=== PATIENT | female | born 1935 | race Caucasian/White ===

== ENCOUNTER → 2016-11-12 | Outpatient (REF) | payer MEDICARE, OTHER ==
[~2016-11-12] MED LIST: AMBI5TAB PO; AMO500 PO; AMP500 PO; ASP325 PO; ASPI81TA83; BACTRIMDS PO; CALC600T21 PO; CALCITROL PO; CANE; CIPR500T4; CIPR500T89 PO; CIPRO250 PO; CIPRO500 PO; COLA100C PO; COUMADIN PO; COUMADIN5 PO; DARVOCET-N PO; DILA100C; DILA100C PO; DILAN100 PO; DILANTIN PO; FERR140T PO; FOLITAB11 OR; KLORCON20 PO; LACT10SO29 PO; LASI20TA PO; LASI40TA; LASIX40 PO; LEVOTH PO; LEVOXYL PO; LISINOPR20 PO; LOVENOX SQ; LUTE20TA PO; MICRO K EXTENCAPS; NORV5TAB PO; PANT40TA2 PO; PERCOCET PO; SUCR1TA PO; SYNT100T PO; SYNT88TA; TUSSIONEX PO; TYLE325T5 PO; TYLE650T25 PO; VALTREX100 PO; VASOTEC10 PO; VASOTEC5 PO; VITA100072 PO; VITA1CAP4 PO; VITA50TA12; VITAMIN D2 OR; VITAMIN D2 PO; WARF-21 PO; WARF-22 PO; WOMAN VITAMIN OR; ZOCO20TA PO; [UNRECOGNIZED DRUG - CODE] PO
[2016-11-12 11:34] LABS: BASO % 0.5 % (0.0-1.0); EOS # 0.1 K/mm3 (0.0-0.50); EOS % 2.2 % (0.0-3.0); LARGE UNSTAINED CELL # 0.2 K/mm3 (0.0-0.4); LARGE UNSTAINED CELL % 2.8 % (0.0-4.0); LYMPH # 1.4 K/mm3 (1.5-4.5); LYMPH % 22.2 % (24.0-44.0); MEAN CORPUSCULAR HEMOGLOBIN 30.7 pg (27.0-33.0); MEAN CORPUSCULAR HGB CONC 32.7 g/dl (32.0-36.5); MEAN CORPUSCULAR VOLUME 93.9 fl (80.0-96.0); MONO # 0.5 K/mm3 (0.0-0.8); MONO % 7.1 % (0.0-5.0); NEUTROPHILS # 4.1 K/mm3 (1.8-7.7); NEUTROPHILS % 65.2 % (36.0-66.0); PLATELET COUNT, AUTOMATED 189 k/mm3 (150-450); RED CELL DISTRIBUTION WIDTH 12.8 % (11.5-14.5); WHITE BLOOD COUNT 6.3 K/mm3 (4.0-10.0)
[2016-11-12 11:35] LABS: INR 1.89
[2016-11-12 12:09] LABS: ALBUMIN/GLOBULIN RATIO 1.67 (1.00-1.93); BILIRUBIN,TOTAL 0.2 MG/DL (0.2-1.0); CALCIUM LEVEL 9.4 MG/DL (8.8-10.2); CREATININE FOR GFR 1.57 MG/DL (0.55-1.02); FREE T4 0.9 NG/DL (0.76-1.46); GLOMERULAR FILTRATION RATE 33.7 (>32); PERCENT SATURATION 45.9 % (13.2-37.4); POTASSIUM SERUM 5.1 MEQ/L (3.5-5.1); TOTAL PROTEIN 6.4 GM/DL (6.4-8.2)
== END ==
LOC: M SFHCPLAZ 08:45
PROVIDERS: ATTEND Family Medicine
DX: D50.9 Iron deficiency anemia, unspecified (principal); N18.3 Chronic kidney disease, stage 3 (moderate); E03.9 Hypothyroidism, unspecified; Z79.01 Long term (current) use of anticoagulants

== ENCOUNTER → 2017-01-08 | Outpatient (REF) | payer MEDICARE, OTHER ==
[2017-01-08 10:58] LABS: BASO % 0.6 % (0.0-1.0); EOS # 0.2 K/mm3 (0.0-0.50); EOS % 3.8 % (0.0-3.0); LARGE UNSTAINED CELL # 0.1 K/mm3 (0.0-0.4); LARGE UNSTAINED CELL % 2.1 % (0.0-4.0); LYMPH # 1.1 K/mm3 (1.5-4.5); LYMPH % 17.3 % (24.0-44.0); MEAN CORPUSCULAR HEMOGLOBIN 30.1 pg (27.0-33.0); MEAN CORPUSCULAR HGB CONC 32.9 g/dl (32.0-36.5); MEAN CORPUSCULAR VOLUME 91.4 fl (80.0-96.0); MONO # 0.5 K/mm3 (0.0-0.8); MONO % 8.6 % (0.0-5.0); NEUTROPHILS # 3.9 K/mm3 (1.8-7.7); NEUTROPHILS % 67.6 % (36.0-66.0); PLATELET COUNT, AUTOMATED 188 k/mm3 (150-450); RED CELL DISTRIBUTION WIDTH 12.9 % (11.5-14.5); WHITE BLOOD COUNT 5.8 K/mm3 (4.0-10.0)
[2017-01-08 11:20] LABS: FERRITIN 13 NG/ML (8-252)
== END ==
LOC: M SFHCPLAZ 09:05
PROVIDERS: ATTEND Family Medicine
DX: R07.9 Chest pain, unspecified (principal); I82.4Y9 Acute embolism and thrombosis of unspecified deep veins of unspecified proximal lower extremity; Z51.81 Encounter for therapeutic drug level monitoring; Z79.01 Long term (current) use of anticoagulants; Z79.899 Other long term (current) drug therapy
CPT/HCPCS: 36415; 82550; 82553; 82728; 84484; 85025; 85379; 85610; 93005; G0463

== ENCOUNTER → 2017-03-17 | Outpatient (REF) | payer MEDICARE, OTHER ==
[~2017-03-17] MED LIST changes: -COLA100C PO; +COLA100C3 PO
[2017-03-17 11:58] LABS: BASO % 0.6 % (0.0-1.0); EOS # 0.2 K/mm3 (0.0-0.50); LARGE UNSTAINED CELL # 0.1 K/mm3 (0.0-0.4); LARGE UNSTAINED CELL % 2.7 % (0.0-4.0); LYMPH # 1.2 K/mm3 (1.5-4.5); LYMPH % 23.6 % (24.0-44.0); MEAN CORPUSCULAR HEMOGLOBIN 29.5 pg (27.0-33.0); MEAN CORPUSCULAR HGB CONC 32.1 g/dl (32.0-36.5); MEAN CORPUSCULAR VOLUME 91.8 fl (80.0-96.0); MONO # 0.5 K/mm3 (0.0-0.8); MONO % 9.8 % (0.0-5.0); NEUTROPHILS % 60.2 % (36.0-66.0); PLATELET COUNT, AUTOMATED 217 k/mm3 (150-450); RED CELL DISTRIBUTION WIDTH 13.3 % (11.5-14.5); WHITE BLOOD COUNT 4.9 K/mm3 (4.0-10.0)
[2017-03-17 12:00] LABS: INR 2.12
[2017-03-17 12:15] LABS: ALBUMIN 3.7 GM/DL (3.2-5.2); ALBUMIN/GLOBULIN RATIO 1.32 (1.00-1.93); BILIRUBIN,TOTAL 0.2 MG/DL (0.2-1.0); CALCIUM LEVEL 8.6 MG/DL (8.8-10.2); CREATININE FOR GFR 1.4 MG/DL (0.55-1.02); FREE T4 0.9 NG/DL (0.76-1.46); GLOMERULAR FILTRATION RATE 38.3 (>32); POTASSIUM SERUM 4.2 MEQ/L (3.5-5.1); TOTAL PROTEIN 6.5 GM/DL (6.4-8.2)
== END ==
LOC: M SFHCPLAZ 08:09
PROVIDERS: ATTEND Family Medicine
DX: D50.9 Iron deficiency anemia, unspecified (principal); N18.3 Chronic kidney disease, stage 3 (moderate); E03.9 Hypothyroidism, unspecified; E78.5 Hyperlipidemia, unspecified; I82.4Y9 Acute embolism and thrombosis of unspecified deep veins of unspecified proximal lower extremity

== ENCOUNTER → 2017-03-20 | Outpatient (REF) | payer MEDICARE, OTHER ==
[~2017-03-20] MED LIST changes: +CALC600T27 PO
[2017-03-20 13:12] LABS: BASO % 0.7 % (0.0-1.0); EOS # 0.1 K/mm3 (0.0-0.50); EOS % 1.1 % (0.0-3.0); LARGE UNSTAINED CELL # 0.2 K/mm3 (0.0-0.4); LARGE UNSTAINED CELL % 2.4 % (0.0-4.0); LYMPH # 1.5 K/mm3 (1.5-4.5); LYMPH % 21.8 % (24.0-44.0); MEAN CORPUSCULAR HEMOGLOBIN 28.9 pg (27.0-33.0); MEAN CORPUSCULAR HGB CONC 32.5 g/dl (32.0-36.5); MEAN CORPUSCULAR VOLUME 88.8 fl (80.0-96.0); MONO # 0.5 K/mm3 (0.0-0.8); NEUTROPHILS % 65.9 % (36.0-66.0); PLATELET COUNT, AUTOMATED 208 k/mm3 (150-450); RED CELL DISTRIBUTION WIDTH 13.5 % (11.5-14.5); WHITE BLOOD COUNT 6.1 K/mm3 (4.0-10.0)
[2017-03-20 13:20] LABS: INR 2.26
[2017-03-20 13:28] LABS: ALBUMIN 3.9 GM/DL (3.2-5.2); ALBUMIN/GLOBULIN RATIO 1.34 (1.00-1.93); BILIRUBIN,TOTAL 0.2 MG/DL (0.2-1.0); CALCIUM LEVEL 8.7 MG/DL (8.8-10.2); CREATININE FOR GFR 1.42 MG/DL (0.55-1.02); GLOMERULAR FILTRATION RATE 37.7 (>32); POTASSIUM SERUM 4.2 MEQ/L (3.5-5.1); TOTAL PROTEIN 6.8 GM/DL (6.4-8.2)
== END ==
LOC: M SFHCPLAZ 13:04
PROVIDERS: ATTEND Family Medicine
DX: K27.9 Peptic ulcer, site unspecified, unspecified as acute or chronic, without hemorrhage or perforation (principal)
CPT/HCPCS: 80053; 85025; 85610; 85730; G0463

== ENCOUNTER → 2017-03-23 | Outpatient (REF) | payer MEDICARE, OTHER ==
[2017-03-23 09:59] LABS: BASO % 0.6 % (0.0-1.0); EOS # 0.1 K/mm3 (0.0-0.50); LARGE UNSTAINED CELL # 0.1 K/mm3 (0.0-0.4); LARGE UNSTAINED CELL % 2.2 % (0.0-4.0); LYMPH # 0.8 K/mm3 (1.5-4.5); LYMPH % 15.2 % (24.0-44.0); MEAN CORPUSCULAR HEMOGLOBIN 29.3 pg (27.0-33.0); MEAN CORPUSCULAR HGB CONC 32.4 g/dl (32.0-36.5); MEAN CORPUSCULAR VOLUME 90.4 fl (80.0-96.0); MONO # 0.5 K/mm3 (0.0-0.8); MONO % 9.4 % (0.0-5.0); NEUTROPHILS # 3.6 K/mm3 (1.8-7.7); NEUTROPHILS % 70.6 % (36.0-66.0); PLATELET COUNT, AUTOMATED 198 k/mm3 (150-450); RED CELL DISTRIBUTION WIDTH 13.3 % (11.5-14.5)
[2017-03-23 10:17] LABS: INR 1.24
== END ==
LOC: M SFHCPLAZ 09:17
PROVIDERS: ATTEND Physician Assistant Medical
DX: D50.9 Iron deficiency anemia, unspecified (principal); I82.4Y9 Acute embolism and thrombosis of unspecified deep veins of unspecified proximal lower extremity
CPT/HCPCS: 36415; 85025; 85610; 85730; G0463

== ENCOUNTER → 2017-04-06 | Outpatient (CLI) | payer MEDICARE, OTHER | LOC: M LAB 17:10 | PROVIDERS: ATTEND Family Medicine | DX: D50.9 Iron deficiency anemia, unspecified (principal); E03.9 Hypothyroidism, unspecified; K27.9 Peptic ulcer, site unspecified, unspecified as acute or chronic, without hemorrhage or perforation; G40.909 Epilepsy, unspecified, not intractable, without status epilepticus; I82.4Y9 Acute embolism and thrombosis of unspecified deep veins of unspecified proximal lower extremity; C18.9 Malignant neoplasm of colon, unspecified | CPT/HCPCS: 36415; 80185; 82378; 82728; 83550; 84439; 84443; 85025; 85610; 85730; 86677; 86850; 86900; 86901; 86920; G0463 ==

== ENCOUNTER → 2017-04-06 | Outpatient (REF) | payer MEDICARE, OTHER ==
[2017-04-06 14:14] LABS: INR 1.01
[2017-04-06 14:27] LABS: FREE T4 1.18 NG/DL (0.76-1.46); PERCENT SATURATION 6.9 % (13.2-37.4)
[2017-04-06 14:28] LABS: BASO % 0.6 % (0.0-1.0); EOS # 0.1 K/mm3 (0.0-0.50); EOS % 1.6 % (0.0-3.0); LARGE UNSTAINED CELL # 0.1 K/mm3 (0.0-0.4); LARGE UNSTAINED CELL % 1.8 % (0.0-4.0); LYMPH # 1.1 K/mm3 (1.5-4.5); LYMPH % 18.8 % (24.0-44.0); MEAN CORPUSCULAR HEMOGLOBIN 28.7 pg (27.0-33.0); MEAN CORPUSCULAR HGB CONC 32.5 g/dl (32.0-36.5); MEAN CORPUSCULAR VOLUME 88.4 fl (80.0-96.0); MONO # 0.5 K/mm3 (0.0-0.8); MONO % 9.6 % (0.0-5.0); NEUTROPHILS # 3.8 K/mm3 (1.8-7.7); NEUTROPHILS % 67.6 % (36.0-66.0); PLATELET COUNT, AUTOMATED 221 k/mm3 (150-450); RED CELL DISTRIBUTION WIDTH 13.7 % (11.5-14.5); WHITE BLOOD COUNT 5.6 K/mm3 (4.0-10.0)
[2017-04-07 08:30] LABS: CARCINOEMBRYONIC ANTIGEN 3.2 NG/ML (<2.5)
== END ==
LOC: M SFHCPLAZ 10:12
PROVIDERS: ATTEND Family Medicine
DX: D50.9 Iron deficiency anemia, unspecified (principal); E03.9 Hypothyroidism, unspecified; K27.9 Peptic ulcer, site unspecified, unspecified as acute or chronic, without hemorrhage or perforation; G40.909 Epilepsy, unspecified, not intractable, without status epilepticus; I82.4Y9 Acute embolism and thrombosis of unspecified deep veins of unspecified proximal lower extremity; C18.9 Malignant neoplasm of colon, unspecified

== ENCOUNTER 2017-04-07 10:24 | Outpatient (CLI) | payer MEDICARE, OTHER ==
[~2017-04-07 10:24] MED LIST changes: -CALC600T27 PO
[2017-04-07] MEDS ORDERED: FUROSEMIDE 40 MG/4 ML VIAL (J1940) IV ONE (10:45)
[2017-04-07] MEDS ORDERED: CALC600T27 PO (15:36)
== END 2017-04-07 15:10 | disposition home or self-care (01) ==
LOC: M INFU 10:24
PROVIDERS: ATTEND Family Medicine
DX: D50.9 Iron deficiency anemia, unspecified (principal); Z88.1 Allergy status to other antibiotic agents; Z88.2 Allergy status to sulfonamides
CPT/HCPCS: 36430; J1940; P9016

== ENCOUNTER → 2017-04-13 | Outpatient (REF) | payer MEDICARE, OTHER ==
[~2017-04-13] MED LIST changes: +ALPR0.25 PO; +CALC1CAP31 PO; -CALC600T21 PO; +CALC600T27 PO; +CALC600T60 PO; +CIPR-249 PO; -CIPR500T89 PO; -COLA100C3 PO; +COLA100C5 PO; +FOLI800C PO; +MULT1TAB10 PO; +SIMV40TA2 PO; +VITA-137 PO; -VITA1CAP4 PO
== END ==
LOC: M SFHCPLAZ 16:55
PROVIDERS: ATTEND Physician Assistant Medical
DX: R07.89 Other chest pain (principal)
CPT/HCPCS: 36415; 82550; 82553; 84484; G0463

== ENCOUNTER → 2017-05-07 | Outpatient (REF) | payer MEDICARE, OTHER ==
[2017-05-07 11:36] LABS: BASO % 0.7 % (0.0-1.0); EOS # 0.1 K/mm3 (0.0-0.50); EOS % 1.4 % (0.0-3.0); LARGE UNSTAINED CELL # 0.2 K/mm3 (0.0-0.4); LARGE UNSTAINED CELL % 2.5 % (0.0-4.0); LYMPH % 17.2 % (24.0-44.0); MEAN CORPUSCULAR HEMOGLOBIN 29.7 pg (27.0-33.0); MEAN CORPUSCULAR HGB CONC 33.2 g/dl (32.0-36.5); MEAN CORPUSCULAR VOLUME 89.3 fl (80.0-96.0); MONO # 0.5 K/mm3 (0.0-0.8); MONO % 8.5 % (0.0-5.0); NEUTROPHILS # 4.1 K/mm3 (1.8-7.7); NEUTROPHILS % 69.7 % (36.0-66.0); PLATELET COUNT, AUTOMATED 172 k/mm3 (150-450); RED CELL DISTRIBUTION WIDTH 14.6 % (11.5-14.5); WHITE BLOOD COUNT 5.9 K/mm3 (4.0-10.0)
[2017-05-07 11:58] LABS: ALBUMIN 3.9 GM/DL (3.2-5.2); ALBUMIN/GLOBULIN RATIO 1.44 (1.00-1.93); BILIRUBIN,TOTAL 0.4 MG/DL (0.2-1.0); CREATININE FOR GFR 1.27 MG/DL (0.55-1.02); GLOMERULAR FILTRATION RATE 42.9 (>32); PERCENT SATURATION 36.5 % (13.2-37.4); POTASSIUM SERUM 4.2 MEQ/L (3.5-5.1); TOTAL PROTEIN 6.6 GM/DL (6.4-8.2)
== END ==
LOC: M SFHCPLAZ 09:55
PROVIDERS: ATTEND Family Medicine
DX: D50.9 Iron deficiency anemia, unspecified (principal)
CPT/HCPCS: 80053; 82728; 83550; 85025; G0463

== ENCOUNTER 2017-05-09 17:17 | Emergency (ER) | payer MEDICARE, OTHER ==
[~2017-05-09] VITALS: Ht 157.5 cm; Wt 79.1 kg
--- NOTE | 2017-05-09 21:01 | REP ---
Clinical: Bilateral lower extremity pain and swelling . Technique: Mason scale and color Doppler evaluation using linear high frequency transducer. Findings: Ultrasound examination of the right and left lower extremity deep venous structures from the common femoral vein to the popliteal vein demonstrates normal compressibility flow and wave patterns in response to respiration and augmentation. There is no evidence for deep venous thrombosis. Impression: No evidence for deep venous thrombosis bilateral lower extremities. Signed by Nilo Whitten MD 05/09/2017 08:51 P
--- NOTE | 2017-05-09 21:13 | REP ---
Clinical: Shortness of breath. Technique: PA and lateral. Comparison: 03/27/2016. Findings: A subtle lobulated right infrahilar opacity cannot be excluded. Mediastinum and cardiac silhouette are stable. The remainder of lung brandon demonstrate diffuse chronic changes. No effusion. No pneumothorax. Skeletal structures demonstrate osteopenia and degenerative change. Impression: Cannot exclude subtle lobulated right infrahilar opacity. Signed by Nilo Whitten MD 05/09/2017 09:05 P
[2017-05-09 21:21] LABS: BASO # 0.1 K/mm3 (0.0-0.2); BASO % 1.2 % (0.0-1.0); EOS # 0.1 K/mm3 (0.0-0.50); LARGE UNSTAINED CELL # 0.1 K/mm3 (0.0-0.4); LARGE UNSTAINED CELL % 2.1 % (0.0-4.0); LYMPH # 1.7 K/mm3 (1.5-4.5); LYMPH % 25.2 % (24.0-44.0); MEAN CORPUSCULAR HEMOGLOBIN 29.8 pg (27.0-33.0); MEAN CORPUSCULAR HGB CONC 33.9 g/dl (32.0-36.5); MEAN CORPUSCULAR VOLUME 87.8 fl (80.0-96.0); MONO # 0.5 K/mm3 (0.0-0.8); MONO % 8.4 % (0.0-5.0); NEUTROPHILS # 3.8 K/mm3 (1.8-7.7); NEUTROPHILS % 61.1 % (36.0-66.0); PLATELET COUNT, AUTOMATED 162 k/mm3 (150-450); RED CELL DISTRIBUTION WIDTH 14.8 % (11.5-14.5); WHITE BLOOD COUNT 6.2 K/mm3 (4.0-10.0)
--- NOTE | 2017-05-09 21:30 | ECGEPIP ---
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
[2017-05-09 21:32] LABS: INR 1.04
[2017-05-09 21:50] LABS: ANION GAP 6 MEQ/L (8-16); BLOOD UREA NITROGEN 17 MG/DL (7-18); CARBON DIOXIDE LEVEL 29 MEQ/L (21-32); CHLORIDE LEVEL 102 MEQ/L (98-107); CREATININE FOR GFR 1.22 MG/DL (0.55-1.02); FREE T4 1.11 NG/DL (0.76-1.46); GLOMERULAR FILTRATION RATE 44.9 (>32); GLUCOSE, FASTING 97 MG/DL (83-110); POTASSIUM SERUM 3.8 MEQ/L (3.5-5.1); SODIUM LEVEL 137 MEQ/L (136-145)
--- NOTE | 2017-05-09 23:20 | REPUSA ---
CT of the chest without contrast Clinical statement: right ingrahilar opacity. Technique: Multiple axial CT images were obtained with 5 mm cuts through the chest without administra tion of contrast. Comparison: 07/24/2008. Findings: There is no thoracic lymphadenopathy. The visualized portions of the thyroid gland is unrem arkable. There are no pericardial or pleural effusions. The lungs are clear, other than linear scarri ng in the lingula of the lung. Limited imaging of the upper abdomen does not demonstrate any acute ab normalities. Multiple simple cysts are seen in the kidneys bilaterally. There are no suspicious osseo us lesions. Impression: No acute intrapulmonary disease.
[2017-05-09 23:35] VITALS: BP 151/70
--- NOTE | 2017-05-11 11:56 | ED PDOC ---
Post-Departure Follow-Up dr ferraro faxed formal report of cxr for fu redg Jermaine Harris MD May 11, 2017 11:56
== END 2017-05-09 23:42 | disposition home or self-care (01) ==
LOC: M ED 17:17
DX: R60.0 Localized edema (principal); R06.02 Shortness of breath; I12.9 Hypertensive chronic kidney disease with stage 1 through stage 4 chronic kidney disease, or unspecified chronic kidney disease; N18.9 Chronic kidney disease, unspecified; Z86.718 Personal history of other venous thrombosis and embolism

== ENCOUNTER → 2017-05-15 | Outpatient (CLI) | payer MEDICARE, OTHER ==
[~2017-05-15] VITALS: Ht 160 cm; Wt 78.9 kg
[~2017-05-15] MED LIST changes: +LIDOCAINE 2% INJ 100 MG/5 ML SDV (FOR ANES.) As Ordered ONE; +NS 500 ML IV SCH; +PROPOFOL 200 MG/20 ML VIAL As Ordered ONE; +SIMETHICONE 40MG/0.6ML DROPS 30ML As Ordered ONE
--- NOTE | 2017-05-15 08:09 | ROOR ---
Patient Name: Akanksha Dupont Procedure Date: 05/15/2017 7:33 AM Date of : 1935 Age: 81 Room: [facility] Gender: Female Note Status: Finalized Procedure: Upper GI endoscopy Indications: Iron deficiency anemia Providers: Miguel Angel WILDE MD Referring MD: Jaime Sifuentes MD Requesting Provider: Medicines: Monitored Anesthesia Care Complications: No immediate complications. Procedure: Pre-Anesthesia Assessment: - The heart rate, respiratory rate, oxygen saturations, blood pressure, adequacy of pulmonary ventilation, and response to care were monitored throughout the procedure. The Endoscope was introduced through the mouth, and advanced to the second part of duodenum. The upper GI endoscopy was accomplished without difficulty. The patient tolerated the procedure well. Findings: The examined esophagus was normal. Multiple small no bleeding angioectasias were found in the gastric antrum. Focal radiofrequency ablation of gastric antral vascular ectasia in the gastric antrum was performed. With the endoscope in place, the position and extent of the abnormal mucosa and appropriate anatomic landmarks were noted. The radiofrequency channel ablation catheter was introduced through the endoscope working channel. The endoscope with the ablation catheter was advanced to the areas of abnormal mucosa. The endoscope with the channel ablation catheter was positioned under direct visualization so that the catheter was placed in contact with the surface of the abnormal mucosa. Energy was applied twice at 12 J/cm2. The ablation catheter was removed through the endoscope working channel. The areas where abnormal mucosa had been ablated were examined. Areas of abnormal mucosa appeared completely ablated. The exam of the stomach was otherwise normal. The examined duodenum was normal. Impression: - Normal esophagus. - Multiple small non-bleeding angioectasias in the antrum of stomach (mild GAVE). Treated with radiofrequency ablation. - Normal examined duodenum. - No specimens collected. Recommendation: - Observe patient's clinical course. Repeat treatment if iron deficit persists. - Use Protonix (pantoprazole) 40 mg PO daily. - Return to my office in 2 months. Miguel Angel Wilde MD Miguel Angel WILDE MD 05/15/2017 8:08:41 AM This report has been signed electronically. Number of Addenda: 0 Note Initiated On: 05/15/2017 7:33 AM Estimated Blood Loss: Estimated blood loss: none.
--- NOTE | 2017-05-15 08:23 | ROOR ---
Patient Name: Akanksha Dupont Procedure Date: 05/15/2017 7:34 AM Date of : 1935 Age: 81 Room: [facility] Gender: Female Note Status: Finalized Procedure: Colonoscopy Indications: Heme positive stool, Iron deficiency anemia Providers: Miguel Angel WILDE MD Referring MD: Jaime Sifuentes MD Requesting Provider: Medicines: Monitored Anesthesia Care Complications: No immediate complications. Procedure: Pre-Anesthesia Assessment: - The heart rate, respiratory rate, oxygen saturations, blood pressure, adequacy of pulmonary ventilation, and response to care were monitored throughout the procedure. The Colonoscope was introduced through the anus and advanced to the ileocolonic anastomosis. The colonoscopy was performed without difficulty. The patient tolerated the procedure well. The quality of the bowel preparation was good. Findings: The perianal and digital rectal examinations were normal. Multiple medium-mouthed diverticula were found in the sigmoid colon. A 5 mm polyp was found in the transverse colon. The polyp was sessile. The polyp was removed with a cold snare. Resection and retrieval were complete. There was evidence of a prior functional end-to-end ileo-colonic anastomosis in the transverse colon. This was patent and was characterized by healthy appearing mucosa. Internal hemorrhoids were found during retroflexion. The hemorrhoids were medium-sized. The exam was otherwise without abnormality on direct and retroflexion views. Impression: - Moderate diverticulosis in the sigmoid colon. - One 5 mm polyp in the transverse colon, removed with a cold snare. Resected and retrieved. - Patent functional end-to-end ileo-colonic anastomosis, characterized by healthy appearing mucosa. - Internal hemorrhoids. - The examination was otherwise normal on direct and retroflexion views. Recommendation: - Return to my office in 2 months. - Depending on repeat H&H will consider repeat EGD for repeat ablation of GAVE and/or Small bowel Capsule/Pillcam Miguel Angel Wilde MD Miguel Angel WILDE MD 05/15/2017 8:23:06 AM This report has been signed electronically. Number of Addenda: 0 Note Initiated On: 05/15/2017 7:34 AM Estimated Blood Loss: Estimated blood loss: none.
[2017-05-15 08:46] VITALS: BP 127/76
== END | disposition home or self-care (01) ==
LOC: M OPP 06:46
PROVIDERS: ATTEND Internal Medicine Gastroenterology
DX: R19.5 Other fecal abnormalities (principal); D50.9 Iron deficiency anemia, unspecified; D12.3 Benign neoplasm of transverse colon; K57.30 Diverticulosis of large intestine without perforation or abscess without bleeding; Z98.0 Intestinal bypass and anastomosis status; K64.8 Other hemorrhoids; K31.819 Angiodysplasia of stomach and duodenum without bleeding; I48.91 Unspecified atrial fibrillation; I12.9 Hypertensive chronic kidney disease with stage 1 through stage 4 chronic kidney disease, or unspecified chronic kidney disease; E78.5 Hyperlipidemia, unspecified; I99.9 Unspecified disorder of circulatory system; Z86.718 Personal history of other venous thrombosis and embolism; E03.9 Hypothyroidism, unspecified; Z87.19 Personal history of other diseases of the digestive system; Z85.038 Personal history of other malignant neoplasm of large intestine; R12 Heartburn; R06.02 Shortness of breath; M19.90 Unspecified osteoarthritis, unspecified site; N18.9 Chronic kidney disease, unspecified; H35.30 Unspecified macular degeneration; F41.9 Anxiety disorder, unspecified; Z87.891 Personal history of nicotine dependence; Z88.2 Allergy status to sulfonamides; Z88.8 Allergy status to other drugs, medicaments and biological substances; Z79.899 Other long term (current) drug therapy; Z80.9 Family history of malignant neoplasm, unspecified

== ENCOUNTER → 2017-05-26 | Outpatient (CLI) | payer MEDICARE, OTHER ==
[~2017-05-26] MED LIST changes: +E-Z-PAQUE 96% w/w SUSP 176GM BTL As Ordered ONE; -LIDOCAINE 2% INJ 100 MG/5 ML SDV (FOR ANES.) As Ordered ONE; -NS 500 ML IV SCH; -PROPOFOL 200 MG/20 ML VIAL As Ordered ONE; -SIMETHICONE 40MG/0.6ML DROPS 30ML As Ordered ONE
--- NOTE | 2017-05-26 17:47 | REP ---
SMALL BOWEL FOLLOW-THROUGH: The procedure was performed under the direct supervision of Dr. Mason. The images were reviewed with Dr. Mason. The agricultural engineering technician film shows no organomegaly or pathological masses. The intestinal gas pattern is nonspecific. There is an IVC filter in place. There are bowel sutures noted over the right abdomen consistent with the patients history of prior bowel resection. There are degenerative changes of the spine. Liquid barium was administered and the barium column was followed through the small bowel to the level of the terminal ileum. Small bowel transit time was approximately 1 hour. During fluoroscopy gentle palpation shows all loops are freely movable and pliable. There are no fixed or angulated loops. The small bowel mucosal pattern is normal in course and caliber. There is no transition to suspect a partial small bowel obstruction. Spot filming of the distal small bowel to the anastomosis is unremarkable. IMPRESSION: Postsurgical changes consistent with the patients history of bowel resection, otherwise unremarkable small bowel follow-through examination. 1 minutes and 9 seconds of fluoroscopy time was utilized for this procedure. Reviewed by ANN Aguiar 05/27/2017 01:44 PEdited and Signed by Luis Mason MD 05/28/2017 05:39 P
== END ==
LOC: M RAD 08:08
PROVIDERS: ATTEND Physician Assistant Medical
DX: D50.9 Iron deficiency anemia, unspecified (principal); Z85.038 Personal history of other malignant neoplasm of large intestine; Z08 Encounter for follow-up examination after completed treatment for malignant neoplasm

== ENCOUNTER → 2017-05-28 | Outpatient (REF) | payer MEDICARE, OTHER ==
[~2017-05-28] MED LIST changes: -E-Z-PAQUE 96% w/w SUSP 176GM BTL As Ordered ONE
[2017-05-28 11:55] LABS: BASO % 0.7 % (0.0-1.0); EOS # 0.1 K/mm3 (0.0-0.50); EOS % 2.8 % (0.0-3.0); LARGE UNSTAINED CELL # 0.1 K/mm3 (0.0-0.4); LARGE UNSTAINED CELL % 2.4 % (0.0-4.0); LYMPH # 0.9 K/mm3 (1.5-4.5); LYMPH % 16.4 % (24.0-44.0); MEAN CORPUSCULAR HEMOGLOBIN 29.7 pg (27.0-33.0); MEAN CORPUSCULAR HGB CONC 33.5 g/dl (32.0-36.5); MEAN CORPUSCULAR VOLUME 88.6 fl (80.0-96.0); MONO # 0.5 K/mm3 (0.0-0.8); MONO % 9.5 % (0.0-5.0); NEUTROPHILS # 3.5 K/mm3 (1.8-7.7); NEUTROPHILS % 68.2 % (36.0-66.0); PLATELET COUNT, AUTOMATED 187 k/mm3 (150-450); RED CELL DISTRIBUTION WIDTH 15.5 % (11.5-14.5); WHITE BLOOD COUNT 5.2 K/mm3 (4.0-10.0)
[2017-05-28 12:03] LABS: PERCENT SATURATION 19.4 % (13.2-37.4)
== END ==
LOC: M LABDRAWP 11:26
PROVIDERS: ATTEND Internal Medicine Gastroenterology
DX: D50.9 Iron deficiency anemia, unspecified (principal); I82.4Y9 Acute embolism and thrombosis of unspecified deep veins of unspecified proximal lower extremity

== ENCOUNTER → 2017-05-28 | Outpatient (REF) | payer MEDICARE, OTHER ==
[2017-05-28 11:52] LABS: BASO % 0.7 % (0.0-1.0); EOS # 0.2 K/mm3 (0.0-0.50); EOS % 2.8 % (0.0-3.0); LARGE UNSTAINED CELL # 0.1 K/mm3 (0.0-0.4); LARGE UNSTAINED CELL % 2.2 % (0.0-4.0); LYMPH # 0.9 K/mm3 (1.5-4.5); LYMPH % 16.9 % (24.0-44.0); MEAN CORPUSCULAR HEMOGLOBIN 30.1 pg (27.0-33.0); MEAN CORPUSCULAR VOLUME 88.6 fl (80.0-96.0); MONO # 0.5 K/mm3 (0.0-0.8); MONO % 8.2 % (0.0-5.0); NEUTROPHILS # 3.8 K/mm3 (1.8-7.7); NEUTROPHILS % 69.2 % (36.0-66.0); PLATELET COUNT, AUTOMATED 199 k/mm3 (150-450); RED CELL DISTRIBUTION WIDTH 15.3 % (11.5-14.5); WHITE BLOOD COUNT 5.6 K/mm3 (4.0-10.0)
[2017-05-28 12:07] LABS: ALBUMIN 3.8 GM/DL (3.2-5.2); ALBUMIN/GLOBULIN RATIO 1.58 (1.00-1.93); BILIRUBIN,TOTAL 0.2 MG/DL (0.2-1.0); CALCIUM LEVEL 8.9 MG/DL (8.8-10.2); CREATININE FOR GFR 1.06 MG/DL (0.55-1.02); GLOMERULAR FILTRATION RATE 52.8 (>32); PERCENT SATURATION 19.2 % (13.2-37.4); POTASSIUM SERUM 3.3 MEQ/L (3.5-5.1); TOTAL PROTEIN 6.2 GM/DL (6.4-8.2)
[2017-05-28 12:56] LABS: INR 1.76
== END ==
LOC: M SFHCPLAZ 08:40
PROVIDERS: ATTEND Family Medicine
DX: I82.4Y9 Acute embolism and thrombosis of unspecified deep veins of unspecified proximal lower extremity (principal); D50.9 Iron deficiency anemia, unspecified

== ENCOUNTER → 2017-07-09 | Outpatient (REF) | payer MEDICARE, OTHER ==
[2017-07-09 12:31] LABS: INR 1.48
[2017-07-09 12:48] LABS: BASO % 0.6 % (0.0-1.0); EOS # 0.1 K/mm3 (0.0-0.50); EOS % 1.8 % (0.0-3.0); LARGE UNSTAINED CELL # 0.1 K/mm3 (0.0-0.4); LARGE UNSTAINED CELL % 1.8 % (0.0-4.0); LYMPH # 1.1 K/mm3 (1.5-4.5); LYMPH % 19.3 % (24.0-44.0); MEAN CORPUSCULAR HEMOGLOBIN 30.4 pg (27.0-33.0); MEAN CORPUSCULAR HGB CONC 32.8 g/dl (32.0-36.5); MEAN CORPUSCULAR VOLUME 92.6 fl (80.0-96.0); MONO # 0.5 K/mm3 (0.0-0.8); MONO % 9.1 % (0.0-5.0); NEUTROPHILS # 3.6 K/mm3 (1.8-7.7); NEUTROPHILS % 67.5 % (36.0-66.0); PLATELET COUNT, AUTOMATED 199 k/mm3 (150-450); RED CELL DISTRIBUTION WIDTH 14.8 % (11.5-14.5); WHITE BLOOD COUNT 5.3 K/mm3 (4.0-10.0)
[2017-07-09 14:31] LABS: ALBUMIN 3.8 GM/DL (3.2-5.2); ALBUMIN/GLOBULIN RATIO 1.46 (1.00-1.93); BILIRUBIN,TOTAL 0.3 MG/DL (0.2-1.0); CALCIUM LEVEL 8.5 MG/DL (8.8-10.2); CREATININE FOR GFR 1.26 MG/DL (0.55-1.02); GLOMERULAR FILTRATION RATE 43.3 (>32); MAGNESIUM LEVEL 2.2 MG/DL (1.8-2.4); PERCENT SATURATION 17.9 % (13.2-45.0); POTASSIUM SERUM 3.9 MEQ/L (3.5-5.1); TOTAL PROTEIN 6.4 GM/DL (6.4-8.2)
== END ==
LOC: M SFHCPLAZ 09:43
PROVIDERS: ATTEND Family Medicine
DX: E53.8 Deficiency of other specified B group vitamins (principal); D50.9 Iron deficiency anemia, unspecified; I12.9 Hypertensive chronic kidney disease with stage 1 through stage 4 chronic kidney disease, or unspecified chronic kidney disease; N18.3 Chronic kidney disease, stage 3 (moderate)

== ENCOUNTER → 2017-10-30 | Outpatient (REF) | payer MEDICARE, OTHER ==
[2017-10-30 12:45] LABS: BASO # 0.1 10^3/uL (0.0-0.2); BASO % 0.8 % (0.0-1.0); EOS # 0.1 10^3/uL (0.0-0.50); EOS % 1.5 % (0.0-3.0); IMMATURE GRANULOCYTE % 0.3 % (0-0); LYMPH % 16.2 % (24.0-44.0); MEAN CORPUSCULAR HEMOGLOBIN 28.9 pg (27.0-33.0); MEAN CORPUSCULAR HGB CONC 32.7 g/dl (32.0-36.5); MEAN CORPUSCULAR VOLUME 88.4 fl (80.0-96.0); MONO # 0.6 10^3/uL (0.0-0.8); MONO % 10.3 % (0.0-5.0); NEUTROPHILS # 4.4 10^3/uL (1.8-7.7); NEUTROPHILS % 70.9 % (36.0-66.0); PLATELET COUNT, AUTOMATED 198 10^3/uL (150-450); RED CELL DISTRIBUTION WIDTH 14.1 % (11.5-14.5); RETIC HEMOGLOBIN EQUIVALENT 31.5 pg (24-36); RETICULOCYTE # 35.6 10^9/L (17-77); RETICULOCYTE % 1.1 % (0.5-1.5); WHITE BLOOD COUNT 6.2 10^3/uL (4.0-10.0)
[2017-10-30 13:36] LABS: ALBUMIN 4.1 GM/DL (3.2-5.2); ALBUMIN/GLOBULIN RATIO 1.58 (1.00-1.93); ALKALINE PHOSPHATASE 130 U/L (45-117); ALT/SGPT 31 U/L (12-78); ANION GAP 8 MEQ/L (8-16); AST/SGOT 37 U/L (7-37); BILIRUBIN,TOTAL 0.3 MG/DL (0.2-1.0); BLOOD UREA NITROGEN 32 MG/DL (7-18); CALCIUM LEVEL 8.7 MG/DL (8.8-10.2); CARBON DIOXIDE LEVEL 29 MEQ/L (21-32); CHLORIDE LEVEL 105 MEQ/L (98-107); CREATININE FOR GFR 1.38 MG/DL (0.55-1.02); FERRITIN 7 NG/ML (8-252); FREE T4 1.01 NG/DL (0.76-1.46); GLUCOSE, FASTING 95 MG/DL (83-110); POTASSIUM SERUM 4.4 MEQ/L (3.5-5.1); SODIUM LEVEL 142 MEQ/L (136-145); TOTAL PROTEIN 6.7 GM/DL (6.4-8.2)
== END ==
LOC: M SFHCPLAZ 10:13
DX: N18.3 Chronic kidney disease, stage 3 (moderate) (principal); D50.9 Iron deficiency anemia, unspecified; E03.9 Hypothyroidism, unspecified
CPT/HCPCS: 84443

== ENCOUNTER → 2017-12-15 | Outpatient (REF) | payer MEDICARE, OTHER ==
[2017-12-15 11:36] LABS: BASO % 0.6 % (0.0-1.0); EOS # 0.2 10^3/uL (0.0-0.50); EOS % 2.7 % (0.0-3.0); HEMATOCRIT 29.7 % (36.0-47.0); HEMOGLOBIN 9.7 g/dl (12.0-16.0); IMMATURE GRANULOCYTE % 0.3 % (0-3.0); LYMPH # 1.4 10^3/uL (1.5-4.5); LYMPH % 20.8 % (24.0-44.0); MEAN CORPUSCULAR HEMOGLOBIN 28.3 pg (27.0-33.0); MEAN CORPUSCULAR HGB CONC 32.7 g/dl (32.0-36.5); MEAN CORPUSCULAR VOLUME 86.6 fl (80.0-96.0); MONO # 0.7 10^3/uL (0.0-0.8); NEUTROPHILS # 4.4 10^3/uL (1.8-7.7); NEUTROPHILS % 64.6 % (36.0-66.0); PLATELET COUNT, AUTOMATED 212 10^3/uL (150-450); RED BLOOD COUNT 3.43 10^6/uL (4.00-5.40); RED CELL DISTRIBUTION WIDTH 14.7 % (11.5-14.5); RETIC HEMOGLOBIN EQUIVALENT 33.3 pg (24-36); RETICULOCYTE # 43.6 10^9/L (17-77); RETICULOCYTE % 1.3 % (0.5-1.5); WHITE BLOOD COUNT 6.7 10^3/uL (4.0-10.0)
[2017-12-15 11:48] LABS: INR 2.47; PROTHROMBIN TIME 27.7 SECONDS (12.4-14.5)
[2017-12-15 11:49] LABS: PARTIAL THROMBOPLASTIN TIME 31.7 SECONDS (26.8-37.9)
[2017-12-15 12:06] LABS: ALBUMIN 3.8 GM/DL (3.2-5.2); ANION GAP 6 MEQ/L (8-16); BLOOD UREA NITROGEN 26 MG/DL (7-18); CARBON DIOXIDE LEVEL 31 MEQ/L (21-32); CHLORIDE LEVEL 103 MEQ/L (98-107); CREATININE FOR GFR 1.46 MG/DL (0.55-1.30); GLOMERULAR FILTRATION RATE 36.5 (>32); GLUCOSE, FASTING 98 MG/DL (70-100); NT-PRO BNP 347 PG/ML (<450); PHOSPHORUS LEVEL 3.7 MG/DL (2.5-4.9); POTASSIUM SERUM 4.7 MEQ/L (3.5-5.1); SODIUM LEVEL 140 MEQ/L (136-145)
== END ==
LOC: M SFHCPLAZ 09:26
DX: I35.0 Nonrheumatic aortic (valve) stenosis (principal); D50.9 Iron deficiency anemia, unspecified
CPT/HCPCS: 80069

== ENCOUNTER → 2018-03-02 | Outpatient (REF) | payer MEDICARE, OTHER ==
[2018-03-02 12:21] LABS: BASO % 0.8 % (0.0-1.0); EOS # 0.2 10^3/uL (0.0-0.50); EOS % 3.4 % (0.0-3.0); HEMATOCRIT 27.2 % (36.0-47.0); HEMOGLOBIN 8.7 g/dl (12.0-15.5); IMMATURE GRANULOCYTE % 0.2 % (0-3.0); LYMPH # 1.1 10^3/uL (1.5-4.5); LYMPH % 22.7 % (24.0-44.0); MEAN CORPUSCULAR HEMOGLOBIN 28.2 pg (27.0-33.0); MEAN CORPUSCULAR VOLUME 88.3 fl (80.0-96.0); MONO # 0.6 10^3/uL (0.0-0.8); MONO % 11.7 % (0.0-5.0); NEUTROPHILS # 3.1 10^3/uL (1.8-7.7); NEUTROPHILS % 61.2 % (36.0-66.0); PLATELET COUNT, AUTOMATED 191 10^3/uL (150-450); RED BLOOD COUNT 3.08 10^6/uL (4.00-5.40); RETIC HEMOGLOBIN EQUIVALENT 29.4 pg (24-36); RETICULOCYTE # 38.5 10^9/L (17-77); RETICULOCYTE % 1.3 % (0.5-1.5)
[2018-03-02 12:38] LABS: INR 2.59; PARTIAL THROMBOPLASTIN TIME 34.8 SECONDS (26.8-37.9); PROTHROMBIN TIME 28.9 SECONDS (12.4-14.5); TOTAL 25(OH) VITAMIN D 30.5 NG/ML (30.0-100.0)
[2018-03-02 12:39] LABS: PTH INTACT 51.9 PG/ML (18.5-88.0); VITAMIN B12 LEVEL 1325 PG/ML (247-911)
[2018-03-02 12:45] LABS: ALBUMIN 3.7 GM/DL (3.2-5.2); ALBUMIN/GLOBULIN RATIO 1.28 (1.00-1.93); ALKALINE PHOSPHATASE 115 U/L (45-117); ALT/SGPT 35 U/L (12-78); ANION GAP 7 MEQ/L (8-16); AST/SGOT 41 U/L (7-37); BILIRUBIN,TOTAL 0.2 MG/DL (0.2-1.0); BLOOD UREA NITROGEN 32 MG/DL (7-18); CALCIUM LEVEL 8.7 MG/DL (8.8-10.2); CARBON DIOXIDE LEVEL 29 MEQ/L (21-32); CHLORIDE LEVEL 108 MEQ/L (98-107); CREATININE FOR GFR 1.44 MG/DL (0.55-1.30); FREE T4 0.98 NG/DL (0.76-1.46); GLUCOSE, FASTING 91 MG/DL (70-100); PHENYTOIN (DILANTIN) 12.3 UG/ML (10.0-20.0); POTASSIUM SERUM 4.3 MEQ/L (3.5-5.1); SODIUM LEVEL 144 MEQ/L (136-145); TOTAL PROTEIN 6.6 GM/DL (6.4-8.2)
== END ==
LOC: M SFHCPLAZ 09:40
DX: D50.9 Iron deficiency anemia, unspecified (principal); E55.9 Vitamin D deficiency, unspecified; I10 Essential (primary) hypertension; E03.9 Hypothyroidism, unspecified; G40.909 Epilepsy, unspecified, not intractable, without status epilepticus; I82.4Y9 Acute embolism and thrombosis of unspecified deep veins of unspecified proximal lower extremity
CPT/HCPCS: 80185

== ENCOUNTER 2018-03-03 12:47 | Outpatient (CLI) | payer MEDICARE, OTHER ==
[2018-03-03] MEDS: FUROSEMIDE 40 MG/4 ML VIAL (J1940) IV (17:56)
[2018-03-03 18:40] LABS: IMMEDIATE SPIN CROSSMATCH 1 2
== END 2018-03-03 21:20 | disposition home or self-care (01) ==
LOC: M OPCLI4PR 12:47 → M MS5PR 13:30 → M OPCLI4PR 21:20
DX: D64.9 Anemia, unspecified (principal)
CPT/HCPCS: 36430

== ENCOUNTER → 2018-03-08 | Outpatient (REF) | payer MEDICARE, OTHER ==
[2018-03-08 12:47] LABS: VITAMIN B12 LEVEL 1538 PG/ML (247-911)
[2018-03-08 12:48] LABS: BASO % 0.6 % (0.0-1.0); EOS # 0.1 10^3/uL (0.0-0.50); EOS % 1.8 % (0.0-3.0); HEMATOCRIT 35.6 % (36.0-47.0); HEMOGLOBIN 11.5 g/dl (12.0-15.5); IMMATURE GRANULOCYTE % 0.3 % (0-3.0); LYMPH # 1.1 10^3/uL (1.5-4.5); LYMPH % 17.4 % (24.0-44.0); MEAN CORPUSCULAR HEMOGLOBIN 27.6 pg (27.0-33.0); MEAN CORPUSCULAR HGB CONC 32.3 g/dl (32.0-36.5); MEAN CORPUSCULAR VOLUME 85.6 fl (80.0-96.0); MONO # 0.8 10^3/uL (0.0-0.8); MONO % 12.1 % (0.0-5.0); NEUTROPHILS # 4.2 10^3/uL (1.8-7.7); NEUTROPHILS % 67.8 % (36.0-66.0); PLATELET COUNT, AUTOMATED 185 10^3/uL (150-450); RED BLOOD COUNT 4.16 10^6/uL (4.00-5.40); RED CELL DISTRIBUTION WIDTH 15.2 % (11.5-14.5); RETIC HEMOGLOBIN EQUIVALENT 33.8 pg (24-36); RETICULOCYTE # 37.4 10^9/L (17-77); RETICULOCYTE % 0.9 % (0.5-1.5); WHITE BLOOD COUNT 6.2 10^3/uL (4.0-10.0)
[2018-03-08 12:59] LABS: INR 1.82; PROTHROMBIN TIME 21.6 SECONDS (12.4-14.5)
[2018-03-08 13:00] LABS: PARTIAL THROMBOPLASTIN TIME 46.6 SECONDS (26.8-37.9)
== END ==
LOC: M SFHCPLAZ 09:46
DX: D50.9 Iron deficiency anemia, unspecified (principal); Z79.01 Long term (current) use of anticoagulants
CPT/HCPCS: 82607

== ENCOUNTER 2018-03-16 06:47 | Day surgery (SDC) | payer MEDICARE, OTHER ==
[2018-03-16] MEDS: NS 1,000 ML IV (07:00)
[2018-03-16] MEDS ORDERED: LIDOCAINE 2% INJ 100 MG/5 ML SDV (FOR ANES.) As Ordered (07:07)
[2018-03-16] MEDS ORDERED: PROPOFOL 200 MG/20 ML VIAL As Ordered ×2 (07:07→07:08)
== END 2018-03-16 08:38 | disposition home or self-care (01) ==
LOC: M OPP 06:47
DX: D50.0 Iron deficiency anemia secondary to blood loss (chronic) (principal); K31.819 Angiodysplasia of stomach and duodenum without bleeding; E03.9 Hypothyroidism, unspecified; E78.00 Pure hypercholesterolemia, unspecified; M12.9 Arthropathy, unspecified; M81.0 Age-related osteoporosis without current pathological fracture; F41.9 Anxiety disorder, unspecified; N18.9 Chronic kidney disease, unspecified; I48.91 Unspecified atrial fibrillation; Z79.01 Long term (current) use of anticoagulants; Z79.899 Other long term (current) drug therapy; Z88.8 Allergy status to other drugs, medicaments and biological substances; Z86.69 Personal history of other diseases of the nervous system and sense organs; Z86.718 Personal history of other venous thrombosis and embolism; Z90.79 Acquired absence of other genital organ(s); Z95.828 Presence of other vascular implants and grafts; Z90.49 Acquired absence of other specified parts of digestive tract; Z82.49 Family history of ischemic heart disease and other diseases of the circulatory system; Z80.9 Family history of malignant neoplasm, unspecified
CPT/HCPCS: 43255

== ENCOUNTER → 2018-04-12 | Outpatient (REF) | payer MEDICARE, OTHER ==
[2018-04-12 12:38] LABS: BASO % 0.3 % (0.0-1.0); EOS # 0.2 10^3/uL (0.0-0.50); EOS % 2.8 % (0.0-3.0); HEMATOCRIT 32.1 % (36.0-47.0); HEMOGLOBIN 10.5 g/dl (12.0-15.5); IMMATURE GRANULOCYTE % 0.3 % (0-3.0); LYMPH # 1.2 10^3/uL (1.5-4.5); LYMPH % 20.5 % (24.0-44.0); MEAN CORPUSCULAR HEMOGLOBIN 28.3 pg (27.0-33.0); MEAN CORPUSCULAR HGB CONC 32.7 g/dl (32.0-36.5); MEAN CORPUSCULAR VOLUME 86.5 fl (80.0-96.0); MONO # 0.7 10^3/uL (0.0-0.8); NEUTROPHILS # 3.9 10^3/uL (1.8-7.7); NEUTROPHILS % 64.1 % (36.0-66.0); PLATELET COUNT, AUTOMATED 173 10^3/uL (150-450); RED BLOOD COUNT 3.71 10^6/uL (4.00-5.40); RETICULOCYTE % 1.1 % (0.5-1.5)
[2018-04-12 12:51] LABS: INR 2.31; PARTIAL THROMBOPLASTIN TIME 33.8 SECONDS (26.8-37.9); PROTHROMBIN TIME 26.3 SECONDS (12.4-14.5)
[2018-04-12 12:57] LABS: ALBUMIN 3.7 GM/DL (3.2-5.2); ANION GAP 9 MEQ/L (8-16); BLOOD UREA NITROGEN 32 MG/DL (7-18); CALCIUM LEVEL 8.8 MG/DL (8.8-10.2); CARBON DIOXIDE LEVEL 28 MEQ/L (21-32); CHLORIDE LEVEL 103 MEQ/L (98-107); CREATININE FOR GFR 1.38 MG/DL (0.55-1.30); GLOMERULAR FILTRATION RATE 38.9 (>32); GLUCOSE, FASTING 88 MG/DL (70-100); MAGNESIUM LEVEL 1.9 MG/DL (1.8-2.4); PHOSPHORUS LEVEL 3.2 MG/DL (2.5-4.9); POTASSIUM SERUM 4.3 MEQ/L (3.5-5.1); SODIUM LEVEL 140 MEQ/L (136-145)
== END ==
LOC: M SFHCPLAZ 09:57
DX: D50.9 Iron deficiency anemia, unspecified (principal); I35.0 Nonrheumatic aortic (valve) stenosis
CPT/HCPCS: 83735

== ENCOUNTER → 2018-05-11 | Outpatient (REF) | payer MEDICARE, OTHER ==
[2018-05-11 10:45] LABS: BASO % 0.7 % (0.0-1.0); EOS # 0.1 10^3/uL (0.0-0.50); EOS % 1.6 % (0.0-3.0); HEMATOCRIT 30.2 % (36.0-47.0); HEMOGLOBIN 10.2 g/dl (12.0-15.5); IMMATURE GRANULOCYTE % 0.3 % (0-3.0); LYMPH # 1.2 10^3/uL (1.5-4.5); LYMPH % 20.9 % (24.0-44.0); MEAN CORPUSCULAR HEMOGLOBIN 29.1 pg (27.0-33.0); MEAN CORPUSCULAR HGB CONC 33.8 g/dl (32.0-36.5); MEAN CORPUSCULAR VOLUME 86.3 fl (80.0-96.0); MONO # 0.7 10^3/uL (0.0-0.8); MONO % 11.9 % (0.0-5.0); NEUTROPHILS # 3.7 10^3/uL (1.8-7.7); NEUTROPHILS % 64.6 % (36.0-66.0); PLATELET COUNT, AUTOMATED 166 10^3/uL (150-450); RED CELL DISTRIBUTION WIDTH 17.1 % (11.5-14.5); RETIC HEMOGLOBIN EQUIVALENT 33.4 pg (24-36); RETICULOCYTE # 52.2 10^9/L (17-77); RETICULOCYTE % 1.5 % (0.5-1.5); WHITE BLOOD COUNT 5.7 10^3/uL (4.0-10.0)
[2018-05-11 10:56] LABS: INR 2.25; PROTHROMBIN TIME 25.3 SECONDS (12.1-14.4)
[2018-05-11 10:57] LABS: PARTIAL THROMBOPLASTIN TIME 33.8 SECONDS (25.4-37.6)
[2018-05-11 11:19] LABS: ALBUMIN 3.9 GM/DL (3.2-5.2); ANION GAP 9 MEQ/L (8-16); BLOOD UREA NITROGEN 36 MG/DL (7-18); CARBON DIOXIDE LEVEL 29 MEQ/L (21-32); CHLORIDE LEVEL 103 MEQ/L (98-107); CREATININE FOR GFR 1.55 MG/DL (0.55-1.30); GLUCOSE, FASTING 83 MG/DL (70-100); POTASSIUM SERUM 4.5 MEQ/L (3.5-5.1); SODIUM LEVEL 141 MEQ/L (136-145)
== END ==
LOC: M SFHCPLAZ 08:53
DX: D50.9 Iron deficiency anemia, unspecified (principal)
CPT/HCPCS: 80069

== ENCOUNTER → 2018-06-30 | Outpatient (REF) | payer MEDICARE, OTHER ==
[2018-06-30 12:15] LABS: BASO % 0.8 % (0.0-1.0); EOS # 0.1 10^3/uL (0.0-0.50); EOS % 2.3 % (0.0-3.0); HEMATOCRIT 29.7 % (36.0-47.0); HEMOGLOBIN 9.6 g/dl (12.0-15.5); IMMATURE GRANULOCYTE % 0.4 % (0-3.0); LYMPH # 1.2 10^3/uL (1.5-4.5); LYMPH % 22.3 % (24.0-44.0); MEAN CORPUSCULAR HEMOGLOBIN 29.8 pg (27.0-33.0); MEAN CORPUSCULAR HGB CONC 32.3 g/dl (32.0-36.5); MEAN CORPUSCULAR VOLUME 92.2 fl (80.0-96.0); MONO # 0.6 10^3/uL (0.0-0.8); MONO % 11.8 % (0.0-5.0); NEUTROPHILS # 3.2 10^3/uL (1.8-7.7); NEUTROPHILS % 62.4 % (36.0-66.0); PLATELET COUNT, AUTOMATED 186 10^3/uL (150-450); RED BLOOD COUNT 3.22 10^6/uL (4.00-5.40); RED CELL DISTRIBUTION WIDTH 13.9 % (11.5-14.5); WHITE BLOOD COUNT 5.2 10^3/uL (4.0-10.0)
[2018-06-30 12:40] LABS: INR 2.38; PARTIAL THROMBOPLASTIN TIME 33.3 SECONDS (25.4-37.6); PROTHROMBIN TIME 26.4 SECONDS (12.1-14.4)
[2018-06-30 14:18] LABS: PTH INTACT 37.4 PG/ML (18.5-88.0); TOTAL 25(OH) VITAMIN D 33.1 NG/ML (30.0-100.0); VITAMIN B12 LEVEL 870 PG/ML (247-911)
[2018-06-30 14:41] LABS: C REACTIVE PROTEIN QUANTITATIV < 0.30 MG/DL (0.00-0.30); CHOLESTEROL LEVEL 171 MG/DL (<200); CPK CREATINE PHOSPHOKINASE 72 U/L (26-192); HDL CHOLESTEROL 77 MG/DL (>40); LDL CHOLESTEROL 78.2 MG/DL (<100); NON-HDL-C 94 MG/DL; TRIGLYCERIDES LEVEL 79 MG/DL (<150)
== END ==
LOC: M SFHCPLAZ 09:25
DX: Z51.81 Encounter for therapeutic drug level monitoring (principal); D50.9 Iron deficiency anemia, unspecified; E78.5 Hyperlipidemia, unspecified; E55.9 Vitamin D deficiency, unspecified; Z79.899 Other long term (current) drug therapy
CPT/HCPCS: 82550

== ENCOUNTER → 2018-08-04 | Outpatient (REF) | payer MEDICARE, OTHER ==
[2018-08-04 12:15] LABS: BASO % 0.4 % (0.0-1.0); EOS # 0.1 10^3/uL (0.0-0.50); HEMATOCRIT 26.2 % (36.0-47.0); HEMOGLOBIN 8.4 g/dl (12.0-15.5); IMMATURE GRANULOCYTE % 0.3 % (0-3.0); LYMPH # 1.1 10^3/uL (1.5-4.5); LYMPH % 16.1 % (24.0-44.0); MEAN CORPUSCULAR HEMOGLOBIN 28.4 pg (27.0-33.0); MEAN CORPUSCULAR HGB CONC 32.1 g/dl (32.0-36.5); MEAN CORPUSCULAR VOLUME 88.5 fl (80.0-96.0); MONO # 0.9 10^3/uL (0.0-0.8); MONO % 12.4 % (0.0-5.0); NEUTROPHILS # 4.7 10^3/uL (1.8-7.7); NEUTROPHILS % 68.8 % (36.0-66.0); PLATELET COUNT, AUTOMATED 199 10^3/uL (150-450); RED BLOOD COUNT 2.96 10^6/uL (4.00-5.40); RED CELL DISTRIBUTION WIDTH 13.5 % (11.5-14.5); RETIC HEMOGLOBIN EQUIVALENT 28.5 pg (24-36); RETICULOCYTE # 35.8 10^9/L (17-77); RETICULOCYTE % 1.2 % (0.5-1.5); WHITE BLOOD COUNT 6.9 10^3/uL (4.0-10.0)
[2018-08-04 12:32] LABS: INR 3.38; PARTIAL THROMBOPLASTIN TIME 39.4 SECONDS (25.4-37.6)
[2018-08-04 13:18] LABS: ALBUMIN 3.4 GM/DL (3.2-5.2); ALBUMIN/GLOBULIN RATIO 1.13 (1.00-1.93); ALKALINE PHOSPHATASE 142 U/L (45-117); ALT/SGPT 31 U/L (12-78); ANION GAP 10 MEQ/L (8-16); AST/SGOT 37 U/L (7-37); BILIRUBIN,TOTAL 0.4 MG/DL (0.2-1.0); BLOOD UREA NITROGEN 31 MG/DL (7-18); CALCIUM LEVEL 8.3 MG/DL (8.8-10.2); CARBON DIOXIDE LEVEL 25 MEQ/L (21-32); CHLORIDE LEVEL 106 MEQ/L (98-107); CREATININE FOR GFR 1.36 MG/DL (0.55-1.30); GLOMERULAR FILTRATION RATE 39.5 (>32); GLUCOSE, FASTING 89 MG/DL (70-100); POTASSIUM SERUM 4.2 MEQ/L (3.5-5.1); SODIUM LEVEL 141 MEQ/L (136-145); TOTAL PROTEIN 6.4 GM/DL (6.4-8.2)
== END ==
LOC: M SFHCPLAZ 09:43
DX: N18.3 Chronic kidney disease, stage 3 (moderate) (principal); Z79.01 Long term (current) use of anticoagulants
CPT/HCPCS: 80053

== ENCOUNTER → 2018-08-09 | Outpatient (REF) | payer MEDICARE, OTHER ==
[2018-08-09 11:18] LABS: BASO % 0.4 % (0.0-1.0); EOS # 0.1 10^3/uL (0.0-0.50); EOS % 1.7 % (0.0-3.0); HEMATOCRIT 25.4 % (36.0-47.0); HEMOGLOBIN 8.1 g/dl (12.0-15.5); IMMATURE GRANULOCYTE % 0.4 % (0-3.0); LYMPH # 1.2 10^3/uL (1.5-4.5); LYMPH % 16.6 % (24.0-44.0); MEAN CORPUSCULAR HGB CONC 31.9 g/dl (32.0-36.5); MEAN CORPUSCULAR VOLUME 87.9 fl (80.0-96.0); MONO % 14.3 % (0.0-5.0); NEUTROPHILS # 4.7 10^3/uL (1.8-7.7); NEUTROPHILS % 66.6 % (36.0-66.0); PLATELET COUNT, AUTOMATED 218 10^3/uL (150-450); RED BLOOD COUNT 2.89 10^6/uL (4.00-5.40); RED CELL DISTRIBUTION WIDTH 13.3 % (11.5-14.5); RETICULOCYTE # 54.6 10^9/L (17-77); RETICULOCYTE % 1.9 % (0.5-1.5); WHITE BLOOD COUNT 7.1 10^3/uL (4.0-10.0)
[2018-08-09 11:28] LABS: INR 1.35; PROTHROMBIN TIME 16.9 SECONDS (12.1-14.4)
[2018-08-09 11:29] LABS: PARTIAL THROMBOPLASTIN TIME 29.2 SECONDS (25.4-37.6)
== END ==
LOC: M SFHCPLAZ 09:47
DX: I82.4Y9 Acute embolism and thrombosis of unspecified deep veins of unspecified proximal lower extremity (principal)
CPT/HCPCS: 85610

== ENCOUNTER 2018-08-10 11:55 | Outpatient (CLI) | payer MEDICARE, OTHER ==
[2018-08-10] MEDS: FUROSEMIDE 40 MG/4 ML VIAL (J1940) IV ×2 (17:10)
== END 2018-08-10 19:15 | disposition home or self-care (01) ==
LOC: M INFU 11:55
DX: D50.9 Iron deficiency anemia, unspecified (principal); Z88.1 Allergy status to other antibiotic agents
CPT/HCPCS: J1940

== ENCOUNTER → 2018-08-10 | Outpatient (CLI) | payer MEDICARE, OTHER ==
[2018-08-10 17:00] LABS: IMMEDIATE SPIN CROSSMATCH 1 2
== END ==
LOC: M LAB 11:53
DX: D50.9 Iron deficiency anemia, unspecified (principal); Z88.1 Allergy status to other antibiotic agents
CPT/HCPCS: 36430; J1940

== ENCOUNTER → 2018-08-17 | Outpatient (REF) | payer MEDICARE, OTHER ==
[2018-08-17 11:59] LABS: BASO # 0.1 10^3/uL (0.0-0.2); BASO % 0.7 % (0.0-1.0); EOS # 0.2 10^3/uL (0.0-0.50); EOS % 2.2 % (0.0-3.0); HEMATOCRIT 32.3 % (36.0-47.0); HEMOGLOBIN 10.4 g/dl (12.0-15.5); IMMATURE GRANULOCYTE % 0.3 % (0-3.0); LYMPH # 1.1 10^3/uL (1.5-4.5); LYMPH % 14.9 % (24.0-44.0); MEAN CORPUSCULAR HEMOGLOBIN 28.6 pg (27.0-33.0); MEAN CORPUSCULAR HGB CONC 32.2 g/dl (32.0-36.5); MEAN CORPUSCULAR VOLUME 88.7 fl (80.0-96.0); MONO # 0.9 10^3/uL (0.0-0.8); MONO % 12.7 % (0.0-5.0); NEUTROPHILS % 69.2 % (36.0-66.0); PLATELET COUNT, AUTOMATED 217 10^3/uL (150-450); RED BLOOD COUNT 3.64 10^6/uL (4.00-5.40); RED CELL DISTRIBUTION WIDTH 14.5 % (11.5-14.5); WHITE BLOOD COUNT 7.2 10^3/uL (4.0-10.0)
[2018-08-17 12:12] LABS: INR 2.25; PROTHROMBIN TIME 25.3 SECONDS (12.1-14.4)
[2018-08-17 12:50] LABS: ALBUMIN 3.4 GM/DL (3.2-5.2); ANION GAP 10 MEQ/L (8-16); BLOOD UREA NITROGEN 33 MG/DL (7-18); CALCIUM LEVEL 8.6 MG/DL (8.8-10.2); CARBON DIOXIDE LEVEL 26 MEQ/L (21-32); CHLORIDE LEVEL 105 MEQ/L (98-107); CREATININE FOR GFR 1.57 MG/DL (0.55-1.30); GLOMERULAR FILTRATION RATE 33.5 (>32); GLUCOSE, FASTING 87 MG/DL (70-100); PHOSPHORUS LEVEL 2.9 MG/DL (2.5-4.9); POTASSIUM SERUM 4.5 MEQ/L (3.5-5.1); SODIUM LEVEL 141 MEQ/L (136-145)
== END ==
LOC: M SFHCPLAZ 10:12
DX: D50.0 Iron deficiency anemia secondary to blood loss (chronic) (principal)
CPT/HCPCS: 80069

== ENCOUNTER 2018-08-18 11:23 | Outpatient (CLI) | payer MEDICARE, OTHER ==
[2018-08-18] MEDS: IRON SUCROSE 25 MG in NS 50 ML IV (12:11)
[2018-08-18] MEDS: IRON SUCROSE 475 MG in NS 250 ML IV (13:47)
== END 2018-08-18 17:15 | disposition home or self-care (01) ==
LOC: M INFU 11:23
DX: D50.9 Iron deficiency anemia, unspecified (principal); Z88.1 Allergy status to other antibiotic agents; Z88.2 Allergy status to sulfonamides; Z79.899 Other long term (current) drug therapy
CPT/HCPCS: J1756

== ENCOUNTER → 2018-09-06 | Outpatient (REF) | payer MEDICARE, OTHER ==
[2018-09-06 13:42] LABS: BASO % 0.3 % (0.0-1.0); EOS # 0.1 10^3/uL (0.0-0.50); EOS % 1.7 % (0.0-3.0); HEMATOCRIT 32.7 % (36.0-47.0); HEMOGLOBIN 10.4 g/dl (12.0-15.5); IMMATURE GRANULOCYTE % 0.3 % (0-3.0); LYMPH # 0.9 10^3/uL (1.5-4.5); LYMPH % 12.1 % (24.0-44.0); MEAN CORPUSCULAR HEMOGLOBIN 28.3 pg (27.0-33.0); MEAN CORPUSCULAR HGB CONC 31.8 g/dl (32.0-36.5); MEAN CORPUSCULAR VOLUME 89.1 fl (80.0-96.0); MONO # 0.9 10^3/uL (0.0-0.8); MONO % 12.6 % (0.0-5.0); NEUTROPHILS # 5.2 10^3/uL (1.8-7.7); PLATELET COUNT, AUTOMATED 202 10^3/uL (150-450); RED BLOOD COUNT 3.67 10^6/uL (4.00-5.40); RED CELL DISTRIBUTION WIDTH 15.5 % (11.5-14.5); WHITE BLOOD COUNT 7.1 10^3/uL (4.0-10.0)
[2018-09-06 13:53] LABS: INR 3.81; PROTHROMBIN TIME 38.5 SECONDS (12.1-14.4)
[2018-09-06 13:54] LABS: PARTIAL THROMBOPLASTIN TIME 41.4 SECONDS (25.4-37.6)
== END ==
LOC: M SFHCPLAZ 11:12
DX: D50.0 Iron deficiency anemia secondary to blood loss (chronic) (principal); Z51.81 Encounter for therapeutic drug level monitoring; Z79.01 Long term (current) use of anticoagulants; Z23 Encounter for immunization
CPT/HCPCS: 85610

== ENCOUNTER → 2018-10-12 | Outpatient (REF) | payer MEDICARE, OTHER ==
[~2018-10-12] MED LIST changes: -FERR140T PO; +FERR140T2 PO; -PANT40TA2 PO; +PANT40TA3 PO; +WARF4TAB52 PO; +XANA0.25 PO
[2018-10-12 13:46] LABS: INR 3.48; PROTHROMBIN TIME 35.8 SECONDS (12.1-14.4)
== END ==
LOC: M SFHCPLAZ 10:42
PROVIDERS: ATTEND Nurse Practitioner Family
DX: Z51.81 Encounter for therapeutic drug level monitoring (principal); Z79.01 Long term (current) use of anticoagulants

== ENCOUNTER → 2018-12-06 | Outpatient (REF) | payer MEDICARE, OTHER ==
[~2018-12-06] MED LIST changes: -LASI20TA PO; +LASI20TA3 PO
[2018-12-06 11:21] LABS: BASO % 0.7 % (0.0-1.0); EOS # 0.1 10^3/uL (0.0-0.50); EOS % 2.4 % (0.0-3.0); HEMOGLOBIN 9.8 g/dl (12.0-15.5); LYMPH # 1.2 10^3/uL (1.5-4.5); LYMPH % 22.2 % (24.0-44.0); MEAN CORPUSCULAR HEMOGLOBIN 28.8 pg (27.0-33.0); MEAN CORPUSCULAR HGB CONC 32.7 g/dl (32.0-36.5); MEAN CORPUSCULAR VOLUME 88.2 fl (80.0-96.0); MONO # 0.7 10^3/uL (0.0-0.8); MONO % 12.9 % (0.0-5.0); NEUTROPHILS # 3.4 10^3/uL (1.8-7.7); NEUTROPHILS % 61.4 % (36.0-66.0); PLATELET COUNT, AUTOMATED 192 10^3/uL (150-450); WHITE BLOOD COUNT 5.5 10^3/uL (4.0-10.0)
[2018-12-06 11:31] LABS: INR 2.74; PARTIAL THROMBOPLASTIN TIME 33.6 SECONDS (25.4-37.6); PROTHROMBIN TIME 29.6 SECONDS (12.1-14.4)
[2018-12-06 12:28] LABS: ALBUMIN 3.6 GM/DL (3.2-5.2); BILIRUBIN,TOTAL 0.2 MG/DL (0.2-1.0); CALCIUM LEVEL 9.1 MG/DL (8.8-10.2); CREATININE FOR GFR 1.58 MG/DL (0.55-1.30); FREE T4 1.58 NG/DL (0.76-1.46); GLOMERULAR FILTRATION RATE 33.2 (>32); PHENYTOIN (DILANTIN) 10.6 UG/ML (10.0-20.0); POTASSIUM SERUM 4.4 MEQ/L (3.5-5.1); THYROID STIMULATING HORMONE 0.022 uIU/ML (0.358-3.740); TOTAL PROTEIN 6.2 GM/DL (6.4-8.2)
[2018-12-06 12:41] LABS: PTH INTACT 28.4 PG/ML (18.5-88.0)
[2018-12-06 13:47] LABS: TOTAL 25(OH) VITAMIN D 35.3 NG/ML (30.0-100.0)
== END ==
LOC: M SFHCPLAZ 09:25
PROVIDERS: ATTEND Family Medicine
DX: D50.9 Iron deficiency anemia, unspecified (principal); N18.3 Chronic kidney disease, stage 3 (moderate); E03.9 Hypothyroidism, unspecified; G40.909 Epilepsy, unspecified, not intractable, without status epilepticus; E53.8 Deficiency of other specified B group vitamins; Z79.899 Other long term (current) drug therapy

== ENCOUNTER → 2019-02-22 | Outpatient (REF) | payer MEDICARE, OTHER ==
[~2019-02-22] MED LIST changes: +VITA100018 PO; -VITA100072 PO
[2019-02-22 12:21] LABS: BASO # 0.1 10^3/uL (0.0-0.2); BASO % 0.9 % (0.0-1.0); EOS # 0.1 10^3/uL (0.0-0.50); HEMATOCRIT 25.2 % (36.0-47.0); HEMOGLOBIN 7.9 g/dl (12.0-15.5); LYMPH # 0.9 10^3/uL (1.5-4.5); LYMPH % 17.2 % (24.0-44.0); MEAN CORPUSCULAR HEMOGLOBIN 26.9 pg (27.0-33.0); MEAN CORPUSCULAR HGB CONC 31.3 g/dl (32.0-36.5); MEAN CORPUSCULAR VOLUME 85.7 fl (80.0-96.0); MONO # 0.6 10^3/uL (0.0-0.8); MONO % 11.4 % (0.0-5.0); NEUTROPHILS # 3.7 10^3/uL (1.8-7.7); NEUTROPHILS % 68.3 % (36.0-66.0); PLATELET COUNT, AUTOMATED 205 10^3/uL (150-450); RED BLOOD COUNT 2.94 10^6/uL (4.00-5.40); WHITE BLOOD COUNT 5.5 10^3/uL (4.0-10.0)
[2019-02-22 12:35] LABS: ALBUMIN 3.8 GM/DL (3.2-5.2); BILIRUBIN,TOTAL 0.2 MG/DL (0.2-1.0); CALCIUM LEVEL 9.5 MG/DL (8.8-10.2); CREATININE FOR GFR 1.79 MG/DL (0.55-1.30); GLOMERULAR FILTRATION RATE 28.7 (>32); PERCENT SATURATION 5.3 % (13.2-45.0); POTASSIUM SERUM 4.3 MEQ/L (3.5-5.1); TOTAL PROTEIN 6.2 GM/DL (6.4-8.2)
== END ==
LOC: M SFHCPLAZ 09:05
PROVIDERS: ATTEND Physician Assistant Medical
DX: D50.9 Iron deficiency anemia, unspecified (principal); R06.02 Shortness of breath; I06.0 Rheumatic aortic stenosis; Z86.718 Personal history of other venous thrombosis and embolism
CPT/HCPCS: 36415; 80053; 82728; 83550; 83735; 83880; 85025; 85379; 85610; G0463

== ENCOUNTER → 2019-02-23 | Outpatient (REF) | payer MEDICARE, OTHER | LOC: M LABDRAWP 11:59 | PROVIDERS: ATTEND Physician Assistant Medical | DX: D50.9 Iron deficiency anemia, unspecified (principal) ==

== ENCOUNTER → 2019-02-23 | Outpatient (REF) | payer MEDICARE, OTHER | LOC: M SFHCPLAZ 11:46 | PROVIDERS: ATTEND Family Medicine | DX: N18.3 Chronic kidney disease, stage 3 (moderate) (principal) ==

== ENCOUNTER 2019-02-24 07:53 | Outpatient (CLI) | payer MEDICARE, OTHER ==
[2019-02-24] VITALS (8 sets, daily range): BP systolic 128–171; BP diastolic 64–84
[~2019-02-24] VITALS: Ht 162.6 cm; Wt 68.2 kg
[~2019-02-24 07:53] MED LIST changes: +ACETAMINOPHEN TAB 650MG DOSE (2X325MG) PO ONE; +FUROSEMIDE 100 MG/10 ML VIAL (J1940) IV SCH; +FUROSEMIDE 40 MG/4 ML VIAL (J1940) IV SCH; +diphenhydrAMINE 25 MG CAP PO ONE
== END 2019-02-24 14:15 | disposition home or self-care (01) ==
LOC: M INFU 07:53
PROVIDERS: ATTEND Family Medicine
DX: D50.9 Iron deficiency anemia, unspecified (principal); Z88.1 Allergy status to other antibiotic agents
CPT/HCPCS: 36430; 96374; J1940; P9016

== ENCOUNTER → 2019-03-07 | Outpatient (REF) | payer MEDICARE, OTHER ==
[~2019-03-07] MED LIST changes: -ACETAMINOPHEN TAB 650MG DOSE (2X325MG) PO ONE; -FUROSEMIDE 100 MG/10 ML VIAL (J1940) IV SCH; -FUROSEMIDE 40 MG/4 ML VIAL (J1940) IV SCH; -diphenhydrAMINE 25 MG CAP PO ONE
[2019-03-07 12:23] LABS: BASO % 0.7 % (0.0-1.0); EOS # 0.1 10^3/uL (0.0-0.50); EOS % 1.2 % (0.0-3.0); HEMATOCRIT 33.2 % (36.0-47.0); HEMOGLOBIN 10.6 g/dl (12.0-15.5); LYMPH % 16.7 % (24.0-44.0); MEAN CORPUSCULAR HEMOGLOBIN 28.4 pg (27.0-33.0); MEAN CORPUSCULAR HGB CONC 31.9 g/dl (32.0-36.5); MONO # 0.6 10^3/uL (0.0-0.8); MONO % 10.9 % (0.0-5.0); NEUTROPHILS # 4.1 10^3/uL (1.8-7.7); NEUTROPHILS % 70.3 % (36.0-66.0); PLATELET COUNT, AUTOMATED 168 10^3/uL (150-450); RED BLOOD COUNT 3.73 10^6/uL (4.00-5.40); WHITE BLOOD COUNT 5.9 10^3/uL (4.0-10.0)
[2019-03-07 13:01] LABS: ALBUMIN 3.6 GM/DL (3.2-5.2); BILIRUBIN,TOTAL 0.3 MG/DL (0.2-1.0); CALCIUM LEVEL 9.3 MG/DL (8.8-10.2); CREATININE FOR GFR 1.76 MG/DL (0.55-1.30); GLOMERULAR FILTRATION RATE 29.3 (>32); POTASSIUM SERUM 4.4 MEQ/L (3.5-5.1); TOTAL PROTEIN 6.7 GM/DL (6.4-8.2)
== END ==
LOC: M SFHCPLAZ 09:35
PROVIDERS: ATTEND Family Medicine
DX: N18.3 Chronic kidney disease, stage 3 (moderate) (principal)

== ENCOUNTER → 2019-04-06 | Outpatient (REF) | payer MEDICARE, OTHER ==
[2019-04-06 11:27] LABS: BASO % 0.7 % (0.0-1.0); EOS # 0.2 10^3/uL (0.0-0.50); EOS % 2.5 % (0.0-3.0); HEMATOCRIT 28.3 % (36.0-47.0); LYMPH % 16.7 % (24.0-44.0); MEAN CORPUSCULAR HEMOGLOBIN 27.4 pg (27.0-33.0); MEAN CORPUSCULAR HGB CONC 31.8 g/dl (32.0-36.5); MEAN CORPUSCULAR VOLUME 86.3 fl (80.0-96.0); MONO # 0.7 10^3/uL (0.0-0.8); MONO % 11.6 % (0.0-5.0); NEUTROPHILS # 4.1 10^3/uL (1.8-7.7); NEUTROPHILS % 68.2 % (36.0-66.0); PLATELET COUNT, AUTOMATED 213 10^3/uL (150-450); RED BLOOD COUNT 3.28 10^6/uL (4.00-5.40); WHITE BLOOD COUNT 6.1 10^3/uL (4.0-10.0)
[2019-04-06 11:58] LABS: ALBUMIN 3.3 GM/DL (3.2-5.2); BILIRUBIN,TOTAL 0.2 MG/DL (0.2-1.0); CALCIUM LEVEL 8.8 MG/DL (8.8-10.2); CREATININE FOR GFR 1.5 MG/DL (0.55-1.30); GLOMERULAR FILTRATION RATE 35.2 (>32); POTASSIUM SERUM 4.5 MEQ/L (3.5-5.1); TOTAL PROTEIN 6.1 GM/DL (6.4-8.2)
== END ==
LOC: M SFHCPLAZ 10:06
PROVIDERS: ATTEND Physician Assistant Medical
DX: N18.3 Chronic kidney disease, stage 3 (moderate) (principal); K27.9 Peptic ulcer, site unspecified, unspecified as acute or chronic, without hemorrhage or perforation
CPT/HCPCS: 36415; 80053; 83540; 85025; 85610; G0463

== ENCOUNTER → 2019-05-10 | Outpatient (REF) | payer MEDICARE, OTHER ==
[~2019-05-10] MED LIST changes: +AMLO2.5T3 PO; +ATOR40TA75 PO; +CALCTAB89 PO; +CLOT1CRE TOP; +FOLI1TAB11 PO; +LEVO150T7 PO; +LUTE15CA PO; +MULT-40 PO; +POLY150C5 PO; +ROCA0.5C PO; +WARF-60 PO
[2019-05-10 12:38] LABS: BASO % 0.6 % (0.0-1.0); EOS # 0.1 10^3/uL (0.0-0.50); EOS % 2.2 % (0.0-3.0); HEMATOCRIT 26.8 % (36.0-47.0); HEMOGLOBIN 8.3 g/dl (12.0-15.5); LYMPH % 20.6 % (24.0-44.0); MEAN CORPUSCULAR HEMOGLOBIN 27.2 pg (27.0-33.0); MEAN CORPUSCULAR VOLUME 87.9 fl (80.0-96.0); MONO # 0.6 10^3/uL (0.0-0.8); MONO % 12.1 % (0.0-5.0); NEUTROPHILS # 3.2 10^3/uL (1.8-7.7); NEUTROPHILS % 64.3 % (36.0-66.0); PLATELET COUNT, AUTOMATED 222 10^3/uL (150-450); RED BLOOD COUNT 3.05 10^6/uL (4.00-5.40)
[2019-05-10 12:51] LABS: INR 2.33; PROTHROMBIN TIME 25.4 SECONDS (11.8-14.0)
[2019-05-10 13:14] LABS: ALBUMIN 3.5 GM/DL (3.2-5.2); BILIRUBIN,TOTAL 0.1 MG/DL (0.2-1.0); CALCIUM LEVEL 8.7 MG/DL (8.8-10.2); CHOLESTEROL RISK RATIO 2.305 (<5); CREATININE FOR GFR 1.62 MG/DL (0.55-1.30); FREE T4 1.15 NG/DL (0.76-1.46); GLOMERULAR FILTRATION RATE 32.2 (>32); POTASSIUM SERUM 4.4 MEQ/L (3.5-5.1); PTH INTACT 35.5 PG/ML (18.5-88.0); THYROID STIMULATING HORMONE 0.773 uIU/ML (0.358-3.740); TOTAL PROTEIN 6.2 GM/DL (6.4-8.2)
== END ==
LOC: M SFHCPLAZ 09:00
PROVIDERS: ATTEND Family Medicine
DX: D50.9 Iron deficiency anemia, unspecified (principal); E55.9 Vitamin D deficiency, unspecified; E03.9 Hypothyroidism, unspecified

== ENCOUNTER 2019-05-13 10:02 | Inpatient (IN) | payer MEDICARE, OTHER ==
[~2019-05-13] VITALS: Ht 165.1 cm; Wt 66.5 kg
[~2019-05-13 10:02] MED LIST changes: -AMLO2.5T3 PO; -ATOR40TA75 PO; -CALCTAB89 PO; -CLOT1CRE TOP; -FOLI1TAB11 PO; -LEVO150T7 PO; -LUTE15CA PO; -MULT-40 PO; -POLY150C5 PO; -ROCA0.5C PO; -WARF-60 PO
[2019-05-13] MEDS ORDERED: CALCTAB89 PO (10:12)
[2019-05-13 11:01] LABS: BASO % 0.8 % (0.0-1.0); EOS # 0.1 10^3/uL (0.0-0.50); EOS % 2.1 % (0.0-3.0); HEMATOCRIT 25.9 % (36.0-47.0); HEMOGLOBIN 8.4 g/dl (12.0-15.5); LYMPH # 0.9 10^3/uL (1.5-4.5); LYMPH % 19.7 % (24.0-44.0); MEAN CORPUSCULAR HEMOGLOBIN 28.6 pg (27.0-33.0); MEAN CORPUSCULAR HGB CONC 32.4 g/dl (32.0-36.5); MEAN CORPUSCULAR VOLUME 88.1 fl (80.0-96.0); MONO # 0.6 10^3/uL (0.0-0.8); MONO % 12.1 % (0.0-5.0); NEUTROPHILS # 3.1 10^3/uL (1.8-7.7); NEUTROPHILS % 65.1 % (36.0-66.0); PLATELET COUNT, AUTOMATED 189 10^3/uL (150-450); RED BLOOD COUNT 2.94 10^6/uL (4.00-5.40); WHITE BLOOD COUNT 4.7 10^3/uL (4.0-10.0)
[2019-05-13 11:13] LABS: INR 2.68; PROTHROMBIN TIME 28.4 SECONDS (11.8-14.0)
[2019-05-13 11:14] LABS: PARTIAL THROMBOPLASTIN TIME 29.8 SECONDS (25.0-38.4)
[2019-05-13 11:40] LABS: ALBUMIN 3.5 GM/DL (3.2-5.2); ALT/SGPT 35 U/L (12-78); BILIRUBIN,DIRECT < 0.1 MG/DL (0.0-0.2); BILIRUBIN,TOTAL 0.1 MG/DL (0.2-1.0); CK-MB VALUE MASS < 1.0 NG/ML (<3.6); CPK CREATINE PHOSPHOKINASE 70 U/L (26-192); LIPASE 294 U/L (73-393); MB/CK RELATIVE INDEX 1.43 (< OR =4); TOTAL PROTEIN 6.2 GM/DL (6.4-8.2); TROPONIN I < 0.02 NG/ML (< 0.10)
--- NOTE | 2019-05-13 12:06 | REP ---
CHEST TWO VIEWS: Two views of the chest are performed and compared to a prior study of 05/09/2017. There is no acute infiltrate. The heart does not appear to be significantly enlarged. There is calcification of the thoracic aorta. The mediastinal silhouette is unchanged. There is osteopenia. There are degenerative changes of the spine. A few compression deformities of thoracic vertebral bodies are stable. IMPRESSION: No acute pulmonary disease. Electronically Signed by Luis Mason MD 05/16/2019 12:58 P
[2019-05-13] MEDS ORDERED: D5W 1,000 ML IV SCH (12:23)
[2019-05-13] MEDS ORDERED: GLUCOSE 4 GM CHEW TABLET PO PRN (12:30)
[2019-05-13] MEDS ORDERED: GLUCAGON FOR INJ 1 MG VIAL (J1610) SC PRN (12:30)
[2019-05-13] MEDS ORDERED: PHYTONADIONE 5 MG TAB PO ONE (12:30)
[2019-05-13] MEDS ORDERED: DEXTROSE 50% 50 ML SYRINGE IV PRN (12:30)
[2019-05-13] MEDS ORDERED: ROCA0.5C PO (12:40)
[2019-05-13] MEDS ORDERED: LEVO150T7 PO (12:40)
[2019-05-13] MEDS ORDERED: WARF-60 PO (12:40)
[2019-05-13] MEDS ORDERED: ATOR40TA75 PO (12:40)
[2019-05-13] MEDS ORDERED: AMLO2.5T3 PO (12:40)
[2019-05-13] MEDS ORDERED: LUTE15CA PO (12:40)
[2019-05-13] MEDS ORDERED: CLOT1CRE TOP (12:40)
[2019-05-13] MEDS ORDERED: MULT-40 PO (12:40)
[2019-05-13] MEDS ORDERED: POLY150C5 PO (12:40)
[2019-05-13] MEDS ORDERED: FOLI1TAB11 PO (12:40)
[2019-05-13 12:47] LABS: HEMATOCRIT 25.9 % (36.0-47.0)
[2019-05-13 12:57] LABS: FERRITIN 7 NG/ML (8-252); IRON (FE) 32 UG/DL (50-170); PERCENT SATURATION 8.5 % (13.2-45.0); TOTAL IRON BINDING CAPACITY 375 UG/DL (250-450)
[2019-05-13 13:04] LABS: VITAMIN B12 LEVEL 1097 PG/ML (247-911)
[2019-05-13] MEDS ORDERED: DOCUSATE SODIUM 100 MG CAP PO PRN (13:15)
[2019-05-13] MEDS ORDERED: LACTULOSE 20 GM/30 ML SYRUP UD PO PRN (13:15)
[2019-05-13] MEDS ORDERED: ALPRAZolam 0.25 MG TAB PO PRN (13:15)
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
[2019-05-13 14:34] LABS: CALCIUM LEVEL 8.7 MG/DL (8.8-10.2); CREATININE FOR GFR 1.63 MG/DL (0.55-1.30); POTASSIUM SERUM 4.1 MEQ/L (3.5-5.1)
[2019-05-13 14:46] LABS: RBC FOLATE 1945 NG/ML (280-791)
[2019-05-13] MEDS: PANTOPRAZOLE SODIUM 40 MG in D5W 50 ML IV SCH ×2 (16:18→19:25)
[2019-05-13] MEDS: FOLIC ACID 1 MG TAB PO SCH (16:22)
[2019-05-13] MEDS: SUCRALFATE 1 GM TAB PO SCH ×2 (16:22→20:59)
[2019-05-13] MEDS: FUROSEMIDE 20 MG TAB PO SCH (16:22)
[2019-05-13] MEDS: CALCITRIOL 0.25 MCG CAP (S0169) PO SCH (16:24)
[2019-05-13] MEDS ORDERED: WARFARIN SOD 3 MG TAB PO SCH (17:00)
--- NOTE | 2019-05-13 17:15 | REPVR ---
EXAM: US Duplex Bilateral Lower Extremity Veins EXAM DATE/TIME: 05/13/2019 5:00 PM CLINICAL HISTORY: 83 years old, female; Swelling (edema) of limb; Lower extremity, bilateral; Additional info: Le edema gi bleed on warfarin for h/o le dvt TECHNIQUE: Imaging protocol: Real-time duplex ultrasound of the Bilateral Lower Extremities with 2-D palma scale, color Doppler flow and spectral waveform analysis. Complete exam focused on the bilateral lower extremity veins. COMPARISON: US Duplex, Ext,LOWER veins,unilat 05/09/2017 8:35 PM FINDINGS: Right deep veins: Unremarkable. The common femoral, femoral, proximal profunda femoral and popliteal veins are patent without thrombus. Normal Doppler waveforms. Normal compressibility and/or augmentation response. Right superficial veins: Saphenofemoral junction is patent without thrombus. Left deep veins: Unremarkable. The common femoral, femoral, proximal profunda femoral and popliteal veins are patent without thrombus. Normal Doppler waveforms. Normal compressibility and/or augmentation response. Left superficial veins: Saphenofemoral junction is patent without thrombus. Soft tissues: Unremarkable. IMPRESSION: No sonographic evidence of deep vein thrombosis. Electronically signed by: Wiley Vivar On 05/13/2019 17:14:54 PM
[2019-05-13 19:50] VITALS: BP 155/80
--- NOTE | 2019-05-13 20:32 | ECGEPIP ---
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
[2019-05-13] MEDS: PHENYTOIN ER 100 MG CAP PO SCH (20:59)
[2019-05-13] MEDS: ATORVASTATIN 20 MG TAB PO SCH (20:59)
[2019-05-13] MEDS ORDERED: PANTOPRAZOLE 40MG TAB (PROTONIX) PO SCH (21:00)
[2019-05-14] VITALS (7 sets, daily range): BP systolic 120–154; BP diastolic 60–80
[2019-05-14] MEDS: PANTOPRAZOLE SODIUM 40 MG in D5W 50 ML IV SCH ×5 (00:30→19:42)
[2019-05-14 02:21] LABS: HEMATOCRIT 31.6 % (36.0-47.0); HEMOGLOBIN 10.5 g/dl (12.0-15.5)
[2019-05-14 02:39] LABS: INR 2.24; PROTHROMBIN TIME 24.6 SECONDS (11.8-14.0)
[2019-05-14] MEDS: LEVOTHYROXINE 150MCG TABLET (0.15MG) PO SCH (06:00)
[2019-05-14] MEDS: FOLIC ACID 1 MG TAB PO SCH (07:44)
[2019-05-14] MEDS: SUCRALFATE 1 GM TAB PO SCH ×4 (07:45→20:33)
[2019-05-14] MEDS: FUROSEMIDE 20 MG TAB PO SCH (07:45)
[2019-05-14] MEDS: CYANOCOBALAMIN 500 MCG TAB PO SCH (07:45)
[2019-05-14] MEDS: CIPROFLOXACIN 500 MG TAB PO SCH (07:45)
[2019-05-14] MEDS: CALCITRIOL 0.25 MCG CAP (S0169) PO SCH (07:45)
[2019-05-14] MEDS: PHENYTOIN ER 100 MG CAP PO SCH ×2 (08:37→20:33)
[2019-05-14 11:12] LABS: HEMATOCRIT 30.7 % (36.0-47.0); HEMOGLOBIN 10.4 g/dl (12.0-15.5)
[2019-05-14 11:22] LABS: INR 1.49; PROTHROMBIN TIME 17.7 SECONDS (11.8-14.0)
--- NOTE | 2019-05-14 11:30 | IPNPDOC ---
Subjective Date Seen The patient was seen on 05/14/19. Subjective Chief Complaint/HPI MORALES Constitutional: Denies: Chills ENT: Denies: Head Aches Pulmonary: Denies: Cough, Pleuritic Chest Pain Cardiovascular: Denies: Chest Pain, Palpitations, Orthopnea Gastrointestinal: Reports: Constipation (chronic, tobi with home meds usuallyi.), Other Symptoms (had observed some BRBPR before admission attributed to hemorrhoid); Denies: Nausea, Vomiting, Abdominal Pain Hematologic: Denies: Bruising Endocrine: Denies: Polydipsia, Polyphagia Neurological: Denies: Weakness Psych: Reports: Mood Normal Objective Physical Examination General Exam: Positive: Alert, Cooperative Eye Exam: Positive: PERRLA ENT Exam: Positive: Atraumatic, Tongue Midline Neck Exam: Positive: Supple, +2 carotid pulse wo bruit; Negative: JVD, thyromegaly, Lymphadenopathy Chest Exam: Positive: Clear to auscultation, Normal air movement; Negative: Rales Heart Exam: Positive: Rate Normal, Murmurs (3/6 murmur heard over entire precordium.) Abdomen Exam: Positive: Normal bowel sounds, Soft; Negative: Tenderness Extremity Exam: Negative: Clubbing, Edema Skin Exam: Positive: Nl turgor and temperature; Negative: Rash Psych Exam: Positive: Mental status NL Assessment /Plan Problems (1) GI bleed Status: Acute Response to Treatment: Stable Problem Specific Plan: Consult Specialist Problem Text: anticoagulation reversal has been completed but waiting for repeat PT from lat morning. Hgb stable. plan for endoscopy tomorrow or thursday, per Dr. Pacheco according to patient (2) History of DVT of lower extremity Status: Chronic Response to Treatment: Stable Problem Text: chronic warfarin user. ultrasounds of lower extremities were negative for clots yesterday. (3) S/P IVC filter Status: Acute Response to Treatment: Stable (4) Aortic valve stenosis, moderate Status: Chronic Response to Treatment: Stable (5) NAFLD (nonalcoholic fatty liver disease) Status: Chronic Response to Treatment: Stable (6) Hypothyroid Status: Chronic Response to Treatment: Stable (7) History of colon cancer Status: Chronic Response to Treatment: Stable Problem Text: followed by Dr. Pacheco Plan/VTE VTE Prophylaxis Ordered?: Yes VTE Exclusion Pharmacological: Active Bleeding VS, I&O, 24H, Fishbone Vital Signs/I&O Vital Signs Date Time Temp Pulse Resp B/P (MAP) Pulse Ox O2 Delivery O2 Flow Rate FiO2 05/14/19 10:00 98.7 76 18 120/76 (91) 94 05/13/19 19:45 Room Air I&O- Last 24 Hours up to 6 AM 05/14/19 06:00 Intake Total 1069 ml Output Total 800 ml Balance 269 ml Laboratory Data 24H LABS Laboratory Tests 2 05/13/19 13:49: Anion Gap 7L, Glomerular Filtration Rate 32.0, Blood Urea Nitrogen 35H, Creatinine 1.63H, Sodium Level 142, Potassium Level 4.1, Chloride Level 107, Carbon Dioxide Level 28, Calcium Level 8.7L 05/14/19 01:59: Prothrombin Time 24.6H, Prothromb Time International Ratio 2.24 05/14/19 11:06: CBC/BMP Laboratory Tests 05/13/19 13:49 Calcium Level 8.7 L 05/14/19 01:59 05/14/19 11:06 Jae Tinoco MD May 14, 2019 11:30
[2019-05-14 12:12] LABS: ALBUMIN 3.6 GM/DL (3.2-5.2); BILIRUBIN,TOTAL 0.4 MG/DL (0.2-1.0); CALCIUM LEVEL 8.6 MG/DL (8.8-10.2); CREATININE FOR GFR 1.46 MG/DL (0.55-1.30); GLOMERULAR FILTRATION RATE 36.3 (>32); POTASSIUM SERUM 4.2 MEQ/L (3.5-5.1); TOTAL PROTEIN 6.6 GM/DL (6.4-8.2)
[2019-05-14] MEDS ORDERED: MOM 30ML SUSPENSION UDC PO ONE (14:15)
[2019-05-14 18:16] LABS: HEMATOCRIT 32.8 % (36.0-47.0); HEMOGLOBIN 10.8 g/dl (12.0-15.5)
[2019-05-14] MEDS: ATORVASTATIN 20 MG TAB PO SCH (20:33)
--- NOTE | 2019-05-14 21:05 | CR ---
DATE OF CONSULTATION: 05/14/2019 STATUS PATIENT: Inpatient. REQUESTING PHYSICIAN: Hospitalist service. REASON FOR CONSULTATION: Progressive anemia. HISTORY OF PRESENT ILLNESS: Akanksha Dupont is a patient well known to me with a history of chronic gastrointestinal (GI) blood loss and anemia of multifactorial causes. 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 She has been treated several times for this condition with ablation therapy with some marginal to moderate success in maintaining her hemoglobin at an appropriate level. It is of note that the patient had a history of DVT/PE despite Daniella filter in place. Therefore, it was elected that she needs to be on some type of anticoagulation jail. Her INR is kept at the lower end of therapeutic; however, despite this, her hemoglobin is drifting to unacceptable levels. She was admitted for further evaluation and retesting. The patient herself has noted some worsening of her shortness of breath, some weakness and fatigue. She denies any abdominal pain, nausea, vomiting. She denies any adán melena or hematochezia. MEDICATIONS: At home include: - Coumadin - Norvasc - Colace - Synthroid - pantoprazole - Dilantin - iron sulfate - folic acid - atorvastatin ALLERGIES: SULFA and to BACTRIM. PAST MEDICAL HISTORY: 1. 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 2. Anemia of chronic disease. 3. Iron deficiency anemia. 4. Gastric antral vascular ectasia (GAVE). 5. Seizures order 6. Chronic constipation. 7. Renal disease. 8. Nonrheumatic aortic stenosis, mild 9. History of adenocarcinoma colon, diagnosed in 2013; most recent colonoscopy 05/03/2017. PHYSICAL EXAMINATION: Temperature 98.1, pulse is 67, respiratory rate is 16, blood pressure 135/80, pulse oximetry 95%. HEAD, EYES, EARS, NOSE and THROAT: Are grossly without abnormality. There is no oral thrush. Negative for scleral icterus. NECK: Is supple. No lymphadenopathy, thyromegaly. CHEST: Is clear bilaterally. HEART: Is regular rate and rhythm. S1, S2. Grade 1 to 2 systolic ejection murmur, the aortic area. ABDOMEN: Is soft, nontender. Good bowel sounds. No masses. EXTREMITIES: Negative for edema. Pulses are palpable. LABORATORY FINDINGS: BUN 35, creatinine 1.63. Total iron binding capacity (TIBC) 375, iron 32, iron saturation 8.5%, ferritin 7. Hemoglobin 8.4/10.5/10.4 post transfusion. PT/INR 2.68/2.24/1.49 IMPRESSION: 1. Progressive anemia due to chronic GI bleeding. 2. Anticoagulation therapy. 3. Anemia of chronic disease. 4. History of colon cancer. RECOMMENDATIONS: 1. Upper endoscopy for retreatment of her gastric antral vascular ectasia, if present. 2. I would also recommend that she proceed with a colonoscopy at this time, as her last one was in 2017 - I do note that she has a history of colon cancer which was resected in 2013. 3. Coumadin is being held. She received vitamin K to reverse her INR. At this point, I anticipate giving her a colon preparation on Thursday with anticipated procedures of upper and lower endoscopies on Thursday afternoon.
[2019-05-15] MEDS: PANTOPRAZOLE SODIUM 40 MG in D5W 50 ML IV SCH ×3 (01:14→09:30)
[2019-05-15 04:00] VITALS: BP 143/62
[2019-05-15 05:56] LABS: HEMATOCRIT 32.6 % (36.0-47.0); HEMOGLOBIN 10.7 g/dl (12.0-15.5); MEAN CORPUSCULAR HEMOGLOBIN 28.9 pg (27.0-33.0); MEAN CORPUSCULAR HGB CONC 32.8 g/dl (32.0-36.5); MEAN CORPUSCULAR VOLUME 88.1 fl (80.0-96.0); PLATELET COUNT, AUTOMATED 148 10^3/uL (150-450); WHITE BLOOD COUNT 4.5 10^3/uL (4.0-10.0)
[2019-05-15] MEDS ORDERED: MOM 30ML SUSPENSION UDC PO ONE (06:00)
[2019-05-15] MEDS: LEVOTHYROXINE 150MCG TABLET (0.15MG) PO SCH (06:01)
[2019-05-15 06:29] LABS: CALCIUM LEVEL 9.3 MG/DL (8.8-10.2); CREATININE FOR GFR 1.39 MG/DL (0.55-1.30); GLOMERULAR FILTRATION RATE 38.5 (>32); POTASSIUM SERUM 4.6 MEQ/L (3.5-5.1)
[2019-05-15] MEDS: CYANOCOBALAMIN 500 MCG TAB PO SCH (07:45)
[2019-05-15] MEDS: SUCRALFATE 1 GM TAB PO SCH ×4 (07:45→20:58)
[2019-05-15] MEDS: CALCITRIOL 0.25 MCG CAP (S0169) PO SCH (07:45)
[2019-05-15] MEDS: PHENYTOIN ER 100 MG CAP PO SCH ×2 (07:45→20:57)
[2019-05-15] MEDS: FUROSEMIDE 20 MG TAB PO SCH (07:45)
[2019-05-15] MEDS: FOLIC ACID 1 MG TAB PO SCH (07:45)
[2019-05-15] MEDS: CIPROFLOXACIN 500 MG TAB PO SCH (07:45)
[2019-05-15 08:00] VITALS: BP 144/76
[2019-05-15] MEDS: PANTOPRAZOLE 40MG INJ (PROTONIX) (C9113) IV SCH ×2 (09:00→20:58)
--- NOTE | 2019-05-15 09:57 | IPNPDOC ---
Subjective Date Seen The patient was seen on 05/15/19. Subjective Chief Complaint/HPI no pain, no bleeding, no nausea ENT: Denies: Head Aches Pulmonary: Denies: Dyspnea, Cough Cardiovascular: Denies: Chest Pain, Palpitations Gastrointestinal: Denies: Nausea, Abdominal Pain Neurological: Denies: Weakness, Numbness Psych: Reports: Mood Normal Objective Physical Examination General Exam: Positive: Alert, Cooperative Eye Exam: Positive: PERRLA ENT Exam: Positive: Atraumatic, Tongue Midline Neck Exam: Positive: Supple, +2 carotid pulse wo bruit; Negative: JVD, thyromegaly, Lymphadenopathy Chest Exam: Positive: Clear to auscultation, Normal air movement; Negative: Rales Heart Exam: Positive: Rate Normal, Murmurs (3/6 murmur heard over entire precordium.) Abdomen Exam: Positive: Normal bowel sounds, Soft; Negative: Tenderness Extremity Exam: Negative: Clubbing, Edema Skin Exam: Positive: Nl turgor and temperature; Negative: Rash Psych Exam: Positive: Mental status NL Assessment /Plan Problems (1) GI bleed Status: Acute Response to Treatment: Stable Problem Specific Plan: Consult Specialist Problem Text: Hgb no change. Anticipate being able to resume anticoagulation regimen following scope tomorrow and possible discharge after procedure. anticoagulation reversal has been completed but waiting for repeat PT from lat morning. Hgb stable. plan for endoscopy tomorrow or thursday, per Dr. Pacheco according to patient (2) History of DVT of lower extremity Status: Chronic Response to Treatment: Stable Problem Text: chronic warfarin user. ultrasounds of lower extremities were negative for clots yesterday. (3) S/P IVC filter Status: Acute Response to Treatment: Stable (4) Aortic valve stenosis, moderate Status: Chronic Response to Treatment: Stable (5) NAFLD (nonalcoholic fatty liver disease) Status: Chronic Response to Treatment: Stable (6) Hypothyroid Status: Chronic Response to Treatment: Stable (7) History of colon cancer Status: Chronic Response to Treatment: Stable Problem Text: followed by Dr. Pacheco Plan/VTE VTE Prophylaxis Ordered?: Yes VTE Exclusion Pharmacological: Active Bleeding Plan Anticipated Discharge: Home (possible discharge 05/16 pending endoscopy results) VS, I&O, 24H, Fishbone Vital Signs/I&O Vital Signs Date Time Temp Pulse Resp B/P (MAP) Pulse Ox O2 Delivery O2 Flow Rate FiO2 7/14/19 08:00 98.3 70 18 144/76 (98) 91 05/13/19 19:45 Room Air I&O- Last 24 Hours up to 6 AM 05/15/19 06:00 Intake Total 1100 ml Output Total 400 ml Balance 700 ml Laboratory Data 24H LABS Laboratory Tests 2 05/14/19 11:06: Prothrombin Time 17.7H, Prothromb Time International Ratio 1.49, Anion Gap 5L, Glomerular Filtration Rate 36.3, Blood Urea Nitrogen 26H, Creatinine 1.46H, Sodium Level 140, Potassium Level 4.2, Chloride Level 104, Carbon Dioxide Level 31, Calcium Level 8.6L, Aspartate Amino Transf (AST/SGOT) 42H, Alanine Aminotransferase (ALT/SGPT) 33, Alkaline Phosphatase 132H, Total Bilirubin 0.4#, Total Protein 6.6, Albumin 3.6, Albumin/Globulin Ratio 1.20 05/15/19 05:41: Nucleated Red Blood Cells % (auto) 0.0 05/15/19 05:50: Anion Gap 6L, Glomerular Filtration Rate 38.5, Blood Urea Nitrogen 22H, Creatinine 1.39H, Sodium Level 140, Potassium Level 4.6, Chloride Level 106, Carbon Dioxide Level 28, Calcium Level 9.3 CBC/BMP Laboratory Tests 05/14/19 11:06 Calcium Level 8.6 L, Aspartate Amino Transf (AST/SGOT) 42 H, Alanine Aminotransferase (ALT/SGPT) 33, Alkaline Phosphatase 132 H, Total Bilirubin 0.4 #, Total Protein 6.6, Albumin 3.6 05/14/19 18:06 05/15/19 05:41 Red Blood Count 3.70 L, Mean Corpuscular Volume 88.1, Mean Corpuscular Hemoglobin 28.9, Mean Corpuscular Hemoglobin Concent 32.8, Red Cell Distribution Width 15.1 H 05/15/19 05:50 Calcium Level 9.3 Microbiology Microbiology 05/14/19 Respiratory Virus Panel (PCR) ([facility]) - Final, Complete Jae Tinoco MD May 15, 2019 09:57
[2019-05-15 12:00] VITALS: BP 130/60
[2019-05-15 16:00] VITALS: BP 141/63
[2019-05-15] MEDS ORDERED: POLYETHYLENE GLYCOL (MIRALAX) 238GM BOTTLE PO ONE (17:00)
[2019-05-15] MEDS: ATORVASTATIN 20 MG TAB PO SCH (20:57)
[2019-05-15 23:59] VITALS: BP 138/61
[2019-05-16] MEDS: LEVOTHYROXINE 150MCG TABLET (0.15MG) PO SCH (05:42)
[2019-05-16] MEDS ORDERED: POLYETHYLENE GLYCOL (MIRALAX) 238GM BOTTLE PO ONE (06:00)
[2019-05-16 06:18] LABS: HEMATOCRIT 35.7 % (36.0-47.0); HEMOGLOBIN 11.6 g/dl (12.0-15.5); MEAN CORPUSCULAR HEMOGLOBIN 28.1 pg (27.0-33.0); MEAN CORPUSCULAR HGB CONC 32.5 g/dl (32.0-36.5); MEAN CORPUSCULAR VOLUME 86.4 fl (80.0-96.0); PLATELET COUNT, AUTOMATED 208 10^3/uL (150-450); RED BLOOD COUNT 4.13 10^6/uL (4.00-5.40); WHITE BLOOD COUNT 6.5 10^3/uL (4.0-10.0)
[2019-05-16 06:48] LABS: ALBUMIN 3.7 GM/DL (3.2-5.2); BILIRUBIN,TOTAL 0.3 MG/DL (0.2-1.0); CALCIUM LEVEL 9.1 MG/DL (8.8-10.2); CREATININE FOR GFR 1.34 MG/DL (0.55-1.30); GLOMERULAR FILTRATION RATE 40.1 (>32); PHENYTOIN (DILANTIN) 12.1 UG/ML (10.0-20.0); POTASSIUM SERUM 4.2 MEQ/L (3.5-5.1); TOTAL PROTEIN 6.7 GM/DL (6.4-8.2)
[2019-05-16] MEDS: SUCRALFATE 1 GM TAB PO SCH ×4 (06:54→21:20)
[2019-05-16 08:00] VITALS: BP 146/67
--- NOTE | 2019-05-16 08:07 | IPNPDOC ---
Subjective Date Seen The patient was seen on 05/16/19. Subjective Chief Complaint/HPI GI Bleed Events since last encounter Planned EGD and colonoscopy today. patient c/o nausea with bowel prep. Constitutional: Denies: Chills, Fever, Night Sweats Pulmonary: Denies: Dyspnea, Cough Cardiovascular: Denies: Chest Pain, Palpitations, Orthopnea, Paroxysmal Noc. Dyspnea, Lt Headedness Gastrointestinal: Reports: Nausea Objective Physical Examination General Exam: Positive: Alert, Cooperative Eye Exam: Positive: PERRLA ENT Exam: Positive: Atraumatic, Tongue Midline Neck Exam: Positive: Supple, +2 carotid pulse wo bruit; Negative: JVD, thyromegaly, Lymphadenopathy Chest Exam: Positive: Clear to auscultation, Normal air movement; Negative: Rales Heart Exam: Positive: Rate Normal, Murmurs (3/6 murmur heard over entire precordium.) Abdomen Exam: Positive: Normal bowel sounds, Soft; Negative: Tenderness Extremity Exam: Negative: Clubbing, Edema Skin Exam: Positive: Nl turgor and temperature; Negative: Rash Psych Exam: Positive: Mental status NL Assessment /Plan Assessment 05/16 -- seen after EGD/colonoscopy. She has abdominal discomfort, and hopes to tolerate diet. Bleeding appears to be only upper GI source. -- CDT Problems (1) GI bleed Status: Acute Response to Treatment: Stable Problem Specific Plan: Consult Specialist Problem Text: 05/16/19: planned EGD/colonoscopy today. Zofran prn nausea for bowel prep intolerance. Hgb no change. Anticipate being able to resume anticoagulation regimen following scope tomorrow and possible discharge after procedure. anticoagulation reversal has been completed but waiting for repeat PT from lat morning. Hgb stable. plan for endoscopy tomorrow or thursday, per Dr. Pacheco according to patient (2) History of DVT of lower extremity Status: Chronic Response to Treatment: Stable Problem Text: chronic warfarin user. ultrasounds of lower extremities were negative for clots yesterday. (3) S/P IVC filter Status: Acute Response to Treatment: Stable (4) Aortic valve stenosis, moderate Status: Chronic Response to Treatment: Stable (5) NAFLD (nonalcoholic fatty liver disease) Status: Chronic Response to Treatment: Stable (6) Hypothyroid Status: Chronic Response to Treatment: Stable (7) History of colon cancer Status: Chronic Response to Treatment: Stable Problem Text: followed by Dr. Pacheco (8) Diastolic CHF due to valvular disease Problem Text: appears well compensated Plan/VTE VTE Prophylaxis Ordered?: Yes VTE Exclusion Pharmacological: Active Bleeding Plan Anticipated Discharge: Home (possible discharge 05/16 pending endoscopy results) VS, I&O, 24H, Fishbone Vital Signs/I&O Vital Signs Date Time Temp Pulse Resp B/P (MAP) Pulse Ox O2 Delivery O2 Flow Rate FiO2 05/15/19 23:59 98.0 73 16 138/61 (86) 91 05/13/19 19:45 Room Air I&O- Last 24 Hours up to 6 AM 05/16/19 06:00 Intake Total 3310 ml Output Total 650 ml Balance 2660 ml Laboratory Data 24H LABS Laboratory Tests 2 05/16/19 05:44: Nucleated Red Blood Cells % (auto) 0.0, Anion Gap 9, Glomerular Filtration Rate 40.1, Blood Urea Nitrogen 17, Creatinine 1.34H, Sodium Level 139, Potassium Level 4.2, Chloride Level 103, Carbon Dioxide Level 27, Calcium Level 9.1, Aspartate Amino Transf (AST/SGOT) 40H, Alanine Aminotransferase (ALT/SGPT) 30, Alkaline Phosphatase 148H, Total Bilirubin 0.3, Total Protein 6.7, Albumin 3.7, Albumin/Globulin Ratio 1.23, Phenytoin (Dilantin) Level 12.1 CBC/BMP Laboratory Tests 05/16/19 05:44 Red Blood Count 4.13, Mean Corpuscular Volume 86.4, Mean Corpuscular Hemoglobin 28.1, Mean Corpuscular Hemoglobin Concent 32.5, Red Cell Distribution Width 14.9 H, Calcium Level 9.1, Aspartate Amino Transf (AST/SGOT) 40 H, Alanine Aminotransferase (ALT/SGPT) 30, Alkaline Phosphatase 148 H, Total Bilirubin 0.3, Total Protein 6.7, Albumin 3.7 Microbiology Microbiology 05/14/19 Respiratory Virus Panel (PCR) ([facility]) - Final, Complete Jacqueline Cochran [facility] May 16, 2019 08:07 PATRICIA MARTIN DO May 16, 2019 23:27
[2019-05-16] MEDS ORDERED: ONDANSETRON 4MG/2ML VIAL (J2405) IV PRN (08:15)
[2019-05-16] MEDS: PHENYTOIN ER 100 MG CAP PO SCH ×2 (08:31→21:20)
[2019-05-16] MEDS: CYANOCOBALAMIN 500 MCG TAB PO SCH (08:31)
[2019-05-16] MEDS: CALCITRIOL 0.25 MCG CAP (S0169) PO SCH (08:31)
[2019-05-16] MEDS: PANTOPRAZOLE 40MG INJ (PROTONIX) (C9113) IV SCH ×2 (08:31→21:20)
[2019-05-16] MEDS: FOLIC ACID 1 MG TAB PO SCH (08:31)
[2019-05-16] MEDS: FUROSEMIDE 20 MG TAB PO SCH (08:32)
[2019-05-16] MEDS: CIPROFLOXACIN 500 MG TAB PO SCH (08:32)
[2019-05-16] MEDS ORDERED: SLF 3 ML SYR IV PRN (13:45)
[2019-05-16] MEDS: SLF 3 ML SYR IV SCH ×2 (14:17→21:20)
[2019-05-16] MEDS ORDERED: fentaNYL 100 MCG/2 ML INJECTION (J3010) As Ordered ONE (14:30)
--- NOTE | 2019-05-16 15:07 | ROOR ---
Patient Name: Akanksha Dupont Procedure Date: 05/16/2019 2:48 PM Date of : 1935 Age: 83 Room: [facility] Gender: Female Note Status: Finalized Procedure: Upper GI endoscopy Indications: Acute post hemorrhagic anemia, Iron deficiency anemia secondary to chronic blood loss Providers: Miguel Angel WILDE MD Referring MD: 2. Inpatient 2. Inpatient, Jaime Sifuentes MD Requesting Provider: Medicines: Monitored Anesthesia Care Complications: No immediate complications. Procedure: Pre-Anesthesia Assessment: - The heart rate, respiratory rate, oxygen saturations, blood pressure, adequacy of pulmonary ventilation, and response to care were monitored throughout the procedure. The Endoscope was introduced through the mouth, and advanced to the second part of duodenum. The upper GI endoscopy was accomplished without difficulty. The patient tolerated the procedure well. Findings: The examined esophagus was normal. A few small angioectasias with stigmata of recent bleeding were found in the gastric body and in the gastric antrum. Focal radiofrequency ablation of gastric antral vascular ectasia was performed. With the endoscope in place, the position and extent of the abnormal mucosa and appropriate anatomic landmarks were noted. The radiofrequency channel ablation catheter was introduced through the endoscope working channel. The endoscope with the ablation catheter was advanced to the areas of abnormal mucosa. The endoscope with the channel ablation catheter was positioned under direct visualization so that the catheter was placed in contact with the surface of the abnormal mucosa. Energy was applied twice at 12 J/cm2. The ablation catheter was removed through the endoscope working channel. The areas where abnormal mucosa had been ablated were examined. The exam of the stomach was otherwise normal. The examined duodenum was normal. Impression: - Normal esophagus. - A few scattered recently bleeding angioectasias in the stomach. Treated with radiofrequency ablation. - Normal examined duodenum. - No specimens collected. Recommendation: - Observe patient's clinical course. - Avoid anticoagulation if possible. If medically absolutely necessary, then anticoagulation only at the smallest effective dose. Iron supplementation/infusion, Monitor H&H closely, transfuse PRBC PRN. Miguel Angel Wilde MD Miguel Angel WILDE MD 05/16/2019 3:06:30 PM Electronically signed by Miguel Angel WILDE MD Number of Addenda: 0 Note Initiated On: 05/16/2019 2:48 PM Estimated Blood Loss: Estimated blood loss: none.
--- NOTE | 2019-05-16 15:32 | ROOR ---
Patient Name: Akanksha Dupont Procedure Date: 05/16/2019 2:47 PM Date of : 1935 Age: 83 Room: [facility] Gender: Female Note Status: Finalized Procedure: Colonoscopy Indications: Acute post hemorrhagic anemia, Iron deficiency anemia secondary to chronic blood loss Providers: Miguel Angel WILDE MD Referring MD: 2. Inpatient 2. Inpatient, Jaime Sifuentes MD Requesting Provider: Medicines: Monitored Anesthesia Care Complications: No immediate complications. Procedure: Pre-Anesthesia Assessment: - The heart rate, respiratory rate, oxygen saturations, blood pressure, adequacy of pulmonary ventilation, and response to care were monitored throughout the procedure. The Colonoscope was introduced through the anus and advanced to the ileocolonic anastomosis. The colonoscopy was performed without difficulty. The patient tolerated the procedure well. The quality of the bowel preparation was adequate. Findings: The perianal and digital rectal examinations were normal. There was evidence of a prior functional end-to-end ileo-colonic anastomosis at the hepatic flexure. This was patent and was characterized by healthy appearing mucosa. The anastomosis was traversed. Three sessile polyps were found in the descending colon. The polyps were 4 to 6 mm in size. These polyps were removed with a cold snare. Resection and retrieval were complete. Multiple medium-mouthed diverticula were found in the sigmoid colon. There was evidence of diverticular spasm. Small Internal Hemorrhoids. The exam was otherwise without abnormality on direct and retroflexion views. Impression: - Patent functional end-to-end ileo-colonic anastomosis, characterized by healthy appearing mucosa. - Three 4 to 6 mm polyps in the descending colon, removed with a cold snare. Resected and retrieved. - Moderate diverticulosis in the sigmoid colon. There was evidence of diverticular spasm. - Small Internal Hemorrhoids. - The examination was otherwise normal on direct and retroflexion views. Recommendation: - Repeat colonoscopy in 3 years for surveillance. - Return to endoscopist PRN. Miguel Angel Wilde MD Miguel Angel WILDE MD 05/16/2019 3:32:10 PM Electronically signed by Miguel Angel WILDE MD Number of Addenda: 0 Note Initiated On: 05/16/2019 2:47 PM Estimated Blood Loss: Estimated blood loss: none.
[2019-05-16 16:30] VITALS: BP 141/64
[2019-05-16] MEDS: ATORVASTATIN 20 MG TAB PO SCH (21:20)
[2019-05-16 22:00] VITALS: BP 144/63
[2019-05-17] MEDS: LEVOTHYROXINE 150MCG TABLET (0.15MG) PO SCH (05:44)
[2019-05-17] MEDS: SLF 3 ML SYR IV SCH ×3 (05:45→21:09)
[2019-05-17 06:00] VITALS: BP 121/81
[2019-05-17 06:04] LABS: BASO % 0.1 % (0.0-1.0); EOS # 0.1 10^3/uL (0.0-0.50); EOS % 1.4 % (0.0-3.0); HEMATOCRIT 30.1 % (36.0-47.0); HEMOGLOBIN 10.1 g/dl (12.0-15.5); LYMPH # 0.9 10^3/uL (1.5-4.5); LYMPH % 11.1 % (24.0-44.0); MEAN CORPUSCULAR HGB CONC 33.6 g/dl (32.0-36.5); MEAN CORPUSCULAR VOLUME 86.5 fl (80.0-96.0); MONO # 0.8 10^3/uL (0.0-0.8); MONO % 9.8 % (0.0-5.0); NEUTROPHILS # 6.6 10^3/uL (1.8-7.7); NEUTROPHILS % 77.2 % (36.0-66.0); PLATELET COUNT, AUTOMATED 156 10^3/uL (150-450); RED BLOOD COUNT 3.48 10^6/uL (4.00-5.40); WHITE BLOOD COUNT 8.5 10^3/uL (4.0-10.0)
[2019-05-17 06:26] LABS: CALCIUM LEVEL 8.4 MG/DL (8.8-10.2); CREATININE FOR GFR 1.42 MG/DL (0.55-1.30); GLOMERULAR FILTRATION RATE 37.5 (>32); POTASSIUM SERUM 4.3 MEQ/L (3.5-5.1)
[2019-05-17] MEDS: FOLIC ACID 1 MG TAB PO SCH (07:52)
[2019-05-17] MEDS: PANTOPRAZOLE 40MG INJ (PROTONIX) (C9113) IV SCH ×2 (07:53→21:09)
[2019-05-17] MEDS: PHENYTOIN ER 100 MG CAP PO SCH ×2 (07:53→21:09)
[2019-05-17] MEDS: CIPROFLOXACIN 500 MG TAB PO SCH (07:53)
[2019-05-17] MEDS: FUROSEMIDE 20 MG TAB PO SCH (07:53)
[2019-05-17] MEDS: CALCITRIOL 0.25 MCG CAP (S0169) PO SCH (07:53)
[2019-05-17] MEDS: SUCRALFATE 1 GM TAB PO SCH ×4 (07:54→21:08)
[2019-05-17] MEDS: CYANOCOBALAMIN 500 MCG TAB PO SCH (07:54)
--- NOTE | 2019-05-17 10:30 | IPNPDOC ---
Subjective Date Seen The patient was seen on 05/17/19. Subjective Chief Complaint/HPI Loose BM today - no blood. No complaints Constitutional: Denies: Chills, Fever Pulmonary: Denies: Dyspnea, Cough Cardiovascular: Denies: Chest Pain, Palpitations Gastrointestinal: Reports: Diarrhea; Denies: Nausea, Vomiting, Abdominal Pain, Constipation, Melena, Hematochezia Objective Physical Examination General Exam: Positive: Alert, Cooperative, No Acute Distress Eye Exam: Positive: PERRLA ENT Exam: Positive: Atraumatic Neck Exam: Negative: JVD Chest Exam: Positive: Clear to auscultation, Normal air movement; Negative: Rales, Rhonchi, Wheezing Heart Exam: Positive: Rate Normal, Murmurs (3/6 murmur heard over entire precordium.) Abdomen Exam: Positive: Normal bowel sounds, Soft; Negative: Tenderness Extremity Exam: Negative: Clubbing, Edema Skin Exam: Positive: Nl turgor and temperature; Negative: Rash Psych Exam: Positive: Mental status NL Assessment /Plan Problems (1) GI bleed Status: Acute Response to Treatment: Stable Problem Specific Plan: Consult Specialist Problem Text: 05/17 - s/p EGD/Colonoscoppy 05/16 Colonoscopy - - Patent functional end-to-end ileo-colonic anastomosis, characterized by healthy appearing mucosa. - Three 4 to 6 mm polyps in the descending colon, removed with a cold snare. Resected and retrieved. - Moderate diverticulosis in the sigmoid colon. There was evidence of diverticular spasm. - Small Internal Hemorrhoids. - The examination was otherwise normal on direct and retroflexion views. EGD - -: - Normal esophagus. - A few scattered recently bleeding angioectasias in the stomach. Treated with radiofrequency ablation. - Normal examined duodenum. - No specimens collected. GI Recommendation: - Observe patient's clinical course. - Avoid anticoagulation if possible. If medically absolutely necessary, then anticoagulation only at the smallest effective dose. Iron supplementation/infusion, Monitor H&H closely, transfuse PRBC PRN. 05/16/19: planned EGD/colonoscopy today. Zofran prn nausea for bowel prep intolerance. Hgb no change. Anticipate being able to resume anticoagulation regimen following scope tomorrow and possible discharge after procedure. anticoagulation reversal has been completed but waiting for repeat PT from lat morning. Hgb stable. plan for endoscopy tomorrow or thursday, per Dr. Pacheco according to patient (2) History of DVT of lower extremity Status: Chronic Response to Treatment: Stable Problem Text: 05/16 - Not on anticoag currently chronic warfarin user. ultrasounds of lower extremities were negative for clots yesterday. (3) S/P IVC filter Status: Acute Response to Treatment: Stable (4) Aortic valve stenosis, moderate Status: Chronic Response to Treatment: Stable (5) NAFLD (nonalcoholic fatty liver disease) Status: Chronic Response to Treatment: Stable (6) Hypothyroid Status: Chronic Response to Treatment: Stable (7) History of colon cancer Status: Chronic Response to Treatment: Stable Problem Text: followed by Dr. Pacheco (8) Diastolic CHF due to valvular disease Problem Text: appears well compensated Plan/VTE VTE Prophylaxis Ordered?: Yes VTE Exclusion Pharmacological: Active Bleeding Plan Anticipated Discharge: Home (possible discharge 05/16 pending endoscopy results) Disposition Get PT/OT - Lives alone - may need some ST rehab prior to d/c - patient made aw are VS, I&O, 24H, Fishbone Vital Signs/I&O Vital Signs Date Time Temp Pulse Resp B/P (MAP) Pulse Ox O2 Delivery O2 Flow Rate FiO2 05/17/19 07:54 88 124/82 05/17/19 06:00 98.8 18 94 05/13/19 19:45 Room Air I&O- Last 24 Hours up to 6 AM 05/17/19 06:00 Intake Total 0 ml Output Total 350 ml Balance -350 ml Laboratory Data 24H LABS Laboratory Tests 2 05/17/19 05:46: Immature Granulocyte % (Auto) 0.4, White Blood Count 8.5, Red Blood Count 3.48L, Hemoglobin 10.1L, Hematocrit 30.1L, Mean Corpuscular Volume 86.5, Mean Corpus cular Hemoglobin 29.0, Mean Corpuscular Hemoglobin Concent 33.6, Red Cell Distribution Width 14.6H, Platelet Count 156, Neutrophils (%) (Auto) 77.2H, Lymphocytes (%) (Auto) 11.1L, Monocytes (%) (Auto) 9.8H, Eosinophils (%) (Auto) 1.4, Basophils (%) (Auto) 0.1, Neutrophils # (Auto) 6.6, Lymphocytes # (Auto) 0.9L, Monocytes # (Auto) 0.8, Eosinophils # (Auto) 0.1, Basophils # (Auto) 0.0, Nucleated Red Blood Cells % (auto) 0.0, Anion Gap 4L, Glomerular Filtration Rate 37.5, Blood Urea Nitrogen 17, Creatinine 1.42H, Sodium Level 138, Potassium Level 4.3, Chloride Level 106, Carbon Dioxide Level 28, Calcium Level 8.4L CBC/BMP Laboratory Tests 05/17/19 05:46 Red Blood Count 3.48 L, Mean Corpuscular Volume 86.5, Mean Corpuscular Hemoglobin 29.0, Mean Corpuscular Hemoglobin Concent 33.6, Red Cell Distribution Width 14.6 H, Neutrophils (%) (Auto) 77.2 H, Lymphocytes (%) (Auto) 11.1 L, Monocytes (%) (Auto) 9.8 H, Eosinophils (%) (Auto) 1.4, Basophils (%) (Auto) 0.1, Neutrophils # (Auto) 6.6, Lymphocytes # (Auto) 0.9 L, Monocytes # (Auto) 0.8, Eosinophils # (Auto) 0.1, Basophils # (Auto) 0.0, Calcium Level 8.4 L Microbiology Microbiology 05/14/19 Respiratory Virus Panel (PCR) ([facility]) - Final, Complete JAQUELINE CHOPRA PA-C May 17, 2019 10:30
[2019-05-17 14:00] VITALS: BP 116/46
[2019-05-17] MEDS: ATORVASTATIN 20 MG TAB PO SCH (21:09)
[2019-05-17 22:00] VITALS: BP 123/60
[2019-05-17] MEDS ORDERED: ACETAMINOPHEN 500 MG TAB PO PRN (22:00)
[2019-05-17] MEDS: LIDOCAINE 5% (LIDODERM) PATCH TD SCH (22:14)
[2019-05-18] MEDS: LEVOTHYROXINE 150MCG TABLET (0.15MG) PO SCH (05:57)
[2019-05-18] MEDS: SLF 3 ML SYR IV SCH ×4 (05:57→22:02)
[2019-05-18 06:00] VITALS: BP 142/67
[2019-05-18 06:37] LABS: BASO % 0.4 % (0.0-1.0); EOS # 0.1 10^3/uL (0.0-0.50); EOS % 2.2 % (0.0-3.0); HEMATOCRIT 31.3 % (36.0-47.0); HEMOGLOBIN 10.1 g/dl (12.0-15.5); LYMPH # 1.1 10^3/uL (1.5-4.5); LYMPH % 19.9 % (24.0-44.0); MEAN CORPUSCULAR HEMOGLOBIN 28.9 pg (27.0-33.0); MEAN CORPUSCULAR HGB CONC 32.3 g/dl (32.0-36.5); MEAN CORPUSCULAR VOLUME 89.7 fl (80.0-96.0); MONO # 0.7 10^3/uL (0.0-0.8); MONO % 12.7 % (0.0-5.0); NEUTROPHILS # 3.6 10^3/uL (1.8-7.7); NEUTROPHILS % 64.6 % (36.0-66.0); PLATELET COUNT, AUTOMATED 150 10^3/uL (150-450); RED BLOOD COUNT 3.49 10^6/uL (4.00-5.40); WHITE BLOOD COUNT 5.5 10^3/uL (4.0-10.0)
[2019-05-18 06:56] LABS: CALCIUM LEVEL 8.5 MG/DL (8.8-10.2); CREATININE FOR GFR 1.38 MG/DL (0.55-1.30); GLOMERULAR FILTRATION RATE 38.8 (>32); POTASSIUM SERUM 4.3 MEQ/L (3.5-5.1)
[2019-05-18] MEDS: SUCRALFATE 1 GM TAB PO SCH ×5 (07:37→20:11)
[2019-05-18] MEDS: CALCITRIOL 0.25 MCG CAP (S0169) PO SCH (08:46)
[2019-05-18] MEDS: PANTOPRAZOLE 40MG INJ (PROTONIX) (C9113) IV SCH (08:46)
[2019-05-18] MEDS: FOLIC ACID 1 MG TAB PO SCH (08:47)
[2019-05-18] MEDS: PHENYTOIN ER 100 MG CAP PO SCH ×2 (08:47→20:11)
[2019-05-18] MEDS: CIPROFLOXACIN 500 MG TAB PO SCH (08:47)
[2019-05-18] MEDS: CYANOCOBALAMIN 500 MCG TAB PO SCH (08:47)
[2019-05-18 08:48] VITALS: BP 131/51
[2019-05-18] MEDS: FUROSEMIDE 20 MG TAB PO SCH (09:01)
[2019-05-18] MEDS: **NOTE PATIENT COMMENT** MISC XX SCH (09:26)
[2019-05-18 14:00] VITALS: BP 133/52
[2019-05-18 14:33] VITALS: BP 133/52
[2019-05-18] MEDS: LIDOCAINE 5% (LIDODERM) PATCH TD SCH (20:11)
[2019-05-18] MEDS: PANTOPRAZOLE 40MG TAB (PROTONIX) PO SCH (20:11)
[2019-05-18] MEDS: ATORVASTATIN 20 MG TAB PO SCH (20:11)
[2019-05-18 22:00] VITALS: BP 130/66
[2019-05-19 06:00] VITALS: BP 148/65
[2019-05-19] MEDS: SLF 3 ML SYR IV SCH (06:00)
[2019-05-19] MEDS: LEVOTHYROXINE 150MCG TABLET (0.15MG) PO SCH (06:12)
[2019-05-19 06:15] LABS: BASO % 0.4 % (0.0-1.0); EOS # 0.1 10^3/uL (0.0-0.50); EOS % 2.8 % (0.0-3.0); HEMATOCRIT 30.3 % (36.0-47.0); HEMOGLOBIN 9.7 g/dl (12.0-15.5); LYMPH % 20.4 % (24.0-44.0); MEAN CORPUSCULAR HEMOGLOBIN 29.1 pg (27.0-33.0); MONO # 0.6 10^3/uL (0.0-0.8); MONO % 12.7 % (0.0-5.0); NEUTROPHILS # 3.2 10^3/uL (1.8-7.7); NEUTROPHILS % 63.3 % (36.0-66.0); PLATELET COUNT, AUTOMATED 153 10^3/uL (150-450); RED BLOOD COUNT 3.33 10^6/uL (4.00-5.40)
[2019-05-19 06:35] LABS: CALCIUM LEVEL 8.2 MG/DL (8.8-10.2); CREATININE FOR GFR 1.44 MG/DL (0.55-1.30); GLOMERULAR FILTRATION RATE 36.9 (>32); POTASSIUM SERUM 4.2 MEQ/L (3.5-5.1)
--- NOTE | 2019-05-19 07:50 | IPNPDOC ---
Subjective Date Seen The patient was seen on 05/18/19. Subjective Chief Complaint/HPI Patient was seen in am 05/18 - no complaints felt well. Was to undergo PT with possible d/c home if safe but did not pass PT in the afternoon Constitutional: Denies: Chills, Fever Pulmonary: Denies: Dyspnea, Cough Cardiovascular: Denies: Chest Pain, Palpitations Gastrointestinal: Denies: Nausea, Vomiting, Abdominal Pain, Diarrhea, Constipation, Melena, Hematochezia Objective Physical Examination General Exam: Positive: Alert, Cooperative, No Acute Distress Eye Exam: Positive: PERRLA ENT Exam: Positive: Atraumatic Neck Exam: Negative: JVD Chest Exam: Positive: Clear to auscultation, Normal air movement; Negative: Rales, Rhonchi, Wheezing Heart Exam: Positive: Rate Normal, Murmurs (3/6 murmur heard over entire precordium.) Abdomen Exam: Positive: Normal bowel sounds, Soft; Negative: Tenderness Extremity Exam: Negative: Clubbing, Edema Skin Exam: Positive: Nl turgor and temperature; Negative: Rash Psych Exam: Positive: Mental status NL Assessment /Plan Problems (1) GI bleed Status: Acute Response to Treatment: Stable Problem Specific Plan: Consult Specialist Problem Text: 05/18 - Hgb remains stable with no recurrent bleeding05/17 - s/p EGD/Colonoscoppy 05/16 Colonoscopy - - Patent functional end-to-end ileo-colonic anastomosis, characterized by healthy appearing mucosa. - Three 4 to 6 mm polyps in the descending colon, removed with a cold snare. Resected and retrieved. - Moderate diverticulosis in the sigmoid colon. There was evidence of diverticular spasm. - Small Internal Hemorrhoids. - The examination was otherwise normal on direct and retroflexion views. EGD - -: - Normal esophagus. - A few scattered recently bleeding angioectasias in the stomach. Treated with radiofrequency ablation. - Normal examined duodenum. - No specimens collected. GI Recommendation: - Observe patient's clinical course. - Avoid anticoagulation if possible. If medically absolutely necessary, then anticoagulation only at the smallest effective dose. Iron supplementation/infusion, Monitor H&H closely, transfuse PRBC PRN. 05/16/19: planned EGD/colonoscopy today. Zofran prn nausea for bowel prep intolerance. Hgb no change. Anticipate being able to resume anticoagulation regimen following scope tomorrow and possible discharge after procedure. anticoagulation reversal has been completed but waiting for repeat PT from lat morning. Hgb stable. plan for endoscopy tomorrow or thursday, per Dr. Pacheco according to patient (2) History of DVT of lower extremity Status: Chronic Response to Treatment: Stable Problem Text: 05/16 - Not on anticoag currently chronic warfarin user. ultrasounds of lower extremities were negative for clots yesterday. (3) S/P IVC filter Status: Acute Response to Treatment: Stable (4) Aortic valve stenosis, moderate Status: Chronic Response to Treatment: Stable (5) NAFLD (nonalcoholic fatty liver disease) Status: Chronic Response to Treatment: Stable (6) Hypothyroid Status: Chronic Response to Treatment: Stable (7) History of colon cancer Status: Chronic Response to Treatment: Stable Problem Text: followed by Dr. Pacheco (8) Diastolic CHF due to valvular disease Problem Text: appears well compensated Plan/VTE VTE Prophylaxis Ordered?: Yes VTE Exclusion Pharmacological: Active Bleeding Plan Anticipated Discharge: Home (possible discharge 05/16 pending endoscopy results) VS, I&O, 24H, [facility] Vital Signs/I&O Vital Signs Date Time Temp Pulse Resp B/P (MAP) Pulse Ox O2 Delivery O2 Flow Rate FiO2 05/19/19 06:00 98.1 71 16 148/65 (92) 95 05/13/19 19:45 Room Air I&O- Last 24 Hours up to 6 AM 05/19/19 05:59 Intake Total 1050 ml Balance 1050 ml Laboratory Data 24H LABS Laboratory Tests 2 05/19/19 05:17: Immature Granulocyte % (Auto) 0.4, White Blood Count 5.0, Red Blood Count 3.33L, Hemoglobin 9.7L, Hematocrit 30.3L, Mean Corpuscular Volume 91.0, Mean Corpuscular Hemoglobin 29.1, Mean Corpuscular Hemoglobin Concent 32.0, Red Cell Distribution Width 15.2H, Platelet Count 153, Neutrophils (%) (Auto) 63.3, Lymphocytes (%) (Auto) 20.4L, Monocytes (%) (Auto) 12.7H, Eosinophils (%) (Auto) 2.8, Basophils (%) (Auto) 0.4, Neutrophils # (Auto) 3.2, Lymphocytes # (Auto) 1.0L, Monocytes # (Auto) 0.6, Eosinophils # (Auto) 0.1, Basophils # (Auto) 0.0, Nucleated Red Blood Cells % (auto) 0.0, Anion Gap 2L, Glomerular Filtration Rate 36.9, Blood Urea Nitrogen 28H, Creatinine 1.44H, Sodium Level 142, Potassium Level 4.2, Chloride Level 111H, Carbon Dioxide Level 29, Calcium Level 8.2L CBC/BMP Laboratory Tests 05/19/19 05:17 Red Blood Count 3.33 L, Mean Corpuscular Volume 91.0, Mean Corpuscular Hemoglobin 29.1, Mean Corpuscular Hemoglobin Concent 32.0, Red Cell Distribution Width 15.2 H, Neutrophils (%) (Auto) 63.3, Lymphocytes (%) (Auto) 20.4 L, Monocytes (%) (Auto) 12.7 H, Eosinophils (%) (Auto) 2.8, Basophils (%) (Auto) 0.4, Neutrophils # (Auto) 3.2, Lymphocytes # (Auto) 1.0 L, Monocytes # (Auto) 0.6, Eosinophils # (Auto) 0.1, Basophils # (Auto) 0.0, Calcium Level 8.2 L Microbiology Microbiology 05/14/19 Respiratory Virus Panel (PCR) (ELISA) - Final, Complete JAQUELINE CHOPRA PA-C May 19, 2019 07:50
[2019-05-19] MEDS: CIPROFLOXACIN 500 MG TAB PO SCH (08:52)
[2019-05-19] MEDS: FOLIC ACID 1 MG TAB PO SCH (08:52)
[2019-05-19] MEDS: FUROSEMIDE 20 MG TAB PO SCH (08:52)
[2019-05-19] MEDS: PHENYTOIN ER 100 MG CAP PO SCH (08:52)
[2019-05-19] MEDS: PANTOPRAZOLE 40MG TAB (PROTONIX) PO SCH (08:52)
[2019-05-19] MEDS: SUCRALFATE 1 GM TAB PO SCH (08:52)
[2019-05-19] MEDS: **NOTE PATIENT COMMENT** MISC XX SCH (08:53)
[2019-05-19] MEDS: CALCITRIOL 0.25 MCG CAP (S0169) PO SCH (08:53)
[2019-05-19] MEDS: CYANOCOBALAMIN 500 MCG TAB PO SCH (08:53)
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
== END 2019-05-19 11:31 | disposition home health service (06) | DRG 378 ==
LOC: M ED 10:02 → M ED INP 12:17 → M PCU 05-14 15:02 → M MSPAV 05-16 17:20
PROVIDERS: ADMIT General Practice; ATTEND Family Medicine
PROC: 30233N1 Transfusion of Nonautologous Red Blood Cells into Peripheral Vein, Percutaneous Approach (ICD-10-PCS; 2019-05-13)
PROC: 30233K1 Transfusion of Nonautologous Frozen Plasma into Peripheral Vein, Percutaneous Approach (ICD-10-PCS; 2019-05-13)
PROC: 0DBM8ZX Excision of Descending Colon, Via Natural or Artificial Opening Endoscopic, Diagnostic (ICD-10-PCS; 2019-05-16)
PROC: 0W3P8ZZ Control Bleeding in Gastrointestinal Tract, Via Natural or Artificial Opening Endoscopic (ICD-10-PCS; principal; 2019-05-16 15:00)
DX: K31.811 Angiodysplasia of stomach and duodenum with bleeding (principal); D62 Acute posthemorrhagic anemia; I50.32 Chronic diastolic (congestive) heart failure; I13.0 Hypertensive heart and chronic kidney disease with heart failure and stage 1 through stage 4 chronic kidney disease, or unspecified chronic kidney disease; E55.9 Vitamin D deficiency, unspecified; E03.9 Hypothyroidism, unspecified; K29.70 Gastritis, unspecified, without bleeding; D63.8 Anemia in other chronic diseases classified elsewhere; I35.0 Nonrheumatic aortic (valve) stenosis; F41.1 Generalized anxiety disorder; M50.30 Other cervical disc degeneration, unspecified cervical region; E78.5 Hyperlipidemia, unspecified; E53.8 Deficiency of other specified B group vitamins; K76.0 Fatty (change of) liver, not elsewhere classified; G40.909 Epilepsy, unspecified, not intractable, without status epilepticus; K59.09 Other constipation; M17.0 Bilateral primary osteoarthritis of knee; K64.8 Other hemorrhoids; D12.4 Benign neoplasm of descending colon; N18.3 Chronic kidney disease, stage 3 (moderate); Z90.49 Acquired absence of other specified parts of digestive tract; Z87.81 Personal history of (healed) traumatic fracture; Z86.718 Personal history of other venous thrombosis and embolism; Z95.828 Presence of other vascular implants and grafts; Z86.010 Personal history of colon polyps; Z98.41 Cataract extraction status, right eye; Z98.42 Cataract extraction status, left eye; Z88.2 Allergy status to sulfonamides; Z87.891 Personal history of nicotine dependence; Z79.01 Long term (current) use of anticoagulants; Z79.899 Other long term (current) drug therapy; K57.30 Diverticulosis of large intestine without perforation or abscess without bleeding; Z98.0 Intestinal bypass and anastomosis status

== ENCOUNTER → 2019-05-27 | Outpatient (REF) | payer MEDICARE, OTHER ==
[~2019-05-27] MED LIST changes: +AMLO2.5T3 PO; +ATOR40TA75 PO; +CALCTAB89 PO; +CLOT1CRE TOP; +FOLI1TAB11 PO; +LEVO150T7 PO; +LUTE15CA PO; +MULT-40 PO; +POLY150C5 PO; +ROCA0.5C PO; +WARF-60 PO
[2019-05-27 15:27] LABS: BASO # 0.1 10^3/uL (0.0-0.2); BASO % 0.8 % (0.0-1.0); EOS # 0.1 10^3/uL (0.0-0.50); EOS % 1.7 % (0.0-3.0); LYMPH # 1.5 10^3/uL (1.5-4.5); LYMPH % 24.1 % (24.0-44.0); MEAN CORPUSCULAR HEMOGLOBIN 29.2 pg (27.0-33.0); MEAN CORPUSCULAR HGB CONC 32.3 g/dl (32.0-36.5); MEAN CORPUSCULAR VOLUME 90.4 fl (80.0-96.0); MONO # 0.7 10^3/uL (0.0-0.8); MONO % 11.4 % (0.0-5.0); NEUTROPHILS # 3.7 10^3/uL (1.8-7.7); NEUTROPHILS % 61.7 % (36.0-66.0); PLATELET COUNT, AUTOMATED 184 10^3/uL (150-450); RED BLOOD COUNT 3.43 10^6/uL (4.00-5.40); WHITE BLOOD COUNT 6.1 10^3/uL (4.0-10.0)
[2019-05-27 16:02] LABS: ALBUMIN 3.6 GM/DL (3.2-5.2); BILIRUBIN,TOTAL 0.2 MG/DL (0.2-1.0); CALCIUM LEVEL 9.2 MG/DL (8.8-10.2); CREATININE FOR GFR 1.51 MG/DL (0.55-1.30); FREE T4 1.26 NG/DL (0.76-1.46); POTASSIUM SERUM 3.9 MEQ/L (3.5-5.1); THYROID STIMULATING HORMONE 0.209 uIU/ML (0.358-3.740); TOTAL PROTEIN 6.5 GM/DL (6.4-8.2)
== END ==
LOC: M SHH 15:02
PROVIDERS: ATTEND Family Medicine
DX: E53.8 Deficiency of other specified B group vitamins (principal); I10 Essential (primary) hypertension; E50.9 Vitamin A deficiency, unspecified; E03.9 Hypothyroidism, unspecified

== ENCOUNTER → 2019-06-09 | Outpatient (REF) | payer MEDICARE, OTHER ==
[2019-06-09 18:09] LABS: INR 2.4
== END ==
LOC: M LAB REF 15:58
PROVIDERS: ATTEND Family Medicine
DX: E03.9 Hypothyroidism, unspecified (principal); Z79.01 Long term (current) use of anticoagulants

== ENCOUNTER → 2019-06-22 | Outpatient (REF) | payer MEDICARE, OTHER ==
[2019-06-22 10:58] LABS: BASO % 0.5 % (0.0-1.0); EOS # 0.1 10^3/uL (0.0-0.50); EOS % 2.5 % (0.0-3.0); HEMATOCRIT 30.7 % (36.0-47.0); LYMPH # 0.9 10^3/uL (1.5-4.5); LYMPH % 19.9 % (24.0-44.0); MEAN CORPUSCULAR HEMOGLOBIN 29.8 pg (27.0-33.0); MEAN CORPUSCULAR HGB CONC 32.6 g/dl (32.0-36.5); MEAN CORPUSCULAR VOLUME 91.4 fl (80.0-96.0); MONO # 0.6 10^3/uL (0.0-0.8); MONO % 12.6 % (0.0-5.0); NEUTROPHILS # 2.8 10^3/uL (1.8-7.7); PLATELET COUNT, AUTOMATED 176 10^3/uL (150-450); RED BLOOD COUNT 3.36 10^6/uL (4.00-5.40); WHITE BLOOD COUNT 4.4 10^3/uL (4.0-10.0)
[2019-06-22 11:08] LABS: INR 2.46; PROTHROMBIN TIME 26.5 SECONDS (11.8-14.0)
[2019-06-22 11:51] LABS: ALBUMIN 3.6 GM/DL (3.2-5.2); CALCIUM LEVEL 9.3 MG/DL (8.8-10.2); CREATININE FOR GFR 1.87 MG/DL (0.55-1.30); GLOMERULAR FILTRATION RATE 27.3 (>32); PHOSPHORUS LEVEL 3.1 MG/DL (2.5-4.9); POTASSIUM SERUM 4.4 MEQ/L (3.5-5.1)
== END ==
LOC: M SFHCPLAZ 08:28
PROVIDERS: ATTEND Family Medicine
DX: N18.3 Chronic kidney disease, stage 3 (moderate) (principal); Z79.01 Long term (current) use of anticoagulants; Z79.899 Other long term (current) drug therapy

== ENCOUNTER 2019-08-05 16:39 | Inpatient (IN) | payer MEDICARE, OTHER ==
[~2019-08-05] VITALS: Ht 152.4 cm; Wt 66.2 kg
[~2019-08-05 16:39] MED LIST changes: +SIMV40TA2 PO; -SIMV40TA20 PO; -SYNT125T PO; -WARF-23 PO
[2019-08-05] MEDS ORDERED: PANTOPRAZOLE 40MG INJ (PROTONIX) (C9113) IV ONE (17:15)
[2019-08-05] MEDS ORDERED: NS 1,000 ML IV SCH (17:15)
[2019-08-05 17:56] LABS: BASO % 0.8 % (0.0-1.0); EOS # 0.1 10^3/uL (0.0-0.5); EOS % 2.7 % (0.0-3.0); HEMATOCRIT 21.7 % (36.0-47.0); LYMPH # 1.1 10^3/uL (1.5-5.0); LYMPH % 20.3 % (24.0-44.0); MEAN CORPUSCULAR HEMOGLOBIN 27.8 pg (27.0-33.0); MEAN CORPUSCULAR HGB CONC 31.3 g/dl (32.0-36.5); MEAN CORPUSCULAR VOLUME 88.6 fl (80.0-96.0); MONO # 0.7 10^3/uL (0.0-0.8); MONO % 12.6 % (0.0-5.0); NEUTROPHILS # 3.3 10^3/uL (1.5-8.5); NEUTROPHILS % 63.2 % (36.0-66.0); PLATELET COUNT, AUTOMATED 174 10^3/uL (150-450); RED BLOOD COUNT 2.45 10^6/uL (4.00-5.40); WHITE BLOOD COUNT 5.2 10^3/uL (4.0-10.0)
[2019-08-05 18:01] LABS: HEMOGLOBIN 6.8 g/dl (12.0-15.5)
[2019-08-05 18:09] LABS: INR 2.02; PROTHROMBIN TIME 22.6 SECONDS (11.8-14.0)
[2019-08-05 18:19] LABS: ALBUMIN 3.4 GM/DL (3.2-5.2); BILIRUBIN,TOTAL 0.2 MG/DL (0.2-1.0); CALCIUM LEVEL 9.3 MG/DL (8.8-10.2); CREATININE FOR GFR 1.54 MG/DL (0.55-1.30); GLOMERULAR FILTRATION RATE 34.2 (>32); POTASSIUM SERUM 4.6 MEQ/L (3.5-5.1); TOTAL PROTEIN 6.2 GM/DL (6.4-8.2)
[2019-08-05] MEDS ORDERED: ACETAMINOPHEN TAB 650MG DOSE (2X325MG) PO PRN (18:30)
[2019-08-05] MEDS ORDERED: ALPRAZolam 0.25 MG TAB PO PRN (18:45)
[2019-08-05] MEDS ORDERED: SYNT125T PO (19:31)
[2019-08-05] MEDS ORDERED: WARF-60 PO (19:31)
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
[2019-08-05 21:20] VITALS: BP 148/65
[2019-08-05] MEDS: CALCIUM/VITAMIN D 500 MG TAB PO SCH (22:23)
[2019-08-05] MEDS: LACTULOSE 20 GM/30 ML SYRUP UD PO SCH (22:23)
[2019-08-05] MEDS: ATORVASTATIN 20 MG TAB PO SCH (22:24)
[2019-08-05] MEDS: DOCUSATE SODIUM 100 MG CAP PO SCH (22:24)
[2019-08-05] MEDS: PHENYTOIN ER 100 MG CAP PO SCH (22:24)
[2019-08-05] MEDS: SUCRALFATE 1 GM TAB PO SCH (22:25)
[2019-08-05] MEDS: CYANOCOBALAMIN 500 MCG TAB PO SCH (22:28)
[2019-08-05 23:49] VITALS: BP 173/74
[2019-08-05 23:59] VITALS: BP 173/74
[2019-08-06] VITALS (10 sets, daily range): BP systolic 138–160; BP diastolic 60–70
[2019-08-06] MEDS: CLOTRIMAZOLE 1% TOPICAL CREAM 30GM TOP SCH ×3 (00:13→20:19)
[2019-08-06 03:10] LABS: HEMATOCRIT 28.5 % (36.0-47.0); HEMOGLOBIN 9.2 g/dl (12.0-15.5); MEAN CORPUSCULAR HEMOGLOBIN 27.8 pg (27.0-33.0); MEAN CORPUSCULAR HGB CONC 32.3 g/dl (32.0-36.5); MEAN CORPUSCULAR VOLUME 86.1 fl (80.0-96.0); PLATELET COUNT, AUTOMATED 148 10^3/uL (150-450); RED BLOOD COUNT 3.31 10^6/uL (4.00-5.40); WHITE BLOOD COUNT 5.2 10^3/uL (4.0-10.0)
[2019-08-06] MEDS: LEVOTHYROXINE 125MCG TABLET (0.125MG) PO SCH (05:29)
[2019-08-06 05:48] LABS: HEMATOCRIT 27.5 % (36.0-47.0); HEMOGLOBIN 8.9 g/dl (12.0-15.5); MEAN CORPUSCULAR HEMOGLOBIN 27.6 pg (27.0-33.0); MEAN CORPUSCULAR HGB CONC 32.4 g/dl (32.0-36.5); MEAN CORPUSCULAR VOLUME 85.1 fl (80.0-96.0); PLATELET COUNT, AUTOMATED 151 10^3/uL (150-450); RED BLOOD COUNT 3.23 10^6/uL (4.00-5.40)
[2019-08-06 06:06] LABS: INR 1.99; PARTIAL THROMBOPLASTIN TIME 33.3 SECONDS (25.0-38.4); PROTHROMBIN TIME 22.4 SECONDS (11.8-14.0)
[2019-08-06 06:09] LABS: D-DIMER QUANT 546.53 ng/ml (<500)
[2019-08-06 06:12] LABS: BILIRUBIN,TOTAL 0.4 MG/DL (0.2-1.0); CALCIUM LEVEL 8.8 MG/DL (8.8-10.2); CREATININE FOR GFR 1.39 MG/DL (0.55-1.30); GLOMERULAR FILTRATION RATE 38.5 (>32); PERCENT SATURATION 55.4 % (13.2-45.0); POTASSIUM SERUM 4.2 MEQ/L (3.5-5.1); TOTAL PROTEIN 6.1 GM/DL (6.4-8.2)
--- NOTE | 2019-08-06 06:21 | IPNPDOC ---
Text Note Date of Service The patient was seen on 08/06/19. NOTE Subjective: -No complaints this morning -SOB has improved, feels well. No fevers, chills, hematochezia, melena, nausea, emesis, chest pain, palpitations or dizziness. -Remainder of 12 point ROS was reviewed and was otherwise normal Physical Examination General Exam: Alert, No Acute Distress Eye Exam: PERRLA, Conjunctiva & lids normal, EOMI, anicteric ENT Exam: Atraumatic, MMM, poor dentition Neck Exam: Supple, no JVD, thyromegaly or adenopathy Chest Exam: Clear to auscultation, Normal air movement, no rales or wheezing Heart Exam: Rate Normal, Regular Rhythm, Normal S1, Normal S2, has a long known per patient holosystolic murmur, loudest at RUSB, no rubs Abdomen Exam: Normal bowel sounds, soft, nontender, no palpable hepatosplenomegaly Extremity Exam: Normal pulses, chronic bilateral edema at baseline per patient, otherwise warm and well perfused, tender R>L when palpated Skin Exam: Nl turgor and temperature, no breakdown or lesions Neuro Exam: Normal Speech, Strength at 5/5 X4 ext, grossly normal cranial nerve exam for nerves 2-12 Psych Exam: Mental status NL, Mood NL, Oriented x 3 Labs: reviewed. had appropriate rise in H/H s/p 2u of blood. Cr was at baseline on admission. AM labs pending Assessment/Plan 83-year-old woman with a history of remote adenocarcinoma of the colon s/p resection, gastric ulcers and gastritis on protonix BID, gastrointestinal (GI)bleed requiring blood transfusion in 2013 and in 05/2019, gastric antral vascular ectasia(GAVE), remote provoked DVT on remote computer terminal operator warfarin presenting to the ED with acute shortness of breath and admitted for symptomatic anemia. Plan: 1. Symptomatic anemia: -History c/w GIB -Type and screen done in the ED -s/p 2 units of pRBCs with appropriate response, monitor H/H BID for rate of decline -Dr. 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 Chronic constipation -Currently without complaints -continue home bowel regimen vitamin D deficiency -continue vitamin D per outpatient script CKD III: Cr at recent baseline -Avoid nephrotoxins. -Renal dosing Diet: regular DVT prophylaxis: TEDs and SCDs, continue holding warfarin Dispo: need full 24h after transfusion for rate of decline determination as well as discussion with PCP after resumption of warfarin because she has technically become transfusion dependent while on anticoagulation. Plan / VTE VTE Prophylaxis Ordered?: Yes VTE Exclusion Pharmacological: Active Bleeding VS,Fishbone, I+O VS, Fishbone, I+O Laboratory Tests 08/05/19 17:38 Red Blood Count 2.45 L, Mean Corpuscular Volume 88.6, Mean Corpuscular Hemoglobin 27.8, Mean Corpuscular Hemoglobin Concent 31.3 L, Red Cell Distr ibution Width 14.1, Neutrophils (%) (Auto) 63.2, Lymphocytes (%) (Auto) 20.3 L, Monocytes (%) (Auto) 12.6 H, Eosinophils (%) (Auto) 2.7, Basophils (%) (Auto) 0.8, Neutrophils # (Auto) 3.3, Lymphocytes # (Auto) 1.1 L, Monocytes # (Auto) 0.7, Eosinophils # (Auto) 0.1, Basophils # (Auto) 0.0, Calcium Level 9.3, Aspartate Amino Transf (AST/SGOT) 33, Alanine Aminotransferase (ALT/SGPT) 35, Alkaline Phosphatase 151 H, Total Bilirubin 0.2, Total Protein 6.2 L, Albumin 3.4 08/06/19 03:02 Red Blood Count 3.31 L, Mean Corpuscular Volume 86.1, Mean Corpuscular Hemoglobin 27.8, Mean Corpuscular Hemoglobin Concent 32.3, Red Cell Distribution Width 14.5 08/06/19 05:33 Red Blood Count 3.23 L, Mean Corpuscular Volume 85.1, Mean Corpuscular Hemoglobin 27.6, Mean Corpuscular Hemoglobin Concent 32.4, Red Cell Distribution Width 14.5 Vital Signs Date Time Temp Pulse Resp B/P (MAP) Pulse Ox O2 Delivery O2 Flow Rate FiO2 08/06/19 05:01 77 18 145/65 (91) 08/06/19 03:05 97.3 08/06/19 02:00 95 08/05/19 16:39 Room Air I&O- Last 24 Hours up to 6 AM 08/06/19 06:00 Intake Total 766 ml Output Total 250 ml Balance 516 ml CAROLEE MARKS MD Aug 06, 2019 06:21
[2019-08-06] MEDS: PHENYTOIN ER 100 MG CAP PO SCH ×2 (08:21→20:17)
[2019-08-06] MEDS: CIPROFLOXACIN 500 MG TAB PO SCH (08:21)
[2019-08-06] MEDS: CALCITRIOL 0.25 MCG CAP (S0169) PO SCH (08:22)
[2019-08-06] MEDS: FOLIC ACID 1 MG TAB PO SCH (08:22)
[2019-08-06] MEDS: PANTOPRAZOLE 40MG INJ (PROTONIX) (C9113) IV SCH ×2 (08:22→20:16)
[2019-08-06] MEDS: FUROSEMIDE 20 MG TAB PO SCH (08:22)
[2019-08-06] MEDS: DOCUSATE SODIUM 100 MG CAP PO SCH ×2 (08:22→20:16)
[2019-08-06] MEDS: SUCRALFATE 1 GM TAB PO SCH ×4 (08:22→20:17)
--- NOTE | 2019-08-06 09:47 | REP ---
Bilateral lower extremity deep vein duplex ultrasound: The deep veins demonstrate normal compression, normal Doppler color flow and normal Doppler waveforms with respiration and augmentation from the popliteal veins to the common femoral veins bilaterally . Impression: There is no lower extremity deep vein thrombus on the right on the left. Electronically Signed by Luis Lofton MD 08/06/2019 09:38 A
[2019-08-06] MEDS: CALCIUM/VITAMIN D 500 MG TAB PO SCH ×2 (12:20→20:17)
[2019-08-06] MEDS: CYANOCOBALAMIN 500 MCG TAB PO SCH (17:31)
--- NOTE | 2019-08-06 17:41 | IPNPDOC ---
Subjective Date Seen The patient was seen on 08/06/19. Subjective Chief Complaint/HPI Ms. Dupont reports that her breathing is somewhat improved, but "not as much as it usually is after I have a transfusion." She denies recent blood per rectum and states that she feels that was probably related to a hemorrhoid that is now resolved. Her appetite is good. She does live alone and reports that she feels pretty weak still. General: Reports: Normal Appetite Constitutional: Reports: Weakness; Denies: Chills, Fever Pulmonary: Reports: Dyspnea; Denies: Cough Cardiovascular: Denies: Chest Pain, Palpitations Psych: Reports: Mood Normal Objective Physical Examination General Exam: Positive: Alert, Cooperative, No Acute Distress Eye Exam: Positive: Conjunctiva & lids normal; Negative: Sclera icteric ENT Exam: Positive: Atraumatic, Mucous membr. moist/pink, Other ENT (poor dentition, with numerous missing teeth and at least one loose tooth when she speaks) Neck Exam: Negative: JVD, thyromegaly, Lymphadenopathy Chest Exam: Positive: Clear to auscultation, Normal air movement Heart Exam: Positive: Rate Normal, Regular Rhythm, Normal S1, Normal S2, Murmurs (3/6 holosystolic, loudest at RUSB); Negative: Rubs Abdomen Exam: Positive: Normal bowel sounds, Soft; Negative: Tenderness, Hepatospenomegaly Extremity Exam: Positive: Edema (L > R she has compression stockings on), Normal pulses; Negative: Tenderness Skin Exam: Positive: Nl turgor and temperature; Negative: Breakdown, Lesion Neuro Exam: Positive: Normal Speech Psych Exam: Positive: Mental status NL, Mood NL, Oriented x 3 Assessment /Plan Problems (1) Acute blood loss anemia Status: Acute Response to Treatment: Improving (after 2 units PRBCs) Discussed With: Nurse, Patient Problem Specific Plan: Repeat Labs Problem Text: Will monitor for stability. She denies further gross blood loss. She remains dyspenic, which she identifies as a symptom of anemia for her. It does take a few hours for blood to totally equilibrate, so we will see how she is doing tomorrow. (2) GI bleed Status: Acute Response to Treatment: Controlled Discussed With: Nurse, Patient Problem Specific Plan: Monitor Clinically Problem Text: She denies any further bleeding per rectum. Will monitor. Her INR is now 1.99, so this should help reduce any ongoing bleeding if there is some. (3) Aortic valve stenosis, moderate Status: Chronic Discussed With: Patient Problem Specific Plan: Monitor Clinically Problem Text: Further progression of her aortic valvular disease may make her more sensitive to anemia and other acute changes in her oxygen carrying capacity than it has in the past. I am not going to reorder an echocardiogram at this time. However, if she remains more dyspenic than usual and her Hb stabilizes, this may be another place to check. (4) History of DVT of lower extremity Status: Chronic Discussed With: Patient Problem Specific Plan: Monitor Clinically Problem Text: She has no recurrent DVT. She was anticoagulated after the last admission against the advice of her customer loyalty representative, because her PCP was concerned about recurrent DVT. I appreciate the balance between these two issues, however, since she has been admitted for another GI bleed, I think we should reconsider anticoagualtion. Perhaps she could have a Rougon filter in as an insurance policy. Plan/VTE VTE Prophylaxis Ordered?: Yes (SCD/TEDs) VTE Exclusion Pharmacological: Active Bleeding VS, I&O, 24H, Fishbone Vital Signs/I&O Vital Signs Date Time Temp Pulse Resp B/P (MAP) Pulse Ox O2 Delivery O2 Flow Rate FiO2 08/06/19 16:00 98.6 75 16 138/61 (86) 91 08/05/19 16:39 Room Air I&O- Last 24 Hours up to 6 AM 08/06/19 06:00 Intake Total 1192 ml Output Total 650 ml Balance 542 ml Laboratory Data 24H LABS Laboratory Tests 2 08/06/19 03:02: Nucleated Red Blood Cells % (auto) 0.0 08/06/19 05:33: Nucleated Red Blood Cells % (auto) 0.0, Reticulocyte # (auto) 43.6, Differential Slide Review Report, Peripheral Blood Smear Path Consult PERIPHERAL SMEAR, Percent Reticulocyte Count 1.4, Reticulocyte Hemoglobin Equivalent 27.2, Prothrombin Time 22.4H, Prothromb Time International Ratio 1.99, Activated Partial Thromboplast Time 33.3, Fibrinogen 397, D-Dimer, Quantitative 546.53H, Anion Gap 5L, Glomerular Filtration Rate 38.5, Blood Urea Nitrogen 25H, Creatinine 1.39H, Sodium Level 142, Potassium Level 4.2, Chloride Level 108H, Carbon Dioxide Level 29, Calcium Level 8.8, Aspartate Amino Transf (AST/SGOT) 34, Alanine Aminotransferase (ALT/SGPT) 26, Alkaline Phosphatase 140H, Total Bilirubin 0.4#, Total Protein 6.1L, Albumin 3.0L, Iron Level 194H, Total Iron Binding Capacity 350, Transferrin % Saturation 55.4H, Ferritin 7L, Albumin/Lia bulin Ratio 0.97L CBC/BMP Laboratory Tests 08/06/19 03:02 Red Blood Count 3.31 L, Mean Corpuscular Volume 86.1, Mean Corpuscular Hemoglobin 27.8, Mean Corpuscular Hemoglobin Concent 32.3, Red Cell Distribution Width 14.5 08/06/19 05:33 Red Blood Count 3.23 L, Mean Corpuscular Volume 85.1, Mean Corpuscular Hemoglobin 27.6, Mean Corpuscular Hemoglobin Concent 32.4, Red Cell Distribution Width 14.5, Calcium Level 8.8, Aspartate Amino Transf (AST/SGOT) 34, Alanine Aminotransferase (ALT/SGPT) 26, Alkaline Phosphatase 140 H, Total Bilirubin 0.4 #, Total Protein 6.1 L, Albumin 3.0 L Kodi Ayers MD Aug 06, 2019 17:41
[2019-08-06] MEDS: LACTULOSE 20 GM/30 ML SYRUP UD PO SCH (20:16)
[2019-08-06] MEDS: ATORVASTATIN 20 MG TAB PO SCH (20:17)
[2019-08-07 04:00] VITALS: BP 162/56
[2019-08-07] MEDS: LEVOTHYROXINE 125MCG TABLET (0.125MG) PO SCH (06:08)
[2019-08-07 06:15] LABS: HEMATOCRIT 27.9 % (36.0-47.0); HEMOGLOBIN 9.1 g/dl (12.0-15.5); MEAN CORPUSCULAR HEMOGLOBIN 28.2 pg (27.0-33.0); MEAN CORPUSCULAR HGB CONC 32.6 g/dl (32.0-36.5); MEAN CORPUSCULAR VOLUME 86.4 fl (80.0-96.0); PLATELET COUNT, AUTOMATED 130 10^3/uL (150-450); RED BLOOD COUNT 3.23 10^6/uL (4.00-5.40); WHITE BLOOD COUNT 6.2 10^3/uL (4.0-10.0)
[2019-08-07 06:27] LABS: INR 1.43; PROTHROMBIN TIME 17.2 SECONDS (11.8-14.0)
[2019-08-07 06:43] LABS: ALBUMIN 2.9 GM/DL (3.2-5.2); BILIRUBIN,TOTAL 0.3 MG/DL (0.2-1.0); CALCIUM LEVEL 8.9 MG/DL (8.8-10.2); CREATININE FOR GFR 1.38 MG/DL (0.55-1.30); GLOMERULAR FILTRATION RATE 38.8 (>32); POTASSIUM SERUM 4.1 MEQ/L (3.5-5.1); TOTAL PROTEIN 6.3 GM/DL (6.4-8.2)
[2019-08-07 08:00] VITALS: BP 140/70
--- NOTE | 2019-08-07 08:02 | ECGEPIP ---
[facility] - ED Test Date: 2019-08-05 Pat Name: ANDREEA SAL Department: Room: [place] [address] Gender: Female Speech Clinician: : [id number] Requested By: Amara Zimmer Order Number: [id number] Reading MD: Amara Zimmer Measurements Intervals [place] Rate: 77 P: 11 SC: 129 QRS: 24 QRSD: 86 T: 32 QT: 378 QTc: 428 Interpretive Statements SINUS RHYTHM NSTTW abnormalities similar to prior EKG 05/13/19 Electronically Signed on 08-07-2019 8:02:20 EDT by Amara Zimmer
[2019-08-07] MEDS: CALCITRIOL 0.25 MCG CAP (S0169) PO SCH (08:26)
[2019-08-07] MEDS: PANTOPRAZOLE 40MG INJ (PROTONIX) (C9113) IV SCH ×2 (08:26→20:07)
[2019-08-07] MEDS: CLOTRIMAZOLE 1% TOPICAL CREAM 30GM TOP SCH ×2 (08:27→20:09)
[2019-08-07] MEDS: SUCRALFATE 1 GM TAB PO SCH ×4 (08:27→20:08)
[2019-08-07] MEDS: FUROSEMIDE 20 MG TAB PO SCH (08:27)
[2019-08-07] MEDS: CIPROFLOXACIN 500 MG TAB PO SCH (08:27)
[2019-08-07] MEDS: PHENYTOIN ER 100 MG CAP PO SCH ×2 (08:27→20:07)
[2019-08-07] MEDS: DOCUSATE SODIUM 100 MG CAP PO SCH ×2 (08:27→20:08)
[2019-08-07] MEDS: FOLIC ACID 1 MG TAB PO SCH (08:27)
[2019-08-07] MEDS ORDERED: FLUBLOK(EGG FREE)(QUAD)INFLUENZA VACC 0.5ML SYRINGE (90682)18YRS&OLDER IM ONE (09:00)
[2019-08-07] MEDS: CALCIUM/VITAMIN D 500 MG TAB PO SCH ×2 (11:56→20:07)
[2019-08-07 12:00] VITALS: BP 126/70
--- NOTE | 2019-08-07 14:16 | IPNPDOC ---
Subjective Date Seen The patient was seen on 08/07/19. Subjective Chief Complaint/HPI Ms. Dupont reports that she feels about the same as she did yesterday. She still feels weak and more short of breath. She is not having chest pain. She denies any melena or hematochezia. She reports to me that she had an echocardiogram through Dr. Sullivan' office "just a couple of months ago.' General: Reports: Normal Appetite Constitutional: Reports: Weakness, Fatigue Skin: Denies: Bruising Pulmonary: Reports: Dyspnea; Denies: Cough, Pleuritic Chest Pain Cardiovascular: Denies: Chest Pain, Palpitations Gastrointestinal: Denies: Melena, Hematochezia Genitourinary: Denies: Hematuria Psych: Reports: Mood Normal Objective Physical Examination General Exam: Positive: Alert, Cooperative (sitting in a chair at watching TV when I entered the room), No Acute Distress Eye Exam: Positive: Conjunctiva & lids normal; Negative: Sclera icteric ENT Exam: Positive: Atraumatic, Mucous membr. moist/pink, Other ENT (poor dentition, with numerous missing teeth and at least one loose tooth when she speaks) Neck Exam: Negative: JVD, thyromegaly, Lymphadenopathy Chest Exam: Positive: Clear to auscultation, Normal air movement Heart Exam: Positive: Rate Normal, Regular Rhythm, Normal S1, Normal S2, Murmurs (3/6 holosystolic, loudest at RUSB); Negative: Rubs Abdomen Exam: Positive: Normal bowel sounds, Soft; Negative: Tenderness, Hepatospenomegaly Extremity Exam: Positive: Edema (L > R she has compression stockings on), Normal pulses; Negative: Tenderness Skin Exam: Positive: Nl turgor and temperature; Negative: Breakdown, Lesion Neuro Exam: Positive: Normal Speech Psych Exam: Positive: Mental status NL, Mood NL, Oriented x 3 Assessment /Plan Problems (1) Acute blood loss anemia Status: Acute Response to Treatment: Improving (after 2 units PRBCs) Discussed With: Nurse, Patient Problem Specific Plan: Repeat Labs Problem Text: Will monitor for stability. She denies further gross blood loss. She remains dyspenic, which she identifies as a symptom of anemia for her. (2) Dyspnea Status: Acute Discussed With: Patient Problem Specific Plan: Monitor Clinically Problem Text: I'm not sure if this is just a function of her anemia (she is still anemic, just not transfusable), aortic valve disease, deconditioning, or something else all together. I unofficially spoke with her computerized mill recorder who will review the echo that the patient reports was recently done in his office. If it is not recent, or he sees any issues, then I will repeat an echo here. Otherwise, we may assume that her recent echo can eliminate changes in her valvular disease that need to be acted on. She has worked with P/T who felt that she needed a few more sessions to be ready for home. Will wait for their updated report tomorrow. (3) GI bleed Status: Acute Response to Treatment: Controlled Discussed With: Nurse, Patient Problem Specific Plan: Monitor Clinically Problem Text: She denies any further bleeding per rectum. Will monitor. Her INR is now 1.43, so this should help reduce any ongoing bleeding if there is some. I spoke unofficially with her computerized mill recorder about continued blood thinners vs an inferior vena cava filter. His feeling is that IVC filters don't help that much if we are looking to prevent PEs over the exterminator termite. His suggestion was to lean toward a lower dose DOAC like 2.5mg of Eliquis. This should probably be discussed with her outpatient PCP. I will not make changes today. (4) Aortic valve stenosis, moderate Status: Chronic Discussed With: Patient Problem Specific Plan: Monitor Clinically Problem Text: Further progression of her aortic valvular disease may make her more sensitive to anemia and other acute changes in her oxygen carrying capacity than it has in the past. I am not going to reorder an echocardiogram at this time. However, if she remains more dyspenic than usual and her Hb stabilizes, this may be another place to check. (5) History of DVT of lower extremity Status: Chronic Discussed With: Patient Problem Specific Plan: Monitor Clinically Problem Text: She has no recurrent DVT during this admission. She was anticoagulated after the last admission against the advice of her center specialists, because her PCP was concerned about recurrent DVT. I appreciate the balance between these two issues, however, since she has been admitted for another GI bleed, I think we should reconsider anticoagualtion. Possibly a change to Eliquis 2.5mg per the suggestion of her computerized mill recorder. Plan/VTE VTE Prophylaxis Ordered?: Yes (SCD/TEDs) VTE Exclusion Pharmacological: Active Bleeding VS, I&O, 24H, Fishbone Vital Signs/I&O Vital Signs Date Time Temp Pulse Resp B/P (MAP) Pulse Ox O2 Delivery O2 Flow Rate FiO2 08/07/19 12:00 98.2 75 20 126/70 (88) 91 08/05/19 16:39 Room Air I&O- Last 24 Hours up to 6 AM 08/07/19 05:59 Intake Total 546 ml Output Total 1100 ml Balance -554 ml Laboratory Data 24H LABS Laboratory Tests 2 08/07/19 05:50: Nucleated Red Blood Cells % (auto) 0.0, Prothrombin Time 17.2H, Prothromb Time International Ratio 1.43, Anion Gap 6L, Glomerular Filtration Rate 38.8, Blood Urea Nitrogen 23H, Creatinine 1.38H, Sodium Level 140, Potassium Level 4.1, Chloride Level 107, Carbon Dioxide Level 27, Calcium Level 8.9, Aspartate Amino Transf (AST/SGOT) 29, Alanine Aminotransferase (ALT/SGPT) 26, Alkaline Phosphatase 147H, Total Bilirubin 0.3, Total Protein 6.3L, Albumin 2.9L, Albumin/Globulin Ratio 0.85L CBC/BMP Laboratory Tests 08/07/19 05:50 Red Blood Count 3.23 L, Mean Corpuscular Volume 86.4, Mean Corpuscular Hemoglobin 28.2, Mean Corpuscular Hemoglobin Concent 32.6, Red Cell Distribution Width 14.6 H, Calcium Level 8.9, Aspartate Amino Transf (AST/SGOT) 29, Alanine Aminotransferase (ALT/SGPT) 26, Alkaline Phosphatase 147 H, Total Bilirubin 0.3, Total Protein 6.3 L, Albumin 2.9 L Kodi Ayers MD Aug 07, 2019 14:16
[2019-08-07 16:00] VITALS: BP 134/60
[2019-08-07] MEDS ORDERED: SLF 3 ML SYR IV PRN (16:00)
[2019-08-07] MEDS: CYANOCOBALAMIN 500 MCG TAB PO SCH (17:08)
[2019-08-07 20:00] VITALS: BP 135/63
[2019-08-07] MEDS: LACTULOSE 20 GM/30 ML SYRUP UD PO SCH (20:08)
[2019-08-07] MEDS: ATORVASTATIN 20 MG TAB PO SCH (20:08)
[2019-08-07] MEDS: SLF 3 ML SYR IV SCH (20:09)
[2019-08-07 23:59] VITALS: BP 140/65
[2019-08-08 04:00] VITALS: BP 164/72
[2019-08-08 05:46] LABS: HEMATOCRIT 28.5 % (36.0-47.0); HEMOGLOBIN 9.2 g/dl (12.0-15.5); MEAN CORPUSCULAR HGB CONC 32.3 g/dl (32.0-36.5); MEAN CORPUSCULAR VOLUME 86.9 fl (80.0-96.0); PLATELET COUNT, AUTOMATED 151 10^3/uL (150-450); RED BLOOD COUNT 3.28 10^6/uL (4.00-5.40); WHITE BLOOD COUNT 5.9 10^3/uL (4.0-10.0)
[2019-08-08 05:58] LABS: INR 1.36; PROTHROMBIN TIME 16.5 SECONDS (11.8-14.0)
[2019-08-08 06:08] LABS: CALCIUM LEVEL 8.7 MG/DL (8.8-10.2); CREATININE FOR GFR 1.48 MG/DL (0.55-1.30); GLOMERULAR FILTRATION RATE 35.8 (>32); PHOSPHORUS LEVEL 3.2 MG/DL (2.5-4.9); POTASSIUM SERUM 4.2 MEQ/L (3.5-5.1)
[2019-08-08] MEDS: LEVOTHYROXINE 125MCG TABLET (0.125MG) PO SCH (06:27)
[2019-08-08] MEDS: SLF 3 ML SYR IV SCH ×3 (06:27→20:10)
[2019-08-08] MEDS: SUCRALFATE 1 GM TAB PO SCH ×4 (07:30→20:09)
[2019-08-08 07:41] VITALS: BP 155/71
[2019-08-08] MEDS: PANTOPRAZOLE 40MG INJ (PROTONIX) (C9113) IV SCH ×2 (09:58→20:08)
[2019-08-08] MEDS: CALCITRIOL 0.25 MCG CAP (S0169) PO SCH (09:58)
[2019-08-08] MEDS: FOLIC ACID 1 MG TAB PO SCH (09:59)
[2019-08-08] MEDS: CIPROFLOXACIN 500 MG TAB PO SCH (09:59)
[2019-08-08] MEDS: FUROSEMIDE 20 MG TAB PO SCH (09:59)
[2019-08-08] MEDS: DOCUSATE SODIUM 100 MG CAP PO SCH ×2 (09:59→20:09)
[2019-08-08] MEDS: CLOTRIMAZOLE 1% TOPICAL CREAM 30GM TOP SCH ×2 (09:59→20:10)
[2019-08-08] MEDS: PHENYTOIN ER 100 MG CAP PO SCH ×2 (10:01→20:09)
--- NOTE | 2019-08-08 10:30 | IPNPDOC ---
Subjective Date Seen The patient was seen on 08/08/19. Subjective Chief Complaint/HPI reports MORALES, no chest pain, no pleuritic symptoms. Constitutional: Denies: Chills ENT: Denies: Head Aches Pulmonary: Reports: Dyspnea (with exertion); Denies: Pleuritic Chest Pain Cardiovascular: Denies: Chest Pain, Palpitations Gastrointestinal: Denies: Nausea, Abdominal Pain Genitourinary: Denies: Dysuria Hematologic: Denies: Bruising Musculoskeletal: Denies: Neck Pain Neurological: Denies: Weakness, Numbness Psych: Reports: Mood Normal Objective Physical Examination General Exam: Positive: Alert, Cooperative (sitting in a chair at watching TV when I entered the room), No Acute Distress Eye Exam: Positive: Conjunctiva & lids normal; Negative: Sclera icteric ENT Exam: Positive: Atraumatic, Mucous membr. moist/pink, Other ENT (poor dentition, with numerous missing teeth and at least one loose tooth when she speaks) Neck Exam: Negative: JVD, thyromegaly, Lymphadenopathy Chest Exam: Positive: Clear to auscultation, Normal air movement, Diminished (right lower lung field diminished, no rales) Heart Exam: Positive: Rate Normal, Regular Rhythm, Normal S1, Normal S2, Murmurs (3/6 holosystolic, loudest at RUSB and R 2nd ICS); Negative: Rubs Abdomen Exam: Positive: Normal bowel sounds, Soft; Negative: Tenderness, Hepatospenomegaly Extremity Exam: Positive: Edema (L > R she has compression stockings on), Normal pulses; Negative: Tenderness Skin Exam: Positive: Nl turgor and temperature; Negative: Breakdown, Lesion Neuro Exam: Positive: Normal Speech Psych Exam: Positive: Mental status NL, Mood NL, Oriented x 3 Assessment /Plan Problems (1) Acute blood loss anemia Status: Acute Response to Treatment: Improving (after 2 units PRBCs) Discussed With: Nurse, Patient Problem Specific Plan: Repeat Labs Problem Text: 08/08: Hgb 9.2, could be discharged but remains dyspneic. Will monitor for stability. She denies further gross blood loss. She remains dyspenic, which she identifies as a symptom of anemia for her. (2) Dyspnea Status: Acute Discussed With: Patient Problem Specific Plan: Monitor Clinically Problem Text: 08/08: dyspneic with exertion, check CXR. If no other etiology identified then transfusion for symptoms would be considered. I'm not sure if this is just a function of her anemia (she is still anemic, just not transfusable), aortic valve disease, deconditioning, or something else all together. I unofficially spoke with her cancellation clerk who will review the echo that the patient reports was recently done in his office. If it is not recent, or he sees any issues, then I will repeat an echo here. Otherwise, we may assume that her recent echo can eliminate changes in her valvular disease that need to be acted on. She has worked with P/T who felt that she needed a few more sessions to be ready for home. Will wait for their updated report tomorrow. (3) GI bleed Status: Acute Response to Treatment: Stable, Controlled Discussed With: Nurse, Patient Problem Specific Plan: Monitor Clinically Problem Text: She denies any further bleeding per rectum. Will monitor. Her INR is now 1.43, so this should help reduce any ongoing bleeding if there is some. I spoke unofficially with her cancellation clerk about continued blood thinners vs an inferior vena cava filter. His feeling is that IVC filters don't help that much if we are looking to prevent PEs over the correction. His suggestion was to lean toward a lower dose DOAC like 2.5mg of Eliquis. This should probably be discussed with her outpatient PCP. I will not make changes today. (4) Aortic valve stenosis, moderate Status: Chronic Response to Treatment: Stable Discussed With: Patient Problem Specific Plan: Monitor Clinically Problem Text: 08/08 may contribute to her dyspnea if worsening CHF, CXR ordered for additional eval. Further progression of her aortic valvular disease may make her more sensitive to anemia and other acute changes in her oxygen carrying capacity than it has in the past. I am not going to reorder an echocardiogram at this time. However, if she remains more dyspenic than usual and her Hb stabilizes, this may be another place to check. (5) History of DVT of lower extremity Status: Chronic Discussed With: Patient Problem Specific Plan: Monitor Clinically Problem Text: 08/08: Cardiology had also suggested an anticoagulation hiatus of 2 weeks to assure healing before resumption of low dose Eliquis. She has no recurrent DVT during this admission. She was anticoagulated after the last admission against the advice of her automotive engineering teacher, because her PCP was concerned about recurrent DVT. I appreciate the balance between these two issues, however, since she has been admitted for another GI bleed, I think we should reconsider anticoagualtion. Possibly a change to Eliquis 2.5mg per the suggestion of her cancellation clerk. Plan/VTE VTE Prophylaxis Ordered?: Yes (SCD/TEDs) VTE Exclusion Pharmacological: Active Bleeding Plan Anticipated Discharge: Home VS, I&O, 24H, Fishbone Vital Signs/I&O Vital Signs Date Time Temp Pulse Resp B/P (MAP) Pulse Ox O2 Delivery O2 Flow Rate FiO2 08/08/19 09:59 80 155/71 08/08/19 07:41 98.3 18 91 08/05/19 16:39 Room Air I&O- Last 24 Hours up to 6 AM 08/08/19 06:00 Intake Total 410 ml Output Total 500 ml Balance -90 ml Laboratory Data 24H LABS Laboratory Tests 2 08/08/19 05:25: Nucleated Red Blood Cells % (auto) 0.0, Prothrombin Time 16.5H, Prothromb Time International Ratio 1.36, Blood Urea Nitrogen 23H, Creatinine 1.48H, Sodium Level 140, Potassium Level 4.2, Chloride Level 105, Carbon Dioxide Level 29, Anion Gap 6L, Glomerular Filtration Rate 35.8, Calcium Level 8.7L, Phosphorus Level 3.2, Albumin 3.0L CBC/BMP Laboratory Tests 08/08/19 05:25 Red Blood Count 3.28 L, Mean Corpuscular Volume 86.9, Mean Corpuscular Hemoglobin 28.0, Mean Corpuscular Hemoglobin Concent 32.3, Red Cell Distribution Width 14.4, Anion Gap 6 L Jae Tinoco MD Aug 08, 2019 10:30
--- NOTE | 2019-08-08 11:32 | REP ---
PA and lateral chest: Comparison is 05/13/2019. The lung brandon are hyperinflated, unchanged. However, I suspect that there are small bilateral pleural effusions as an interval change. Cardiac size is normal. The jocelin, mediastinum, skeletal structures are unchanged. Impression: Small bilateral pleural effusions. No other interval change. Electronically Signed by Luis Lofton MD 08/08/2019 11:24 A
[2019-08-08] MEDS: CALCIUM/VITAMIN D 500 MG TAB PO SCH ×2 (12:20→20:09)
[2019-08-08 15:48] VITALS: BP 144/65
[2019-08-08] MEDS: CYANOCOBALAMIN 500 MCG TAB PO SCH (17:22)
[2019-08-08 20:00] VITALS: BP 143/65
[2019-08-08] MEDS: LACTULOSE 20 GM/30 ML SYRUP UD PO SCH (20:08)
[2019-08-08] MEDS: ATORVASTATIN 20 MG TAB PO SCH (20:09)
[2019-08-09] VITALS: BP 136/61
[2019-08-09 04:00] VITALS: BP 144/66
[2019-08-09] MEDS: LEVOTHYROXINE 125MCG TABLET (0.125MG) PO SCH (05:18)
[2019-08-09] MEDS: SLF 3 ML SYR IV SCH (05:18)
[2019-08-09 05:57] LABS: HEMATOCRIT 28.9 % (36.0-47.0); HEMOGLOBIN 9.1 g/dl (12.0-15.5); MEAN CORPUSCULAR HEMOGLOBIN 27.8 pg (27.0-33.0); MEAN CORPUSCULAR HGB CONC 31.5 g/dl (32.0-36.5); MEAN CORPUSCULAR VOLUME 88.4 fl (80.0-96.0); PLATELET COUNT, AUTOMATED 148 10^3/uL (150-450); RED BLOOD COUNT 3.27 10^6/uL (4.00-5.40); WHITE BLOOD COUNT 5.5 10^3/uL (4.0-10.0)
[2019-08-09 06:11] LABS: INR 1.32; PROTHROMBIN TIME 16.1 SECONDS (11.8-14.0)
[2019-08-09 07:48] VITALS: BP 154/70
[2019-08-09] MEDS: DOCUSATE SODIUM 100 MG CAP PO SCH (08:25)
[2019-08-09] MEDS: SUCRALFATE 1 GM TAB PO SCH (08:25)
[2019-08-09] MEDS: CIPROFLOXACIN 500 MG TAB PO SCH (08:25)
[2019-08-09 08:26] VITALS: BP 154/70
[2019-08-09] MEDS: CALCITRIOL 0.25 MCG CAP (S0169) PO SCH (08:26)
[2019-08-09] MEDS: FUROSEMIDE 20 MG TAB PO SCH (08:26)
[2019-08-09] MEDS: CLOTRIMAZOLE 1% TOPICAL CREAM 30GM TOP SCH (08:27)
[2019-08-09] MEDS: PHENYTOIN ER 100 MG CAP PO SCH (08:27)
[2019-08-09] MEDS: FOLIC ACID 1 MG TAB PO SCH (08:27)
[2019-08-09] MEDS: PANTOPRAZOLE 40MG INJ (PROTONIX) (C9113) IV SCH (08:27)
[2019-08-09 10:05] LABS: CALCIUM LEVEL 8.6 MG/DL (8.8-10.2); CREATININE FOR GFR 1.4 MG/DL (0.55-1.30); GLOMERULAR FILTRATION RATE 38.1 (>32); POTASSIUM SERUM 4.3 MEQ/L (3.5-5.1)
--- NOTE | 2019-08-09 18:52 | DSES ---
DATE OF ADMISSION: 08/05/2019 DATE OF DISCHARGE: 08/09/2019 REASON FOR ADMISSION: Akanksha is an 83-year-old woman with multiple medical problems, including hypertension, history of congestive heart failure with moderate aortic stenosis, history of colon cancer, nonalcoholic fatty liver disease, and history of deep vein thromboses (DVTs) and gastrointestinal (GI) bleeding. She has a history of placement of an inferior vena cava filter. She was admitted through the emergency department (ED) with complaints of dyspnea. Found to be anemic, hemoglobin was 6.8, and admitted. Recently had been admitted to the hospital with GI bleeding. Dr. Pacheco of gastroenterology service had recommend to avoid anticoagulation, but because of history of recurrent DVT, the patient's primary care physician (PCP) resumed anticoagulation therapy. During hospital stay she was transfused 2 units of packed red cells with improvement in her respiratory status. She still has some dyspnea on exertion but overall is improved. ASSESSMENT: 1. Symptomatic anemia secondary to occult gastrointestinal (GI) blood loss. Hemoglobin corrected to 9.8 to 9.1 at discharge. It has been stable now for 2 days. 2. Continued dyspnea on exertion, which is related to age. 3. Chronic lung disease. 4. Aortic stenosis. PLAN: The patient will be discharged home, and she will remain off anticoagulation until followup with her primary care physician. So-called curbside consultation with cardiology is suggested. Resumption of anticoagulant, perhaps at a lower dose, perhaps Eliquis at a 2.5 mg daily dose as an alternative to her warfarin for ongoing DVT prophylaxis, but ultimately this will be up to the patient and her primary care provider. Activity will be as tolerated. DISCHARGE MEDICATIONS: - alprazolam 0.25 mg by mouth twice a day as needed for anxiety, which she has used for some time - amlodipine 2.5 mg daily - atorvastatin 40 mg daily - calcitriol 0.5 mg daily - calcium carbonate with vitamin D 600/400 one twice a day - Cipro 500 mg by mouth daily. She has been receiving this in the hospital. It was prescribed before admission. She will complete the course as prescribed from before admission and then discontinue this agent. - clotrimazole 1% topical to intertriginous areas as required - cyanocobalamin 1000 mcg daily - docusate sodium 100 mg twice a day - folic acid 1 mg daily - Lasix 20 mg daily - iron PS complex one daily - lactulose 15 mL at bedtime - levofloxacin 125 mcg daily - lutein extract one capsule daily - multivitamin one daily - pantoprazole 40 mg twice a day - phenytoin 100 mg in the morning and 200 mg at bedtime - sucralfate 1 gram at bedtime Stopped medication includes warfarin, which she had been using with outpatient prothrombin time adjusted. Followup with her usual primary care provider in approximately 1 week. She did receive flu block on August 07 in hospital.
== END 2019-08-09 11:45 | disposition home or self-care (01) | DRG 378 ==
LOC: M ED 16:39 → M ED INP 18:29 → M PCU 21:57
PROVIDERS: ADMIT Internal Medicine; ATTEND Family Medicine
PROC: 30233N1 Transfusion of Nonautologous Red Blood Cells into Peripheral Vein, Percutaneous Approach (ICD-10-PCS; principal; 2019-08-05)
DX: K92.2 Gastrointestinal hemorrhage, unspecified (principal); D62 Acute posthemorrhagic anemia; I13.0 Hypertensive heart and chronic kidney disease with heart failure and stage 1 through stage 4 chronic kidney disease, or unspecified chronic kidney disease; I50.9 Heart failure, unspecified; I35.0 Nonrheumatic aortic (valve) stenosis; Z85.038 Personal history of other malignant neoplasm of large intestine; K76.0 Fatty (change of) liver, not elsewhere classified; Z86.718 Personal history of other venous thrombosis and embolism; Z79.899 Other long term (current) drug therapy; Z88.2 Allergy status to sulfonamides; Z88.8 Allergy status to other drugs, medicaments and biological substances; E53.8 Deficiency of other specified B group vitamins; E03.9 Hypothyroidism, unspecified; G40.909 Epilepsy, unspecified, not intractable, without status epilepticus; E78.5 Hyperlipidemia, unspecified; K59.00 Constipation, unspecified; N18.3 Chronic kidney disease, stage 3 (moderate); E55.9 Vitamin D deficiency, unspecified; M50.90 Cervical disc disorder, unspecified, unspecified cervical region; M17.2 Bilateral post-traumatic osteoarthritis of knee

== ENCOUNTER → 2019-08-05 | Outpatient (REF) | payer MEDICARE, OTHER ==
[~2019-08-05] MED LIST changes: -SIMV40TA2 PO; +SIMV40TA20 PO; +SYNT125T PO; +WARF-23 PO
[2019-08-05 10:39] LABS: BASO % 0.7 % (0.0-1.0); EOS # 0.1 10^3/uL (0.0-0.5); EOS % 2.5 % (0.0-3.0); HEMATOCRIT 22.5 % (36.0-47.0); LYMPH # 0.7 10^3/uL (1.5-5.0); LYMPH % 12.4 % (24.0-44.0); MEAN CORPUSCULAR HEMOGLOBIN 27.8 pg (27.0-33.0); MEAN CORPUSCULAR HGB CONC 31.1 g/dl (32.0-36.5); MEAN CORPUSCULAR VOLUME 89.3 fl (80.0-96.0); MONO # 0.6 10^3/uL (0.0-0.8); MONO % 10.6 % (0.0-5.0); NEUTROPHILS # 4.1 10^3/uL (1.5-8.5); NEUTROPHILS % 73.4 % (36.0-66.0); PLATELET COUNT, AUTOMATED 192 10^3/uL (150-450); RED BLOOD COUNT 2.52 10^6/uL (4.00-5.40); WHITE BLOOD COUNT 5.6 10^3/uL (4.0-10.0)
[2019-08-05 11:06] LABS: ALBUMIN 3.4 GM/DL (3.2-5.2); BILIRUBIN,TOTAL 0.2 MG/DL (0.2-1.0); CALCIUM LEVEL 8.7 MG/DL (8.8-10.2); CREATININE FOR GFR 1.55 MG/DL (0.55-1.30); GLOMERULAR FILTRATION RATE 33.9 (>32); POTASSIUM SERUM 4.5 MEQ/L (3.5-5.1); TOTAL PROTEIN 5.8 GM/DL (6.4-8.2)
== END ==
LOC: M SFHCPLAZ 09:06
PROVIDERS: ATTEND Nurse Practitioner Family
DX: R06.02 Shortness of breath (principal); Z51.81 Encounter for therapeutic drug level monitoring

== ENCOUNTER → 2019-09-06 | Outpatient (REF) | payer MEDICARE, OTHER ==
[~2019-09-06] MED LIST changes: +SYNT125T PO
[2019-09-06 12:37] LABS: BASO # 0.1 10^3/uL (0.0-0.2); BASO % 1.1 % (0.0-1.0); EOS # 0.2 10^3/uL (0.0-0.5); EOS % 3.4 % (0.0-3.0); HEMATOCRIT 28.4 % (36.0-47.0); HEMOGLOBIN 8.6 g/dl (12.0-15.5); LYMPH % 22.3 % (24.0-44.0); MEAN CORPUSCULAR HEMOGLOBIN 27.5 pg (27.0-33.0); MEAN CORPUSCULAR HGB CONC 30.3 g/dl (32.0-36.5); MEAN CORPUSCULAR VOLUME 90.7 fl (80.0-96.0); MONO # 0.6 10^3/uL (0.0-0.8); MONO % 13.4 % (0.0-5.0); NEUTROPHILS # 2.6 10^3/uL (1.5-8.5); NEUTROPHILS % 59.6 % (36.0-66.0); PLATELET COUNT, AUTOMATED 173 10^3/uL (150-450); RED BLOOD COUNT 3.13 10^6/uL (4.00-5.40); WHITE BLOOD COUNT 4.4 10^3/uL (4.0-10.0)
[2019-09-06 12:46] LABS: INR 2.24; PROTHROMBIN TIME 24.6 SECONDS (11.8-14.0)
[2019-09-06 12:47] LABS: PARTIAL THROMBOPLASTIN TIME 34.4 SECONDS (25.0-38.4)
[2019-09-06 12:57] LABS: ALBUMIN 3.4 GM/DL (3.2-5.2); BILIRUBIN,TOTAL 0.3 MG/DL (0.2-1.0); CALCIUM LEVEL 8.7 MG/DL (8.8-10.2); CREATININE FOR GFR 1.62 MG/DL (0.55-1.30); FREE T4 1.1 NG/DL (0.76-1.46); GLOMERULAR FILTRATION RATE 32.2 (>32); POTASSIUM SERUM 4.1 MEQ/L (3.5-5.1); THYROID STIMULATING HORMONE 1.03 uIU/ML (0.358-3.740); TOTAL PROTEIN 6.1 GM/DL (6.4-8.2)
== END ==
LOC: M SFHCPLAZ 10:00
PROVIDERS: ATTEND Family Medicine
DX: K31.819 Angiodysplasia of stomach and duodenum without bleeding (principal); Z86.718 Personal history of other venous thrombosis and embolism; E03.9 Hypothyroidism, unspecified; D50.9 Iron deficiency anemia, unspecified; Z79.01 Long term (current) use of anticoagulants

== ENCOUNTER 2019-09-28 12:36 | Inpatient (IN) | payer MEDICARE, OTHER ==
[2019-09-28] VITALS (11 sets, daily range): BP systolic 118–156; BP diastolic 58–91
[~2019-09-28] VITALS: Ht 152.4 cm; Wt 63.9 kg
[~2019-09-28 12:36] MED LIST changes: -SIMV40TA2 PO; +SIMV40TA20 PO; -WARF-23 PO
[2019-09-28] MEDS ORDERED: PANTOPRAZOLE 40MG INJ (PROTONIX) (C9113) IV ONE (13:30)
[2019-09-28 13:34] LABS: BASO % 0.6 % (0.0-1.0); EOS # 0.1 10^3/uL (0.0-0.5); EOS % 2.4 % (0.0-3.0); HEMATOCRIT 23.9 % (36.0-47.0); HEMOGLOBIN 7.2 g/dl (12.0-15.5); LYMPH # 0.8 10^3/uL (1.5-5.0); MEAN CORPUSCULAR HEMOGLOBIN 26.4 pg (27.0-33.0); MEAN CORPUSCULAR HGB CONC 30.1 g/dl (32.0-36.5); MEAN CORPUSCULAR VOLUME 87.5 fl (80.0-96.0); MONO # 0.6 10^3/uL (0.0-0.8); MONO % 11.2 % (0.0-5.0); NEUTROPHILS # 3.6 10^3/uL (1.5-8.5); NEUTROPHILS % 70.4 % (36.0-66.0); PLATELET COUNT, AUTOMATED 175 10^3/uL (150-450); RED BLOOD COUNT 2.73 10^6/uL (4.00-5.40); WHITE BLOOD COUNT 5.1 10^3/uL (4.0-10.0)
--- NOTE | 2019-09-28 13:37 | ECGEPIP ---
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
--- NOTE | 2019-09-28 14:00 | REP ---
Clinical: Shortness of breath . Comparison: 08/08/2019 . Technique: PA and lateral. Findings: The mediastinum and cardiac silhouette are normal. The lung brandon demonstrate chronic COPD/emphysematous changes and scattered interstitial disease without acute consolidation, effusion, or pneumothorax. The skeletal structures demonstrate stable osteopenia and degenerative changes. Impression: 1. No acute cardiopulmonary process. Electronically Signed by Nilo Whitten MD 09/28/2019 01:51 P
[2019-09-28 14:06] LABS: INR 2.19; PROTHROMBIN TIME 24.2 SECONDS (11.8-14.0)
[2019-09-28 14:07] LABS: PARTIAL THROMBOPLASTIN TIME 30.4 SECONDS (25.0-38.4)
[2019-09-28 14:20] LABS: ALBUMIN 3.4 GM/DL (3.2-5.2); ALT/SGPT 34 U/L (12-78); BILIRUBIN,DIRECT < 0.1 MG/DL (0.0-0.2); BILIRUBIN,TOTAL 0.2 MG/DL (0.2-1.0); BLOOD UREA NITROGEN 34 MG/DL (7-18); CARBON DIOXIDE LEVEL 28 MEQ/L (21-32); CHLORIDE LEVEL 107 MEQ/L (98-107); CPK CREATINE PHOSPHOKINASE 74 U/L (26-192); CREATININE FOR GFR 1.76 MG/DL (0.55-1.30); GLOMERULAR FILTRATION RATE 29.3 (>32); GLUCOSE, FASTING 82 MG/DL (70-100); MB/CK RELATIVE INDEX 1.35 (< OR =4); POTASSIUM SERUM 4.9 MEQ/L (3.5-5.1); SODIUM LEVEL 141 MEQ/L (136-145); TOTAL PROTEIN 6.2 GM/DL (6.4-8.2); TROPONIN I < 0.02 NG/ML (< 0.10)
[2019-09-28] MEDS ORDERED: WARF-23 PO (15:06)
[2019-09-28] MEDS ORDERED: FUROSEMIDE 40 MG/4 ML VIAL (J1940) IV ONE (16:15)
[2019-09-28] MEDS: SUCRALFATE 1 GM TAB PO SCH ×2 (17:42→20:05)
[2019-09-28] MEDS: PANTOPRAZOLE SODIUM 40 MG in D5W 50 ML IV SCH (19:10)
[2019-09-28] MEDS: ATORVASTATIN 20 MG TAB PO SCH (20:05)
[2019-09-28] MEDS: CYANOCOBALAMIN 500 MCG TAB PO SCH (20:05)
[2019-09-28] MEDS: PHENYTOIN ER 100 MG CAP PO SCH (20:06)
[2019-09-28 22:54] LABS: HEMATOCRIT 29.4 % (36.0-47.0); HEMOGLOBIN 9.2 g/dl (12.0-15.5)
[2019-09-29] VITALS: BP 142/60
[2019-09-29] MEDS: PANTOPRAZOLE SODIUM 40 MG in D5W 50 ML IV SCH ×5 (01:33→20:25)
[2019-09-29 04:00] VITALS: BP 136/66
[2019-09-29 05:17] LABS: HEMATOCRIT 28.5 % (36.0-47.0); MEAN CORPUSCULAR HEMOGLOBIN 27.4 pg (27.0-33.0); MEAN CORPUSCULAR HGB CONC 31.6 g/dl (32.0-36.5); MEAN CORPUSCULAR VOLUME 86.6 fl (80.0-96.0); PLATELET COUNT, AUTOMATED 140 10^3/uL (150-450); RED BLOOD COUNT 3.29 10^6/uL (4.00-5.40); WHITE BLOOD COUNT 3.7 10^3/uL (4.0-10.0)
[2019-09-29 05:31] LABS: CALCIUM LEVEL 8.7 MG/DL (8.8-10.2); CREATININE FOR GFR 1.69 MG/DL (0.55-1.30); GLOMERULAR FILTRATION RATE 30.7 (>32); POTASSIUM SERUM 4.3 MEQ/L (3.5-5.1)
[2019-09-29] MEDS: LEVOTHYROXINE 125MCG TABLET (0.125MG) PO SCH (06:06)
[2019-09-29] MEDS: CALCITRIOL 0.25 MCG CAP (S0169) PO SCH (07:52)
[2019-09-29] MEDS: SUCRALFATE 1 GM TAB PO SCH ×4 (07:53→20:24)
[2019-09-29] MEDS: FOLIC ACID 1 MG TAB PO SCH (07:53)
[2019-09-29] MEDS: CIPROFLOXACIN 500 MG TAB PO SCH (07:53)
[2019-09-29] MEDS: FUROSEMIDE 20 MG TAB PO SCH (07:53)
[2019-09-29] MEDS: PHENYTOIN ER 100 MG CAP PO SCH ×2 (07:56→20:25)
[2019-09-29 08:00] VITALS: BP 149/66
[2019-09-29] MEDS ORDERED: PREVNAR 13 VACCINE SYRINGE (CPT CODE:90670) IM ONE (09:00)
--- NOTE | 2019-09-29 10:36 | IPNPDOC ---
Subjective Date Seen The patient was seen on 09/29/19. Subjective Chief Complaint/HPI No H&P available. Pt this morning reports that since her last hospitalization in Aug when she was admitted for GI bleeding d/c home on no anticoagulation she was restarted by PCP on Warfarin 5 mg daily and has been taking this for about a month now. She reports in the last few days feeling progressively weaker, intermittent light headedness. This morning she states that she feels alright since she is just laying bed, really wants to have more than clear liquids. General: Reports: Fatigue Constitutional: Denies: Chills, Fever Pulmonary: Denies: Dyspnea, Cough Cardiovascular: Denies: Chest Pain, Palpitations Gastrointestinal: Denies: Nausea, Vomiting, Abdominal Pain Neurological: Reports: Weakness Psych: Reports: Mood Normal Objective Physical Examination General Exam: Positive: Alert, No Acute Distress ENT Exam: Positive: Mucous membr. moist/pink Chest Exam: Positive: Clear to auscultation, Normal air movement Heart Exam: Positive: Rate Normal, Normal S1, Normal S2 Abdomen Exam: Positive: Normal bowel sounds; Negative: Tenderness Extremity Exam: Negative: Edema Neuro Exam: Positive: Normal Speech Psych Exam: Positive: Mental status NL, Mood NL Assessment /Plan Problems (1) Acute blood loss anemia Status: Acute Response to Treatment: Stable, Improving Discussed With: Patient Problem Specific Plan: Monitor Clinically, Repeat Labs Problem Text: 09/29 Admitted with a Hgb of 7, transfused 2 units of pRBCs, Hgb 9.2 last night after blood, 9 this morning, cont to monitor. INR on admission 2.19, will repeat and monitor. Med lists doesn't suggest that she has been given any reversal agents. Her goal INR 1.8-2.2. + GAVE. Prior GI bleeding NOT assoc with hypercoag INR. (2) GIB (gastrointestinal bleeding) Status: Acute Problem Specific Plan: Monitor Clinically Problem Text: See above. (3) History of DVT of lower extremity Status: Chronic Problem Specific Plan: Monitor Clinically Problem Text: Pt with B IVF placed after last DVT 2013. (4) Aortic valve stenosis, moderate Status: Chronic Response to Treatment: Stable (5) Hypothyroid Status: Chronic (6) Diastolic CHF due to valvular disease Status: Chronic Plan/VTE VTE Prophylaxis Ordered?: No Plan Family Medicine Attending Note: I saw and examined Mr. Lafex, discussed with DIANELYS Arora. Agree with her note as documented. Her hemoglobin seems to have stabilized. I understood that the ER consulted to general surgeon as we have no GI coverage over this holiday weekend, however, I don't see an official consultation. If her hemoglobin remains stable, I'm not sure endoscopy is truly necessary. 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 She would like to go home as soon as safe. I will need to contact her primary care doctor, Dr. Sifuentes, to discuss anticoagulation. Given that she's had 2 GI bleeds recently on warfarin, I'm not sure that's a good choice anymore. There was consideration for low-dose Eliquis, but he was not certain he wanted to use a factor X inhibitor because of lack of reversibility. I will try to sort this out tomorrow. 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) VS, I&O, 24H, Fishbone Vital Signs/I&O Vital Signs Date Time Temp Pulse Resp B/P (MAP) Pulse Ox O2 Delivery O2 Flow Rate FiO2 09/29/19 08:00 98.0 70 18 149/66 (93) 91 Room Air I&O- Last 24 Hours up to 6 AM 09/29/19 06:00 Intake Total 1680 ml Output Total 700 ml Balance 980 ml Laboratory Data 24H LABS Laboratory Tests 2 09/28/19 13:18: Immature Granulocyte % (Auto) 0.4, Neutrophils (%) (Auto) 70.4H, Lymphocytes (%) (Auto) 15.0L, Monocytes (%) (Auto) 11.2H, Eosinophils (%) (Auto) 2.4, Basophils (%) (Auto) 0.6, Neutrophils # (Auto) 3.6, Lymphocytes # (Auto) 0.8L, Monocytes # (Auto) 0.6, Eosinophils # (Auto) 0.1, Basophils # (Auto) 0.0, Nucleated Red Blood Cells % (auto) 0.0, Prothrombin Time 24.2H, Prothromb Time International Ratio 2.19, Activated Partial Thromboplast Time 30.4, Anion Gap 6L, Glomerular Filtration Rate 29.3L, Calcium Level 9.0, Total Bilirubin 0.2, Direct Bilirubin < 0.1, Aspartate Amino Transf (AST/SGOT) 40H, Alanine Aminotransferase (ALT/SGPT) 34, Alkaline Phosphatase 130H, Total Creatine Kinase 74, Creatine Kinase MB 1.0, Creatine Kinase MB Relative Index 1.35, Troponin I < 0.02, Total Protein 6.2L, Albumin 3.4, Albumin/Globulin Ratio 1.21 09/29/19 04:59: Nucleated Red Blood Cells % (auto) 0.0, Anion Gap 3L, Glomerular Filtration Rate 30.7L, Calcium Level 8.7L CBC/BMP Laboratory Tests 09/28/19 13:18 09/28/19 22:46 09/29/19 04:59 NARCISO VIVEROS PA-C Sep 29, 2019 10:36 am Kodi Ayers MD Sep 29, 2019 9:45 pm
[2019-09-29 11:02] LABS: HEMATOCRIT 28.8 % (36.0-47.0); HEMOGLOBIN 9.3 g/dl (12.0-15.5)
[2019-09-29 12:00] VITALS: BP 137/63
[2019-09-29 16:00] VITALS: BP 122/88
[2019-09-29 17:39] LABS: HEMATOCRIT 31.6 % (36.0-47.0)
[2019-09-29 20:00] VITALS: BP 143/65
[2019-09-29] MEDS: CYANOCOBALAMIN 500 MCG TAB PO SCH (20:24)
[2019-09-29] MEDS: ATORVASTATIN 20 MG TAB PO SCH (20:24)
[2019-09-30] VITALS: BP 152/68
[2019-09-30] MEDS: PANTOPRAZOLE SODIUM 40 MG in D5W 50 ML IV SCH ×3 (03:30→08:11)
[2019-09-30 04:00] VITALS: BP 146/67
[2019-09-30 05:43] LABS: HEMATOCRIT 30.6 % (36.0-47.0); HEMOGLOBIN 9.9 g/dl (12.0-15.5)
[2019-09-30] MEDS: LEVOTHYROXINE 125MCG TABLET (0.125MG) PO SCH (06:07)
[2019-09-30 06:10] LABS: BILIRUBIN,TOTAL 0.3 MG/DL (0.2-1.0); CALCIUM LEVEL 8.6 MG/DL (8.8-10.2); CREATININE FOR GFR 1.52 MG/DL (0.55-1.30); GLOMERULAR FILTRATION RATE 34.7 (>32)
[2019-09-30 08:00] VITALS: BP 167/73
[2019-09-30 08:12] VITALS: BP 146/67
[2019-09-30] MEDS: FOLIC ACID 1 MG TAB PO SCH (08:12)
[2019-09-30] MEDS: CIPROFLOXACIN 500 MG TAB PO SCH (08:12)
[2019-09-30] MEDS: CALCITRIOL 0.25 MCG CAP (S0169) PO SCH (08:12)
[2019-09-30] MEDS: SUCRALFATE 1 GM TAB PO SCH (08:12)
[2019-09-30] MEDS: FUROSEMIDE 20 MG TAB PO SCH (08:12)
[2019-09-30] MEDS: PHENYTOIN ER 100 MG CAP PO SCH (08:12)
[2019-09-30 11:20] LABS: HEMATOCRIT 30.5 % (36.0-47.0); HEMOGLOBIN 9.9 g/dl (12.0-15.5)
[2019-09-30 12:00] VITALS: BP 128/60
[2019-09-30] MEDS ORDERED: SLF 3 ML SYR IV PRN (12:00)
[2019-09-30] MEDS ORDERED: SLF 3 ML SYR IV SCH (14:00)
--- NOTE | 2019-09-30 14:21 | DS.PDOC ---
Discharge Summary General Date of Admission Sep 28, 2019 at 16:07 Date of Discharge 09/30/19 Primary Care Physician: Jaime Sifuentes M.D. Attending Physician: Kodi Ayers MD Discharge Summary ADMITTING DIAGNOSES: (History and Physical still in process so this is an assumption) 1. Acute blood loss anemia. 2. Upper gastrointestinal bleeding. 3. Gastric antral varices and ectasia. 4. History of gastric ulcers and gastritis. 5. History of diverticulosis. 6. History of hemorrhoids. 7. Chronic kidney disease, stage III. 8. History of cecal cancer, status post right hemicolectomy. 9. History of DVTs, anticoagulated with warfarin. DISCHARGE DIAGNOSES: 1. Acute blood loss anemia, status post transfusion of 2 units of packed red blood cells. 2. Upper GI bleeding, controlled. 3. Gastric antral varices and ectasia (GAVE). 4. History of DVT, has been anticoagulated with warfarin with a target INR of 1.82.2. 5. Moderate aortic valve stenosis. 6. Diastolic congestive heart failure secondary to valvular heart disease. 7. Hypothyroidism. PROCEDURES PERFORMED DURING STAY: None. ADMISSION HISTORY: Ms. Dupont reported to the emergency department after several days of feeling progressively weaker with intermittent light headedness. Please see the admission history and physical for the remaining details. HOSPITAL COURSE: On admission her hemoglobin was down to 7.2. She received a 2 unit transfusion of packed red blood cells and her hemoglobin rebounded into the high 9s. Of note on admission her INR was in her target range (2.19). Her antic oagulation was stopped and her hemoglobin remained stable over the next 2 days. She would probably do best with APC cautery. Unfortunately, since this is the holiday, we don't have any gastroenterology coverage so this cannot be provided. I discussed the situation with the patient and her primary care provider, Dr. Sifuentes. We agreed that I would discharge her off anticoagulation and she would see him early next week. He will work to coordinate with her metallurgical technician to expedite endoscopy with cautery. After this they will discuss resuming anticoagulation because of her history of 2 DVTs. The patient understands that there is some risk of increased clot if she is discharged w ithout anticoagulation. She does know she has an IVC filter in place. She understands that a pulmonary embolism, because of her aortic valve stenosis, would likely have catastrophic consequences. She understands that her primary care provider and I both believe that the risk of clot in the next 1-2 weeks is relatively low and the risk of bleeding, having just had an acute gastrointestinal bleed, is higher. She is willing to accept the brief risk of a thromboembolic event while waiting for the endoscopic procedure to avoid the risk of further gastrointestinal hemorrhage. DISCHARGE CONDITION: Stable. FOLLOW-UP: Prior to discharge an appointment was scheduled with Dr. Jaime Sifuentes on 10/03/19 at 11 AM. DIET: Soft bland diet. ACTIVITY: As tolerated. DISCHARGE MEDICATIONS: Please see below. ALLERGIES: Please see below. LABORATORY DATA: Please see below. IMAGING: Chest x-ray. DISCHARGE INSTRUCTIONS: 1. Follow-up with Dr. Sifuentes on Wednesday 10/03. 2. Do not take warfarin until instructed to by Dr. Sifuentes. ITEMS TO FOLLOWUP ON ON OUTPATIENT: 1. Expedited referral to gastroenterology for APC. 2. Discussion of and probable resumption of warfarin once cautery has been performed. TIME SPENT ON DISCHARGE: Greater than 25 minutes. Vital Signs/I&Os Vital Signs Date Time Temp Pulse Resp B/P (MAP) Pulse Ox O2 Delivery O2 Flow Rate FiO2 09/30/19 12:00 97.9 60 18 128/60 (82) 60 Room Air I&O- Last 24 Hours up to 6 AM 09/30/19 06:00 Intake Total 1180 ml Output Total 850 ml Balance 330 ml Laboratory Data Labs 24H Laboratory Tests 2 09/30/19 04:54: Anion Gap 6L, Glomerular Filtration Rate 34.7, Calcium Level 8.6L, Total Bilirubin 0.3, Aspartate Amino Transf (AST/SGOT) 34, Alanine Aminotransferase (ALT/SGPT) 25, Alkaline Phosphatase 143H, Total Protein 6.0L, Albumin 3.0L, Albumin/Globulin Ratio 1.00 CBC/BMP Laboratory Tests 09/29/19 17:08 09/30/19 04:54 09/30/19 10:59 Discharge Medications Scheduled Amlodipine Besylate (Amlodipine Besylate) 2.5 Mg Tablet, 2.5 MG PO DAILY, (Reported) Atorvastatin Calcium (Atorvastatin Calcium) 40 Mg Tablet, 40 MG PO QPM, (Reported) Calcitriol (Rocaltrol) 0.5 Mcg Capsule, 0.5 MCG PO DAILY, (Reported) Calcium Carbonate/Vitamin D3 (Calcium 600-Vit D3 400 Tablet) 1 Tab Tab, 1 TAB PO BID, (Reported) LUNCH AND BEDTIME Ciprofloxacin HCl (Cipro) 500 Mg Tab, 500 MG PO DAILY, (Reported) Clotrimazole (Clotrimazole) 1% 14GM Cream..g., 1 APLCT TOP BID, (Reported) APPLY UNDER BREASTS, AM AND HS Cyanocobalamin (Vitamin B-12) (Vitamin B-12) 1,000 Mcg Tab, 1,000 MCG PO QPM, (Reported) Docusate Sodium (Colace) 100 Mg Cap, 100 MG PO BID, (Reported) Folic Acid (Folic Acid) 1 Mg Tablet, 1 MG PO DAILY, (Reported) Furosemide (Lasix) 20 Mg Tab, 20 MG PO DAILY, (Reported) Iron Ps Complex/B12/Folic Acid (Poly-Iron 150 Forte Capsule) 1 Each Capsule, 1 CAP PO QPM, (Reported) Lactulose (Lactulose) 10 Gm/15 Ml Rosalie, 15 ML PO QHS, (Reported) Levothyroxine Sodium (Synthroid) 125 Mcg Tablet, 125 MCG PO DAILY, (Reported) Lutein Extract/Zeaxanthin Ext (Lutein 15 mg Softgel) 1 Each Capsule, 1 CAP PO QPM, (Reported) Multivitamin (Multivitamins) 1 Each Tablet, 1 TAB PO QPM, (Reported) Pantoprazole Sodium (Pantoprazole Sodium) 40 Mg Tab, 40 MG PO BID, (Reported) Phenytoin Sodium Extended (Dilantin) 100 Mg Cap, 100 MG PO QAM, (Reported) Phenytoin Sodium Extended (Dilantin) 100 Mg Cap, 200 MG PO QHS, (Reported) Sucralfate (Sucralfate) 1 Gm Tab, 1 GM PO ACHS, (Reported) Scheduled PRN Alprazolam (Xanax) 0.25 Mg Tab, 0.25 MG PO BID PRN for ANXIETY, (Reported) Allergies Coded Allergies: sulfamethoxazole (Verified Adverse Reaction, Unknown, AFFECTS KIDNEYS, 02/24/19) trimethoprim (Verified Adverse Reaction, Unknown, AFFECTS KIDNEYS, 02/24/19) Kodi Ayers MD Sep 30, 2019 2:21 pm
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
== END 2019-09-30 15:08 | disposition home or self-care (01) | DRG 378 ==
LOC: M ED 12:36 → M ED INP 16:07 → M PCU 17:10
PROVIDERS: ADMIT Internal Medicine Nephrology; ATTEND Family Medicine
PROC: 30233N1 Transfusion of Nonautologous Red Blood Cells into Peripheral Vein, Percutaneous Approach (ICD-10-PCS; principal; 2019-09-28)
DX: K31.811 Angiodysplasia of stomach and duodenum with bleeding (principal); D62 Acute posthemorrhagic anemia; I50.32 Chronic diastolic (congestive) heart failure; I38 Endocarditis, valve unspecified; I13.0 Hypertensive heart and chronic kidney disease with heart failure and stage 1 through stage 4 chronic kidney disease, or unspecified chronic kidney disease; I86.4 Gastric varices; N18.3 Chronic kidney disease, stage 3 (moderate); E78.5 Hyperlipidemia, unspecified; E03.9 Hypothyroidism, unspecified; G40.909 Epilepsy, unspecified, not intractable, without status epilepticus; E53.8 Deficiency of other specified B group vitamins; Z86.718 Personal history of other venous thrombosis and embolism; Z79.899 Other long term (current) drug therapy; Z85.038 Personal history of other malignant neoplasm of large intestine; Z87.19 Personal history of other diseases of the digestive system; Z88.8 Allergy status to other drugs, medicaments and biological substances; Z79.01 Long term (current) use of anticoagulants; I35.0 Nonrheumatic aortic (valve) stenosis

== ENCOUNTER → 2019-09-28 | Outpatient (REF) | payer MEDICARE, OTHER ==
[~2019-09-28] MED LIST changes: +WARF-23 PO
[2019-09-28 11:24] LABS: BASO % 0.8 % (0.0-1.0); EOS # 0.2 10^3/uL (0.0-0.5); EOS % 3.5 % (0.0-3.0); HEMATOCRIT 25.7 % (36.0-47.0); HEMOGLOBIN 7.7 g/dl (12.0-15.5); LYMPH # 1.1 10^3/uL (1.5-5.0); LYMPH % 21.5 % (24.0-44.0); MEAN CORPUSCULAR HEMOGLOBIN 26.6 pg (27.0-33.0); MEAN CORPUSCULAR VOLUME 88.6 fl (80.0-96.0); MONO # 0.6 10^3/uL (0.0-0.8); MONO % 12.3 % (0.0-5.0); NEUTROPHILS % 61.7 % (36.0-66.0); PLATELET COUNT, AUTOMATED 219 10^3/uL (150-450); WHITE BLOOD COUNT 4.9 10^3/uL (4.0-10.0)
[2019-09-28 11:32] LABS: ALBUMIN 3.5 GM/DL (3.2-5.2); BILIRUBIN,TOTAL 0.2 MG/DL (0.2-1.0); CALCIUM LEVEL 9.2 MG/DL (8.8-10.2); CREATININE FOR GFR 1.74 MG/DL (0.55-1.30); GLOMERULAR FILTRATION RATE 29.7 (>32); POTASSIUM SERUM 4.8 MEQ/L (3.5-5.1); TOTAL PROTEIN 6.4 GM/DL (6.4-8.2)
[2019-09-28 11:36] LABS: INR 2.01; PARTIAL THROMBOPLASTIN TIME 30.9 SECONDS (25.0-38.4); PROTHROMBIN TIME 22.5 SECONDS (11.8-14.0)
== END ==
LOC: M SFHCPLAZ 09:25
PROVIDERS: ATTEND Family Medicine
DX: D50.9 Iron deficiency anemia, unspecified (principal)

== ENCOUNTER → 2019-11-07 | Outpatient (CLI) | payer MEDICARE, OTHER ==
[~2019-11-07] MED LIST changes: +WARF-23 PO
[2019-11-07 12:12] LABS: BASO % 0.6 % (0.0-1.0); EOS # 0.2 10^3/uL (0.0-0.5); EOS % 3.5 % (0.0-3.0); HEMATOCRIT 30.3 % (36.0-47.0); HEMOGLOBIN 9.1 g/dl (12.0-15.5); LYMPH # 1.3 10^3/uL (1.5-5.0); LYMPH % 25.8 % (24.0-44.0); MEAN CORPUSCULAR HEMOGLOBIN 26.7 pg (27.0-33.0); MEAN CORPUSCULAR VOLUME 88.9 fl (80.0-96.0); MONO # 0.7 10^3/uL (0.0-0.8); MONO % 13.6 % (0.0-5.0); NEUTROPHILS # 2.9 10^3/uL (1.5-8.5); NEUTROPHILS % 56.3 % (36.0-66.0); PLATELET COUNT, AUTOMATED 173 10^3/uL (150-450); RED BLOOD COUNT 3.41 10^6/uL (4.00-5.40); WHITE BLOOD COUNT 5.2 10^3/uL (4.0-10.0)
[2019-11-07 12:22] LABS: INR 2.38; PROTHROMBIN TIME 25.8 SECONDS (11.8-14.0)
[2019-11-07 12:23] LABS: PARTIAL THROMBOPLASTIN TIME 34.9 SECONDS (25.0-38.4)
[2019-11-07 12:49] LABS: ALBUMIN 3.5 GM/DL (3.2-5.2); CALCIUM LEVEL 9.4 MG/DL (8.8-10.2); CREATININE FOR GFR 1.7 MG/DL (0.55-1.30); GLOMERULAR FILTRATION RATE 30.5 (>32); PHOSPHORUS LEVEL 3.3 MG/DL (2.5-4.9)
== END ==
LOC: M PLALAB 09:13
PROVIDERS: ATTEND Family Medicine
DX: Z86.718 Personal history of other venous thrombosis and embolism (principal)

== ENCOUNTER → 2019-11-22 | Outpatient (CLI) | payer MEDICARE, OTHER ==
[2019-11-22 13:50] LABS: BASO # 0.1 10^3/uL (0.0-0.2); BASO % 0.9 % (0.0-1.0); EOS # 0.1 10^3/uL (0.0-0.5); EOS % 2.3 % (0.0-3.0); HEMATOCRIT 27.2 % (36.0-47.0); HEMOGLOBIN 8.2 g/dl (12.0-15.5); LYMPH # 1.1 10^3/uL (1.5-5.0); LYMPH % 19.6 % (24.0-44.0); MEAN CORPUSCULAR HEMOGLOBIN 27.1 pg (27.0-33.0); MEAN CORPUSCULAR HGB CONC 30.1 g/dl (32.0-36.5); MEAN CORPUSCULAR VOLUME 89.8 fl (80.0-96.0); MONO # 0.6 10^3/uL (0.0-0.8); MONO % 11.2 % (0.0-5.0); NEUTROPHILS # 3.7 10^3/uL (1.5-8.5); NEUTROPHILS % 65.8 % (36.0-66.0); PLATELET COUNT, AUTOMATED 190 10^3/uL (150-450); RED BLOOD COUNT 3.03 10^6/uL (4.00-5.40); WHITE BLOOD COUNT 5.7 10^3/uL (4.0-10.0)
[2019-11-22 13:59] LABS: INR 1.57; PROTHROMBIN TIME 18.5 SECONDS (11.8-14.0)
[2019-11-22 14:00] LABS: PARTIAL THROMBOPLASTIN TIME 30.2 SECONDS (25.0-38.4)
== END ==
LOC: M PLALAB 10:05
PROVIDERS: ATTEND Family Medicine
DX: D50.9 Iron deficiency anemia, unspecified (principal)

== ENCOUNTER → 2019-11-23 | Outpatient (CLI) | payer MEDICARE, OTHER ==
[2019-11-23 13:24] LABS: BASO % 0.7 % (0.0-1.0); EOS # 0.2 10^3/uL (0.0-0.5); EOS % 4.9 % (0.0-3.0); HEMATOCRIT 25.1 % (36.0-47.0); HEMOGLOBIN 7.8 g/dl (12.0-15.5); LYMPH # 1.1 10^3/uL (1.5-5.0); LYMPH % 26.6 % (24.0-44.0); MEAN CORPUSCULAR HEMOGLOBIN 27.7 pg (27.0-33.0); MEAN CORPUSCULAR HGB CONC 31.1 g/dl (32.0-36.5); MONO # 0.5 10^3/uL (0.0-0.8); MONO % 11.9 % (0.0-5.0); NEUTROPHILS # 2.4 10^3/uL (1.5-8.5); NEUTROPHILS % 55.9 % (36.0-66.0); PLATELET COUNT, AUTOMATED 188 10^3/uL (150-450); RED BLOOD COUNT 2.82 10^6/uL (4.00-5.40); WHITE BLOOD COUNT 4.3 10^3/uL (4.0-10.0)
== END ==
LOC: M PLALAB 10:16
PROVIDERS: ATTEND Family Medicine
DX: D50.9 Iron deficiency anemia, unspecified (principal)

== ENCOUNTER 2019-11-24 09:05 | Outpatient (CLI) | payer MEDICARE, OTHER ==
[2019-11-24] VITALS (8 sets, daily range): BP systolic 116–171; BP diastolic 61–76
[~2019-11-24] VITALS: Ht 154.9 cm; Wt 67.0 kg
[~2019-11-24 09:05] MED LIST changes: +ACETAMINOPHEN 325 MG TAB PO ONE; +diphenhydrAMINE 25 MG CAP PO ONE
[2019-11-24] MEDS ORDERED: FUROSEMIDE 40 MG/4 ML VIAL (J1940) IV ONE (09:15)
== END 2019-11-24 15:45 | disposition home or self-care (01) ==
LOC: M INFU 09:05
PROVIDERS: ATTEND Physician Assistant Medical
DX: D50.9 Iron deficiency anemia, unspecified (principal); Z88.1 Allergy status to other antibiotic agents
CPT/HCPCS: 36415; 36430; 86850; 86900; 86901; 86920; J1940; P9016

== ENCOUNTER → 2019-11-28 | Outpatient (REF) | payer MEDICARE, OTHER ==
[~2019-11-28] MED LIST changes: -ACETAMINOPHEN 325 MG TAB PO ONE; -diphenhydrAMINE 25 MG CAP PO ONE
[2019-11-28 13:40] LABS: BASO % 0.5 % (0.0-1.0); EOS # 0.1 10^3/uL (0.0-0.5); EOS % 1.6 % (0.0-3.0); HEMATOCRIT 33.1 % (36.0-47.0); HEMOGLOBIN 10.1 g/dl (12.0-15.5); MEAN CORPUSCULAR HEMOGLOBIN 27.5 pg (27.0-33.0); MEAN CORPUSCULAR HGB CONC 30.5 g/dl (32.0-36.5); MEAN CORPUSCULAR VOLUME 90.2 fl (80.0-96.0); MONO # 0.6 10^3/uL (0.0-0.8); MONO % 10.7 % (0.0-5.0); NEUTROPHILS # 3.8 10^3/uL (1.5-8.5); PLATELET COUNT, AUTOMATED 174 10^3/uL (150-450); RED BLOOD COUNT 3.67 10^6/uL (4.00-5.40); WHITE BLOOD COUNT 5.5 10^3/uL (4.0-10.0)
[2019-11-28 13:52] LABS: INR 1.45; PROTHROMBIN TIME 17.3 SECONDS (11.8-14.0)
[2019-11-28 13:53] LABS: PARTIAL THROMBOPLASTIN TIME 31.2 SECONDS (25.0-38.4)
[2019-11-28 14:10] LABS: ALBUMIN 3.6 GM/DL (3.2-5.2); BILIRUBIN,TOTAL 0.3 MG/DL (0.2-1.0); CALCIUM LEVEL 9.2 MG/DL (8.8-10.2); CREATININE FOR GFR 1.48 MG/DL (0.55-1.30); GLOMERULAR FILTRATION RATE 35.8 (>32); PHENYTOIN (DILANTIN) 9.3 UG/ML (10.0-20.0); POTASSIUM SERUM 4.3 MEQ/L (3.5-5.1)
== END ==
LOC: M SFHCPLAZ 11:38
PROVIDERS: ATTEND Family Medicine
DX: D50.9 Iron deficiency anemia, unspecified (principal); Z51.81 Encounter for therapeutic drug level monitoring
CPT/HCPCS: 36415; 80053; 80185; 83880; 85025; 85610; 85730; G0463

== ENCOUNTER 2019-12-01 09:00 | Outpatient (CLI) | payer MEDICARE, OTHER ==
[~2019-12-01] VITALS: Ht 162.6 cm; Wt 66.0 kg
[2019-12-01] MEDS ORDERED: NS 1,000 ML IV SCH (09:15)
[2019-12-01 09:25] VITALS: BP 164/72
[2019-12-01 09:56] VITALS: BP 130/71
[2019-12-01 10:00] VITALS: BP 151/72
[2019-12-01] MEDS ORDERED: diphenhydrAMINE INJ 50MG/ML VIAL (J1200) IV PRN (10:00)
[2019-12-01] MEDS ORDERED: methylPREDNISolone INJ 125 MG/2 ML VIAL (J2930) IV PRN (10:00)
[2019-12-01] MEDS ORDERED: EPINEPHrine INJ 1 MG/ML 1ML VIAL IM PRN (10:00)
[2019-12-01] MEDS ORDERED: ALBUTEROL SULFATE 2.5 MG/0.5 ML INH NEB SOLN INH PRN (10:00)
[2019-12-01] MEDS ORDERED: FERRIC CARBOXYMALTOSE INJ 750 MG in NS 250 ML IV ONE (10:00)
[2019-12-01 11:11] VITALS: BP 156/70
== END 2019-12-01 11:10 | disposition home or self-care (01) ==
LOC: M INFU 09:00
PROVIDERS: ATTEND Family Medicine
DX: D50.9 Iron deficiency anemia, unspecified (principal); Z88.2 Allergy status to sulfonamides; Z88.1 Allergy status to other antibiotic agents
CPT/HCPCS: 96365; J1439

== ENCOUNTER 2019-12-08 09:01 | Outpatient (CLI) | payer MEDICARE, OTHER ==
[~2019-12-08] VITALS: Ht 162.6 cm; Wt 66.0 kg
[2019-12-08 09:10] VITALS: BP 150/68
[2019-12-08] MEDS ORDERED: methylPREDNISolone INJ 125 MG/2 ML VIAL (J2930) IV PRN (09:15)
[2019-12-08] MEDS ORDERED: EPINEPHrine INJ 1 MG/ML 1ML VIAL IM PRN (09:15)
[2019-12-08] MEDS ORDERED: diphenhydrAMINE INJ 50MG/ML VIAL (J1200) IV PRN (09:15)
[2019-12-08] MEDS ORDERED: ALBUTEROL SULFATE 2.5 MG/0.5 ML INH NEB SOLN INH PRN (09:15)
[2019-12-08 10:00] VITALS: BP 141/60
[2019-12-08] MEDS ORDERED: FERRIC CARBOXYMALTOSE INJ 750 MG in NS 250 ML IV ONE (10:00)
[2019-12-08 11:00] VITALS: BP 136/61
[2019-12-08 12:15] VITALS: BP 185/76
[2019-12-08 12:35] VITALS: BP 144/61
== END 2019-12-08 12:35 | disposition home or self-care (01) ==
LOC: M INFU 09:01
PROVIDERS: ATTEND Family Medicine
DX: D50.9 Iron deficiency anemia, unspecified (principal); Z88.2 Allergy status to sulfonamides
CPT/HCPCS: 96365; 96366; J1439

== ENCOUNTER → 2020-01-30 | Outpatient (CLI) | payer MEDICARE, OTHER ==
[2020-01-30 10:40] LABS: BASO % 0.6 % (0.0-1.0); EOS # 0.2 10^3/uL (0.0-0.5); EOS % 4.4 % (0.0-3.0); HEMATOCRIT 32.8 % (36.0-47.0); HEMOGLOBIN 10.8 g/dl (12.0-15.5); LYMPH # 1.1 10^3/uL (1.5-5.0); LYMPH % 23.4 % (24.0-44.0); MEAN CORPUSCULAR HGB CONC 32.9 g/dl (32.0-36.5); MEAN CORPUSCULAR VOLUME 94.3 fl (80.0-96.0); MONO # 0.6 10^3/uL (0.0-0.8); MONO % 11.4 % (0.0-5.0); NEUTROPHILS # 2.9 10^3/uL (1.5-8.5); NEUTROPHILS % 59.8 % (36.0-66.0); PLATELET COUNT, AUTOMATED 165 10^3/uL (150-450); RED BLOOD COUNT 3.48 10^6/uL (4.00-5.40); WHITE BLOOD COUNT 4.8 10^3/uL (4.0-10.0)
[2020-01-30 10:53] LABS: INR 1.48; PROTHROMBIN TIME 17.7 SECONDS (11.8-14.0)
[2020-01-30 11:01] LABS: ALBUMIN 3.7 GM/DL (3.2-5.2); BILIRUBIN,TOTAL 0.5 MG/DL (0.2-1.0); CALCIUM LEVEL 9.7 MG/DL (8.8-10.2); CREATININE FOR GFR 1.62 MG/DL (0.55-1.30); GLOMERULAR FILTRATION RATE 32.1 (>32); PHENYTOIN (DILANTIN) 9.8 UG/ML (10.0-20.0); POTASSIUM SERUM 4.1 MEQ/L (3.5-5.1); TOTAL PROTEIN 6.4 GM/DL (6.4-8.2)
== END ==
LOC: M PLALAB 08:11
PROVIDERS: ATTEND Family Medicine
DX: Z86.718 Personal history of other venous thrombosis and embolism (principal)

== ENCOUNTER → 2020-02-15 | Outpatient (REF) | payer MEDICARE, OTHER ==
[2020-02-15 10:50] LABS: INR 1.61; PROTHROMBIN TIME 18.9 SECONDS (11.8-14.0)
== END ==
LOC: M SFHCPLAZ 09:00
PROVIDERS: ATTEND Physician Assistant Medical
DX: Z86.718 Personal history of other venous thrombosis and embolism (principal); Z79.01 Long term (current) use of anticoagulants

== ENCOUNTER → 2020-02-29 | Outpatient (REF) | payer MEDICARE, OTHER ==
[2020-02-29 11:00] LABS: INR 1.76; PROTHROMBIN TIME 20.3 SECONDS (11.8-14.0)
== END ==
LOC: M SFHCPLAZ 08:05
PROVIDERS: ATTEND Physician Assistant Medical
DX: Z79.01 Long term (current) use of anticoagulants (principal); Z86.718 Personal history of other venous thrombosis and embolism

== ENCOUNTER 2020-03-27 00:35 | Inpatient (IN) | payer MEDICARE, OTHER ==
[~2020-03-27] VITALS: Ht 162.6 cm; Wt 60.5 kg
[2020-03-27 01:03] LABS: BASO # 0.1 10^3/uL (0.0-0.2); BASO % 0.5 % (0.0-1.0); EOS # 0.3 10^3/uL (0.0-0.5); EOS % 2.4 % (0.0-3.0); HEMATOCRIT 32.2 % (36.0-47.0); HEMOGLOBIN 10.6 g/dl (12.0-15.5); LYMPH # 2.1 10^3/uL (1.5-5.0); MEAN CORPUSCULAR HEMOGLOBIN 30.9 pg (27.0-33.0); MEAN CORPUSCULAR HGB CONC 32.9 g/dl (32.0-36.5); MEAN CORPUSCULAR VOLUME 93.9 fl (80.0-96.0); MONO # 1.1 10^3/uL (0.0-0.8); MONO % 10.8 % (0.0-5.0); NEUTROPHILS # 6.9 10^3/uL (1.5-8.5); PLATELET COUNT, AUTOMATED 177 10^3/uL (150-450); RED BLOOD COUNT 3.43 10^6/uL (4.00-5.40); WHITE BLOOD COUNT 10.4 10^3/uL (4.0-10.0)
[2020-03-27 01:24] LABS: INR 2.02; PROTHROMBIN TIME 22.6 SECONDS (11.8-14.0)
[2020-03-27 01:26] LABS: ALBUMIN 3.7 GM/DL (3.2-5.2); ALT/SGPT 34 U/L (12-78); BILIRUBIN,DIRECT 0.1 MG/DL (0.0-0.2); BILIRUBIN,TOTAL 0.3 MG/DL (0.2-1.0); CK-MB VALUE MASS < 1.0 NG/ML (<3.6); CPK CREATINE PHOSPHOKINASE 60 U/L (26-192); LIPASE 331 U/L (73-393); MB/CK RELATIVE INDEX 1.67 (< OR =4); TOTAL PROTEIN 6.7 GM/DL (6.4-8.2); TROPONIN I < 0.02 NG/ML (< 0.10)
[2020-03-27 01:58] LABS: BLOOD UREA NITROGEN 46 MG/DL (7-18); CARBON DIOXIDE LEVEL 29 MEQ/L (21-32); CHLORIDE LEVEL 107 MEQ/L (98-107); CREATININE FOR GFR 2.01 MG/DL (0.55-1.30); GLOMERULAR FILTRATION RATE 25.1 (>32); GLUCOSE, FASTING 149 MG/DL (70-100); POTASSIUM SERUM 4.1 MEQ/L (3.5-5.1); SODIUM LEVEL 143 MEQ/L (136-145)
[2020-03-27 02:14] LABS: D-DIMER QUANT 430.71 ng/ml (<500)
[2020-03-27] MEDS ORDERED: ASPIRIN 81 MG CHEW TABLET PO ONE (02:15)
[2020-03-27] MEDS ORDERED: NS 1,000 ML IV SCH (02:22)
[2020-03-27] MEDS ORDERED: CALC1TAB26 PO (03:00)
[2020-03-27] MEDS ORDERED: WARF-20 PO (03:00)
[2020-03-27] MEDS ORDERED: WARF-23 PO (03:00)
[2020-03-27] MEDS: NITROGLYCERIN 0.4 MG SUBL TABLET SL PRN ×2 (03:01→03:18)
[2020-03-27 04:47] LABS: CK-MB VALUE MASS < 1.0 NG/ML (<3.6); CPK CREATINE PHOSPHOKINASE 49 U/L (26-192); MB/CK RELATIVE INDEX 2.04 (< OR =4); TROPONIN I < 0.02 NG/ML (< 0.10)
[2020-03-27] MEDS ORDERED: GI COCKTAIL 50ML BTL(HYOSCYAMINE/MAALOX/LIDOCAINE VISCOUS)(1:3:1) PO ONE (06:15)
[2020-03-27] MEDS ORDERED: PANTOPRAZOLE 40MG VIAL (C9113 PER 1) IV ONE (06:15)
--- NOTE | 2020-03-27 07:48 | REP ---
Portable chest x-ray: Single view. History: Chest pain. Findings: The lungs are symmetrically aerated and free of infiltrate. The pleural angles are sharp. Heart size is normal. Pulmonary vasculature is not increased. No significant bony abnormality. Impression: No acute disease. Electronically Signed by Mahamed Jerez MD 03/27/2020 07:39 A
--- NOTE | 2020-03-27 08:08 | ECGEPIP ---
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
--- NOTE | 2020-03-27 08:11 | ECGEPIP ---
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
[2020-03-27] MEDS ORDERED: METOCLOPRAMIDE INJ 10MG/2ML VIAL (J2765 PER 1) IV PRN (08:45)
[2020-03-27] MEDS ORDERED: ACETAMINOPHEN TAB 650MG DOSE (2X325MG) PO PRN (08:45)
[2020-03-27 09:55] LABS: HEMATOCRIT 31.6 % (36.0-47.0); HEMOGLOBIN 10.5 g/dl (12.0-15.5); MEAN CORPUSCULAR HEMOGLOBIN 31.5 pg (27.0-33.0); MEAN CORPUSCULAR HGB CONC 33.2 g/dl (32.0-36.5); MEAN CORPUSCULAR VOLUME 94.9 fl (80.0-96.0); PLATELET COUNT, AUTOMATED 141 10^3/uL (150-450); RED BLOOD COUNT 3.33 10^6/uL (4.00-5.40); WHITE BLOOD COUNT 8.9 10^3/uL (4.0-10.0)
[2020-03-27 10:20] VITALS: BP 175/73
[2020-03-27 10:56] LABS: CREATININE FOR GFR 1.67 MG/DL (0.55-1.30); POTASSIUM SERUM 4.1 MEQ/L (3.5-5.1)
[2020-03-27] MEDS: DOCUSATE SODIUM 100 MG CAP PO SCH ×2 (11:01→20:39)
[2020-03-27] MEDS: PHENYTOIN ER 100 MG CAP PO SCH ×2 (11:02→20:39)
[2020-03-27] MEDS: SUCRALFATE 1 GM TAB PO SCH ×3 (11:02→20:39)
[2020-03-27] MEDS: CALCITRIOL 0.25 MCG CAP (S0169) PO SCH (11:02)
[2020-03-27] MEDS: FOLIC ACID 1 MG TAB PO SCH (11:02)
[2020-03-27] MEDS: OYSTER SHELL CALCIUM 500 MG TAB PO SCH ×2 (11:02→20:40)
[2020-03-27] MEDS: LEVOTHYROXINE 125MCG TABLET (0.125MG) PO SCH (11:03)
[2020-03-27] MEDS: NS 1,000 ML IV SCH (11:03)
[2020-03-27] MEDS: CLOTRIMAZOLE 1% TOPICAL CREAM 30GM TOP SCH ×2 (11:04→21:00)
[2020-03-27 14:00] VITALS: BP 163/68
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
[2020-03-27] MEDS ORDERED: CIPROFLOXACIN 400 MG in IV 1 EA IV SCH (17:00)
[2020-03-27] MEDS: ATORVASTATIN 20 MG TAB PO SCH (20:39)
[2020-03-27] MEDS: CYANOCOBALAMIN 500 MCG TAB PO SCH (20:39)
[2020-03-27] MEDS: FERROUS SULFATE 325MG TAB PO SCH (20:39)
[2020-03-27] MEDS: MULTIVITAMINS/MINERALS THERAP 1 TAB PO SCH (20:39)
[2020-03-27] MEDS: PANTOPRAZOLE 40MG VIAL (C9113 PER 1) IV SCH (20:40)
[2020-03-27] MEDS: LACTULOSE 20 GM/30 ML SYRUP UD PO SCH (20:40)
[2020-03-27 22:00] VITALS: BP 148/63
[2020-03-28] MEDS: NS 1,000 ML IV SCH (03:25)
[2020-03-28 06:00] VITALS: BP 140/59
[2020-03-28] MEDS: LEVOTHYROXINE 125MCG TABLET (0.125MG) PO SCH (06:07)
[2020-03-28 06:08] LABS: HEMATOCRIT 27.7 % (36.0-47.0); HEMOGLOBIN 9.2 g/dl (12.0-15.5); MEAN CORPUSCULAR HEMOGLOBIN 31.6 pg (27.0-33.0); MEAN CORPUSCULAR HGB CONC 33.2 g/dl (32.0-36.5); MEAN CORPUSCULAR VOLUME 95.2 fl (80.0-96.0); PLATELET COUNT, AUTOMATED 107 10^3/uL (150-450); RED BLOOD COUNT 2.91 10^6/uL (4.00-5.40); WHITE BLOOD COUNT 5.7 10^3/uL (4.0-10.0)
[2020-03-28 06:27] LABS: CALCIUM LEVEL 8.5 MG/DL (8.8-10.2); CREATININE FOR GFR 1.35 MG/DL (0.55-1.30); GLOMERULAR FILTRATION RATE 39.7 (>32); POTASSIUM SERUM 3.9 MEQ/L (3.5-5.1)
[2020-03-28] MEDS: FOLIC ACID 1 MG TAB PO SCH (09:58)
[2020-03-28] MEDS: CALCITRIOL 0.25 MCG CAP (S0169) PO SCH (09:58)
[2020-03-28] MEDS: OYSTER SHELL CALCIUM 500 MG TAB PO SCH ×2 (09:58→20:22)
[2020-03-28] MEDS: DOCUSATE SODIUM 100 MG CAP PO SCH ×2 (09:58→20:22)
[2020-03-28] MEDS: PHENYTOIN ER 100 MG CAP PO SCH ×2 (09:58→20:22)
[2020-03-28] MEDS: PANTOPRAZOLE 40MG VIAL (C9113 PER 1) IV SCH (09:59)
[2020-03-28] MEDS: SUCRALFATE 1 GM TAB PO SCH ×4 (10:01→20:22)
[2020-03-28] MEDS: CLOTRIMAZOLE 1% TOPICAL CREAM 30GM TOP SCH ×2 (10:02→22:17)
[2020-03-28] MEDS: FUROSEMIDE 20 MG TAB PO SCH (12:07)
--- NOTE | 2020-03-28 12:35 | IPNPDOC ---
Text Note Date of Service The patient was seen on 03/28/20. NOTE Subjective: -No issues overnight -Did have a Tmax of 100.8 yesterday late afternoon for which I placed her on cipro and panCx Physical Examination Vitals: HDS, afebrile General: Alert, Cooperative, No Acute Distress Eye: PERRLA, Conjunctiva & lids normal, anicteric ENT: Atraumatic, MMM Neck: Supple, no JVD, no thyromegaly Chest: Clear to auscultation, Normal air movement Heart: RRR, no mrg Abdomen : Normal bowel sounds, soft, no tenderness to palpation this morning, no masses or hepatosplenomegaly, negative flores's Extremities: trace bilateral LE edema, WWP Skin Exam: No rashes or noted lesions Laboratory Data: WBC 5.7, Hgb 9.2, platelets 107, na 144, K 3.9, Cr 1.35 Imaging: see above Assessment: 84 year old W with a history of recurrent GIB , gastritis, gastric ulcer, GAVE disease, caecal cancer s/p right hemicolectomy in 2013, diverticulosis and internal hemorrhoids, chronic anemia who was BIBEMS for left shoulder pain, that later became epigastric pain with a grossly negative cardiac workup and c/f GI etiology likely gastritis who is now admitted with c/f gastritis at high risk for GIB. Fever: with epigastric pain c/f enteritis vs. gastritis -continue empiric cipro, switch to PO -CXR was without acute pathology -D-dimer was negative with low clot probability -ACS workup was negative -follow up BCx and UCx, thus far negative Epigastric pain: now resolved -Initially had L shoulder pain -> EKG was non-ischemic, trop negative x 2, no relief from ASA 325 and SLN -lipase wnl -LFTs wnl -without leukocytosis with downtrended WBC -switch BID PPI back to PO from IV -CBC stable without evidence of clinically significant bleeding from GAVE disease, gastritis, diverticular bleeding -continue home sucralfate -resume her warfarin this evening per home dosing -advance her diet at tolerated this AM Hypertension -continue amlodipine Hyperlipidemia -continue statin HENRY on CKD stage 3: much improved -Was 2/2 dehydration, s/p 1L NS in the ED -continue calcitirol Hypothyroid -continue synthroid Seizure disorder -continue dilantin H/O bilateral DVT -resume warfarin with daily CBCs and INR Iron deficiency, vit b 12 def -continue supplements HFpEF: -restart home lasix 20 PO daily DVT ppx: TEDx and SCDs Dispo: medsurg with PT/OT eval VS,Fishbone, I+O VS, Fishbone, I+O Laboratory Tests 03/27/20 09:30 03/28/20 05:22 Vital Signs Date Time Temp Pulse Resp B/P (MAP) Pulse Ox O2 Delivery O2 Flow Rate FiO2 03/28/20 06:00 97.9 77 16 140/59 (86) 92 Room Air I&O- Last 24 Hours up to 6 AM 03/28/20 06:00 Intake Total 240 ml Output Total 300 ml Balance -60 ml CAROLEE MARKS MD March 28, 2020 07:48
[2020-03-28 14:00] VITALS: BP 135/58
[2020-03-28] MEDS: CIPROFLOXACIN 500MG TABLET PO SCH (14:08)
[2020-03-28] MEDS ORDERED: WARFARIN SOD 5 MG TAB PO SCH (17:00)
[2020-03-28] MEDS: LACTULOSE 20 GM/30 ML SYRUP UD PO SCH (20:21)
[2020-03-28] MEDS: PANTOPRAZOLE 40MG TAB (PROTONIX) PO SCH (20:22)
[2020-03-28] MEDS: MULTIVITAMINS/MINERALS THERAP 1 TAB PO SCH (20:22)
[2020-03-28] MEDS: CYANOCOBALAMIN 500 MCG TAB PO SCH (20:22)
[2020-03-28] MEDS: ATORVASTATIN 20 MG TAB PO SCH (20:22)
[2020-03-28] MEDS: FERROUS SULFATE 325MG TAB PO SCH (20:22)
[2020-03-28 22:00] VITALS: BP 110/56
[2020-03-29 06:00] VITALS: BP 139/66
[2020-03-29] MEDS: LEVOTHYROXINE 125MCG TABLET (0.125MG) PO SCH (06:01)
[2020-03-29] MEDS: CIPROFLOXACIN 500MG TABLET PO SCH ×2 (06:01→18:24)
[2020-03-29 06:48] LABS: HEMATOCRIT 28.6 % (36.0-47.0); HEMOGLOBIN 9.3 g/dl (12.0-15.5); MEAN CORPUSCULAR HEMOGLOBIN 30.9 pg (27.0-33.0); MEAN CORPUSCULAR HGB CONC 32.5 g/dl (32.0-36.5); PLATELET COUNT, AUTOMATED 125 10^3/uL (150-450); RED BLOOD COUNT 3.01 10^6/uL (4.00-5.40); WHITE BLOOD COUNT 5.5 10^3/uL (4.0-10.0)
[2020-03-29 07:15] LABS: CALCIUM LEVEL 8.5 MG/DL (8.8-10.2); CREATININE FOR GFR 1.2 MG/DL (0.55-1.30); GLOMERULAR FILTRATION RATE 45.5 (>32); POTASSIUM SERUM 4.3 MEQ/L (3.5-5.1)
[2020-03-29] MEDS: FOLIC ACID 1 MG TAB PO SCH (08:50)
[2020-03-29] MEDS: OYSTER SHELL CALCIUM 500 MG TAB PO SCH ×2 (08:50→21:19)
[2020-03-29] MEDS: DOCUSATE SODIUM 100 MG CAP PO SCH ×2 (08:50→21:18)
[2020-03-29] MEDS: CALCITRIOL 0.25 MCG CAP (S0169) PO SCH (08:50)
[2020-03-29] MEDS: PANTOPRAZOLE 40MG TAB (PROTONIX) PO SCH ×2 (08:51→21:19)
[2020-03-29] MEDS: PHENYTOIN ER 100 MG CAP PO SCH ×2 (08:51→21:18)
[2020-03-29] MEDS: SUCRALFATE 1 GM TAB PO SCH ×4 (08:51→21:19)
[2020-03-29] MEDS: FUROSEMIDE 20 MG TAB PO SCH (08:51)
[2020-03-29] MEDS: CLOTRIMAZOLE 1% TOPICAL CREAM 30GM TOP SCH ×2 (08:52→21:19)
[2020-03-29 10:06] LABS: INR 1.97; PROTHROMBIN TIME 22.2 SECONDS (11.8-14.0)
[2020-03-29 14:00] VITALS: BP 127/56
--- NOTE | 2020-03-29 16:42 | IPNPDOC ---
Text Note Date of Service The patient was seen on 03/29/20. NOTE Subjective: -No issues overnight, no abdominal pain, tolerating regular diet Physical Examination Vitals: HDS, afebrile General: Alert, Cooperative, No Acute Distress Eye: PERRLA, Conjunctiva & lids normal, anicteric ENT: Atraumatic, MMM Neck: Supple, no JVD, no thyromegaly Chest: Clear to auscultation, Normal air movement Heart: RRR, no mrg Abdomen : Normal bowel sounds, soft, no tenderness to palpation this morning, no masses or hepatosplenomegaly, negative flores's Extremities: trace bilateral LE edema, WWP Skin Exam: No rashes or noted lesions Laboratory Data: WBC 5.5, Hgb 9.3, platelets 125, Cr 1.2 Assessment: 84 year old W with a history of recurrent GIB , gastritis, gastric ulcer, GAVE disease, caecal cancer s/p right hemicolectomy in 2013, diverticulosis and internal hemorrhoids, chronic anemia who was BIBEMS for left shoulder pain, that later became epigastric pain with a grossly negative cardiac workup and c/f GI etiology likely gastritis who wasd admitted with c/f gastritis at high risk for GIB now doing well, with plan for discharge home after she works more with PT and clears for home. Fever: with epigastric pain c/f enteritis vs. gastritis -continue cipro PO -CXR was without acute pathology -D-dimer was negative with low clot probability -ACS workup was negative -follow up BCx and UCx, negative Epigastric pain: now resolved -Initially had L shoulder pain -> EKG was non-ischemic, trop negative x 2, no relief from ASA 325 and SLN -lipase wnl -LFTs wnl -without leukocytosis with downtrended WBC -BID PPI PO -CBC stable without evidence of clinically significant bleeding from GAVE disease, gastritis, diverticular bleeding -continue home sucralfate -Contine her warfarin per home dosing -Regular diet Hypertension -continue amlodipine Hyperlipidemia -continue statin HENRY on CKD stage 3: much improved -Was 2/2 dehydration, s/p 1L NS in the ED -continue calcitirol Hypothyroid -continue synthroid Seizure disorder -continue dilantin H/O bilateral DVT -continue warfarin with daily CBCs and INR Iron deficiency, vit b 12 def -continue supplements HFpEF: -continue home lasix 20 PO daily DVT ppx: TEDx and SCDs Dispo: medsurg with PT/OT eval ongoing VS,Fishbone, I+O VS, Fishbone, I+O Laboratory Tests 03/29/20 05:21 Vital Signs Date Time Temp Pulse Resp B/P (MAP) Pulse Ox O2 Delivery O2 Flow Rate FiO2 03/29/20 14:00 97.8 75 18 127/56 (79) 95 Room Air I&O- Last 24 Hours up to 6 AM 03/29/20 06:00 Intake Total 1540 ml Output Total 975 ml Balance 565 ml CAROLEE MARKS MD March 29, 2020 16:42
[2020-03-29] MEDS ORDERED: WARFARIN SOD 4 MG TAB PO SCH (17:00)
[2020-03-29] MEDS: LACTULOSE 20 GM/30 ML SYRUP UD PO SCH (21:00)
[2020-03-29] MEDS: ATORVASTATIN 20 MG TAB PO SCH (21:18)
[2020-03-29] MEDS: FERROUS SULFATE 325MG TAB PO SCH (21:18)
[2020-03-29] MEDS: MULTIVITAMINS/MINERALS THERAP 1 TAB PO SCH (21:18)
[2020-03-29] MEDS: CYANOCOBALAMIN 500 MCG TAB PO SCH (21:19)
[2020-03-29 22:00] VITALS: BP 134/60
[2020-03-30] MEDS: CIPROFLOXACIN 500MG TABLET PO SCH (05:43)
[2020-03-30] MEDS: LEVOTHYROXINE 125MCG TABLET (0.125MG) PO SCH (05:44)
[2020-03-30 06:00] VITALS: BP 131/66
[2020-03-30 06:11] LABS: HEMATOCRIT 27.5 % (36.0-47.0); HEMOGLOBIN 9.2 g/dl (12.0-15.5); MEAN CORPUSCULAR HEMOGLOBIN 31.5 pg (27.0-33.0); MEAN CORPUSCULAR HGB CONC 33.5 g/dl (32.0-36.5); MEAN CORPUSCULAR VOLUME 94.2 fl (80.0-96.0); PLATELET COUNT, AUTOMATED 132 10^3/uL (150-450); RED BLOOD COUNT 2.92 10^6/uL (4.00-5.40); WHITE BLOOD COUNT 4.6 10^3/uL (4.0-10.0)
[2020-03-30 06:29] LABS: CALCIUM LEVEL 8.3 MG/DL (8.8-10.2); CREATININE FOR GFR 1.27 MG/DL (0.55-1.30); GLOMERULAR FILTRATION RATE 42.6 (>32); POTASSIUM SERUM 3.8 MEQ/L (3.5-5.1)
[2020-03-30] MEDS: DOCUSATE SODIUM 100 MG CAP PO SCH (09:14)
[2020-03-30] MEDS: SUCRALFATE 1 GM TAB PO SCH (09:14)
[2020-03-30] MEDS: OYSTER SHELL CALCIUM 500 MG TAB PO SCH (09:14)
[2020-03-30] MEDS: PHENYTOIN ER 100 MG CAP PO SCH (09:14)
[2020-03-30 09:15] VITALS: BP 156/69
[2020-03-30] MEDS: CLOTRIMAZOLE 1% TOPICAL CREAM 30GM TOP SCH (09:15)
[2020-03-30] MEDS: FOLIC ACID 1 MG TAB PO SCH (09:15)
[2020-03-30] MEDS: PANTOPRAZOLE 40MG TAB (PROTONIX) PO SCH (09:15)
[2020-03-30] MEDS: CALCITRIOL 0.25 MCG CAP (S0169) PO SCH (09:15)
[2020-03-30] MEDS: FUROSEMIDE 20 MG TAB PO SCH (09:26)
--- NOTE | 2020-03-30 10:59 | DS.PDOC ---
Discharge Summary General Date of Admission March 27, 2020 at 08:34 Date of Discharge 03/30/2020 Attending Physician: CAROLEE MARKS MD Discharge Summary PROCEDURES PERFORMED DURING STAY: None ADMITTING DIAGNOSES: 1. Epigastric pain DISCHARGE DIAGNOSES: 1. Gastritis 2. Suspicion of nonspecific gastroenteritis 3. History of VTEs with IVC on warfarin 4. AOCI, JESSICA, B12 deficiency, folic acid deficiency on supplementation 5. History of NAFLD 6. Hypothyroidism 7. Epilepsy 8. HTN 9. HLD 10. History of cecal adenocarcinoma 11. OA 12. CKD3 13. HFpEF 14. history of gastric ulcers, GAVE, prior GIBs COMPLICATIONS/CHIEF COMPLAINT: Epigastric Pain. HISTORY OF PRESENT ILLNESS: 84 yo W with a history of recurrent GIBs, gastritis, gastric ulcer, GAVE disease, caecal cancer s/p right hemicolectomy in 2013, diverticulosis and internal hemorrhoids, chronic anemia who presented to the ED via EMS this morning after she developed L shoulder pain overnight that worsened into the morning. HOSPITAL COURSE: In the ED she was hemodynamically stable, afebrile and breathing comfortably on room air and was given ASA 325, SLN, protonix 40 IV, maalox and 1L NS. By the time I saw her she reported that her L shoulder pain had resolved and now her pain was epigastric. She reported a history of chronic intermittent bright red blood per rectum but none that she noted recently, denied fever, chills, nausea, emesis, travel, sick contacts, upper respiratory symptoms, cough, easy bleeding. Workup was notable for stable chronic anemia with Hgb 10.6, WBC 10.4, platelets 177, Cr 2.01 from baseline 1.5, LFTs wnl, troponin wnl x 2, lipase 331, INR 2.02, D-dimer wnl, CXR without acute pathology, and non ischemic EKG. She was admitted to medicine for likely gastritis with observation for potential bleeding and her warfarin was briefly held. I started her on empiric cipro with continue PPI therapy and her symptoms eventually resolved. Her WBC also downtrended to 5 and her H/H remained stable after restarting her warfarin. We are now discharging her home with PCP follow up. DISCHARGE MEDICATIONS: Please see below. ALLERGIES: Please see below. PHYSICAL EXAMINATION ON DISCHARGE: VITAL SIGNS: Please see below. Vitals: HDS, afebrile General: Alert, Cooperative, No Acute Distress Eye: PERRLA, Conjunctiva & lids normal, anicteric ENT: Atraumatic, MMM Neck: Supple, no JVD, no thyromegaly Chest: Clear to auscultation, Normal air movement Heart: RRR, no mrg Abdomen : Normal bowel sounds, soft, NTND, no masses or hepatosplenomegaly, negative flores's Extremities: trace bilateral LE edema, WWP Skin Exam: No rashes or noted lesions LABORATORY DATA: Please see below. IMAGING: CXR: No acute disease. PROGNOSIS: Good, however high risk for readmission given high potential for GIB on warfarin and comorbid conditions ACTIVITY: As tolerated DIET: Regular diet DISCHARGE PLAN: Home with PCP and GI follow up DISPOSITION: Home DISCHARGE INSTRUCTIONS: 1. Home with close GI and PCP follow up ITEMS TO FOLLOWUP ON ON OUTPATIENT: 1. Epigastric pain DISCHARGE CONDITION: Stable TIME SPENT ON DISCHARGE: 43 minutes. Vital Signs/I&Os Vital Signs Date Time Temp Pulse Resp B/P (MAP) Pulse Ox O2 Delivery O2 Flow Rate FiO2 03/29/20 08:52 74 133/59 03/29/20 06:00 99.0 16 93 Room Air I&O- Last 24 Hours up to 6 AM 03/29/20 06:00 Intake Total 1540 ml Output Total 975 ml Balance 565 ml Laboratory Data Labs 24H Laboratory Tests 2 03/29/20 05:21: Nucleated Red Blood Cells % (auto) 0.0, Anion Gap 6L, Glomerular Filtration Rate 45.5, Calcium Level 8.5L CBC/BMP Laboratory Tests 03/29/20 05:21 Microbiology Microbiology 03/27/20 Blood Culture - Preliminary, Resulted No growth after 24 hours . All specim... 03/27/20 Blood Culture - Preliminary, Resulted No growth after 24 hours . All specim... Discharge Medications Scheduled Amlodipine Besylate (Amlodipine Besylate) 2.5 Mg Tablet, 2.5 MG PO DAILY, (Reported) Atorvastatin Calcium (Atorvastatin Calcium) 40 Mg Tablet, 40 MG PO QPM, (Reported) Calcitriol (Rocaltrol) 0.5 Mcg Capsule, 0.5 MCG PO DAILY, (Reported) Calcium Carbonate/Vitamin D3 (Calcium 600-Vit D3 800 Tablet) 1 Each Tablet, 1 TAB PO BID, (Reported) Ciprofloxacin HCl (Cipro) 500 Mg Tab, 500 MG PO DAILY, (Reported) Clotrimazole (Clotrimazole) 1% 14GM Cream..g., 1 APLCT TOP BID, (Reported) APPLY UNDER BREASTS, AM AND HS Cyanocobalamin (Vitamin B-12) (Vitamin B-12) 1,000 Mcg Tab, 1,000 MCG PO QPM, (Reported) Docusate Sodium (Colace) 100 Mg Cap, 100 MG PO BID, (Reported) Folic Acid (Folic Acid) 1 Mg Tablet, 1 MG PO DAILY, (Reported) Furosemide (Lasix) 20 Mg Tab, 20 MG PO DAILY, (Reported) Iron Ps Complex/B12/Folic Acid (Poly-Iron 150 Forte Capsule) 1 Each Capsule, 1 CAP PO QPM, (Reported) Lactulose (Lactulose) 10 Gm/15 Ml Rosalie, 15 ML PO QHS, (Reported) Levothyroxine Sodium (Synthroid) 125 Mcg Tablet, 125 MCG PO DAILY, (Reported) Lutein Extract/Zeaxanthin Ext (Lutein 15 mg Softgel) 1 Each Capsule, 1 CAP PO QPM, (Reported) Multivitamin (Multivitamins) 1 Each Tablet, 1 TAB PO QPM, (Reported) Pantoprazole Sodium (Pantoprazole Sodium) 40 Mg Tab, 40 MG PO BID, (Reported) Phenytoin Sodium Extended (Dilantin) 100 Mg Cap, 100 MG PO QAM, (Reported) Phenytoin Sodium Extended (Dilantin) 100 Mg Cap, 200 MG PO QHS, (Reported) Sucralfate (Sucralfate) 1 Gm Tab, 1 GM PO ACHS, (Reported) Warfarin Sodium (Warfarin Sodium) 4 Mg Tablet, 4 MG PO 5XW, (Reported) SUN, MON, TUES, THURS, SAT @ QPM Warfarin Sodium (Warfarin Sodium) 5 Mg Tablet, 5 MG PO 2XW, (Reported) THU, THU, @QPM Allergies Coded Allergies: sulfamethoxazole (Verified Adverse Reaction, Unknown, AFFECTS KIDNEYS, 02/24/19) trimethoprim (Verified Adverse Reaction, Unknown, AFFECTS KIDNEYS, 02/24/19) CAROLEE MARKS MD March 29, 2020 09:22
== END 2020-03-30 13:32 | disposition home health service (06) | DRG 392 ==
LOC: M ED 00:35 → M ED INP 08:34 → ENRESERV 09:38 → M MSPAV 10:20
PROVIDERS: ADMIT Internal Medicine; ATTEND Internal Medicine
DX: K29.70 Gastritis, unspecified, without bleeding (principal); N17.9 Acute kidney failure, unspecified; I12.9 Hypertensive chronic kidney disease with stage 1 through stage 4 chronic kidney disease, or unspecified chronic kidney disease; N18.3 Chronic kidney disease, stage 3 (moderate); M19.90 Unspecified osteoarthritis, unspecified site; E03.9 Hypothyroidism, unspecified; G40.909 Epilepsy, unspecified, not intractable, without status epilepticus; E53.8 Deficiency of other specified B group vitamins; Z79.01 Long term (current) use of anticoagulants; Z85.038 Personal history of other malignant neoplasm of large intestine; K57.30 Diverticulosis of large intestine without perforation or abscess without bleeding; K64.8 Other hemorrhoids; Z79.899 Other long term (current) drug therapy; Z88.2 Allergy status to sulfonamides; Z88.8 Allergy status to other drugs, medicaments and biological substances; E55.9 Vitamin D deficiency, unspecified; K59.00 Constipation, unspecified; D63.1 Anemia in chronic kidney disease; Z86.718 Personal history of other venous thrombosis and embolism; E78.5 Hyperlipidemia, unspecified

== ENCOUNTER → 2020-04-24 | Outpatient (REF) | payer MEDICARE, OTHER ==
[~2020-04-24] MED LIST changes: +CALC1TAB26 PO; -LACT10SO29 PO; +LACT20EL PO; +WARF-20 PO
[2020-04-24 10:37] LABS: BASO % 0.7 % (0.0-1.0); EOS # 0.1 10^3/uL (0.0-0.5); EOS % 2.7 % (0.0-3.0); HEMATOCRIT 29.6 % (36.0-47.0); HEMOGLOBIN 9.8 g/dl (12.0-15.5); LYMPH % 25.1 % (24.0-44.0); MEAN CORPUSCULAR HGB CONC 33.1 g/dl (32.0-36.5); MEAN CORPUSCULAR VOLUME 93.7 fl (80.0-96.0); MONO # 0.5 10^3/uL (0.0-0.8); MONO % 12.8 % (0.0-5.0); NEUTROPHILS # 2.4 10^3/uL (1.5-8.5); NEUTROPHILS % 58.5 % (36.0-66.0); PLATELET COUNT, AUTOMATED 142 10^3/uL (150-450); RED BLOOD COUNT 3.16 10^6/uL (4.00-5.40); WHITE BLOOD COUNT 4.1 10^3/uL (4.0-10.0)
[2020-04-24 10:49] LABS: INR 1.67; PARTIAL THROMBOPLASTIN TIME 32.7 SECONDS (25.0-38.4); PROTHROMBIN TIME 19.4 SECONDS (11.8-14.0)
[2020-04-24 11:19] LABS: ALBUMIN 3.3 GM/DL (3.2-5.2); CALCIUM LEVEL 9.2 MG/DL (8.8-10.2); CHOLESTEROL RISK RATIO 2.587 (<5); CREATININE FOR GFR 1.56 MG/DL (0.55-1.30); FREE T4 1.01 NG/DL (0.76-1.46); GLOMERULAR FILTRATION RATE 33.6 (>32); PHENYTOIN (DILANTIN) 8.3 UG/ML (10.0-20.0); PHOSPHORUS LEVEL 3.4 MG/DL (2.5-4.9); THYROID STIMULATING HORMONE 1.32 uIU/ML (0.358-3.740)
== END ==
LOC: M SHH 10:14
PROVIDERS: ATTEND Family Medicine
DX: D50.9 Iron deficiency anemia, unspecified (principal); E03.9 Hypothyroidism, unspecified; E78.5 Hyperlipidemia, unspecified; G40.909 Epilepsy, unspecified, not intractable, without status epilepticus; Z86.718 Personal history of other venous thrombosis and embolism

== ENCOUNTER → 2020-05-15 | Outpatient (REF) | payer MEDICARE, OTHER ==
[~2020-05-15] MED LIST changes: +PANT40TA29 PO; -PANT40TA3 PO
[2020-05-15 11:08] LABS: BASO % 0.7 % (0.0-1.0); EOS # 0.1 10^3/uL (0.0-0.5); EOS % 1.2 % (0.0-3.0); HEMATOCRIT 30.8 % (36.0-47.0); LYMPH % 22.4 % (24.0-44.0); MEAN CORPUSCULAR HEMOGLOBIN 30.4 pg (27.0-33.0); MEAN CORPUSCULAR HGB CONC 32.5 g/dl (32.0-36.5); MEAN CORPUSCULAR VOLUME 93.6 fl (80.0-96.0); MONO # 0.5 10^3/uL (0.0-0.8); MONO % 11.8 % (0.0-5.0); NEUTROPHILS # 2.7 10^3/uL (1.5-8.5); NEUTROPHILS % 63.7 % (36.0-66.0); PLATELET COUNT, AUTOMATED 175 10^3/uL (150-450); RED BLOOD COUNT 3.29 10^6/uL (4.00-5.40); WHITE BLOOD COUNT 4.2 10^3/uL (4.0-10.0)
[2020-05-15 11:22] LABS: INR 1.67; PROTHROMBIN TIME 19.4 SECONDS (11.8-14.0)
[2020-05-15 11:32] LABS: ALBUMIN 3.6 GM/DL (3.2-5.2); CALCIUM LEVEL 9.4 MG/DL (8.8-10.2); CREATININE FOR GFR 1.64 MG/DL (0.55-1.30); GLOMERULAR FILTRATION RATE 31.7 (>32); PHOSPHORUS LEVEL 3.1 MG/DL (2.5-4.9)
== END ==
LOC: M PLALAB 08:03
PROVIDERS: ATTEND Family Medicine
DX: D50.9 Iron deficiency anemia, unspecified (principal)

== ENCOUNTER → 2020-06-15 | Outpatient (REF) | payer MEDICARE, OTHER ==
[2020-08-02 20:22] LABS: INR 1.28; PROTHROMBIN TIME 16.3 SECONDS (12.5-14.3)
[2020-08-02 20:34] LABS: HEMATOCRIT 31.7 % (36.0-47.0); HEMOGLOBIN 10.3 g/dl (12.0-15.5); MEAN CORPUSCULAR HEMOGLOBIN 30.2 pg (27.0-33.0); MEAN CORPUSCULAR HGB CONC 32.5 g/dl (32.0-36.5); PLATELET COUNT, AUTOMATED 189 10^3/uL (150-450); RED BLOOD COUNT 3.41 10^6/uL (4.00-5.40); WHITE BLOOD COUNT 5.2 10^3/uL (4.0-10.0)
[2020-08-10 18:06] LABS: ALBUMIN 3.6 GM/DL (3.2-5.2); BILIRUBIN,TOTAL 0.2 MG/DL (0.2-1.0); CALCIUM LEVEL 9.2 MG/DL (8.8-10.2); CREATININE FOR GFR 1.56 MG/DL (0.55-1.30); GLOMERULAR FILTRATION RATE 33.6 (>32); POTASSIUM SERUM 4.5 MEQ/L (3.5-5.1); TOTAL PROTEIN 6.4 GM/DL (6.4-8.2)
== END ==
LOC: M SFHCPLAZ 10:28
PROVIDERS: ATTEND Family Medicine
DX: N18.3 Chronic kidney disease, stage 3 (moderate) (principal)

== ENCOUNTER → 2020-07-03 | Outpatient (CLI) | payer MEDICARE, OTHER ==
[2020-07-03 12:54] LABS: HEMATOCRIT 33.4 % (36.0-47.0); HEMOGLOBIN 10.7 g/dl (12.0-15.5); MEAN CORPUSCULAR HEMOGLOBIN 29.8 pg (27.0-33.0); PLATELET COUNT, AUTOMATED 181 10^3/uL (150-450); RED BLOOD COUNT 3.59 10^6/uL (4.00-5.40); WHITE BLOOD COUNT 5.7 10^3/uL (4.0-10.0)
[2020-07-03 13:06] LABS: INR 1.67; PROTHROMBIN TIME 20.1 SECONDS (11.8-14.0)
[2020-07-03 13:14] LABS: ALBUMIN 3.7 GM/DL (3.2-5.2); BILIRUBIN,TOTAL 0.2 MG/DL (0.2-1.0); CALCIUM LEVEL 9.8 MG/DL (8.8-10.2); CREATININE FOR GFR 2.16 MG/DL (0.55-1.30); GLOMERULAR FILTRATION RATE 23.1 (>32); POTASSIUM SERUM 4.6 MEQ/L (3.5-5.1); TOTAL PROTEIN 6.6 GM/DL (6.4-8.2)
== END ==
LOC: M PLALAB 08:31
PROVIDERS: ATTEND Family Medicine
DX: I10 Essential (primary) hypertension (principal); I80.209 Phlebitis and thrombophlebitis of unspecified deep vessels of unspecified lower extremity

== ENCOUNTER → 2020-07-13 | Outpatient (CLI) | payer MEDICARE, OTHER ==
[2020-07-13 13:02] LABS: HEMATOCRIT 33.5 % (36.0-47.0); HEMOGLOBIN 10.7 g/dl (12.0-15.5); MEAN CORPUSCULAR HEMOGLOBIN 29.6 pg (27.0-33.0); MEAN CORPUSCULAR HGB CONC 31.9 g/dl (32.0-36.5); MEAN CORPUSCULAR VOLUME 92.8 fl (80.0-96.0); PLATELET COUNT, AUTOMATED 213 10^3/uL (150-450); RED BLOOD COUNT 3.61 10^6/uL (4.00-5.40)
[2020-07-13 13:10] LABS: ALBUMIN 3.6 GM/DL (3.2-5.2); BILIRUBIN,TOTAL 0.2 MG/DL (0.2-1.0); CALCIUM LEVEL 9.3 MG/DL (8.8-10.2); CREATININE FOR GFR 1.92 MG/DL (0.55-1.30); GLOMERULAR FILTRATION RATE 26.4 (>32); POTASSIUM SERUM 4.7 MEQ/L (3.5-5.1); TOTAL PROTEIN 6.6 GM/DL (6.4-8.2)
[2020-07-13 13:14] LABS: INR 2.3; PROTHROMBIN TIME 25.8 SECONDS (11.8-14.0)
== END ==
LOC: M PLALAB 08:52
PROVIDERS: ATTEND Family Medicine
DX: I80.209 Phlebitis and thrombophlebitis of unspecified deep vessels of unspecified lower extremity (principal)

== ENCOUNTER → 2020-08-21 | Outpatient (CLI) | payer MEDICARE, OTHER ==
[2020-08-21 14:29] LABS: BASO # 0.1 10^3/uL (0.0-0.2); BASO % 1.2 % (0.0-1.0); EOS # 0.2 10^3/uL (0.0-0.5); EOS % 3.2 % (0.0-3.0); HEMATOCRIT 33.1 % (36.0-47.0); HEMOGLOBIN 10.4 g/dl (12.0-15.5); LYMPH # 1.1 10^3/uL (1.5-5.0); LYMPH % 21.4 % (24.0-44.0); MEAN CORPUSCULAR HEMOGLOBIN 29.5 pg (27.0-33.0); MEAN CORPUSCULAR HGB CONC 31.4 g/dl (32.0-36.5); MONO # 0.5 10^3/uL (0.0-0.8); MONO % 10.8 % (0.0-5.0); NEUTROPHILS # 3.2 10^3/uL (1.5-8.5); PLATELET COUNT, AUTOMATED 161 10^3/uL (150-450); RED BLOOD COUNT 3.52 10^6/uL (4.00-5.40)
[2020-08-21 15:02] LABS: ALBUMIN 3.6 GM/DL (3.2-5.2); BILIRUBIN,TOTAL 0.3 MG/DL (0.2-1.0); CALCIUM LEVEL 9.6 MG/DL (8.8-10.2); CREATININE FOR GFR 1.74 MG/DL (0.55-1.30); GLOMERULAR FILTRATION RATE 29.6 (>32); POTASSIUM SERUM 4.7 MEQ/L (3.5-5.1); TOTAL PROTEIN 6.4 GM/DL (6.4-8.2)
[2020-08-21 15:04] LABS: PTH INTACT 24.8 PG/ML (18.5-88.0); TOTAL 25(OH) VITAMIN D 34.2 NG/ML (30.0-100.0)
== END ==
LOC: M PLALAB 09:26
PROVIDERS: ATTEND Family Medicine
DX: D50.9 Iron deficiency anemia, unspecified (principal); N18.30 Chronic kidney disease, stage 3 unspecified; I35.9 Nonrheumatic aortic valve disorder, unspecified

== ENCOUNTER → 2020-09-18 | Outpatient (REF) | payer MEDICARE, OTHER ==
[2020-09-18 14:04] LABS: BASO % 0.7 % (0.0-1.0); EOS # 0.1 10^3/uL (0.0-0.5); EOS % 1.8 % (0.0-3.0); HEMATOCRIT 29.9 % (36.0-47.0); HEMOGLOBIN 9.4 g/dl (12.0-15.5); LYMPH % 17.9 % (24.0-44.0); MEAN CORPUSCULAR HEMOGLOBIN 28.8 pg (27.0-33.0); MEAN CORPUSCULAR HGB CONC 31.4 g/dl (32.0-36.5); MEAN CORPUSCULAR VOLUME 91.7 fl (80.0-96.0); MONO # 0.6 10^3/uL (0.0-0.8); MONO % 10.8 % (0.0-5.0); NEUTROPHILS # 3.9 10^3/uL (1.5-8.5); NEUTROPHILS % 68.4 % (36.0-66.0); PLATELET COUNT, AUTOMATED 208 10^3/uL (150-450); RED BLOOD COUNT 3.26 10^6/uL (4.00-5.40); WHITE BLOOD COUNT 5.7 10^3/uL (4.0-10.0)
[2020-09-18 14:33] LABS: ALBUMIN 3.6 GM/DL (3.2-5.2); BILIRUBIN,TOTAL 0.3 MG/DL (0.2-1.0); CALCIUM LEVEL 10.2 MG/DL (8.8-10.2); CREATININE FOR GFR 1.96 MG/DL (0.55-1.30); GLOMERULAR FILTRATION RATE 25.8 (>32); POTASSIUM SERUM 4.4 MEQ/L (3.5-5.1); TOTAL PROTEIN 6.4 GM/DL (6.4-8.2)
== END ==
LOC: M SFHCPLAZ 10:05
PROVIDERS: ATTEND Nurse Practitioner Family
DX: R06.02 Shortness of breath (principal)

== ENCOUNTER → 2020-10-05 | Outpatient (REF) | payer MEDICARE, OTHER ==
[2020-10-05 10:50] LABS: BASO # 0.1 10^3/uL (0.0-0.2); EOS # 0.1 10^3/uL (0.0-0.5); EOS % 2.4 % (0.0-3.0); HEMATOCRIT 28.6 % (36.0-47.0); HEMOGLOBIN 8.8 g/dl (12.0-15.5); LYMPH % 20.6 % (24.0-44.0); MEAN CORPUSCULAR HEMOGLOBIN 27.8 pg (27.0-33.0); MEAN CORPUSCULAR HGB CONC 30.8 g/dl (32.0-36.5); MEAN CORPUSCULAR VOLUME 90.5 fl (80.0-96.0); MONO # 0.6 10^3/uL (0.0-0.8); MONO % 12.8 % (0.0-5.0); NEUTROPHILS # 3.1 10^3/uL (1.5-8.5); NEUTROPHILS % 62.8 % (36.0-66.0); PLATELET COUNT, AUTOMATED 189 10^3/uL (150-450); RED BLOOD COUNT 3.16 10^6/uL (4.00-5.40)
[2020-10-05 11:15] LABS: ALBUMIN 3.6 GM/DL (3.2-5.2); CALCIUM LEVEL 9.5 MG/DL (8.8-10.2); CREATININE FOR GFR 1.72 MG/DL (0.55-1.30); PHOSPHORUS LEVEL 3.5 MG/DL (2.5-4.9); POTASSIUM SERUM 4.7 MEQ/L (3.5-5.1)
== END ==
LOC: M SFHCPLAZ 08:49
PROVIDERS: ATTEND Nurse Practitioner Family
DX: R06.02 Shortness of breath (principal)

== ENCOUNTER → 2020-10-08 | Outpatient (CLI) | payer MEDICARE, OTHER | LOC: M LAB 10:06 | PROVIDERS: ATTEND Nurse Practitioner Family | DX: D64.9 Anemia, unspecified (principal) ==

== ENCOUNTER 2020-10-09 07:23 | Outpatient (CLI) | payer MEDICARE, OTHER ==
[~2020-10-09] VITALS: Ht 162.6 cm; Wt 61.0 kg
[2020-10-09] VITALS (7 sets, daily range): BP systolic 131–161; BP diastolic 60–69
[2020-10-09] MEDS ORDERED: FUROSEMIDE 40MG/4ML VIAL (J1940) IV ONE (10:00)
== END 2020-10-09 12:30 | disposition home or self-care (01) ==
LOC: M INFU 07:23
PROVIDERS: ATTEND Nurse Practitioner Family
DX: D64.9 Anemia, unspecified (principal); Z88.2 Allergy status to sulfonamides; Z88.8 Allergy status to other drugs, medicaments and biological substances
CPT/HCPCS: 36430; 86920; J1940; P9016

== ENCOUNTER → 2020-10-16 | Outpatient (REF) | payer MEDICARE, OTHER ==
[2020-10-16 12:06] LABS: BASO % 0.9 % (0.0-1.0); EOS # 0.2 10^3/uL (0.0-0.5); EOS % 3.2 % (0.0-3.0); HEMATOCRIT 36.3 % (36.0-47.0); HEMOGLOBIN 10.9 g/dl (12.0-15.5); LYMPH # 1.2 10^3/uL (1.5-5.0); LYMPH % 24.8 % (24.0-44.0); MEAN CORPUSCULAR HEMOGLOBIN 27.5 pg (27.0-33.0); MEAN CORPUSCULAR VOLUME 91.7 fl (80.0-96.0); MONO # 0.5 10^3/uL (0.0-0.8); MONO % 11.1 % (0.0-5.0); NEUTROPHILS # 2.8 10^3/uL (1.5-8.5); NEUTROPHILS % 59.8 % (36.0-66.0); PLATELET COUNT, AUTOMATED 181 10^3/uL (150-450); RED BLOOD COUNT 3.96 10^6/uL (4.00-5.40); WHITE BLOOD COUNT 4.7 10^3/uL (4.0-10.0)
[2020-10-16 12:17] LABS: ALBUMIN 3.5 GM/DL (3.2-5.2); BILIRUBIN,TOTAL 0.3 MG/DL (0.2-1.0); CALCIUM LEVEL 9.5 MG/DL (8.8-10.2); CREATININE FOR GFR 1.72 MG/DL (0.55-1.30); POTASSIUM SERUM 4.6 MEQ/L (3.5-5.1); TOTAL PROTEIN 6.2 GM/DL (6.4-8.2)
== END ==
LOC: M SFHCPLAZ 08:28
PROVIDERS: ATTEND Family Medicine
DX: D50.9 Iron deficiency anemia, unspecified (principal); K31.819 Angiodysplasia of stomach and duodenum without bleeding

== ENCOUNTER → 2020-11-09 | Outpatient (REF) | payer MEDICARE, OTHER ==
[2020-11-09 10:38] LABS: BASO % 0.8 % (0.0-1.0); EOS # 0.1 10^3/uL (0.0-0.5); EOS % 2.2 % (0.0-3.0); HEMATOCRIT 32.7 % (36.0-47.0); HEMOGLOBIN 10.2 g/dl (12.0-15.5); LYMPH # 1.2 10^3/uL (1.5-5.0); LYMPH % 22.9 % (24.0-44.0); MEAN CORPUSCULAR HEMOGLOBIN 27.8 pg (27.0-33.0); MEAN CORPUSCULAR HGB CONC 31.2 g/dl (32.0-36.5); MEAN CORPUSCULAR VOLUME 89.1 fl (80.0-96.0); MONO # 0.6 10^3/uL (0.0-0.8); MONO % 11.7 % (0.0-5.0); NEUTROPHILS # 3.2 10^3/uL (1.5-8.5); NEUTROPHILS % 62.2 % (36.0-66.0); PLATELET COUNT, AUTOMATED 175 10^3/uL (150-450); RED BLOOD COUNT 3.67 10^6/uL (4.00-5.40); WHITE BLOOD COUNT 5.1 10^3/uL (4.0-10.0)
[2020-11-09 10:49] LABS: INR 1.72; PROTHROMBIN TIME 20.5 SECONDS (12.5-14.3)
[2020-11-09 10:50] LABS: PARTIAL THROMBOPLASTIN TIME 33.9 SECONDS (24.2-38.5)
[2020-11-09 11:08] LABS: HEMATOCRIT 32.7 % (36.0-47.0)
[2020-11-09 11:11] LABS: ALBUMIN 3.8 GM/DL (3.2-5.2); BILIRUBIN,TOTAL 0.3 MG/DL (0.2-1.0); CALCIUM LEVEL 9.5 MG/DL (8.8-10.2); CREATININE FOR GFR 1.59 MG/DL (0.55-1.30); FREE T4 1.48 NG/DL (0.76-1.46); GLOMERULAR FILTRATION RATE 32.8 (>32); THYROID STIMULATING HORMONE 0.293 uIU/ML (0.358-3.740); TOTAL PROTEIN 6.4 GM/DL (6.4-8.2)
[2020-11-09 13:45] LABS: RBC FOLATE 1541 NG/ML (280-791)
== END ==
LOC: M PLALAB 08:02
PROVIDERS: ATTEND Family Medicine
DX: I35.0 Nonrheumatic aortic (valve) stenosis (principal); D50.9 Iron deficiency anemia, unspecified; E03.9 Hypothyroidism, unspecified

== ENCOUNTER → 2020-11-17 | Outpatient (CLI) | payer SELFPAY | LOC: M LABSMTC 09:45 | PROVIDERS: ATTEND Pediatrics | DX: Z20.822 Contact with and (suspected) exposure to COVID-19 (principal) ==

== ENCOUNTER 2020-12-20 12:19 | Inpatient (IN) | payer MEDICARE, OTHER ==
[~2020-12-20] VITALS: Ht 152.4 cm; Wt 62.2 kg
[~2020-12-20 12:19] MED LIST changes: -CALCCAP4 PO; -FERR150C PO; -LEVO112T25 PO; -MV-M1TAB13 PO; -PEG1POW PO; -VITA500T40 PO; -VOLT1GEL15 TOP
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
--- OUTSIDE RECORDS SUMMARY | 2020-12-20 12:27 | CCD ---
Author Author [facility] Organization [facility] Address Unknown Phone Unavailable Care Team Providers Care Pipe And [employer] Covers Supervisor Name Role Phone Jaime Sifuentes Unavailable PROBLEMS Type Condition ICD9-CM Code CAA01-LG Code Onset Dates Condition S tatus SNOMED Code Notes Problem CKD (chronic kidney disease) stage 3, GFR 30-59 ml/min N18.3 Active 755859068 Problem Hyperlipidemia E78.5 Active 12005482 Problem Fe deficiency anemia D50.9 Active 45537363 Problem Hypothyroid E03.9 Active 80697770 Problem Seizure disorder G40.909 Active 631587616 Problem Vitamin D deficiency E55.9 Active 29085837 Problem Hypertension I10 Active 48785568 Problem Folic acid deficiency E53.8 Active 490647019 Problem Nonrheumatic aortic valve stenosis I35.0 Activ e 981878315 Problem PUD (peptic ulcer disease) K27.9 Active 13492 003 Problem Vitamin B12 deficiency E53.8 Active 647108086 Problem DJD (degenerative joint disease), cervical M50.30 Active 91037227 Problem BARBRA (generalized anxiety disorder) F41.1 Activ e 07580603 Problem H/O malignant neoplasm of colon Z85.038 Active 885067763 Problem 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 A ctive 20651485 Problem History of DVT (deep vein thrombosis) Z86.718 Ac tive 385820686 Problem Dyspnea on exertion R06.09 Active 99161202 Problem Candidiasis of breast B37.89 Active 09198545 Problem Chronic infection B99.9 Active 617991674 Problem Iron deficiency anemia due to chronic blood loss D 50.0 Active 654228583 Problem Ataxia R27.0 Active 61759414 Problem Constipation, chronic K59.09 Active 194044632 Problem Weight loss R63.4 Active 01108481 Problem Breast cancer screening Z12.39 Active 35346932 6 Problem Essential hypertension I10 Active 24249690 Problem Encounter for therapeutic drug monitoring Z51.81 Active 442545511 Problem Current use of intermodal dispatcher anticoagulation Z79.01 Active 365136317 Problem Allergic rhinitis, unspecified seasonality, unspecifie d trigger J30.9 Active 23562610 Problem 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 Active [id number] ALLERGIES Allergen (clinical drug ingredient) Drug/Non Drug Allergy do cumented on EMR Reaction Allergy Type Onset Date Status sulfamethoxazole / trimethoprim Bactrim([facility] Code:[address]- 01) effect on kidneys Drug Allergy Active ENCOUNTERS from 1934 to 2020-12-01 Encounter Location Date Provider Diagnosis [address] [address] Nov, 2 021 Jaime Sifuentes BARBRA (generalized anxiety disorder) F41.1 ; Ataxia R27.0 ; Weight loss R63.4 ; Nonrheumatic aortic valve stenosis I35.0 ; History of DVT (deep vein thrombosis) Z86.718 ; Annual physical exam Z00.00 ; Allergic rhinitis, unspecified seasonality, unspecified trigger J30.9 ; Encounter for therapeutic drug monitoring Z51.81 ; Fe deficiency anemia D50.9 ; Current use of mcc anticoagulation Z79.01 ; 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 ; Candidiasis of breast B37.89 ; Hypertension I10 ; Hypothyroid E03.9 ; Folic acid deficiency E53.8 ; Encounter for therapeutic drug level monitoring Z51.81 ; Chronic infection B99.9 ; H/O malignant neoplasm of colon Z85.038 ; Dyspnea on exertion R06.09 ; DJD (degenerative joint disease), cervical M50.30 ; Cough R05 ; PUD (peptic ulcer disease) K27.9 ; Vitamin D deficiency E55.9 ; Hyperlipidemia E78.5 ; Seizure disorder G40.909 ; CKD (chronic kidney disease) stage 3, GFR 30- 59 ml/min N18.3 ; Breast cancer screening Z12.39 ; Constipation, chronic K59.09 and Vitamin B12 deficiency E53.8 IMMUNIZATIONS Vaccine Route Administration Date Status Influenza [...] Unknown Language: Question Answer Notes Languages spoken: Turkmen Lutheran: Question Answer Notes Lutheran 21 Muslim Sexual Hx: Question Answer Notes Had sex [...] REASON FOR REFERRAL No Information VITAL SIGNS Weight 132.0 lbs Nov, Height 64 in Nov, BMI 22.66 kg/m2 Nov, Heart Rate 96 /min Nov, Respiratory Rate 18 /min Nov, Temperature 98.8 degrees Fahrenheit Nov, Oximetry 96% Nov, Blood pressure systolic 122 mm Hg Nov, Blood pressure diastolic 68 mm Hg Nov, MEDICATIONS Medication SIG (Take, Route, Frequency, Duration) Notes Start Da te End Date Status Levothyroxine Sodium 112 MCG 1 tablet on an empty stom ach in the morning Orally Once a day for 90 day(s) Active Cyanocobalamin 500 MCG 1 tablet Orally Once a day for 30 day(s) Active Lasix 20 mg 1 tablet Orally Once a day for 90 day(s) Active Ferrex 150 150 MG 1 capsule Orally Once a day Active Lactulose 10 GM/15ML 15 ml Orally Once a day prn til soft BM Active Folic Acid 800 MCG 1 tablet Orally Once a day Active Colace 100 MG 1 capsule as needed Orally twice daily as needed Active Cipro 500 MG 1 tablet Orally once daily for 90 day(s) Active Atorvastatin Calcium 40 MG 1 tablet Orally Once a day for 90 day(s) Active Rocaltrol 0.25 MCG 1 capsule Orally Once a day for 90 day(s) Active Nasonex 50 MCG/ACT 2 sprays in each nostril Nasally Once a day f or 30 day(s) Active Warfarin Sodium 4 MG as directed Orally ( 4.5 mg) 5 times weekly on Thu, Thu, , and ThuMarch, Active AmLODIPine Besylate 2.5 MG 1 tablet Orally Once a day for 90 Active Phenytoin Sodium Extended 100 MG TAKE 1 CAPSULE IN THE MORNING & 2 CAPSULES IN THE EVENING for 90 Active Warfarin Sodium 5 MG TAKE 1 TABLET BY MOUTH ONCE A DAY. for 90 Active May Have - right ankle/foot AFO DX: R27.0 Daily for 30 Days Nov, Active Pennsaid 1.5 % 10 drops to knees Transdermal Four times a day Active Xanax 0.25 MG 1 tablet as needed Orally Twice a day for 30 day(s) Active Carafate 1 GM tablet before meals and before bedtime Orally Fo ur times a day Active Calcium 600 + D 600-400 MG-UNIT 1 tablet orally Twice a day for 90 da ys Active Pantoprazole Sodium 40 MG 1 tablet Orally bid Active Phenytoin Sodium Extended 100 MG 1 capsule in AM, 2 in PM Orally bid Active Clotrimazole 1 % 1 application to affected ar ea Externally Twice a day under B breats for 30 day(s) Active Multivitamins ` 1 tab(s) Orally Once a day Active May Use - as directed 2 wheeled walker Daily DX: R27.0 for 90 day(s) May, Active Lutein 15-0.7 MG 1 capsule with a meal Orally Once a day Active PROCEDURES No Information RESULTS Component Value Reference Range PT-INR Fingerstick Reviewed date:11/28/2020 10:47:21 Interpretation: Performing Lab:[facility], [address], ,[place] [address] INR 1.5 Verified Patient's Name and yes Current Dose 1 Current Dose 2 4mg Wed Tab Strength 5mg ROW Indication for Anticoagulation DVT Recent Bleeding no Internal QC Acceptable (Y/N) yes Therapeutic Range 1.8-2.0 Education Given (Date / Initials) New Dose 1 New Dose 2 Weekly Total Next PT-INR - - REASON FOR VISIT 4 month ck-up & PT MEDICAL (GENERAL) HISTORY Type Description Date Medical [...] No Information FUNCTIONAL STATUS No Information ASSESSMENTS Encounter Date Diagnosis Assessment Notes Treatment Notes Treatm ent Clinical Notes Nov, BARBRA (generalized anxiety disorder) (ICD-10 - F41 .1) Stable on alpraz 0.25-0.5 BID prn -mainly qhs (~q7-14D) 04/13/17 SS started Xanax 0.25 BID p c improvement c rare use Nov, Ataxia (ICD-10 - R27.0) The patient is ambulatory. She has R foot and ankle weakness and has potetial for functional benefit c orthotic rx. This consition will persist >6 monhts. The R ankle and foot require control in >1 plane. She lost >50# since receiving her current AFO in 2013. Due to the weight loss, her current AFO does not fit properly and causes pain and may lead to skin breakdown. She needs a new custom molded AFO to assist c ambulation. Nov, Weight loss (ICD-10 - R63.4) Favor 2 sarcopenia-patient defers w/u Nov, Nonrheumatic aortic valve stenosis (ICD-10 - I35 .0) Patient refuses consideration for AVR and repeat echo 06/2019 stable mod (CHETAN 0.9) 07/2018 stable mod (CHETAN 1.27) 11/2017 given CHETAN and progression of dyspnea over roughly last year (dyspneic p washing dishes p "2 seconds", referred to Dr. Infante for TAVR consideration-per patient, did not meet MCR guidelines and recommended repeat TTE in 6M-will request OV note Nov, History of DVT (deep vein thrombosis) (ICD-10 - Z86.718) No s/s of recurrent on chronic VKA c goal INR 1.8-2.2 c lifelong IVC filter (correct placement by 05/2017 AXR), feels VKA is still safest given chronically very stable INRs 08/19/19 p long discussion c patient and son, restarted at VKA 5 QD-TWD 35 (was on 3 TF, 6 ROW-TWD 36), will attempt to monitor hgb/INR very closely and c ANY sx will check that day 08/2019 given patient has required tx of 6 PRBCs since 01/2019 VKA was held (last bleed critically low hgb 6.8) 08/06/19 -BLE DVT US 05/21/17 restarted VKA 5 QD (previous 7 QD) c goal INR 1.8-2.0 (favor GAVE as UGI source) given HIGH risk of recurrent DVT (mainly sedentary) and severe sequelae of last DVT 05/09/17 acute BLE swelling (while off VKA for GI bleed)-[facility] - CT chest s contrast, - BLE US DVT No s/s of recurrent on chronic VKA c goal INR 1.8-2.2 c lifelong IVC filter (correct placement by 05/2017 AXR), feels VKA is still safest given chronically very stable INRs 08/19/19 p long discussion c patient and son, restarted at VKA 5 QD-TWD 35 (was on 3 TF, 6 ROW-TWD 36), will attempt to monitor hgb/INR very closely and c ANY sx will check that day 08/2019 given patient has required tx of 6 PRBCs since 01/2019 VKA was held (last bleed critically low hgb 6.8) 08/06/19 -BLE DVT US 05/21/17 restarted VKA 5 QD (previous 7 QD) c goal INR 1.8-2.0 (favor GAVE as UGI source) given HIGH risk of recurrent DVT (mainly sedentary) and severe sequelae of last DVT 05/09/17 acute BLE swelling (while off VKA for GI bleed)-[facility] - CT chest s contrast, - BLE US DVT Nov, Annual physical exam (ICD-10 - Z00.00) Nov, Allergic rhinitis, unspecifi ed seasonality, unspecified trigger (ICD-10 - J30.9) c secondary PND/chronic cough rx as per cough Nov, Encounter for therapeutic drug monitoring (ICD-1 0 - Z51.81) Nov, Fe deficiency anemia (ICD-10 - D50.9) Contingency: repeat IV Fe (last 11/2019 F CFM 750; 08/2019 Fe sucrose 500 total dose) (11/09/20 -TTG/DAC) 11/09/20 10.2, 89, farooq 11 10/16/20 10.9, 92. r34/0.8, farooq 12 10/08/20 sp 2u PRBCs given 10/05 down to 8.8 11/23/19 7.8, 89, r28/1.1, INR 1.6, EPO 81; therefore, 2u PRBCs and 12/01/19 F CM 750 10/13/19 10.0, 90, r14%/10 09/2019 9.9, r38/1.2 on 150 QD 05/2019 8.3, r29/1.4; admitted c weakness sp tx and EGD/colon as per Hosp 01/2019 7.9, 5%, 5; therefore, tx 2u PRBCs 09/2018 10.4, r 29 on 150 QD 05/2018 10.2, 86, CHr 33 03/2018 down to 8.7, CHr 34; therefore, sp 2u PRBCs and repeat EGD c APC 07/2017 10.9, 18%, 10 05/28/17 11.2, 19%, 12, 17 on Niferex 150 BID 04/06/17 8.9, 88, 7%, 9; therefore, tx 2u PRBCs 03/20/17 hgb stable at 9.7, but HO 3/3 + and given increased fatigue/SOB x 1M; held VKA-03/17/17 INR 2.1 (given dropped hgb despite BID PPI AND QID Carafate) and repeat EGD and colon +/- capsule-apt c Reindl = Nov, Current use of intermodal dispatcher anticoagulation (ICD-10 - Z79.01) Nov, GAVE (gastric antral vascular ectasia) (ICD-10 - K31.819) +/- gastric AVMs c recurrent 2 symptomatic acute blood loss anemia, last 09/28 hgb 7.2 at INR 2 sp 2u (since tx 8u PRBCs/last APC 10/07/19-R follows closely c Reindl 10/03/19 given 2 episodes of UGI requiring admission and 2u PRBCs each (4u unit total), VKA held until repeat EGD/APC (scheduled for 10/21, but today moved up to 10/07 during [facility] few tiny non-bleeding angioectasias of stomach were rxed c APC and then Reindl restarted VKA 08/2019 discussion c Reindl-will repeat APC cautery, +/- octero LAR addition 05/2017 capsule c mild non-bleeding GAVE 05/15/17 dx/rx by EGD c RFA by Reindl-felt was mild, but probable source of GI bleed Nov, Candidiasis of breast (ICD-10 - B37.89) Stable on clotrim QD for supression, BID +/- terb po c flares RF:chronic abx use Contingency: biopsy 04/2019 ~3M flare under R breast flare; therefore, SS + terb 250 QD 7D to clotrim cr BID 07/2018 under B breasts SS + nystatin cr BID s improvement; therefore, 07/19/18 changed to clotrim c resolution Nov, Hypertension (ICD-10 - I10) Good control on fur 20 qAM K/Mg as per CKD 01/08/2017 EKG NSR 76 bpm, early transition similar to 04/29/1405/2019 almo 2.5 restarted during hosp 01/2019 stopped amlo 2.5 given SBP 110s c BNP 629 10/2011 lisinopril d/mathew 2 increased Cr and K (1.8, 5.7) 08/21/11 K d/mathew 2 K 5.3 Nov, Hypothyroid (ICD-10 - E03.9) 11/09/20 0.3, 1.5; therefore, 125 to 112 04/24/20 1.3, 1.0 10/2019 0.6, 1.3 on 125 09/2019 1.0, 1.1 on 125 05/2019 0.8, 1.2; therefore, 150 to 125 12/2018 0.002, 1.6; therefore, 175 to 150 03/2018 3.5, 1.0 10/2017 4.8, 1.0 05/2017 4.3, 1.1 03/2017 8.1, 0.9; therefore, 150 to 175 11/2016 7.6, 0.9 on 150 06/2016 6.5; therefore, increased to 150 01/2016 6.9; therefore increased to 137 06/2015 1.7 on 125 12/2014 5.6, increased to 125 11/2014 7.7 therefore LT4 100 increased to 112 07/2014 2.7 03/2014 1.4 on 100 qd Nov, Folic acid deficiency (ICD-10 - E53.8) hgb as per Fe 11/09/20 1541 12/2018 RBC folate 1547 on 800 Nov, Encounter for therapeutic drug level mon itoring (ICD-10 - Z51.81) Nov, Chronic infection (ICD-10 - B99.9) Continue life-long cipro per Dr. Moses/Ayden for chronic LE P. mirabilis vascular graft infection Nov, H/O malignant neoplasm of colon (ICD-10 - Z85.03 8) No recurrent symptoms 05/2019 colon (done for GI bleed)-3 3-5 adeno p-R 05/2017 5 mm tubular adenoma-05/2017 colon-R 09/2015 normal colonoscopy-Joana 09/2014 stable EGD/colon-Bilicki x gastritis 06/22/14 Dr. Mckenzie deferred f/u to Bear/Ric given resected stage 1 disease is 95% cure, recommending colonoscopy in 1Y then q5Y c q6M CEAHelenai plans CT A/P in 6M 08/[address] A/P s/p hemicolectomy 03/[address] A/P x cecal mass 04/2017 3.2 10/2014 2.8 08/2014 3.5 03/2014 basaeline CEA 1.4 Nov, Dyspnea on exertion (ICD-10 - R06.09) favor moreso deconditioning given also generalized weakness, but also PHTN, AV disease Contingency: PFTs 10/2017 start home PT for strengthening pulmonary cuadra as per cough/cardiac as per MH Nov, DJD (degenerative joint disease), cervical (ICD- 10 - M50.30) Contingency: xray 05/2017 mild acute L C6 intermittent radic pain s weakness; gave home PT Nasrin JACOME QID-changed by i to Pennsaid 10 QID Nov, Cough (ICD-10 - R05) favor 2 PND and esophageal dysfunction given mainly occurs c first intake 05/2017 CTA chest s PE/mass 04/06/17 CXR NAD; therefore, + Nasonex given significant clear PND c improvement Nov, PUD (peptic ulcer disease) (ICD-10 - K27.9) Patient remains asymptomatic on panto 40 BID, sul 1 AC TID/QHS Nov, Vitamin D deficiency (ICD-10 - E55.9) 08/21/20 34, 9.6, 25 on triol 0.5; therefore, decreased to 12/2018 35/9.1/28 03/2018 31, 8.7, 52 03/2017 33, 8.6, 126; therefore, calcitriol 0.25 to 0.5 06/2016 43, 8.6, PTH 64 01/2016 vitamin D 129, 8.3; therefore, Drisdol qW stopped Nov, Hyperlipidemia (ICD-10 - E78.5) 05/2019 79/72/76 06/2018 78/77/79, 72, <0.3 03/2017 73/90/52 on atorva 40 11/2016 127/88/90 on simvastatin 20; therefore, changed to atorvastatin 40 01/2016 123/66/79 on simvastatin 20 06/2018 normal LFTs 06/2016 A1C 4.7 Nov, Seizure disorder (ICD-10 - G40.909) No recurrent seizures on pheny 100/200 04/24/20 8 10/2019 9 12/2018 11 on 100/200 03/2018 11.2 06/2017 9.9 04/2017 12 06/2016 phenytoin level stable at 10.8 Nov, CKD (chronic kidney disease) stage 3, GFR 30-59 ml/min (ICD-10 - N18.3) 11/09/20 37/1.6, 4.0 10/16/20 36/1.7, 4.6 05/2019 42/1.6, 4.4 08/2018 33/1.6, 4.5 01/2016 stable at 29/1.5, 4.1 hgb as per Fe PTH as per vitamin D Nov, Breast cancer screening (ICD-10 - Z12.39) Patient defers mammogram/CBE Nov, Constipation, chronic (ICD-10 - K59.09) Stable on current regimen Nov, Vitamin B12 deficiency (ICD-10 - E53.8) hgb as per Fe 11/09/20 1508 10/2019 1458 on 500 06/2018 870 03/2018 1538; therefore, decreased to 500 03/2017 1153 on 1 mg 03/2018 Antonio armendariz MCB PLAN OF TREATMENT Medication Medication Name Sig Start Date Stop Date Phenytoin Sodium Extended 100 MG 1 capsule in AM, 2 in PM Orally bid Clotrimazole 1 % 1 application to affected ar ea Externally Twice a day under B breats for 30 day(s) Pantoprazole Sodium 40 MG 1 tablet Orally bid Carafate 1 GM tablet before meals and before bedtime Orally Fo ur times a day Lactulose 10 GM/15ML 15 ml Orally Once a day prn til soft BM Folic Acid 800 MCG 1 tablet Orally Once a day Colace 100 MG 1 capsule as needed Orally twice daily as needed Cipro 500 MG 1 tablet Orally once daily for 90 day(s) Rocaltrol 0.25 MCG 1 capsule Orally Once a day for 90 day(s) Nasonex 50 MCG/ACT 2 sprays in each nostril Nasally Once a day f or 30 day(s) Levothyroxine Sodium 112 MCG 1 tablet on an empty stom ach in the morning Orally Once a day for 90 day(s) Lasix 20 mg 1 tablet Orally Once a day for 90 day(s) Atorvastatin Calcium 40 MG 1 tablet Orally Once a day for 90 day (s) Xanax 0.25 MG 1 tablet as needed Orally Twice a day for 30 day (s) Pennsaid 1.5 % 10 drops to knees Transdermal Four times a day Cyanocobalamin 500 MCG 1 tablet Orally Once a day for 30 day(s) Ferrex 150 150 MG 1 capsule Orally Once a day Treatment Notes Assessment Notes Clinical Notes H/O malignant neoplasm of colon No recur rent symptoms05/2019 colon (done for GI bleed)-3 3-5 adeno p- 5 mm tubular adenoma-05/2017 colon-R111/2014 normal colonoscopy-Zsgtql45/2014 stable EGD/colon-Bilicki x gastritis06/22/14 Dr. Mckenzie deferred f/u to Bear/Ric given resected stage 1 disease is 95% cure, recommending colonoscopy in 1Y then q5Y c q6M CEA, Bilcki plans CT A/P in 6M08/[address] A/P s/p hemicolectomy03/[address] A/P x cecal mass04/2017 3.212/2013 2.810/2013 3. basaeline CEA 1.4 Chronic infection Continue life-long c ipro per Dr. Moses/Ayden for chronic LE P. mirabilis vascular graft infection DJD (degenerative joint disease), cervical Contingency: xray05/2017 mild acute L C6 intermittent radic pain s weakness; gave home PT HO, Voltaren QID-changed by i to Pennsaid 10 QID Dyspnea on exertion favor moreso decondi tioning given also generalized weakness, but also PHTN, AV diseaseContingency: PFTs10/2017 start home PT for strengtheningpulmonary cuadra as per cough/cardiac as per MH PUD (peptic ulcer disease) Patient remai ns asymptomatic on panto 40 BID, sul 1 AC TID/QHS Cough favor 2 PND and esop hageal dysfunction given mainly occurs c first intake05/2017 CTA chest s PE/mass04/06/17 CXR NAD; therefore, + Nasonex given significant clear PND c improvement Hyperlipidemia 05/2019 79/72/768/201 8 78/77/79, 72, <0. 73/90/52 on atorva 127/88/90 on simvastatin 20; therefore, changed to atorvastatin 123/66/79 on simvastatin normal LFTs06/2016 A1C 4.7 Vitamin D deficiency 08/21/20 34, 9.6, 2 5 on triol 0.5; therefore, decreased to12/2018 35/9.1/285 31, 8.7, 525 33, 8.6, 126; therefore, calcitriol 0.25 to 0. 43, 8.6, PTH 643/2016 vitamin D 129, 8.3; therefore, Drisdol qW stopped Folic acid deficiency hgb as per RBC folate 1547 on 800 Hypothyroid 11/09/20 0.3, 1.5; the refore, 125 to 1.3, 1.012 0.6, 1.3 on 62507 1.0, 1.1 on 1257 0.8, 1.2; therefore, 150 to 12512/2018 0.002, 1.6; therefore, 175 to 15003/2018 3.5, 1.012 4.8, 1.05/2017 4.3, 1. 8.1, 0.9; therefore, 150 to 17511/2016 7.6, 0.9 on 15006/2016 6.5; therefore, increased to 15001/2016 6.9; therefore increased to 1378/2014 1.7 on 12512/2014 5.6, increased to 12511/2014 7.7 therefore LT4 100 increased to 11207/2014 2. 1.4 on 100 qd Vitamin B12 deficiency hgb as per 113771 1458 on 8705 1538; therefore, decreased to 1153 on 1 mg03/2018 sIFE s MCB BARBRA (generalized anxiety disorder) Stabl e on alpraz 0.25-0.5 BID prn -mainly qhs (~q7-14D)04/13/17 SS started Xanax 0.25 BID p c improvement c rare use Constipation, chronic Stable on current regimen Ataxia The patient is ambul atory. She has R foot and ankle weakness and has potetial for functional benefit c orthotic rx. This consition will persist >6 monhts. The R ankle and foot require control in >1 plane. She lost >50# since receiving her current AFO in 2013. Due to the weight loss, her current AFO does not fit properly and causes pain and may lead to skin breakdown. She needs a new custom molded AFO to assist c ambulation. Weight loss Favor 2 sarcopenia-p atient defers w/u Nonrheumatic aortic valve stenosis Patie nt refuses consideration for AVR and repeat echo06/2019 stable mod (CHETAN 0.9)07/2018 stable mod (CHETAN 1.27)11/2017 given CHETAN and progression of dyspnea over roughly last year (dyspneic p washing dishes p "2 seconds", referred to Dr. Infante for TAVR consideration-per patient, did not meet MCR guidelines and recommended repeat TTE in 6M-will request OV note History of DVT (deep vein thrombosis) No s/s of recurrent on chronic VKA c goal INR 1.8-2.2 c lifelong IVC filter (correct placement by 05/2017 AXR), feels VKA is still safest given chronically very stable INRs1/ p long discussion c patient and son, restarted at VKA 5 QD-TWD 35 (was on 3 TF, 6 ROW-TWD 36), will attempt to monitor hgb/INR very closely and c ANY sx will check that day08/2019 given patient has required tx of 6 PRBCs since 01/2019 VKA was held (last bleed critically low hgb 6.8)08/06/19 -BLE DVT US05/21/17 restarted VKA 5 QD (previous 7 QD) c goal INR 1.8-2.0 (favor GAVE as UGI source) given HIGH risk of recurrent DVT (mainly sedentary) and severe sequelae of last DVT05/09/17 acute BLE swelling (while off VKA for GI bleed)-[facility] - CT chest s contrast, - BLE US DVT No s/s of recurrent on chronic VKA c goal INR 1.8-2.2 c lifelong IVC filter (correct placement by 05/2017 AXR), feels VKA is still safest given chronically very stable INRs1 p long discussion c patient and son, restarted at VKA 5 QD-TWD 35 (was on 3 TF, 6 ROW-TWD 36), will attempt to monitor hgb/INR very closely and c ANY sx will check that day08/2019 given patient has required tx of 6 PRBCs since 01/2019 VKA was held (last bleed critically low hgb 6.8)08/06/19 - BLE DVT US05/21/17 restarted VKA 5 QD (previous 7 QD) c goal INR 1.8-2.0 (favor GAVE as UGI source) given HIGH risk of recurrent DVT (mainly sedentary) and severe sequelae of last DVT05/09/17 acute BLE swelling (while off VKA for GI bleed)-[facility] - CT chest s contrast, - BLE US DVT Allergic rhinitis, unspecified seasonality, unspecified trig tiffanie c secondary PND/chronic coughrx as per cough Fe deficiency anemia Contingency: repeat IV Fe (last 11/2019 F CFM 750; 08/2019 Fe sucrose 500 total dose) (11/09/20 -TTG/DAC)11/09/20 10.2, 89, farooq 10.9, 92. r34/0.8, farooq 12112/09/19 sp 2u PRBCs given 10/05 down to 8.8 11/23/19 7.8, 89, r28/1.1, INR 1.6, EPO 81; therefore, 2u PRBCs and 12/01/[place] [address]/10/20 10.0, 90, r14%/10111/2018 9.9, r38/1.2 on 150 QD05/2019 8.3, r29/1.4; admitted c weakness sp tx and EGD/colon as per Hosp01/2019 7.9, 5%, 5; therefore, tx 2u PRBCs09/2018 10.4, r 29 on 150 QD05/2018 10.2, 86, CHr 335/2018 down to 8.7, CHr 34; therefore, sp 2u PRBCs and repeat EGD c APC07/2017 10.9, 18%, 107/ 11.2, 19%, 12, 17 on Niferex 150 BID04/06/17 8.9, 88, 7%, 9; therefore, tx 2u PRBCs03/20/17 hgb stable at 9.7, but HO 3/3 + and given increased fatigue/SOB x 1M; held VKA-03/17/17 INR 2.1 (given dropped hgb despite BID PPI AND QID Carafate) and repeat EGD and colon +/- capsule-apt c Reindl = Seizure disorder No recurrent seizure s on pheny 812 11 on 11. 9. 128/2016 phenytoin level stable at 10.8 Breast cancer screening Patient defers m ammogram/CBE CKD (chronic kidney disease) stage 3, GFR 30-59 ml/min 11/09/20 37/1.6, 4.012/ 36/1.7, 4. 42/1.6, 4.410 33/1.6, 4. stable at 29/1.5, 4.1hgb as per FePTH as per vitamin D GAVE (gastric antral vascular ectasia) + /- gastric AVMs c recurrent 2 symptomatic acute blood loss anemia, last 09/28 hgb 7.2 at INR 2 sp 2u (since tx 8u PRBCs/last APC 10/07/19-Rfollows closely c Yevuxz85/2/19 given 2 episodes of UGI requiring admission and 2u PRBCs each (4u unit total), VKA held until repeat EGD/APC (scheduled for 10/21, but today moved up to 10/07 [facility] few tiny non-bleeding angioectasias of stomach were rxed c APC and then Reindl restarted VKA1 discussion c Reindl-will repeat APC cautery, +/- octero LAR addition05/2017 capsule c mild non-bleeding GAVE05/15/17 dx/rx by EGD c RFA by Reindl-felt was mild, but probable source of GI bleed Candidiasis of breast Stable on clotrim QD for supression, BID +/- terb po c flaresRF:chronic abx useContingency: biopsy04/2019 ~3M flare under R breast flare; therefore, SS + terb 250 QD 7D to clotrim cr BID07/2018 under B breasts SS + nystatin cr BID s improvement; therefore, 07/19/18 changed to clotrim c resolution Hypertension Good control on fur 20 qAMK/Mg as per CKD01/08/2017 EKG NSR 76 bpm, early transition similar to almo 2.5 restarted during hosp01/2019 stopped amlo 2.5 given SBP 110s c BNP 3260012/2010 lisinopril d/mathew 2 increased Cr and K (1.8, 5.7)08/21/11 K d/mathew 2 K 5.3 Future Test Test Name Order Date CBC with Differential 20201218 Reticulocyte Count Sysmex [id number] FREE T4 & TSH PANEL [id number] NT-PRO BNP [id number] Comprehensive Metabolic Profile (CMP) [id number] PHENYTOIN (DILANTIN) [id number] PT & APTT [id number] Next Appt Details 30 minutes 3-4M, BW 3W Reason: Provider Name:Jaime Sifuentes, 2021-02-08 1 0:00:00 AM, [address] [place], [address], Insurance Providers Payer Name Payer Address Payer Phone Insured Name Patient Relati onship to Insured Coverage Start Date Coverage End Date MEDICARE Part A and B [address] [facility] [phone] ANDREEA SAL self [employer] BENEFIT PLAN [address] [facility] [address] DORON,ANDREEA TUNDE self
--- OUTSIDE RECORDS SUMMARY | 2020-12-20 12:27 | CCD ---
Author Author [facility] Organization [facility] Address Unknown Phone Unavailable Care Team Providers Care Electrolysist Name Role Phone Jaime Sifuentes Unavailable PROBLEMS Type Condition ICD9-CM Code [id number] Code Onset Dates Condition S tatus SNOMED Code Notes Problem CKD (chronic kidney disease) stage 3, GFR 30-59 ml/min N18.3 Active 660742978 Problem Hyperlipidemia E78.5 Active 60425047 Problem Fe deficiency anemia D50.9 Active 42424557 Problem Hypothyroid E03.9 Active 75960132 Problem Seizure disorder G40.909 Active 672999639 Problem Vitamin D deficiency E55.9 Active 06763359 Problem Hypertension I10 Active 08498319 Problem Folic acid deficiency E53.8 Active 450118757 Problem Nonrheumatic aortic valve stenosis I35.0 Activ e 162427241 Problem PUD (peptic ulcer disease) K27.9 Active 35202 003 Problem Vitamin B12 deficiency E53.8 Active 318711151 Problem DJD (degenerative joint disease), cervical M50.30 Active 76704505 Problem BARBRA (generalized anxiety disorder) F41.1 Activ e 88929322 Problem H/O malignant neoplasm of colon Z85.038 Active 073760189 Problem 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 A ctive 76518920 Problem History of DVT (deep vein thrombosis) Z86.718 Ac tive 365346517 Problem Dyspnea on exertion R06.09 Active 30185653 Problem Candidiasis of breast B37.89 Active 26938302 Problem Chronic infection B99.9 Active 042793368 Problem Iron deficiency anemia due to chronic blood loss D 50.0 Active 331612688 Problem Ataxia R27.0 Active 33543636 Problem Constipation, chronic K59.09 Active 721662409 Problem Weight loss R63.4 Active 38106192 Problem Breast cancer screening Z12.39 Active 86499227 6 Problem Essential hypertension I10 Active 31790876 Problem Encounter for therapeutic drug monitoring Z51.81 Active 251241843 Problem Current use of exterminator helper anticoagulation Z79.01 Active 733458383 Problem Allergic rhinitis, unspecified seasonality, unspecifie d trigger J30.9 Active 11257464 Problem 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 Active 81705342331461810 ALLERGIES Allergen (clinical drug ingredient) Drug/Non Drug Allergy do cumented on EMR Reaction Allergy Type Onset Date Status sulfamethoxazole / trimethoprim Bactrim([facility] Code:[address]- 01) effect on kidneys Drug Allergy Active ENCOUNTERS from 1934 to 2020-11-13 Encounter Location Date Provider Diagnosis [address] [address] Nov, 021 Jaime Sifuentes IMMUNIZATIONS Vaccine Route [...] Unknown Language: Question Answer Notes Languages spoken: Kinyarwanda Sikhism: Question Answer Notes Sikhism 21 Gnosticist Sexual Hx: Question Answer Notes Had sex [...] Notes Start Da te End Date Status May Use - as directed 2 wheeled walker Daily DX: R27.0 for 90 day(s) May, Active Levothyroxine Sodium 112 MCG 1 tablet on an empty stom ach in the morning Orally Once a day for 90 day(s) Active Lactulose 10 GM/15ML 15 ml Orally Once a day prn til soft BM Active Ferrex 150 150 MG 1 capsule Orally Once a day Active Multivitamins ` 1 tab(s) Orally Once a day Active Pennsaid 1.5 % 10 drops to knees Transdermal Four times a day Active Atorvastatin Calcium 40 MG 1 tablet Orally Once a day for 90 day(s) Active Warfarin Sodium 4 MG as directed Orally ( 4.5 mg) 5 times weekly on Thu, Thu, , and ThuMarch, Active Calcium 600 + D 600-400 MG-UNIT 1 tablet orally Twice a day for 30 da y(s) Active Phenytoin Sodium Extended 100 MG 1 capsule in AM, 2 in PM Orally bid Active Clotrimazole 1 % 1 application to affected ar ea Externally Twice a day under B breats for 30 day(s) Active AmLODIPine Besylate 2.5 MG 1 tablet Orally Once a day for 90 Active Pantoprazole Sodium 40 MG 1 tablet Orally bid Active Xanax 0.25 MG 1 tablet as needed Orally Twice a day for 30 day(s) Active Lasix 20 mg 1 tablet Orally Once a day for 90 Active Nasonex 50 MCG/ACT 2 sprays in each nostril Nasally Once a day f or 30 day(s) Active Lutein 15-0.7 MG 1 capsule with a meal Orally Once a day Active Rocaltrol 0.25 MCG 1 capsule Orally Once a day for 90 day(s) Active May Have - right ankle/foot AFO DX: R27.0 Daily for 30 Days Nov, Active Colace 100 MG 1 capsule as needed Orally twice daily as needed Active Carafate 1 GM tablet before meals and befo re bedtime Orally Four times a day for 90 Active Phenytoin Sodium [...] Information RESULTS No Results REASON FOR VISIT No Information MEDICAL (GENERAL) HISTORY Type Description Date Medical [...] MCG 1 tablet Orally Once a day AmLODIPine Besylate 2.5 MG 1 tablet Orally Once a day for 90 Cipro 500 MG 1 tablet Orally once daily for 90 day(s) Nasonex 50 MCG/ACT 2 sprays in each nostril Nasally Once a day or day(s) Ferrex 150 150 MG 1 capsule Orally Once a day Phenytoin Sodium Extended 100 MG 1 capsule in AM, 2 in PM Orally bid Rocaltrol 0.25 MCG 1 capsule Orally Once a day for 90 day(s) Pennsaid 1.5 % 10 drops to knees Transdermal Four times a day Levothyroxine Sodium 112 MCG 1 tablet on an empty stom ach in the morning Orally Once a day for 90 day(s) Lasix 20 mg 1 tablet Orally Once a day for March Have - right ankle/foot AFO DX: R27.0 Daily for 30 Days Nov, Clotrimazole 1 % 1 application to affected ar ea Externally Twice a day under B breats for 30 day(s) Carafate 1 GM tablet before meals and befo re bedtime Orally Four times a day for 90 Pantoprazole Sodium 40 MG 1 tablet Orally bid Lactulose 10 GM/15ML 15 ml Orally Once a day prn til soft BM Colace 100 MG 1 capsule as needed Orally twice daily as needed Xanax 0.25 MG 1 tablet as needed Orally Twice a day for 30 day (s) Atorvastatin Calcium 40 MG 1 tablet Orally Once a day for 90 day (s) Next Appt Details Provider Name:Jaime Sifuentes, 2020-11-27 1 1:15:00 AM, [facility] [place], [address], Insurance Providers Payer Name Payer Address Payer Phone Insured Name Patient Relati onship to Insured Coverage Start Date Coverage End Date MEDICARE Part A and B [address] [facility] [phone] ANDREEA SAL [employer] B[employer]AN [address] [facility] [address] ANDREEA SAL
--- OUTSIDE RECORDS SUMMARY | 2020-12-20 12:27 | CCD ---
Author Author [facility] Organization [facility] Address Unknown Phone Unavailable Care Team Providers Care Gold Cutter Name Role Phone Jaime Sifuentes Unavailable PROBLEMS Type Condition ICD9-CM Code [id number] Code Onset Dates Condition S tatus SNOMED Code Notes Problem CKD (chronic kidney disease) stage 3, GFR 30-59 ml/min N18.3 Active 089832810 Problem Hyperlipidemia E78.5 Active 73034614 Problem Fe deficiency anemia D50.9 Active 30265849 Problem Hypothyroid E03.9 Active 96536568 Problem Seizure disorder G40.909 Active 462646729 Problem Vitamin D deficiency E55.9 Active 46785280 Problem Hypertension I10 Active 38557633 Problem Folic acid deficiency E53.8 Active 357048704 Problem Nonrheumatic aortic valve stenosis I35.0 Activ e 896381235 Problem PUD (peptic ulcer disease) K27.9 Active 41080 003 Problem Vitamin B12 deficiency E53.8 Active 184613918 Problem DJD (degenerative joint disease), cervical M50.30 Active 54605435 Problem BARBRA (generalized anxiety disorder) F41.1 Activ e 57582932 Problem H/O malignant neoplasm of colon Z85.038 Active 663812437 Problem 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 A ctive 42503236 Problem History of DVT (deep vein thrombosis) Z86.718 Ac tive 308845358 Problem Dyspnea on exertion R06.09 Active 12487891 Problem Candidiasis of breast B37.89 Active 79196305 Problem Chronic infection B99.9 Active 487869015 Problem Iron deficiency anemia due to chronic blood loss D 50.0 Active 689229389 Problem Ataxia R27.0 Active 01036569 Problem Constipation, chronic K59.09 Active 400211143 Problem Weight loss R63.4 Active 37572077 Problem Breast cancer screening Z12.39 Active 79861621 6 Problem Essential hypertension I10 Active 92719895 Problem Encounter for therapeutic drug monitoring Z51.81 Active 663073633 Problem Current use of termination clerk anticoagulation Z79.01 Active 494069174 Problem Allergic rhinitis, unspecified seasonality, unspecifie d trigger J30.9 Active 30497533 Problem 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 Active 25419919743112840 ALLERGIES Allergen (clinical drug ingredient) Drug/Non Drug Allergy do cumented on EMR Reaction Allergy Type Onset Date Status sulfamethoxazole / trimethoprim Bactrim([facility] Code:[address]- 01) effect on kidneys Drug Allergy Active ENCOUNTERS from 1934 to 2020-11-30 Encounter Location Date Provider Diagnosis [facility] Resident [address] [place] [address] Nov, Jaime Bear Hypertension I10 IMMUNIZATIONS Vaccine Route Administration Date Status Influenza (Pharmacy Given) Unknown Aug 10, 2020 Admin istered Influenza (High Dose 65 & up) IM Intramuscular Aug 14, 2016 A dministered Influenza (High Dose 65 & up) IM Intramuscular Jul 24, 2015 A dministered Pneumococcal Adult 0.5mL (Pneumovax 23) IM Intramuscular Sep 12, 2011 Administered Pneumococcal 0.5mL (Prevnar 13) Unknown Sep 29, 2019 Administered Influenza (6mo & up) Fluzone IM Intramuscular Jul 20, 2014 Ad ministered Influenza (High Dose 65 & up) IM Intramuscular Aug 18, 2017 A dministered Influenza (6mo & up) Fluzone IM Intramuscular Aug 24, 2012 Ad ministered Influenza (18 yrs & older) Flublok IM Intramuscular Sep 06, 2018 Administered Influenza (6mo & up) Fluzone ID Intradermal Aug 21, 2011 Adm inistered Influenza (6mo & up) Fluzone IM Intramuscular Aug 07, 2010 Ad ministered SOCIAL HISTORY Tobacco Use: Social History Observation Description Date Details (start date - stop date) Never Smoker Sex Assigned At : Social History Observation Description Sex Assigned At Unknown Language: Question Answer Notes Languages spoken: Wallisian Rastafari: Question Answer Notes Rastafari 21 Orthodoxy Sexual Hx: Question Answer Notes Had sex [...] TABLET BY MOUTH ONCE A DAY. for Active March Have - right ankle/foot AFO DX: [...] Information RESULTS No Results REASON FOR VISIT refill MEDICAL (GENERAL) HISTORY Type Description Date Medical [...] Treatment Notes Treatm ent Clinical Notes Nov, Hypertension (ICD-10 - I10) PLAN OF TREATMENT Medication Medication Name Sig [...] MG 1 capsule Orally Once a day Next Appt Details Provider Name:Jaime Sifuentes, 2021-02-08 1 0:00:00 AM, [address] [place], [address], Insurance Providers Payer Name Payer Address Payer Phone Insured Name Patient Relati onship to Insured Coverage Start Date Coverage End Date MEDICARE Part A and B [address] [facility] [phone] ANDREEA SAL [employer] PLAN [address] [facility] [id number] ANDREEA SAL self
--- OUTSIDE RECORDS SUMMARY | 2020-12-20 12:28 | CCD ---
Author Author [facility] Organization [facility] Address Unknown Phone Unavailable Care Team Providers Care Roll Cutting Operator Name Role Phone Marta Dunn Unavailable PROBLEMS Type Condition ICD9-CM Code DAG03-PB Code Onset Dates Condition S tatus SNOMED Code Notes Problem CKD (chronic kidney disease) stage 3, GFR 30-59 ml/min N18.3 Active 348194286 Problem Seizure disorder G40.909 Active 333411637 Problem Fe deficiency anemia D50.9 Active 52843137 Problem Hypothyroid E03.9 Active 13204373 Problem Hyperlipidemia E78.5 Active 21724405 Problem History of DVT (deep vein thrombosis) Z86.718 Ac tive 625186353 Problem Dyspnea on exertion R06.09 Active 33178261 Problem Essential hypertension I10 Active 06988947 Problem Constipation, chronic K59.09 Active 737883732 Problem PUD (peptic ulcer disease) K27.9 Active 15799 003 Problem Vitamin B12 deficiency E53.8 Active 955104406 Problem DJD (degenerative joint disease), cervical M50.30 Active 16637121 Problem BARBRA (generalized anxiety disorder) F41.1 Activ e 74599902 Problem H/O malignant neoplasm of colon Z85.038 Active 576473241 Problem 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 A ctive 37985736 Problem Nonrheumatic aortic valve stenosis I35.0 Activ e 676529366 Problem Folic acid deficiency E53.8 Active 102461299 Problem Candidiasis of breast B37.89 Active 51473030 Problem Allergic rhinitis, unspecified seasonality, unspecifie d trigger J30.9 Active 52086852 Problem Vitamin D deficiency E55.9 Active 79618384 Problem 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 Active 61033664191483369 Problem Hypertension I10 Active 73812250 Problem Breast cancer screening Z12.39 Active 40531334 6 Problem Chronic infection B99.9 Active 134353403 Problem Iron deficiency anemia due to chronic blood loss D 50.0 Active 006058408 Problem Current use of longterm anticoagulation Z79.01 Active 462231921 Problem Encounter for therapeutic drug monitoring Z51.81 Active 180240999 ALLERGIES Allergen (clinical drug ingredient) Drug/Non Drug Allergy do cumented on EMR Reaction Allergy Type Onset Date Status sulfamethoxazole / trimethoprim Bactrim([facility] Code:[address]- 01) effect on kidneys Drug Allergy Active ENCOUNTERS from 1934 to 2020-10-08 Encounter Location Date Provider Diagnosis [address] [address] Oct, Marta Dunn IMMUNIZATIONS Vaccine Route Administration Date Status Influenza (High Dose 65 & up) IM Intramuscular Aug 14, 2016 A dministered Influenza (High Dose 65 & up) IM Intramuscular Jul 24, 2015 A dministered Pneumococcal Adult 0.5mL (Pneumovax 23) IM Intramuscular Sep 12, 2011 Administered Influenza (Pharmacy Given) Unknown Aug 10, 2020 Admin istered Pneumococcal 0.5mL (Prevnar 13) Unknown Sep 29, [...] Unknown Language: Question Answer Notes Languages spoken: Syriac Gnosticist: Question Answer Notes Gnosticist 21 Denominational Sexual Hx: Question Answer Notes Had sex [...] Da te End Date Status Levothyroxine Sodium 125 MCG 1 tablet on an empty stom ach in the morning Orally Once a day for 90 day(s) Active Calcium 600 + D 600-400 MG-UNIT 1 tablet orally Twice a day for 30 da y(s) Active Lactulose 10 GM/15ML 15 ml Orally Once a day prn til soft BM Active Folic Acid 800 MCG 1 tablet Orally Once a day Active Lasix 20 mg 1 tablet Orally Once a day for 90 day(s) Active Multivitamins ` 1 tab(s) Orally Once a day Active Pennsaid 1.5 % 10 drops to knees Transdermal Four times a day Active Nasonex 50 MCG/ACT 2 sprays in each nostril Nasally Once a day f or 30 day(s) Active Xanax 0.25 MG 1 tablet as needed Orally Twice a day for 30 day(s) Active Cipro 500 MG 1 tablet Orally once daily for 90 Active Lutein 15-0.7 MG 1 capsule with a meal Orally Once a day Active Clotrimazole 1 % 1 application to affected ar ea Externally Twice a day under B breats for 30 day(s) Active Warfarin Sodium 4 MG as directed Orally ( 4.5 mg) 5 times weekly on Thu, Thu, , and ThuMarch, Active Pantoprazole Sodium 40 MG 1 tablet Orally bid for 90 day(s) Active Ferrex 150 150 MG 1 capsule Orally Once a day for 90 day(s) Active Colace 100 MG 1 capsule as needed Orally twice daily as needed Active Cyanocobalamin 500 MCG 1 tablet Orally Once a day for 30 day(s) Active AmLODIPine Besylate 2.5 MG 1 tablet Orally Once a day for 90 day(s) Active Carafate 1 GM tablet before meals and befo re bedtime Orally Four times a day for 90 day(s) Active Atorvastatin Calcium 40 MG 1 tablet Orally Once a day for 90 day(s) Active Rocaltrol 0.5 MCG 1 capsule Orally Once a day for 90 day(s) Active Warfarin Sodium 5 MG TAKE 1 TABLET BY MOUTH ONCE A DAY. for 90 Active May Use - as directed 2 wheeled walker Daily DX: R27.0 for 90 day(s) May, Active Phenytoin Sodium Extended 100 MG 1 capsule in AM, 2 in PM Orally bid for 90 day(s) Active PROCEDURES No Information RESULTS No Results REASON FOR VISIT Blood transfusion MEDICAL (GENERAL) HISTORY Type Description Date Medical [...] Information ASSESSMENTS No Information PLAN OF TREATMENT Next Appt Details Provider Name:Shari Lemus, 2020-11-09 08:3 0:00 AM, [address] [place] [address], [address], Provider Name:Jaime Sifuentes, 2020-11-27 1 1:15:00 AM, [address] [place] [address], [address], Insurance Providers Payer Name Payer Address Payer Phone Insured Name Patient Relati onship to Insured Coverage Start Date Coverage End Date MEDICARE Part A and B [address] [facility] [phone] ANDREEA SAL [employer] B[employer] PLAN [address] [facility] [address] ANDREEA SAL
--- OUTSIDE RECORDS SUMMARY | 2020-12-20 12:28 | CCD ---
Author Author [facility] Organization [facility] Address Unknown Phone Unavailable Care Team Providers Care Occupational Therapy Program Director Name Role Phone Jaime Sifuentes Unavailable PROBLEMS Type Condition ICD9-CM Code [id number] Code Onset Dates Condition S tatus SNOMED Code Notes Problem CKD (chronic kidney disease) stage 3, GFR 30-59 ml/min N18.3 Active 534613965 Problem Hyperlipidemia E78.5 Active 14951474 Problem Fe deficiency anemia D50.9 Active 99496898 Problem Hypothyroid E03.9 Active 42900216 Problem Seizure disorder G40.909 Active 616587351 Problem Vitamin D deficiency E55.9 Active 26053433 Problem Hypertension I10 Active 91471479 Problem Folic acid deficiency E53.8 Active 991468206 Problem Nonrheumatic aortic valve stenosis I35.0 Activ e 033535958 Problem PUD (peptic ulcer disease) K27.9 Active 80394 003 Problem Vitamin B12 deficiency E53.8 Active 227074959 Problem DJD (degenerative joint disease), cervical M50.30 Active 40672737 Problem BARBRA (generalized anxiety disorder) F41.1 Activ e 10534752 Problem H/O malignant neoplasm of colon Z85.038 Active 106294369 Problem 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 A ctive 92855726 Problem History of DVT (deep vein thrombosis) Z86.718 Ac tive 994539759 Problem Dyspnea on exertion R06.09 Active 72859621 Problem Candidiasis of breast B37.89 Active 16609216 Problem Chronic infection B99.9 Active 415041451 Problem Iron deficiency anemia due to chronic blood loss D 50.0 Active 735054124 Problem Ataxia R27.0 Active 07393476 Problem Constipation, chronic K59.09 Active 637938912 Problem Weight loss R63.4 Active 78834578 Problem Breast cancer screening Z12.39 Active 42808480 6 Problem Essential hypertension I10 Active 86128443 Problem Encounter for therapeutic drug monitoring Z51.81 Active 039650408 Problem Current use of rn long term care anticoagulation Z79.01 Active 187755954 Problem Allergic rhinitis, unspecified seasonality, unspecifie d trigger J30.9 Active 65644771 Problem 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 Active 72249805337062997 ALLERGIES Allergen (clinical drug ingredient) Drug/Non Drug Allergy do cumented on EMR Reaction Allergy Type Onset Date Status sulfamethoxazole / trimethoprim Bactrim([facility] Code:[address]- 01) effect on kidneys Drug Allergy Active ENCOUNTERS from 1934 to 2020-10-29 Encounter Location Date Provider Diagnosis [address] [address] 18 Dec, 2 020 Jaime Narayaner Ataxia R27.0 ; Weight loss R63.4 ; Nonrheumatic aortic valve stenosis I35.0 ; History of DVT (deep vein thrombosis) Z86.718 ; Annual physical exam Z00.00 ; Allergic rhinitis, unspecified seasonality, unspecified trigger J30.9 ; Encounter for therapeutic drug monitoring Z51.81 ; Fe deficiency anemia D50.9 ; Current use of penitentiary anticoagulation Z79.01 ; 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 ; Candidiasis of breast B37.89 ; Hypertension I10 ; Hypothyroid E03.9 ; Folic acid deficiency E53.8 ; Encounter for therapeutic drug level monitoring Z51.81 ; Chronic infection B99.9 ; H/O malignant neoplasm of colon Z85.038 ; Dyspnea on exertion R06.09 ; DJD (degenerative joint disease), cervical M50.30 ; BARBRA (generalized anxiety disorder) F41.1 ; Cough R05 ; PUD (peptic ulcer disease) K27.9 ; Vitamin D deficiency E55.9 ; Hyperlipidemia E78.5 ; Seizure disorder G40.909 ; CKD (chronic kidney disease) stage 3, GFR 30-59 ml/min N18.3 ; Breast cancer screening Z12.39 [...] Intramuscular Jul 20, 2014 Ad ministered Influenza (Pharmacy Given) Unknown Aug 10, 2020 Admin istered Influenza (6mo & up) Fluzone IM Intramuscular [...] Unknown Language: Question Answer Notes Languages spoken: Stateless Hinduism: Question Answer Notes Hinduism 21 Bahai Sexual Hx: Question Answer Notes Had sex [...] FOR REFERRAL No Information VITAL SIGNS Weight 133.0 lbs Oct, Height 64 in Oct, BMI 22.83 kg/m2 Oct, Heart Rate 93 /min Oct, Respiratory Rate 20 /min Oct, Temperature 98.6 degrees Fahrenheit Oct, Oximetry 95% Oct, Blood pressure systolic 130 mm Hg Oct, Blood pressure diastolic 78 mm Hg Oct, MEDICATIONS Medication SIG (Take, Route, Frequency, Duration) Notes Start Da te End Date Status May Use - as directed 2 wheeled walker Daily DX: R27.0 for 90 day(s) May, Active Warfarin Sodium 4 MG as directed Orally ( 4.5 mg) 5 times weekly on Thu, Thu, , and ThuMarch, Active Lactulose 10 GM/15ML 15 ml Orally Once a day prn til soft BM Active Ferrex 150 150 MG 1 capsule Orally Once a day Active Multivitamins ` 1 tab(s) Orally Once a day Active Atorvastatin Calcium 40 MG 1 tablet Orally Once a day for 90 day(s) Active Pennsaid 1.5 % 10 drops to knees Transdermal Four times a day Active Calcium 600 + [...] Once a day for 90 day(s) Active Levothyroxine Sodium 125 MCG 1 tablet on an empty stom ach in the morning Orally Once a day for 90 Active Colace 100 MG 1 capsule as [...] Component Value Reference Range PT-INR Fingerstick Reviewed date:10/19/2020 13:24:44 Interpretation: Performing Lab:[facility] [address] INR 1.4 Verified Patient's Name and yes Current Dose 1 Current Dose 2 4mg W Tab Strength 5mg ROW Indication for Anticoagulation DVT Recent Bleeding no Internal QC Acceptable (Y/N) yes Therapeutic Range 1.8-2.0 Education Given (Date / Initials) New Dose 1 New Dose 2 NC Weekly Total Next PT-INR 3W - - REASON FOR VISIT recheck and blood work MEDICAL (GENERAL) HISTORY Type Description Date Medical [...] colon, -BLE DVT US; admission INR 2.7 7/12/19-05/19/19 Hospitalization History symptomatic anemia (presumed GAVE source)-presenting [...] Notes Treatment Notes Treatm ent Clinical Notes Oct, Ataxia (ICD-10 - R27.0) The patient is [...] custom molded AFO to assist c ambulation. Oct, Weight loss (ICD-10 - R63.4) Favor 2 sarcopenia-patient defers w/u Oct, Nonrheumatic aortic valve stenosis (ICD-10 - I35 [...] repeat TTE in 6M-will request OV note Oct, History of DVT (deep vein thrombosis) (ICD-10 [...] chest s contrast, - BLE US DVT Oct, Annual physical exam (ICD-10 - Z00.00) Oct, Allergic rhinitis, unspecifi ed seasonality, unspecified trigger (ICD-10 - J30.9) c secondary PND/chronic cough rx as per cough Oct, Encounter for therapeutic drug monitoring (ICD-1 0 - Z51.81) Oct, Fe deficiency anemia (ICD-10 - D50.9) Contingency: repeat IV Fe (last 11/2019 F CFM 750; 08/2019 Fe sucrose 500 total dose) 10/16/20 10.9, 92. r34/0.8, farooq 12 10/08/20 [...] 2u PRBCs and repeat EGD c APC 12/2017 9.7, 87, CHr 33; therefore PS 150 BID to QD 10/2017 9.7, farooq 7, CHr 32 07/2017 10.9, 18%, 10 05/28/17 11.2, 19%, 12, 17 on Niferex 150 BID 04/06/17 8.9, 88, 7%, 9; therefore, tx 2u PRBCs 03/20/17 hgb stable at 9.7, but HO 3/3 + and given increased fatigue/SOB x 1M; held VKA-03/17/17 INR 2.1 (given dropped hgb despite BID PPI AND QID Carafate) and repeat EGD and colon +/- capsule-apt c Reindl = Oct, Current use of penitentiary anticoagulation (ICD-10 - Z79.01) Oct, GAVE (gastric antral vascular ectasia) (ICD-10 - [...] but today moved up to 10/07 during [facility] few tiny non-bleeding angioectasias of stomach were rxed c APC and then Reindl restarted VKA 08/2019 discussion c Reindl-will repeat APC cautery, +/- octero LAR addition 05/2017 capsule c mild non-bleeding GAVE 05/15/17 dx/rx by EGD c RFA by Reindl-felt was mild, but probable source of GI bleed Oct, Candidiasis of breast (ICD-10 - B37.89) Stable on clotrim QD for supression, BID +/- terb po c flares RF:chronic abx use Contingency: biopsy 04/2019 ~3M flare under R breast flare; therefore, SS + terb 250 QD 7D to clotrim cr BID 07/2018 under B breasts SS + nystatin cr BID s improvement; therefore, 07/19/18 changed to clotrim c resolution Oct, Hypertension (ICD-10 - I10) Good control on fur 20 qAM K/Mg as per CKD 01/08/2017 EKG NSR 76 bpm, early transition similar to 04/29/1405/2019 almo 2.5 restarted during hosp 01/2019 stopped amlo 2.5 given SBP 110s c BNP 629 10/2011 lisinopril d/mathew 2 increased Cr and K (1.8, 5.7) 08/21/11 K d/mathew 2 K 5.3 Oct, Hypothyroid (ICD-10 - E03.9) 1.3, 1.0 10/2019 0.6, 1.3 on 125 [...] 07/2014 2.7 03/2014 1.4 on 100 qd Oct, Folic acid deficiency (ICD-10 - E53.8) hgb as per Fe 12/2018 RBC folate 1547 on 800 Oct, Encounter for therapeutic drug level mon itoring (ICD-10 - Z51.81) Oct, Chronic infection (ICD-10 - B99.9) Continue life-long cipro per Dr. 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 Mckenzie deferred f/u to Bear/Ric given resected stage 1 disease is 95% cure, recommending colonoscopy in 1Y then q5Y c q6M CEA, Beto plans CT A/P in 6M 08/[address] A/P s/p hemicolectomy 03/[address] A/P x cecal mass 04/2017 3.2 10/2014 2.8 08/2014 3.5 03/2014 basaeline CEA 1.4 Oct, Dyspnea on exertion (ICD-10 - R06.09) favor moreso deconditioning given also generalized weakness, but also PHTN, AV disease Contingency: PFTs 10/2017 start home PT for strengthening pulmonary cuadra as per cough/cardiac as per MH Oct, DJD (degenerative joint disease), cervical (ICD- 10 - M50.30) Contingency: xray 05/2017 mild acute L C6 intermittent radic pain s weakness; gave home PT Nasrin JACOME QID-changed by i to Pennsaid 10 QID Oct, BARBRA (generalized anxiety disorder) (ICD-10 - F41 .1) Stable on Xanax 0.25 BID p-mainly qhs 04/13/17 SS started Xanax 0.25 BID p c improvement c rare use Oct, Cough (ICD-10 - R05) favor 2 PND and esophageal dysfunction given mainly occurs c first intake 05/2017 CTA chest s PE/mass 04/06/17 CXR NAD; therefore, + Nasonex given significant clear PND c improvement Oct, PUD (peptic ulcer disease) (ICD-10 - K27.9) Patient remains asymptomatic on panto 40 BID, sul 1 AC TID/QHS Oct, Vitamin D deficiency (ICD-10 - E55.9) 08/21/20 34, 9.6, 25 on triol 0.5; therefore, decreased to 12/2018 35/9.1/28 03/2018 31, 8.7, 52 03/2017 33, 8.6, 126; therefore, calcitriol 0.25 to 0.5 06/2016 43, 8.6, PTH 64 01/2016 vitamin D 129, 8.3; therefore, Drisdol qW stopped Oct, Hyperlipidemia (ICD-10 - E78.5) 05/2019 79/72/76 06/2018 78/77/79, 72, <0.3 03/2017 73/90/52 on atorva 40 11/2016 127/88/90 on simvastatin 20; therefore, changed to atorvastatin 40 01/2016 123/66/79 on simvastatin 20 06/2018 normal LFTs 06/2016 A1C 4.7 Oct, Seizure disorder (ICD-10 - G40.909) No recurrent seizures on pheny 100/200 04/24/20 8 10/2019 9 12/2018 11 on 100/200 03/2018 11.2 06/2017 9.9 04/2017 12 06/2016 phenytoin level stable at 10.8 Oct, CKD (chronic kidney disease) stage 3, GFR 30-59 ml/min (ICD-10 - N18.3) 10/16/20 36/1.7, 4.6 05/2019 42/1.6, 4.4 08/2018 33/1.6, 4.5 01/2016 stable at 29/1.5, 4.1 hgb as per Fe PTH as per vitamin D Oct, Breast cancer screening (ICD-10 - Z12.39) Patient defers mammogram/CBE Oct, Constipation, chronic (ICD-10 - K59.09) Stable on current regimen Oct, Vitamin B12 deficiency (ICD-10 - E53.8) hgb as per Fe 10/2019 1458 on 500 06/2018 870 03/2018 1538; therefore, decreased to 500 03/2017 1153 on 1 mg 03/2018 Antonio armendariz [facility] PLAN OF TREATMENT Medication Medication Name Sig [...] Once a day f or 30 day(s) Ferrex 150 150 MG 1 capsule Orally Once a day Phenytoin Sodium Extended 100 MG 1 capsule in AM, 2 in PM Orally bid Rocaltrol 0.25 MCG 1 capsule Orally Once a day for 90 day(s) Pennsaid 1.5 % 10 drops to knees Transdermal Four times a day Lasix 20 mg 1 tablet Orally Once a day for 90 Levothyroxine Sodium 125 MCG 1 tablet on an empty stom ach in the morning Orally Once a day for 90 Clotrimazole 1 % 1 application to affected [...] Once a day for 90 day (s) Treatment Notes Assessment Notes Clinical Notes Dyspnea on exertion favor moreso decondi tioning given also generalized weakness, but also PHTN, AV diseaseContingency: PFTs10/2017 start home PT for strengtheningpulmonary cuadra as per cough/cardiac as per MH H/O malignant neoplasm of colon No recur rent symptoms05/2019 colon (done for GI bleed)-3 3-5 adeno p- 5 mm tubular adenoma-05/2017 colon-R111/2014 normal colonoscopy-Idgbre18/2014 stable EGD/colon-Bilicki x gastritis06/22/14 Dr. Mckenzie deferred f/u to Bear/Ric given resected stage 1 disease is 95% cure, recommending colonoscopy in 1Y then q5Y c q6M CEAHelenai plans CT A/P in stable CT A/P s/p hemicolectomy03/[address] A/P x cecal mass04/2017 3.212/2013 2.810/2013 3. basaeline CEA 1.4 BARBRA (generalized anxiety disorder) Stabl e on Xanax 0.25 BID p-mainly qhs04/13/17 SS started Xanax 0.25 BID p c improvement c rare use DJD (degenerative joint disease), cervical Contingency: xray05/2017 mild acute L C6 intermittent radic pain s weakness; gave home PT Nasrin JACOME QID-changed by i to Pennsaid 10 QID PUD (peptic ulcer disease) Patient remai ns [...] 5 on triol 0.5; therefore, decreased to12/2018 35/9. 31, 8.7, 33, 8.6, 126; therefore, calcitriol 0.25 to 0. 43, 8.6, PTH 643 vitamin D 129, 8.3; therefore, Drisdol qW stopped Chronic infection Continue life-long c ipro per Dr. 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 She [...] custom molded AFO to assist c ambulation. Constipation, chronic Stable on current regimen Weight loss Favor 2 sarcopenia-p atient defers w/u Nonrheumatic aortic valve stenosis Patie nt refuses consideration for AVR and repeat echo06/2019 stable mod (CHETAN 0.9)07/2018 stable mod (CEHTAN 1.27)11/2017 given CHETAN and progression of dyspnea [...] CFM 750; 08/2019 Fe sucrose 500 total dose)10/16/20 10.9, 92. r34/0.8, farooq 1212 sp 2u PRBCs given 10/05 down to 8.81/ 7.8, 89, r28/1.1, INR 1.6, EPO 81; therefore, 2u PRBCs and 12/01/19 F CM 5498910/13/19 10.0, 90, r14%/ 9.9, r38/1.2 on 150 QD05/2019 8.3, r29/1.4; admitted c weakness sp tx and EGD/colon as per Hosp01/2019 7.9, 5%, 5; therefore, tx 2u PRBCs09/2018 10.4, r 29 on 150 QD05/2018 10.2, 86, CHr 335/2018 down to 8.7, CHr 34; therefore, sp 2u PRBCs and repeat EGD c APC12/2017 9.7, 87, CHr 33; therefore PS 150 BID to QD10/2017 9.7, farooq 7, CHr 329/2016 10.9, 18%, 107// 11.2, 19%, 12, 17 on Niferex 150 BID04/06/17 8.9, 88, 7%, 9; therefore, tx 2u PRBCs03/20/17 hgb stable at 9.7, but HO 3/3 + and given increased fatigue/SOB x 1M; held VKA-03/17/17 INR 2.1 (given dropped hgb despite BID PPI AND QID Carafate) and repeat EGD and colon +/- capsule-apt c Reindl = GAVE (gastric antral vascular ectasia) + /- gastric AVMs c recurrent 2 symptomatic acute blood loss anemia, last 09/28 hgb 7.2 at INR 2 sp 2u (since tx 8u PRBCs/last APC 10/07/19-Rfollows closely c Smuylr21/2/19 given 2 episodes of UGI requiring admission and 2u PRBCs each (4u unit total), VKA held until repeat EGD/APC (scheduled for 10/21, but today moved up to 10/07 during [facility] few tiny non-bleeding angioectasias of stomach were rxed c APC and then Reindl restarted VKA1 discussion c Reindl-will repeat APC cautery, +/- octero LAR addition05/2017 capsule c mild non-bleeding GAVE05/15/17 dx/rx by EGD c RFA by Reindl-felt was mild, but probable source of GI bleed Seizure disorder No recurrent seizure s on pheny 812/2018 11 on 11. 9. 128/2016 phenytoin level stable at 10.8 Breast cancer screening Patient defers m ammogram/CBE CKD (chronic kidney disease) stage 3, GFR 30-59 ml/min 10/16/20 36/1.7, 4. 42/1.6, 4.410/2017 33/1.6, 4. stable at 29/1.5, 4.1hgb as per FePTH as per vitamin D Candidiasis of breast Stable on clotrim QD [...] amlo 2.5 given SBP 110s c BNP lisinopril d/mathew 2 increased Cr and K (1.8, 5.7)08/21/11 K d/mathew 2 K 5.3 Hypothyroid 1.3, 1.012/ 2018 0.6, 1[place]3 [place] [address] 1.0, 1.1 on 1257 0.8, 1.2; therefore, 150 to 1252 0.002, 1.6; therefore, 175 to 1505 3.5, 1.012/2016 4.8, 1.05/2017 4.3, 1. 8.1, 0.9; therefore, 150 to 1751 7.6, 0.9 on 15006/2016 6.5; therefore, increased to 15001/2016 6.9; therefore increased to 1378/2014 1.7 on 12512/2014 5.6, increased to 12511/2014 7.7 therefore LT4 100 increased to 1129/2013 2. 1.4 on 100 qd Future Test Test Name Order Date RBC FOLATE PROFILE 20201109 VITAMIN B12 LEVEL 20201109 DIRECT LES 20201109 t-Transglutaminase (tTG) IgA 20201109 FREE T4 & TSH PANEL [id number] CBC with Differential [id number] FERRITIN 20201109 Comprehensive Metabolic Profile (CMP) [id number] PT & APTT [id number] Next Appt Details 30 minutes 3-4M, BW 3W Reason: Provider Name:Jaime Sifuentes, 2020-11-27 1 1:15:00 AM, [address] [place], [address], Insurance Providers Payer Name Payer Address Payer Phone Insured Name Patient Relati onship to Insured Coverage Start Date Coverage End Date [employer]AN [address] [facility] [id number] ANDREEA SAL self MEDICARE Part A and B [address] [facility] [id number] ANDREEA SAL self
--- OUTSIDE RECORDS SUMMARY | 2020-12-20 12:28 | CCD ---
Author Author [facility] Organization [facility] Address Unknown Phone Unavailable Care Team Providers Care Clerical Coordinator Name Role Phone Jaime Sifuentes Unavailable PROBLEMS Type Condition ICD9-CM Code [id number] Code Onset Dates Condition S tatus SNOMED Code Notes Problem CKD (chronic kidney disease) stage 3, GFR 30-59 ml/min N18.3 Active 679909920 Problem Hyperlipidemia E78.5 Active 72727864 Problem Fe deficiency anemia D50.9 Active 89556030 Problem Hypothyroid E03.9 Active 34128218 Problem Seizure disorder G40.909 Active 301153665 Problem Vitamin D deficiency E55.9 Active 50702451 Problem Hypertension I10 Active 60555946 Problem Folic acid deficiency E53.8 Active 882658028 Problem Nonrheumatic aortic valve stenosis I35.0 Activ e 953413198 Problem PUD (peptic ulcer disease) K27.9 Active 50674 003 Problem Vitamin B12 deficiency E53.8 Active 265291783 Problem DJD (degenerative joint disease), cervical M50.30 Active 13614396 Problem BARBRA (generalized anxiety disorder) F41.1 Activ e 72455552 Problem H/O malignant neoplasm of colon Z85.038 Active 387958845 Problem 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 A ctive 02255844 Problem History of DVT (deep vein thrombosis) Z86.718 Ac tive 333356194 Problem Dyspnea on exertion R06.09 Active 21178973 Problem Candidiasis of breast B37.89 Active 17491259 Problem Chronic infection B99.9 Active 942212685 Problem Iron deficiency anemia due to chronic blood loss D 50.0 Active 845817920 Problem Ataxia R27.0 Active 45832264 Problem Constipation, chronic K59.09 Active 002731793 Problem Weight loss R63.4 Active 33366242 Problem Breast cancer screening Z12.39 Active 59681460 6 Problem Essential hypertension I10 Active 05131741 Problem Encounter for therapeutic drug monitoring Z51.81 Active 976172043 Problem Current use of foot cutter anticoagulation Z79.01 Active 343649719 Problem Allergic rhinitis, unspecified seasonality, unspecifie d trigger J30.9 Active 91351159 Problem 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 Code:[address]- 01) effect on kidneys Drug Allergy Active ENCOUNTERS from 1935 to 2020-11-06 Encounter Location Date Provider Diagnosis [address] [address] Oct, 020 Jaime Sifuentes IMMUNIZATIONS Vaccine Route Administration Date [...] Unknown Language: Question Answer Notes Languages spoken: Urdu Caodaism: Question Answer Notes Caodaism 21 Confucianist Sexual Hx: Question Answer Notes Had sex [...] Notes Start Da te End Date Status Lactulose 10 GM/15ML 15 ml Orally Once a day prn til soft BM Active Ferrex 150 150 MG 1 capsule Orally Once a day Active Colace 100 MG 1 capsule as needed Orally twice daily as needed Active Rocaltrol 0.25 MCG 1 capsule Orally Once a day for 90 day(s) Active Atorvastatin [...] 1 tab(s) Orally Once a day Active Clotrimazole 1 % 1 application to affected ar ea Externally Twice a day under B breats for 30 day(s) Active Carafate 1 GM tablet before meals and befo re bedtime Orally Four times a day for 90 Active AmLODIPine Besylate 2.5 MG 1 tablet Orally Once a day for 90 Active Nasonex 50 MCG/ACT 2 sprays in each nostril Nasally Once a day or 30 day(s) Active Lutein 15-0.7 MG 1 capsule with a meal Orally Once a day Active May Have - right ankle/foot AFO DX: R27.0 Daily for 30 Days Nov, Active Phenytoin Sodium Extended 100 MG 1 capsule in AM, 2 in PM Orally bid Active Calcium 600 + D 600-400 MG-UNIT 1 tablet orally Twice a day for 30 da y(s) Active Xanax 0.25 MG 1 tablet as needed Orally Twice a day for 30 day(s) Active Levothyroxine Sodium 125 MCG 1 tablet on an empty stom ach in the morning Orally Once a day for 90 Active Pantoprazole Sodium 40 MG 1 tablet Orally bid Active Lasix 20 mg 1 tablet Orally [...] Information RESULTS No Results REASON FOR VISIT form for brace MEDICAL (GENERAL) HISTORY Type Description Date Medical [...] tablet Orally once daily for 90 day(s) Phenytoin Sodium Extended 100 MG 1 capsule in AM, 2 in PM Orally bid Rocaltrol 0.25 MCG 1 capsule Orally Once a day for 90 day(s) Clotrimazole 1 % 1 application to affected ar ea Externally Twice a day under B breats for 30 day(s) Xanax 0.25 MG 1 tablet as needed Orally Twice a day for 30 day (s) Pennsaid 1.5 % 10 drops to knees Transdermal Four times a day Ferrex 150 150 MG 1 capsule Orally Once a day May Have - right ankle/foot AFO DX: R27.0 Daily for 30 Days Nov, Levothyroxine Sodium 125 MCG 1 tablet on an empty stom ach in the morning Orally Once a day for 90 Carafate 1 GM tablet before meals and befo re bedtime Orally Four times a day for 90 Lasix 20 mg 1 tablet Orally Once a day for 90 Nasonex 50 MCG/ACT 2 sprays in each nostril Nasally Once a day f or 30 day(s) Colace 100 MG 1 capsule as needed Orally twice daily as needed Pantoprazole Sodium 40 MG 1 tablet Orally bid Atorvastatin Calcium 40 MG 1 tablet Orally Once a day for 90 day (s) Lactulose 10 GM/15ML 15 ml Orally Once a day prn til soft BM Next Appt Details Provider Name:Jaime Sifuentes, 2020-11-27 1 1:15:00 AM, [address] [place], [address], Insurance Providers Payer Name Payer Address Payer Phone Insured Name Patient Relati onship to Insured Coverage Start Date Coverage End Date MEDICARE Part A and B [address] [facility] [phone] ANDREEA SAL [employer] [address] [facility] [id number] ANDREEA SAL self
--- OUTSIDE RECORDS SUMMARY | 2020-12-20 12:28 | CCD ---
Author Author [facility] Organization [facility] Address Unknown Phone Unavailable Care Team Providers Care Defence Force Senior Officer Name Role Phone Jaime Sifuentes Unavailable PROBLEMS Type Condition ICD9-CM Code [id number] Code Onset Dates Condition S tatus SNOMED Code Notes Problem CKD (chronic kidney disease) stage 3, GFR 30-59 ml/min N18.3 Active 385991508 Problem Hyperlipidemia E78.5 Active 49160005 Problem Fe deficiency anemia D50.9 Active 42871288 Problem Hypothyroid E03.9 Active 99156820 Problem Seizure disorder G40.909 Active 897235604 Problem Vitamin D deficiency E55.9 Active 84627332 Problem Hypertension I10 Active 06981381 Problem Folic acid deficiency E53.8 Active 157521547 Problem Nonrheumatic aortic valve stenosis I35.0 Activ e 790575735 Problem PUD (peptic ulcer disease) K27.9 Active 81604 003 Problem Vitamin B12 deficiency E53.8 Active 191408100 Problem DJD (degenerative joint disease), cervical M50.30 Active 20119814 Problem BARBRA (generalized anxiety disorder) F41.1 Activ e 14421703 Problem H/O malignant neoplasm of colon Z85.038 Active 960827404 Problem 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 A ctive 58959137 Problem History of DVT (deep vein thrombosis) Z86.718 Ac tive 163870648 Problem Dyspnea on exertion R06.09 Active 71267154 Problem Candidiasis of breast B37.89 Active 80635858 Problem Chronic infection B99.9 Active 482553162 Problem Iron deficiency anemia due to chronic blood loss D 50.0 Active 943436381 Problem Ataxia R27.0 Active 36480621 Problem Constipation, chronic K59.09 Active 035196403 Problem Weight loss R63.4 Active 17095031 Problem Breast cancer screening Z12.39 Active 47937651 6 Problem Essential hypertension I10 Active 19292656 Problem Encounter for therapeutic drug monitoring Z51.81 Active 279637192 Problem Current use of game trapper anticoagulation Z79.01 Active 685486312 Problem Allergic rhinitis, unspecified seasonality, unspecifie d trigger J30.9 Active 86933358 Problem 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 Active 58677279179177321 ALLERGIES Allergen (clinical drug ingredient) Drug/Non Drug Allergy do cumented on EMR Reaction Allergy Type Onset Date Status sulfamethoxazole / trimethoprim Bactrim([facility] Code:[address]- 01) effect on kidneys Drug Allergy Active ENCOUNTERS from 1934 to 2020-11-10 Encounter Location Date Provider Diagnosis [address] [address] Nov, 021 Jaime Sifuentes IMMUNIZATIONS Vaccine Route [...] Unknown Language: Question Answer Notes Languages spoken: Spanish Denominational: Question Answer Notes Denominational 21 Mormon Sexual Hx: Question Answer Notes Had sex [...] Provider Name:Jaime Sifuentes, 2020-11-27 1 1:15:00 AM, [facility] [place], [address], Insurance Providers Payer Name Payer Address Payer Phone Insured Name Patient Relati onship to Insured Coverage Start Date Coverage End Date [facility] [address] [facility] [address] ANDREEA SAL MEDICARE Part A and B [address] [facility] [address] ANDREEA SAL self
--- OUTSIDE RECORDS SUMMARY | 2020-12-20 12:28 | CCD ---
Author Author [facility] Organization [facility] Address Unknown Phone Unavailable Care Team Providers Care Director Television Name Role Phone Marta Dunn Unavailable PROBLEMS Type Condition ICD9-CM Code [id number] Code Onset Dates Condition S tatus SNOMED Code Notes Problem CKD (chronic kidney disease) stage 3, GFR 30-59 ml/min N18.3 Active 075910293 Problem Seizure disorder G40.909 Active 076389415 Problem Fe deficiency anemia D50.9 Active 58034897 Problem Hypothyroid E03.9 Active 44916906 Problem Hyperlipidemia E78.5 Active 24448379 Problem History of DVT (deep vein thrombosis) Z86.718 Ac tive 549908593 Problem Dyspnea on exertion R06.09 Active 77267121 Problem Essential hypertension I10 Active 82474013 Problem Constipation, chronic K59.09 Active 979778917 Problem PUD (peptic ulcer disease) K27.9 Active 99663 003 Problem Vitamin B12 deficiency E53.8 Active 411057871 Problem DJD (degenerative joint disease), cervical M50.30 Active 65268304 Problem BARBRA (generalized anxiety disorder) F41.1 Activ e 83109427 Problem H/O malignant neoplasm of colon Z85.038 Active 349296381 Problem 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 A ctive 99827429 Problem Nonrheumatic aortic valve stenosis I35.0 Activ e 066903354 Problem Folic acid deficiency E53.8 Active 817623681 Problem Candidiasis of breast B37.89 Active 12016254 Problem Allergic rhinitis, unspecified seasonality, unspecifie d trigger J30.9 Active 99041287 Problem Vitamin D deficiency E55.9 Active 82841204 Problem 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 Active 08458520970111618 Problem Hypertension I10 Active 28542165 Problem Breast cancer screening Z12.39 Active 26716387 6 Problem Chronic infection B99.9 Active 634239491 Problem Iron deficiency anemia due to chronic blood loss D 50.0 Active 399222530 Problem Current use of retirement anticoagulation Z79.01 Active 706898950 Problem Encounter for therapeutic drug monitoring Z51.81 Active 363099945 ALLERGIES Allergen (clinical drug ingredient) Drug/Non Drug Allergy do cumented on EMR Reaction Allergy Type Onset Date Status sulfamethoxazole / trimethoprim Bactrim([facility] Code:[address]- 01) effect on kidneys Drug Allergy Active ENCOUNTERS from 1934 to 2020-09-25 Encounter Location Date Provider Diagnosis [address] [address] Sep, Marta Dunn Shortness of breath R06.02 ; Encounter f or therapeutic drug monitoring Z51.81 ; Current use of ocean transportation intermediary anticoagulation Z79.01 and History of DVT (deep vein thrombosis) Z86.718 IMMUNIZATIONS Vaccine Route Administration Date Status Influenza (High Dose 65 & up) IM Intramuscular Aug 14, 2016 A dministered Influenza (Pharmacy Given) Unknown Aug 10, 2020 [...] Unknown Language: Question Answer Notes Languages spoken: Tunisian Congregational: Question Answer Notes Congregational 21 Christianity Sexual Hx: Question Answer Notes Had sex [...] FOR REFERRAL No Information VITAL SIGNS Weight 131 lbs Sep, Height 64 in Sep, BMI 22.48 kg/m2 Sep, Heart Rate 92 /min Sep, Respiratory Rate 18 /min Sep, Temperature 98.6 degrees Fahrenheit Sep, Oximetry 93 Sep, Blood pressure systolic 126 mm Hg Sep, Blood pressure diastolic 68 mm Hg Sep, MEDICATIONS Medication SIG (Take, Route, Frequency, Duration) Notes Start Da te End Date Status Pennsaid 1.5 % 10 drops to knees Transdermal Four times a day Active Pantoprazole Sodium 40 MG 1 tablet Orally bid for 90 day(s) Active Atorvastatin Calcium 40 MG 1 tablet Orally Once a day for 90 day(s) Active Carafate 1 GM tablet before meals and befo re bedtime Orally Four times a day for 90 day(s) Active Lactulose 10 GM/15ML 15 ml Orally Once a day prn til soft BM Active Cipro 500 MG 1 tablet Orally once daily for 90 Active Lasix 20 mg 1 tablet Orally Once a day for 90 day(s) Active Nasonex 50 MCG/ACT 2 sprays in each nostril Nasally Once a day or day(s) Active Levothyroxine Sodium 125 MCG 1 tablet on an empty stom ach in the morning Orally Once a day for 90 day(s) Active AmLODIPine Besylate 2.5 MG 1 tablet Orally Once a day for 90 day(s) Active Lutein 15-0.7 MG 1 capsule with a meal Orally Once a day Active May Use - as directed 2 wheeled walker Daily DX: R27.0 for 90 day(s) May, Active Warfarin Sodium 5 MG TAKE 1 TABLET BY MOUTH ONCE A DAY. for 90 Active Folic Acid 800 MCG 1 tablet Orally Once a day Active Ferrex 150 150 MG 1 capsule Orally Once a day for 90 day(s) Active Rocaltrol 0.5 MCG 1 capsule Orally Once a day for 90 day(s) Active Phenytoin Sodium Extended 100 MG 1 capsule in AM, 2 in PM Orally bid for 90 day(s) Active Clotrimazole 1 % 1 application to affected ar ea Externally Twice a day under B breats for 30 day(s) Active Cyanocobalamin 500 MCG 1 tablet Orally Once a day for 30 day(s) Active Colace 100 MG 1 capsule as needed Orally twice daily as needed Active Warfarin Sodium 4 MG as directed Orally ( 4.5 mg) 5 times weekly on Thu, Thu, , and ThuMarch, Active Multivitamins ` 1 tab(s) Orally Once a day Active Calcium 600 + D 600-400 MG-UNIT 1 tablet orally Twice a day for 30 da y(s) Active Xanax 0.25 MG 1 tablet as needed Orally Twice a day for 30 day(s) Active PROCEDURES No Information RESULTS Component Value Reference Range NT-PRO BNP Reviewed date:09/18/2020 17:09:50 Interpretation: Performing Lab:[facility] [address] [address] , ,[place] [address] NT-PRO BNP 408 <450 PT-INR Fingerstick Reviewed date:09/18/2020 14:41:05 Interpretation: Performing Lab:[facility], ,[place] [address] INR 1.5 Verified Patient's Name and yes Current Dose 1 Current Dose 2 4mg MWF 5mg ROW Tab Strength 4mg/5mg Indication for Anticoagulation DVT Recent Bleeding no Internal QC Acceptable (Y/N) yes Therapeutic Range 1.8-2.0 Education Given (Date / Initials) New Dose 1 New Dose 2 4 W 5mg ROW Weekly Total 34 Next PT-INR 2 week - - CBC with Differential Reviewed date:09/21/2020 09:58:26 Interpretation: Performing Lab:[facility] [address] [address] , ,[place] [address] WHITE BLOOD COUNT 5.7 4.0-10.0 RED BLOOD COUNT 3.26 4.00-5.40 HEMOGLOBIN 9.4 12.0-15.5 HEMATOCRIT 29.9 36.0-47.0 MEAN CORPUSCULAR VOLUME 91.7 80.0-96.0 MEAN CORPUSCULAR HEMOGLOBIN 28.8 27.0-33.0 MEAN CORPUSCULAR HGB CONC 31.4 32.0-36.5 RED CELL DISTRIBUTION WIDTH 13.7 11.5-14.5 PLATELET COUNT, AUTOMATED 208 150-450 NEUTROPHILS % 68.4 36.0-66.0 LYMPH % 17.9 24.0-44.0 MONO % 10.8 0.0-5.0 EOS % 1.8 0.0-3.0 BASO % 0.7 0.0-1.0 NEUTROPHILS # 3.9 1.5-8.5 LYMPH # 1.0 1.5-5.0 MONO # 0.6 0.0-0.8 EOS # 0.1 0.0-0.5 BASO # 0.0 0.0-0.2 Comprehensive Metabolic Profile (CMP) Reviewed date:09/21/2020 09:58:35 Interpretation: Performing Lab:[facility], [facility] [id number] , ,[place] [address] GLUCOSE, FASTING 97 70-100 BLOOD UREA NITROGEN 48 7-18 CREATININE FOR GFR 1.96 0.55-1.30 GLOMERULAR FILTRATION RATE 25.8 >32 SODIUM LEVEL 143 136-145 POTASSIUM SERUM 4.4 3.5-5.1 CHLORIDE LEVEL 107 98-107 CARBON DIOXIDE LEVEL 31 21-32 CALCIUM LEVEL 10.2 8.8-10.2 AST/SGOT 32 7-37 ALT/SGPT 26 12-78 ALKALINE PHOSPHATASE 121 45-117 BILIRUBIN,TOTAL 0.3 0.2-1.0 TOTAL PROTEIN 6.4 6.4-8.2 ALBUMIN 3.6 3.2-5.2 ALBUMIN/GLOBULIN RATIO 1.3 1.2-2.2 REASON FOR VISIT 2 week follow up MEDICAL (GENERAL) HISTORY Type Description Date Medical [...] Notes Treatment Notes Treatm ent Clinical Notes Sep, Shortness of breath (ICD-10 - R06.02) Labs to risk startify ? anemia induced vs infectious Sep, Encounter for therapeutic drug monitoring (ICD-1 0 - Z51.81) INR 1.5 dose adjusted. 2 week recheck Sep, Current use of ocean transportation intermediary anticoagulation (ICD-10 - Z79.01) Sep, History of DVT (deep vein thrombosis) (ICD-10 - Z86.718) PLAN OF TREATMENT Treatment Notes Assessment Notes Clinical Notes Shortness of breath Labs to risk startif y? anemia induced vs infectious Encounter for therapeutic drug monitoring INR 1.5dose adjusted.2 week recheck Next Appt Details 2 Weeks Pt/INR Reason: Provider Name:Marta Dunn, 2019-11 08:15:00 AM, [address] [place], [address], Provider Name:Jaime Sifuentes, 2020-11-27 1 1:15:00 AM, [address] [place], [address], Insurance Providers Payer Name Payer Address Payer Phone Insured Name Patient Relati onship to Insured Coverage Start Date Coverage End Date MEDICARE Part A and B [address] [facility] [phone] ANDREEA SAL [employer] [address] [facility] [id number] ANDREEA SAL self
--- OUTSIDE RECORDS SUMMARY | 2020-12-20 12:28 | CCD ---
Author Author [facility] Organization [facility] Address Unknown Phone Unavailable Care Team Providers Care City Detective Name Role Phone Jaime Sifuentes Unavailable PROBLEMS Type Condition ICD9-CM Code [id number] Code Onset Dates Condition S tatus SNOMED Code Notes Problem CKD (chronic kidney disease) stage 3, GFR 30-59 ml/min N18.3 Active 038374257 Problem Hyperlipidemia E78.5 Active 28733914 Problem Fe deficiency anemia D50.9 Active 72558963 Problem Hypothyroid E03.9 Active 86358383 Problem Seizure disorder G40.909 Active 691641214 Problem Vitamin D deficiency E55.9 Active 49131504 Problem Hypertension I10 Active 36768375 Problem Folic acid deficiency E53.8 Active 711077442 Problem Nonrheumatic aortic valve stenosis I35.0 Activ e 934467010 Problem PUD (peptic ulcer disease) K27.9 Active 91185 003 Problem Vitamin B12 deficiency E53.8 Active 620476928 Problem DJD (degenerative joint disease), cervical M50.30 Active 61856581 Problem BARBRA (generalized anxiety disorder) F41.1 Activ e 06229175 Problem H/O malignant neoplasm of colon Z85.038 Active 100641314 Problem 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 A ctive 59564471 Problem History of DVT (deep vein thrombosis) Z86.718 Ac tive 404126180 Problem Dyspnea on exertion R06.09 Active 25295160 Problem Candidiasis of breast B37.89 Active 70178496 Problem Chronic infection B99.9 Active 736526827 Problem Iron deficiency anemia due to chronic blood loss D 50.0 Active 978163673 Problem Ataxia R27.0 Active 02652253 Problem Constipation, chronic K59.09 Active 042494055 Problem Weight loss R63.4 Active 27071960 Problem Breast cancer screening Z12.39 Active 51749768 6 Problem Essential hypertension I10 Active 49423010 Problem Encounter for therapeutic drug monitoring Z51.81 Active 281813204 Problem Current use of intermediate teacher anticoagulation Z79.01 Active 001133847 Problem Allergic rhinitis, unspecified seasonality, unspecifie d trigger J30.9 Active 26817227 Problem 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 Active 72460809008044796 ALLERGIES Allergen (clinical drug ingredient) Drug/Non Drug Allergy do cumented on EMR Reaction Allergy Type Onset Date Status sulfamethoxazole / trimethoprim Bactrim([facility] Code:[address]- 01) effect on kidneys Drug Allergy Active ENCOUNTERS from 1934 to 2020-10-29 Encounter Location Date Provider Diagnosis [address] [address] Oct, 020 Jaime Sifuentes IMMUNIZATIONS Vaccine Route [...] Unknown Language: Question Answer Notes Languages spoken: Macedonian Mosque: Question Answer Notes Mosque 21 Moravian Sexual Hx: Question Answer Notes Had sex [...] Name:Jaime Sifuentes, 2020-11-27 1 1:15:00 AM, [address] [place], [address], Insurance Providers Payer Name Payer Address Payer Phone Insured Name Patient Relati onship to Insured Coverage Start Date Coverage End Date [employer] [address] [facility] [id number] ANDREEA SAL MEDICARE Part A and B [address] [facility] [phone] ANDREEA SAL self
--- OUTSIDE RECORDS SUMMARY | 2020-12-20 12:28 | CCD ---
Author Author [facility] Organization [facility] Address Unknown Phone Unavailable Care Team Providers Care Business Performance Manager Name Role Phone Jaime Sifuentes Unavailable PROBLEMS Type Condition ICD9-CM Code [id number] Code Onset Dates Condition S tatus SNOMED Code Notes Problem CKD (chronic kidney disease) stage 3, GFR 30-59 ml/min N18.3 Active 623569103 Problem Hyperlipidemia E78.5 Active 29215708 Problem Fe deficiency anemia D50.9 Active 17621988 Problem Hypothyroid E03.9 Active 54616656 Problem Seizure disorder G40.909 Active 046963202 Problem Vitamin D deficiency E55.9 Active 57756438 Problem Hypertension I10 Active 12751181 Problem Folic acid deficiency E53.8 Active 828842889 Problem Nonrheumatic aortic valve stenosis I35.0 Activ e 073524053 Problem PUD (peptic ulcer disease) K27.9 Active 18971 003 Problem Vitamin B12 deficiency E53.8 Active 149645467 Problem DJD (degenerative joint disease), cervical M50.30 Active 81297885 Problem BARBRA (generalized anxiety disorder) F41.1 Activ e 64391621 Problem H/O malignant neoplasm of colon Z85.038 Active 174406327 Problem 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 A ctive 13263983 Problem History of DVT (deep vein thrombosis) Z86.718 Ac tive 284766987 Problem Dyspnea on exertion R06.09 Active 86387491 Problem Candidiasis of breast B37.89 Active 22723258 Problem Chronic infection B99.9 Active 983208961 Problem Iron deficiency anemia due to chronic blood loss D 50.0 Active 049165281 Problem Ataxia R27.0 Active 30811184 Problem Constipation, chronic K59.09 Active 694834822 Problem Weight loss R63.4 Active 70143489 Problem Breast cancer screening Z12.39 Active 63999010 6 Problem Essential hypertension I10 Active 19108161 Problem Encounter for therapeutic drug monitoring Z51.81 Active 571884833 Problem Current use of intermediate manager anticoagulation Z79.01 Active 282280578 Problem Allergic rhinitis, unspecified seasonality, unspecifie d trigger J30.9 Active 31404051 Problem 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 Active 02186521866698247 ALLERGIES Allergen (clinical drug ingredient) Drug/Non Drug Allergy do cumented on EMR Reaction Allergy Type Onset Date Status sulfamethoxazole / trimethoprim Bactrim([facility] Code:[address]- 01) effect on kidneys Drug Allergy Active ENCOUNTERS from 1934 to 2020-10-31 Encounter Location Date Provider Diagnosis [address] [address] Oct, 020 Jaime Sifuentes Hypothyroid E03.9 IMMUNIZATIONS Vaccine Route Administration Date Status Influenza [...] Unknown Language: Question Answer Notes Languages spoken: Moroccan Worship: Question Answer Notes Worship 21 Adventism Sexual Hx: Question Answer Notes Had sex [...] Information RESULTS No Results REASON FOR VISIT levothyroxine MEDICAL (GENERAL) HISTORY Type Description Date Medical [...] Treatment Notes Treatm ent Clinical Notes Oct, Hypothyroid (ICD-10 - E03.9) PLAN OF TREATMENT Medication Medication Name Sig [...] Provider Name:Jaime Sifuentes, 2020-11-27 1 1:15:00 AM, [facility] [place], [address], Insurance Providers Payer Name Payer Address Payer Phone Insured Name Patient Relati onship to Insured Coverage Start Date Coverage End Date [facility] [address] [place] [address] ANDREEA SAL MEDICARE Part A and B [address] [facility] [phone] ANDREEA SAL self
--- OUTSIDE RECORDS SUMMARY | 2020-12-20 12:28 | CCD ---
Author Author [facility] Organization [facility] Address Unknown Phone Unavailable Care Team Providers Care Liver Trimmer Name Role Phone Marta Dunn Unavailable PROBLEMS Type Condition ICD9-CM Code [id number] Code Onset Dates Condition S tatus SNOMED Code Notes Problem CKD (chronic kidney disease) stage 3, GFR 30-59 ml/min N18.3 Active 805889208 Problem Seizure disorder G40.909 Active 869821591 Problem Fe deficiency anemia D50.9 Active 75082461 Problem Hypothyroid E03.9 Active 01158590 Problem Hyperlipidemia E78.5 Active 67903657 Problem History of DVT (deep vein thrombosis) Z86.718 Ac tive 280647596 Problem Dyspnea on exertion R06.09 Active 11324462 Problem Essential hypertension I10 Active 10803850 Problem Constipation, chronic K59.09 Active 199387953 Problem PUD (peptic ulcer disease) K27.9 Active 05711 003 Problem Vitamin B12 deficiency E53.8 Active 939838067 Problem DJD (degenerative joint disease), cervical M50.30 Active 64062550 Problem BARBRA (generalized anxiety disorder) F41.1 Activ e 95339375 Problem H/O malignant neoplasm of colon Z85.038 Active 675353737 Problem 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 A ctive 50271574 Problem Nonrheumatic aortic valve stenosis I35.0 Activ e 237354635 Problem Folic acid deficiency E53.8 Active 568204656 Problem Candidiasis of breast B37.89 Active 39441684 Problem Allergic rhinitis, unspecified seasonality, unspecifie d trigger J30.9 Active 46541759 Problem Vitamin D deficiency E55.9 Active 75076677 Problem 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 Active 30351396305674703 Problem Hypertension I10 Active 43190670 Problem Breast cancer screening Z12.39 Active 14769967 6 Problem Chronic infection B99.9 Active 897428631 Problem Iron deficiency anemia due to chronic blood loss D 50.0 Active 122163983 Problem Current use of alf anticoagulation Z79.01 Active 003174983 Problem Encounter for therapeutic drug monitoring Z51.81 Active 669578141 ALLERGIES Allergen (clinical drug ingredient) Drug/Non Drug Allergy do cumented on EMR Reaction Allergy Type Onset Date Status sulfamethoxazole / trimethoprim Bactrim([facility] Code:[address]- 01) effect on kidneys Drug Allergy Active ENCOUNTERS from 1934 to 2020-10-10 Encounter Location Date Provider Diagnosis [address] [address] Oct, Marta Dunn Shortness of breath R06.02 ; Encounter f or therapeutic drug monitoring Z51.81 ; Current use of terminal worker anticoagulation Z79.01 and History of DVT (deep [...] Language: Question Answer Notes Languages spoken: Spanish Presybeterian: Question Answer Notes Presybeterian 21 [employer] Sexual Hx: Question Answer Notes Had sex [...] No Information VITAL SIGNS Weight 131 lbs Oct, Height 64 in Oct, BMI 22.48 kg/m2 Oct, Heart Rate 78 /min Oct, Respiratory Rate 18 /min Oct, Temperature 98.5 degrees Fahrenheit Oct, Oximetry 92% Oct, Blood pressure systolic 124 mm Hg Oct, Blood pressure diastolic 70 mm Hg Oct, MEDICATIONS Medication SIG (Take, [...] Once a day or 30 day(s) Active Xanax 0.25 MG [...] 4.5 mg) 5 times weekly on Thu, Mon, Tu, Th and ThuMarch, Active Pantoprazole Sodium 40 MG [...] 90 day(s) Active PROCEDURES No Information RESULTS Component Value Reference Range PT-INR Fingerstick Reviewed date:10/05/2020 12:39:21 Interpretation: Performing Lab:[facility], ,[facility]01 INR 1.8 Verified Patient's Name and yes Current Dose 1 Current Dose 2 4 mg W Tab Strength 5 ROW Indication for Anticoagulation DVT Recent Bleeding no Internal QC Acceptable (Y/N) yes Therapeutic Range 1.8-2.0 Education Given (Date / Initials) New Dose 1 New Dose 2 Weekly Total Next PT-INR - - CBC with Differential Reviewed date:10/08/2020 12:35:25 Interpretation: Performing Lab:[facility], [facility] [address] [facility] [id number] , ,[place] [address] WHITE BLOOD COUNT 5.0 4.0-10.0 RED BLOOD COUNT 3.16 4.00-5.40 HEMOGLOBIN 8.8 12.0-15.5 HEMATOCRIT 28.6 36.0-47.0 MEAN CORPUSCULAR VOLUME 90.5 80.0-96.0 MEAN CORPUSCULAR HEMOGLOBIN 27.8 27.0-33.0 MEAN CORPUSCULAR HGB CONC 30.8 32.0-36.5 RED CELL DISTRIBUTION WIDTH 13.6 11.5-14.5 PLATELET COUNT, AUTOMATED 189 150-450 NEUTROPHILS % 62.8 36.0-66.0 LYMPH % 20.6 24.0-44.0 MONO % 12.8 0.0-5.0 EOS % 2.4 0.0-3.0 BASO % 1.0 0.0-1.0 NEUTROPHILS # 3.1 1.5-8.5 LYMPH # 1.0 1.5-5.0 MONO # 0.6 0.0-0.8 EOS # 0.1 0.0-0.5 BASO # 0.1 0.0-0.2 RENAL PROFILE Reviewed date:10/08/2020 12:36:04 Interpretation: Performing Lab:[facility], [facility] [address] [facility] [id number] , ,[place] [address] GLUCOSE, FASTING 97 70-100 BLOOD UREA NITROGEN 36 7-18 CREATININE FOR GFR 1.72 0.55-1.30 GLOMERULAR FILTRATION RATE 30.0 >32 SODIUM LEVEL 141 136-145 POTASSIUM SERUM 4.7 3.5-5.1 CHLORIDE LEVEL 108 98-107 CARBON DIOXIDE LEVEL 29 21-32 CALCIUM LEVEL 9.5 8.8-10.2 PHOSPHORUS LEVEL 3.5 2.5-4.9 ALBUMIN 3.6 3.2-5.2 REASON FOR VISIT Pt inr MEDICAL (GENERAL) HISTORY Type Description Date Medical [...] Treatment Notes Treatm ent Clinical Notes Oct, Shortness of breath (ICD-10 - R06.02) Labs to risk startify ? anemia induced vs infectious Oct, Encounter for therapeutic drug monitoring (ICD-1 0 - Z51.81) INR 1.5 dose adjusted. 2 week recheck Oct, Current use of alf anticoagulation (ICD-10 - Z79.01) Oct, History of DVT (deep vein thrombosis) (ICD-10 - Z86.718) PLAN OF TREATMENT Treatment Notes Assessment Notes Clinical Notes Shortness of breath Labs to risk startif y? anemia induced vs infectious Encounter for therapeutic drug monitoring INR 1.5dose adjusted.2 week recheck Next Appt Details 4 Weeks PT/INR Reason: Provider Name:Shari Lemus, 2020-11-09 08:3 0:00 AM, [address] [place] [address], [phone], Provider Name:Jaime Sifuentes, 2020-11-27 1 1:15:00 AM, [address] [place] [address], [phone], Insurance Providers Payer Name Payer Address Payer Phone Insured Name Patient Relati onship to Insured Coverage Start Date Coverage End Date [employer] [address] [facility] [address] ANDREEA SAL MEDICARE Part A and B [address] [facility] [address] [phone] ANDREEA SAL self
--- OUTSIDE RECORDS SUMMARY | 2020-12-20 12:28 | CCD ---
Author Author [facility] Organization [facility] Address Unknown Phone Unavailable Care Team Providers Care Vp Genetic Name Role Phone Jaime Sifuentes Unavailable PROBLEMS Type Condition ICD9-CM Code RYT22-EL Code Onset Dates Condition S tatus SNOMED Code Notes Problem CKD (chronic kidney disease) stage 3, GFR 30-59 ml/min N18.3 Active 152548878 Problem Seizure disorder G40.909 Active 050324355 Problem Fe deficiency anemia D50.9 Active 96537510 Problem Hypothyroid E03.9 Active 46291372 Problem Hyperlipidemia E78.5 Active 99973879 Problem History of DVT (deep vein thrombosis) Z86.718 Ac tive 022176456 Problem Dyspnea on exertion R06.09 Active 64603786 Problem Essential hypertension I10 Active 37639853 Problem Constipation, chronic K59.09 Active 261436217 Problem PUD (peptic ulcer disease) K27.9 Active 41029 003 Problem Vitamin B12 deficiency E53.8 Active 407450412 Problem DJD (degenerative joint disease), cervical M50.30 Active 98530302 Problem BARBRA (generalized anxiety disorder) F41.1 Activ e 05889956 Problem H/O malignant neoplasm of colon Z85.038 Active 529750766 Problem 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 A ctive 91673313 Problem Nonrheumatic aortic valve stenosis I35.0 Activ e 770213857 Problem Folic acid deficiency E53.8 Active 032502080 Problem Candidiasis of breast B37.89 Active 94937402 Problem Allergic rhinitis, unspecified seasonality, unspecifie d trigger J30.9 Active 13630239 Problem Vitamin D deficiency E55.9 Active 04329091 Problem 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 Active 90530836422758109 Problem Hypertension I10 Active 06507973 Problem Breast cancer screening Z12.39 Active 78742168 6 Problem Chronic infection B99.9 Active 078336026 Problem Iron deficiency anemia due to chronic blood loss D 50.0 Active 112918345 Problem Current use of vermin exterminator anticoagulation Z79.01 Active 265470230 Problem Encounter for therapeutic drug monitoring Z51.81 Active 345902934 ALLERGIES Allergen (clinical drug ingredient) Drug/Non Drug Allergy do cumented on EMR Reaction Allergy Type Onset Date Status sulfamethoxazole / trimethoprim Bactrim([facility] Code:[address]- 01) effect on kidneys Drug Allergy Active ENCOUNTERS from 1934 to 2020-10-12 Encounter Location Date Provider Diagnosis [address] [place] [address] Oct, 020 Jaime Sifuentes Fe deficiency anemia D50.9 and 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 IMMUNIZATIONS Vaccine Route Administration Date Status Influenza [...] Unknown Language: Question Answer Notes Languages spoken: Malian Gnosticist: Question Answer Notes Gnosticist 21 Jainism Sexual Hx: Question Answer Notes Had sex [...] Component Value Reference Range NT-PRO BNP Reviewed date:10/16/2020 16:28:10 Interpretation: Performing Lab:[facility] [address] [facility] [address] , ,[facility]01 NT-PRO BNP 427 <450 CBC with Differential Reviewed date:10/16/2020 16:28:07 Interpretation: Performing Lab:[facility] [address] [facility] [address] , ,[place] [address] WHITE BLOOD COUNT 4.7 4.0-10.0 RED BLOOD COUNT 3.96 4.00-5.40 HEMOGLOBIN 10.9 12.0-15.5 HEMATOCRIT 36.3 36.0-47.0 MEAN CORPUSCULAR VOLUME 91.7 80.0-96.0 MEAN CORPUSCULAR HEMOGLOBIN 27.5 27.0-33.0 MEAN CORPUSCULAR HGB CONC 30.0 32.0-36.5 RED CELL DISTRIBUTION WIDTH 13.9 11.5-14.5 PLATELET COUNT, AUTOMATED 181 150-450 NEUTROPHILS % 59.8 36.0-66.0 LYMPH % 24.8 24.0-44.0 MONO % 11.1 0.0-5.0 EOS % 3.2 0.0-3.0 BASO % 0.9 0.0-1.0 NEUTROPHILS # 2.8 1.5-8.5 LYMPH # 1.2 1.5-5.0 MONO # 0.5 0.0-0.8 EOS # 0.2 0.0-0.5 BASO # 0.0 0.0-0.2 Comprehensive Metabolic Profile (CMP) Reviewed date:10/16/2020 16:27:57 Interpretation: Performing Lab:[facility] [address] [facility] [address] , ,[facility]01 GLUCOSE, FASTING 107 70-100 BLOOD UREA NITROGEN 36 7-18 CREATININE FOR GFR 1.72 0.55-1.30 GLOMERULAR FILTRATION RATE 30.0 >32 SODIUM LEVEL 141 136-145 POTASSIUM SERUM 4.6 3.5-5.1 CHLORIDE LEVEL 106 98-107 CARBON DIOXIDE LEVEL 30 21-32 CALCIUM LEVEL 9.5 8.8-10.2 AST/SGOT 31 7-37 ALT/SGPT 29 12-78 ALKALINE PHOSPHATASE 122 45-117 BILIRUBIN,TOTAL 0.3 0.2-1.0 TOTAL PROTEIN 6.2 6.4-8.2 ALBUMIN 3.5 3.2-5.2 ALBUMIN/GLOBULIN RATIO 1.3 1.2-2.2 Reticulocyte Count Sysmex Reviewed date:10/16/2020 16:27:59 Interpretation: Performing Lab:[facility] [address] [place] [address] , ,[place] [address] RETICULOCYTE % 0.8 0.5-1.5 FERRITIN Reviewed date:10/16/2020 16:28:12 Interpretation: Performing Lab:[facility] [address] [facility] [address] , ,[place] [address] FERRITIN 12 [phone] REASON FOR VISIT sooner appointment? MEDICAL (GENERAL) HISTORY Type Description Date Medical [...] Treatment Notes Treatm ent Clinical Notes Oct, Fe deficiency anemia (ICD-10 - D50.9) Oct, GAVE (gastric antral vascular ectasia) (ICD-10 - K31.819) PLAN OF TREATMENT Treatment Notes Test Name Order Date Comprehensive Metabolic Profile (CMP) 2020-10-12 Reticulocyte Count Sysmex 2020-10-12 CBC with Differential 2020-10-12 NT-PRO BNP 2020-10-12 FERRITIN 2020-10-12 Next Appt Details Provider Name:Jaime Sifuentes, 2020-10-19 0 9:15:00 AM, [address] [place] [address], [phone], Provider Name:Shari Lemus, 2020-11-09 08:3 0:00 AM, [address] [place] [address], [phone], Provider Name:Jaime Sifuentes, 2020-11-27 1 1:15:00 AM, [address] [place] [address], [phone], Insurance Providers Payer Name Payer Address Payer Phone Insured Name Patient Relati onship to Insured Coverage Start Date Coverage End Date [facility] BENEFIT PLAN [address] [facility] [address] ANDREEA SAL self MEDICARE Part A and B [address] [facility] [phone] DORNO,ANDREEA GRIFFITHS self
--- OUTSIDE RECORDS SUMMARY | 2020-12-20 12:29 | CCD ---
Author Author [facility] Organization [facility] Address Unknown Phone Unavailable Support Name Relationship Address Phone [place] [address] RETIRED Next Of Kin Unknown RAMIREZ, STEVEN Next Of Kin [address] [place] [address] RE Next Of Kin Unknown Unavailable BONE, ALEXIS Next Of Kin [address] [place] [address] RAMIREZUVALDO Next Of Kin [address] [place] [address] uvaldo ramirez ECON [address] [place] [address] Re-disclosure Warning The records that you are about to access may contain information from federally-assisted alcohol or drug abuse programs. If such information is present, then the following federally mandated warning applies: This information has been disclosed to you from records protected by federal confidentiality rules (42 CFR part 2). The federal rules prohibit you from making any further disclosure of this information unless further disclosure is expressly permitted by the written consent of the person to whom it pertains or as otherwise permitted by 42 CFR part 2. A general authorization for the release of medical or other information is NOT sufficient for this purpose. The Federal rules restrict any use of the information to criminally investigate or prosecute any alcohol or drug abuse patient.The records that you are about to access may contain highly sensitive health information, the redisclosure of which is protected by Article 27-F of the [facility] Public Health law. If you continue you may have access to information: Regarding HIV / AIDS; Provided by facilities licensed or operated by the [facility] Office of Mental Health; or Provided by the [facility] Office for People With Developmental Disabilities. If such information is present, then the following [facility] mandated warning applies: This information has been disclosed to you from confidential records which are protected by state law. State law prohibits you from making any further disclosure of this information without the specific written consent of the person to whom it pertains, or as otherwise permitted by law. Any unauthorized further disclosure in violation of state law may result in a fine or mcc sentence or both. A general authorization for the release of medical or other information is NOT sufficient authorization for further disc losure. Allergies and Adverse Reactions Type Description Substance Reaction Status Data Source(s ) Drug allergy Bactrim sulfamethoxazole / trimethoprim effect on kid neys Active eCW1 ([facility]) Family History Family Member Name Family Member Gender Family Member Status Date o f Status Description Data Source(s) Unknown Unknown Problem MEDENT ([facility], ) Encounters Encounter Providers Location Date Indications Data Source(s ) Unknown [address] [facility] [place] [address] 11/29/2020 12:00:00 AM EST eCW1 ([facility]) Outpatient [address] [facility] [address] 11/27/2020 12:00:00 AM EST eCW1 ([facility]) Unknown [address] [facility] [place] [address] 11/23/2020 12:00:00 AM EST eCW1 ([facility]) Unknown [address] [facility] [place] [address] 11/09/2020 12:00:00 AM EST eCW1 ([facility]) Unknown [address] [facility] [place] [address] 11/09/2020 12:00:00 AM EST eCW1 ([facility]) Unknown [address] [facility] [place] [address] 10/30/2020 12:00:00 AM EST eCW1 ([facility]) Unknown [address] [facility] [place] [address] 10/29/2020 12:00:00 AM EST eCW1 ([facility]) Unknown [address] [facility] [place] [address] 10/19/2020 12:00:00 AM EST eCW1 ([facility]) Office Visit, Est Pt., Level 4 PC [address] [place] [address] 10/19/2020 12:00:00 AM EST [facility]CW1 [facility]) [place] [address] [facility] [address] 10/09/2020 12:00:00 AM EST eCW1 ([facility]) Unknown [address] [facility] [address] 10/08/2020 12:00:00 AM EST eCW1 ([facility]) Office Visit, Est Pt., Level 3 PC [address] [place] [address] 10/05/2020 12:00:00 AM EST eCW1 ([facility]) Office Visit, Est Pt., Level 3 PC [address] [place] [address] 09/18/2020 12:00:00 AM EST [facility]CW1 ([facility]) Unknown [address] [facility] [place] [address] 09/13/2020 12:00:00 AM EST [facility]CW1 [facility] Office Visit, Est Pt., Level 2 PC [address] [place] [address] 09/04/2020 12:00:00 AM EST eCW1 ([facility]) Unknown [address] [facility] [address] 08/27/2020 12:00:00 AM EDT eCW1 ([facility]) Unknown [address] [facility] [place] [address] 08/23/2020 12:00:00 AM EDT eCW1 [facility] Unknown [address] [facility] [place] [address] 05/18/2020 12:00:00 AM EDT eCW1 ([facility]) [place] [address] [facility] [address] 05/15/2020 12:00:00 AM EDT eCW1 ([facility]) [place] [address] [facility] [address] 04/24/2020 12:00:00 AM EDT eCW1 ([facility]) Unknown [address] [facility] [address] 04/24/2020 12:00:00 AM EDT eCW1 ([facility]) Unknown [address] [facility] [address] 04/18/2020 12:00:00 AM EDT eCW1 ([facility]) Unknown [address] [facility] [address] 04/13/2020 12:00:00 AM EDT eCW1 ([facility]) Unknown [address] [facility] [address] 04/10/2020 12:00:00 AM EDT eCW1 ([facility]) Outpatient [address] [facility] [address] 04/10/2020 12:00:00 AM EDT eCW1 ([facility]) [facility] [address] [facility] [address] 04/05/2020 12:00:00 AM EDT eCW1 ([facility]) [facility] [address] [facility] [address] 04/02/2020 12:00:00 AM EDT eCW1 ([facility]) [facility] [address] [facility] [address] 04/02/2020 12:00:00 AM EDT eCW1 ([facility]) [facility] [address] [facility] [address] 04/02/2020 12:00:00 AM EDT eCW1 ([facility]) [facility] [address] [facility] [address] 03/28/2020 12:00:00 AM EDT eCW1 ([facility]) [facility] [address] [facility] [address] 03/27/2020 12:00:00 AM EDT eCW1 ([facility]) [facility] [address] [facility] [address] 02/29/2020 12:00:00 AM EDT eCW1 ([facility]) [facility] [address] [place] [address], [place] [address] 02/21/2020 12:00:00 AM EDT eCW1 ([facility]) [facility] [address] [place] [address], [place] [address] 02/15/2020 12:00:00 AM EDT eCW1 ([facility]) [facility] [address] [place] [address], [place] [address] 02/02/2020 12:00:00 AM EDT eCW1 ([facility]) [facility] [address] [place] [address], [place] [address] 02/01/2020 12:00:00 AM EDT eCW1 ([facility]) [facility] [address] [place] [address], [place] [address] 02/01/2020 12:00:00 AM EDT eCW1 ([facility]) [facility] [address] [place] [address], [place] [address] 02/01/2020 12:00:00 AM EDT eCW1 ([facility]) [facility] [address] [place] [address], [place] [address] 01/31/2020 12:00:00 AM EDT eCW1 ([facility]) [facility] [address] [place] [address], [place] [address] 01/27/2020 12:00:00 AM EDT eCW1 ([facility]) [facility] [address] [place] [address], [place] [address] 01/19/2020 12:00:00 AM EDT eCW1 ([facility]) [facility] [address] [place] [address], [place] [address] 01/09/2020 12:00:00 AM EDT eCW1 ([facility]) [facility] [address] [place] [address], [place] [address] 12/28/2019 12:00:00 AM EST eCW1 ([facility]) [facility] [address] [place] [address], [place] [address] 12/27/2019 12:00:00 AM EST eCW1 ([facility]) [address] [address] 12/12/2019 12:00:00 AM EST eCW1 ([facility]) [address] [address] 12/09/2019 12:00:00 AM EST eCW1 ([facility]) [address] [address] 11/30/2019 12:00:00 AM EST eCW1 ([facility]) [address] [address] 11/28/2019 12:00:00 AM EST eCW1 ([facility]) [address] [address] 11/28/2019 12:00:00 AM EST eCW1 ([facility]) [address] [address] 11/24/2019 12:00:00 AM EST eCW1 ([facility]) [address] [address] 11/22/2019 12:00:00 AM EST eCW1 ([facility]) [address] [address] 11/08/2019 12:00:00 AM EST eCW1 ([facility]) Immunizations Vaccine Date Status Description Data Source(s) IIV3. This is one of two codes replacing CVX 15, which is being retired. 08/10/2020 02:07:00 PM EDT completed eCW1 ([facility]) IIV3. This is one of two codes replacing CVX 15, which is being retired. 08/10/2020 02:07:00 PM EDT completed eCW1 ([facility]) IIV3. This is one of two codes replacing CVX 15, which is being retired. 08/10/2020 02:07:00 PM EDT completed eCW1 ([facility]) IIV3. This is one of two codes replacing CVX 15, which is being retired. 08/10/2020 02:07:00 PM EDT completed eCW1 ([facility]) IIV3. This is one of two codes replacing CVX 15, which is being retired. 08/10/2020 02:07:00 PM EDT completed eCW1 ([facility]) IIV3. This is one of two codes replacing CVX 15, which is being retired. 08/10/2020 02:07:00 PM EDT completed eCW1 ([facility]) IIV3. This is one of two codes replacing CVX 15, which is being retired. 08/10/2020 02:07:00 PM EDT completed eCW1 ([facility]) IIV3. This is one of two codes replacing CVX 15, which is being retired. 08/10/2020 02:07:00 PM EDT completed eCW1 ([facility]) IIV3. This is one of two codes replacing CVX 15, which is being retired. 08/10/2020 02:07:00 PM EDT completed eCW1 ([facility]) IIV3. This is one of two codes replacing CVX 15, which is being retired. 08/10/2020 02:07:00 PM EDT completed eCW1 ([facility]) IIV3. This is one of two codes replacing CVX 15, which is being retired. 08/10/2020 02:07:00 PM EDT completed eCW1 ([facility]) IIV3. This is one of two codes replacing CVX 15, which is being retired. 08/10/2020 02:07:00 PM EDT completed eCW1 ([facility]) IIV3. This is one of two codes replacing CVX 15, which is being retired. 08/10/2020 02:07:00 PM EDT completed eCW1 ([facility]) IIV3. This is one of two codes replacing CVX 15, which is being retired. 08/10/2020 02:07:00 PM EDT completed eCW1 ([facility]) IIV3. This is one of two codes replacing CVX 15, which is being retired. 08/10/2020 02:07:00 PM EDT completed eCW1 ([facility]) Medications Medication Brand Name Start Date Product Form Dose Route Admi nistrative Instructions Pharmacy Instructions Status Indications Reaction Description Data Source(s) May Have - UNK 11/05/2020 12:00:00 AM EST active May Have - eCW1 ([facility]) May Have - UNK 11/05/2020 12:00:00 AM EST active May Have - eCW1 ([facility]) May Have - UNK 11/05/2020 12:00:00 AM EST active May Have - eCW1 ([facility]) May Have - UNK 11/05/2020 12:00:00 AM EST active May Have - eCW1 ([facility]) May Have - UNK 11/05/2020 12:00:00 AM EST active May Have - eCW1 ([facility]) May Have - UNK 11/05/2020 12:00:00 AM EST active May Have - eCW1 ([facility]) Warfarin Sodium 5 MG Oral Tablet Warfarin Sodium 5 MG 2019 12:00:00 AM EDT 1.0 {tablet} active Warfarin So dium 5 MG eCW1 ([facility]) Warfarin Sodium 4 MG Oral Tablet Warfarin Sodium 4 MG 2019 12:00:00 AM EDT active Warfarin Sodium 4 MG eCW1 ([facility]) Warfarin Sodium 4 MG Oral Tablet Warfarin Sodium 4 MG 2019 12:00:00 AM EDT active Warfarin Sodium 4 MG eCW1 ([facility]) Warfarin Sodium 4 MG Oral Tablet Warfarin Sodium 4 MG 2019 12:00:00 AM EDT active Warfarin Sodium 4 MG eCW1 ([facility]) Warfarin Sodium 4 MG Oral Tablet Warfarin Sodium 4 MG 2019 12:00:00 AM EDT active Warfarin Sodium 4 MG eCW1 ([facility]) Warfarin Sodium 4 MG Oral Tablet Warfarin Sodium 4 MG 2019 12:00:00 AM EDT active Warfarin Sodium 4 MG eCW1 ([facility]) Warfarin Sodium 4 MG Oral Tablet Warfarin Sodium 4 MG 2019 12:00:00 AM EDT active Warfarin Sodium 4 MG eCW1 ([facility]) Warfarin Sodium 4 MG Oral Tablet Warfarin Sodium 4 MG 2019 12:00:00 AM EDT active Warfarin Sodium 4 MG eCW1 ([facility]) Warfarin Sodium 5 MG Oral Tablet Warfarin Sodium 5 MG 2019 12:00:00 AM EDT 1.0 {tablet} active Warfarin So dium 5 MG eCW1 ([facility]) Warfarin Sodium 5 MG Oral Tablet Warfarin Sodium 5 MG 2019 12:00:00 AM EDT 1.0 {tablet} active Warfarin So dium 5 MG eCW1 ([facility]) Warfarin Sodium 4 MG Oral Tablet Warfarin Sodium 4 MG 2019 12:00:00 AM EDT active Warfarin Sodium 4 MG eCW1 ([facility]) Warfarin Sodium 4 MG Oral Tablet Warfarin Sodium 4 MG 2019 12:00:00 AM EDT active Warfarin Sodium 4 MG eCW1 ([facility]) Warfarin Sodium 4 MG Oral Tablet Warfarin Sodium 4 MG 2019 12:00:00 AM EDT active Warfarin Sodium 4 MG eCW1 ([facility]) Warfarin Sodium 4 MG Oral Tablet Warfarin Sodium 4 MG 2019 12:00:00 AM EDT active Warfarin Sodium 4 MG eCW1 ([facility]) Warfarin Sodium 4 MG Oral Tablet Warfarin Sodium 4 MG 2019 12:00:00 AM EDT active Warfarin Sodium 4 MG eCW1 ([facility]) Warfarin Sodium 4 MG Oral Tablet Warfarin Sodium 4 MG 2019 12:00:00 AM EDT active as directed eCW1 ([facility]) Warfarin Sodium 5 MG Oral Tablet Warfarin Sodium 5 MG 2019 12:00:00 AM EDT 1.0 {tablet} active Warfarin So dium 5 MG eCW1 ([facility]) Warfarin Sodium 4 MG Oral Tablet Warfarin Sodium 4 MG 2019 12:00:00 AM EDT active Warfarin Sodium 4 MG eCW1 ([facility]) Warfarin Sodium 4 MG Oral Tablet Warfarin Sodium 4 MG 2019 12:00:00 AM EDT active Warfarin Sodium 4 MG eCW1 ([facility]) Warfarin Sodium 4 MG Oral Tablet Warfarin Sodium 4 MG 2019 12:00:00 AM EDT active Warfarin Sodium 4 MG eCW1 ([facility]) Warfarin Sodium 4 MG Oral Tablet Warfarin Sodium 4 MG 2019 12:00:00 AM EDT active Warfarin Sodium 4 MG eCW1 ([facility]) Warfarin Sodium 4 MG Oral Tablet Warfarin Sodium 4 MG 2019 12:00:00 AM EDT active Warfarin Sodium 4 MG eCW1 ([facility]) Warfarin Sodium 5 MG Oral Tablet Warfarin Sodium 5 MG 2019 12:00:00 AM EDT 1.0 {tablet} active Warfarin So dium 5 MG eCW1 ([facility]) Warfarin Sodium 4 MG Oral Tablet Warfarin Sodium 4 MG 2019 12:00:00 AM EDT active Warfarin Sodium 4 MG eCW1 ([facility]) Warfarin Sodium 5 MG Oral Tablet Warfarin Sodium 5 MG 2019 12:00:00 AM EDT 1.0 {tablet} active Warfarin So dium 5 MG eCW1 ([facility]) Warfarin Sodium 4 MG Oral Tablet Warfarin Sodium 4 MG 2019 12:00:00 AM EDT active Warfarin Sodium 4 MG eCW1 ([facility]) Warfarin Sodium 4 MG Oral Tablet Warfarin Sodium 4 MG 2019 12:00:00 AM EDT active Warfarin Sodium 4 MG eCW1 ([facility]) Warfarin Sodium 4 MG Oral Tablet Warfarin Sodium 4 MG 2019 12:00:00 AM EDT active Warfarin Sodium 4 MG eCW1 ([facility]) Warfarin Sodium 5 MG Oral Tablet Warfarin Sodium 5 MG 2019 12:00:00 AM EDT 1.0 {tablet} active Warfarin So dium 5 MG eCW1 ([facility]) Warfarin Sodium 4 MG Oral Tablet Warfarin Sodium 4 MG 2019 12:00:00 AM EDT active Warfarin Sodium 4 MG eCW1 ([facility]) Warfarin Sodium 4 MG Oral Tablet Warfarin Sodium 4 MG 2019 12:00:00 AM EDT active Warfarin Sodium 4 MG eCW1 ([facility]) Warfarin Sodium 4 MG Oral Tablet Warfarin Sodium 4 MG 2019 12:00:00 AM EDT active Warfarin Sodium 4 MG eCW1 ([facility]) Warfarin Sodium 4 MG Oral Tablet Warfarin Sodium 4 MG 2019 12:00:00 AM EDT active Warfarin Sodium 4 MG eCW1 ([facility]) Warfarin Sodium 5 MG Oral Tablet Warfarin Sodium 5 MG 2019 12:00:00 AM EDT 1.0 {tablet} active Warfarin So dium 5 MG eCW1 ([facility]) Warfarin Sodium 5 MG Oral Tablet Warfarin Sodium 5 MG 2019 12:00:00 AM EDT active 1 tablet eCW1 ([facility]) Warfarin Sodium 2.5 MG Oral Tablet [Coumadin] Coumadin 2.5 M G Coumadin 2.5 MG 02/15/2020 12:00:00 AM EDT active 1 tablet eCW1 ([facility]) Warfarin Sodium 2.5 MG Oral Tablet [Coumadin] Coumadin 2.5 M G Coumadin 2.5 MG 02/15/2020 12:00:00 AM EDT active 1 tablet eCW1 ([facility]) Warfarin Sodium 1 MG Oral Tablet [Coumadin] Coumadin 1 mg Co umadin 1 mg 01/31/2020 12:00:00 AM EDT active 1/2 tablets c 4mg eCW1 ([facility]) Warfarin Sodium 1 MG Oral Tablet [Coumadin] Coumadin 1 mg Co umadin 1 mg 01/31/2020 12:00:00 AM EDT active 1 tablets in addition to 6mg except tues eCW1 ([facility]) Warfarin Sodium 4 MG Oral Tablet [Coumadin] Coumadin 4 MG Co umadin 4 MG 11/08/2019 12:00:00 AM EST active 1 tablet eCW1 ([facility]) Warfarin Sodium 4 MG Oral Tablet [Coumadin] Coumadin 4 MG Co umadin 4 MG 11/08/2019 12:00:00 AM EST active 1 tablet eCW1 ([facility]) Warfarin Sodium 4 MG Oral Tablet [Coumadin] Coumadin 4 MG Co umadin 4 MG 11/08/2019 12:00:00 AM EST active 1 tablet eCW1 ([facility]) 150 mg iron 09/13/2019 12:00:00 AM EST capsule 30 TAKE ONE CAPSULE BY MOUTH ONCE A DAY TAKE ONE CAPSULE BY MOUTH ONCE A DAY SOLD: 10/21/2019 [facility] 150 mg iron 09/13/2019 12:00:00 AM EST capsule 30 TAKE ONE CAPSULE BY MOUTH ONCE A DAY TAKE ONE CAPSULE BY MOUTH ONCE A DAY SOLD: 01/18/2020 [facility] 150 mg iron 09/13/2019 12:00:00 AM EST capsule 30 TAKE ONE CAPSULE BY MOUTH ONCE A DAY TAKE ONE CAPSULE BY MOUTH ONCE A DAY SOLD: 12/20/2019 [facility] 150 mg iron 09/13/2019 12:00:00 AM EST capsule 30 TAKE ONE CAPSULE BY MOUTH ONCE A DAY TAKE ONE CAPSULE BY MOUTH ONCE A DAY SOLD: 11/17/2019 [facility] 500 mg 07/28/2019 12:00:00 AM EDT tablet 30 TAKE ONE TABLET BY MOUTH EVERY DAY TAKE ONE TABLET BY MOUTH EVERY DAY SOLD: 11/06/2019 [facility] Insurance Providers Payer name Policy type / Coverage type Policy ID Covered constitution party ID Covered constitution party's relationship to zepeda Policy Zepeda Plan Information MEDICARE [id number] SP [id number] [facility] BENEFIT PLAN [id number] SP [id number] SELF PAY ONLY [id number] SP [id number] BENEFIT PLAN [id number] SP [id number] ANSI-Medicare Part B [id number] ANSI-Commercial [id number] ANSI-Commercial [id number] ANSI-Commercial [id number] ANSI-Commercial [id number] ANSI-Medicare Part B [id number] ANSI-Medicare Part B [id number] ANSI-Commercial [id number] ANSI-Commercial [id number] ANSI-Commercial [id number] ANSI-Medicare Part B [id number] ANSI-Commercial [id number] ANSI-Commercial [id number] ANSI-Medicare Part B [id number] ANSI-Commercial [id number] ANSI-Commercial [id number] ANSI-Commercial [id number] ANSI-Medicare Part B [id number] ANSI-Commercial [id number] ANSI-Commercial [id number] ANSI-Medicare Part B [id number] ANSI-Medicare Part B [id number] ANSI-Commercial [id number] ANSI-Commercial [id number] ANSI-Commercial [id number] ANSI-Medicare Part B [id number] ANSI-Commercial [id number] ANSI-Commercial [id number]-n6z9-m6373g8li812 19z7tf5m-162k-916m-k1q7-u9476v0eo951 ANSI-Medicare Part B dk2x1mi6-345q-00q7-g251-15xcsv7m2828 to8l0oa5-425m-32j5-l996-41lhid7t2127 ANSI-Commercial 458887zr-296h-3205-q3y0-665905751y74 948560kn-598c-1147-y8s5-271847676m06 ANSI-Commercial 831xu233-o93z-368h-40v5-4x0854798v94 851qw815-i46r-618h-61a0-2a2901978d44 ANSI-Commercial h12hj998-970v-3i39-6szs-66xnf2o82t7y l50ou122-671y-7s00-9bzt-12och9w54j1t ANSI-Medicare Part B wi09g5cn-d5ac-1w13-9j55-2l4t3726str0 ka71b3gk-c2dm-9r56-4p74-3j2v4903aji9 ANSI-Medicare Part B c2n1y4n0-78q3-7501-0i01-e142l43p6c2w i5u8i8s6-59k9-2424-0z03-n233p58q3f5p ANSI-Commercial h4033k3j-i398-379o-36z9-3g2bu7h2756d a9828d1z-l421-379s-10z1-3i1qq8q1844d ANSI-Commercial ba6028y0-xa21-033t-9187-2u999xq138uh wr3763x0-zc67-712u-4413-1m493yg254na ANSI-Commercial i66v6242-91tk-3466-d65i-96a84ju95ub9 o14x2240-43ye-7005-n98v-40v04zo73fl7 ANSI-Commercial 485r9699-x74t-6882-053t-ap9108275tnb 701e4233-y10z-3560-477w-gs4821247vlx ANSI-Medicare Part B 1u9tah40-2393-9056-247a-3vbpb64mk8hi 3d5hgp18-4562-9277-121e-8mryj74pv1ud ANSI-Commercial n43155i8-3484-12e7-cqvl-k731v1d378p5 w10601c8-3165-60j1-ryov-u786k3w529n2 ANSI-Medicare Part B q328d799-gp8o-831h-uv3o-ob6ira27r556 z804n650-ay5o-881b-yi9x-xi0mhh12a591 ANSI-Commercial ye850q61-47k1-6h2z-sk09-wi2dle390823 lf169q36-66w4-3k1k-dw77-tl9jft652764 ANSI-Commercial 46yaub51-g033-64u8-3447-8n0g61537nzp 25eybx26-e711-14u8-5452-5v4c32745ofr ANSI-Commercial 1fb4py86-4j8o-8632-7278-doj657i47029 5qz9bv99-2i4e-9242-4874-icg260a99681 ANSI-Medicare Part B 1u7j6h2e-52nx-5f50-9956-86476ss9k977 9i0m6u1j-04tu-8c19-8727-85189rs1t881 ANSI-Commercial s4llg1w3-7263-22r4-g443-5984s8891k0d q5sit9x0-8375-29e7-y731-1291u2397m0n ANSI-Medicare Part B j55q5522-74q2-8710-r0c7-477z497z8kr5 c96x0093-52n1-4538-d3g5-118h167p0vm1 ANSI-Commercial 3145u5is-w754-74c9-2r36-7m11yw7h32g0 8546o4uz-q844-11p8-6h56-6v26qm6t27e4 ANSI-Commercial 8304ftrg-d2i6-7k84q7h3-3i08-1v6u-499k5y289329 3618wtok-t1r9-3n79x8g8-2p43-2n9f-913r0b455356 ANSI-Commercial 15m8286r-9297-8430-xutr-03655989aqb3 61i7284z-3746-3362-lxrb-17612954eir7 ANSI-Medicare Part B e154wsn5-efti-8qey-0r2x-r6w4e9h52152 r367pdl6-nown-8xgo-4y4d-g6d2v4b80945 ANSI-Commercial xx25w0n8-4s93-82h9-usqb-78607g2f956x bc11v9v9-2o72-34g4-zbjt-70469h1g678v ANSI-Medicare Part B 5x4f8y7o-8753-3zv4-0433-9od942s0fefy 7u0p0q2u-7147-0ku0-3671-8kt308q2whhb ANSI-Commercial 0l16ki64-5067-9q0f-9318-91a4r0c03429 2w88kl39-2903-0u1j-5897-22o7e6y86652 ANSI-Medicare Part B utr221q2-869p-6712-4645-p223063c3k97 rdg946z1-313n-0433-0500-m939196p7m83 ANSI-Commercial t4z1rlq1-gg49-06yr-t5xn-8341i04b32c1 e3p8vpg1-fd26-87gj-d4nn-7362p80j82n9 ANSI-Commercial 1y22g589-cgl8-7851-61lb-0x63787se7d7 3w21g119-tzq4-0409-22be-5m03085jn0j6 ANSI-Commercial l0mlv598-bi48-8i67-ct5z-4468856488m0 f8vll591-az18-3j14-fs9f-0589592264u1 ANSI-Medicare Part B 9rej57mu-5t35-9h18-f162-9e968150650n 4eem41gb-2g13-3y67-a884-2y608011152p ANSI-Commercial 7od131he-426j-92a7-361x-oht8z07410gl 4jm744ik-500c-41q0-185s-gdh8y12697at [employer] BENEFIT PLAN [id number] SP [id number] MEDICARE [id number] SP 1SV6C85S W70 ANSI-Commercial q49n2qi9-4o97-6hd9-2i40-jv98g8e0jmp7 n77e6ah2-0m21-2jx9-0s28-ud52e0d8otc1 ANSI-Medicare Part B 9187q579-9e78-392g-86l2-355993027z9z 0060h516-0i65-574s-67k5-178084436d4r ANSI-Commercial 93h2260e-5t38-8ei8-f802-2rs2s8h8ax20 28q5248u-8s04-7yq2-n263-1ka2d9o6ko16 ANSI-Commercial 11s61f79-4e1y-1346-g93g-j199e3lbdv91 65b73j20-8x1s-4005-v32z-h039s3uxhw49 ANSI-Medicare Part B 6475g7gb-973v-1905-rgc4-7233pi009l66 0943r6ki-722d-2718-toa6-4176aj930n66 ANSI-Commercial l0734511-1j12-185u-k6ya-y674107z6710 q7499231-4s97-151o-s0jz-s958318k9997 ANSI-Medicare Part B 802yb23r-6v3d-1751-94bg-el2w1952tmx1 769gg79x-8d8o-4324-70ek-xi3p4980tbi2 ANSI-Commercial uxjuz4w7-xj48-2129-i331-o8xyns01385j fqzvg0e2-ih19-8246-t705-s0hmat29564r ANSI-Commercial 4465q0v1-9qo8-6622-391s-07q1a03lf4u1 1236o4t9-7fp8-7693-805k-32m3v29cw8l7 ANSI-Commercial 476pb7od-0659-1171-n1z8-fuchua66190l 074hm2jc-1904-2984-o9y7-rztvac15403y ANSI-Medicare Part B 5w854j5k-3p0s-142n-y838-28673i5yn69c 2w727i0w-8g6p-193r-c342-45636m2fl37j ANSI-Commercial gf036t29-k5x2-57m4-5g1o-8ki7yl016e5o tz078w88-u0o9-99p5-2b9l-7wz2oi331j9n ANSI-Commercial zqz5w37g-17gn-26x9-7541-s28qtc748d0l wnr4v59j-48ua-10x8-3281-z75zvg451g7k ANSI-Medicare Part B 5x6f8k48-5x07-564a-qw10-m238g13y99e1 9a1h9m09-5a47-524d-es41-c900y89y84z8 ANSI-Commercial 93035060-6s36-041a-v8r6-5h40f1be7mtz 21290374-0r09-666y-g1v6-7u83t7uo3kcv ANSI-Medicare Part B 0b3l0u55-0953-437x-co07-om268l1rjr17 0b9i9z81-6507-735i-vi58-ns560z3wpd51 ANSI-Commercial y0285j6v-00w0-7i99-n907-29e5k1z191z6 k1289i2y-10t2-8r24-l911-34q8y4y089r3 ANSI-Commercial 0956qb55-24by-8l84-iqtn-5g8g9335q889 9034yo65-79yx-2q94-cioj-3q1l0368b535 ANSI-Commercial z4l47ep2-6398-069e-25gu-095340b30v0j z7s75qb2-3678-707y-35az-207939c06i1h ANSI-Medicare Part B 469f1033-3603-63n3-xxgg-z271l31430qt 001b4259-1839-90t5-pxvs-v885x44243as ANSI-Commercial x107605k-46t8-3jih-8648-9a386m1i3063 y662871b-37g5-0mdr-8077-4c902e2x0710 ANSI-Medicare Part B vwa11b62-c85r-0n0m-62d8-01no8512m5w7 igq32q44-g21c-8t0o-87j3-84xu5985v1v2 ANSI-Commercial b6g91960-30lb-7241-l167-wf3y4a587321 a3l22990-06ro-2543-i958-vi2z0i666993 ANSI-Commercial w0m64ia0-65z6-31e1-x6z3-o3z00q62r5a5 s8t43bc2-76w0-86y4-s9p0-f5o12w22q4d1 ANSI-Commercial u458466d-52w0-19ez-6eiu-84pc5763g531 r406549s-29p1-22ft-9vto-10mq6450f487 ANSI-Commercial 1382v946-w2eq-947e-0c9v-5p9t9x64a460 0086c684-p8gf-661x-1k2w-5h9t9e74a693 ANSI-Medicare Part B 63ij384i-58l7-0y90-wt79-nl25x4c4m6s3 18lc990g-87n5-4i76-sj33-kk73q8b7q4t7 ANSI-Commercial dg12zm69-e7mc-7638-u771-c2dvows44y57 fe20ly13-f8jf-9588-u882-q1ovrnz43d44 ANSI-Commercial c5290z97-093h-8x34-k248-5901i698z6h7 k9875h48-582b-9j90-w425-0730e592z7p3 ANSI-Medicare Part B l86dehqc-01z8-1061-09qu-h189j78083wt q98vbols-77b7-9197-87qp-q957o00253es ANSI-Commercial 7267k762-e2r9-28w1-du2u-5767pwj5k880 9693n792-j3b3-64q9-wa4m-6882ipl1i776 ANSI-Commercial 47v140jt-4iig-2s53-6790-0f4g0d882z30 19h923js-8ehe-1x98-9392-7z0u0p314h59 ANSI-Medicare Part B p90ih7y7-7452-4887-hp76-q4g7617xdj6a b60zd3w2-4995-3677-wc61-x7c6730dwc5l ANSI-Medicare Part B 4895h788-1359-5m35-n275-b3v2vfn12ntj 6496j934-7482-0k35-w141-i8a3kfq38lwf ANSI-Commercial q2030891-v5m5-1l35-cla0-0550y7xvas38 p6094872-t3h2-7g29-khz6-8534h0cbnx43 ANSI-Commercial 9u07on2b-025u-8084-886a-537vo0066721 2g50oj7q-987x-1226-855j-765hv3296970 ANSI-Medicare Part B 41ef09ur-3j96-6c95-74d6-d6749uke22x0 01ye68mk-0l29-3c16-90p9-w6536ojh44c4 ANSI-Commercial e5511nq5-a334-5332-4685-1kbmnnq3pfy9 k6911qa5-e075-0139-6998-0mqpqod7xlk4 ANSI-Commercial 3o42h4vl-au80-3157-816j-x6kvd0t35i53 6j55f8fn-ja11-7911-551h-q6cvd8x15y89 ANSI-Commercial 8wfdj52q-9c06-2045-d2c8-745m033v996m 9eglq71q-8b61-5598-a9b2-134w148n140b ANSI-Commercial 35r85b6v-15l2-4g67-ab85-6j9d340k327l 76o07s2c-41m0-3y81-mu95-5u8k441i683u ANSI-Medicare Part B a251265j-0701-37f9-w07n-5228re78ndk0 b669257i-7874-16r4-c83c-3787lp36wlv3 ANSI-Commercial 3197d0q6-8260-8v69-08t3-ldd70gkyv2z7 3372r1z2-0953-4y51-04y9-pwa42semb8e0 ANSI-Medicare Part B 0z882ujp-qh50-0eo9-nd8k-k613y93ed7n4 1u359lat-fn49-9oh3-ev6j-b891h01bq6l4 ANSI-Commercial m3x8n3a0-8y89-27p3-308s-728e7g201cro j5y3p9v1-6j79-86m1-097o-059o9d592tst ANSI-Commercial ue49hk7x-2p1k-5zsw-w8y6-75koj6600zls wh09gn7h-1k6d-5zis-m7m1-02nls9078vra ANSI-Commercial 8t4685b2-63fr-7273-n753-65189q99i14w 9h0573q6-32er-8078-l169-20719p83v08k ANSI-Medicare Part B 1i970818-6v79-66qu-q096-z6391973903h 0t424755-7f69-92lf-n132-b8810121515q ANSI-Commercial 718du07t-07ij-7yo5-1ovq-t309jc1cpz94 111fs40a-34zy-0ct5-5aef-u582uj2yjn41 ANSI-Medicare Part B 94050574-t98k-6075-2360-287811051ih8 18471705-i78r-7361-5781-192257827na3 ANSI-Commercial p31osb5h-43i8-1m0t-p41w-6o8o2561e62v d10tmj2r-78e0-5g6m-t98l-8z7o3075q95x ANSI-Medicare Part B l7007600-5392-4y13-67o3-57sy940290rc t4979756-8198-0m28-20g2-80ez097449vx ANSI-Commercial l159ry27-ye88-6h3e-vq1p-424r7y138v1l o947cl08-il47-1h9h-nb8g-937z8b310q7d ANSI-Commercial g57j1365-2842-8oh5-17a9-pgv05ednnjkw d47i0099-8402-5pm6-96k7-sdr87eifkqkc ANSI-Medicare Part B x4606ltq-m776-2v34-y453-77715y6r7m72 d1294nkv-n143-4h13-u310-00481i4u7d43 ANSI-Commercial 808pu1qk-9a8w-96n0-lp1j-3k45936oh6z5 812ti6ji-4y4a-88y7-wy0l-2m38095ss0x8 ANSI-Commercial 541h019b-3u58-0d0v-mnv6-476115929j75 577o512u-9h85-4d2v-kia7-931022297z74 ANSI-Commercial 974323z2-51pz-8m75-4507-9th3146m42iz 307444b9-47cx-7z13-9992-9ed3104t67zl ANSI-Commercial 2o714803-033a-1472-l310-99491a2wy1j6 3x823725-810o-8869-s010-47083a9jd6u3 ANSI-Medicare Part B 68772bt9-13r6-9a18-333t-1j86vxi21ap8 31329yr5-70f0-9d95-366d-7h60xfr37hz4 ANSI-Commercial 238m105b-272r-3a3m-bhff-5tps723n1243 785i316e-621h-4j5x-yiuc-7oax342l3164 ANSI-Commercial 825yt153-a31o-9o67-6lp2-5f3033oox8wg 753tx590-p17v-8q46-1wq1-9t4446wrv6uj ANSI-Medicare Part B 5482w8s0-9a8u-4mk3-fna3-81566p1yhlf3 7244x1m6-4p1c-9wz0-exj7-10016q8dvmg4 ANSI-Medicare Part B x3190f39-c0rc-84h0-k1q7-38n042h291lz j2958v15-k0le-97c8-k5u5-03t564u317pl ANSI-Commercial 93bx10oc-367l-3km0-bvo6-g8908e9njer0 88xn78om-504c-0zw0-dks1-r5338z2yswc5 ANSI-Commercial 65r29lx3-96t7-5wg9-u5x0-f221g468g7ud 41d37tl9-67m6-9xk3-z6v7-e578k872k4xo ANSI-Commercial 75155782-nlv7-2hsl-5sc4-d5e8w7e75c19 28609786-tcm5-6cpe-6bc2-t6j0v1r13v28 ANSI-Medicare Part B a138v95z-u8kh-7520-300i-t5e57m03266u x841o98w-c6uj-0295-305e-l5v29y09817o ANSI-Commercial 955b6zr4-f4y5-4w3m-36d6-8820301mbjr2 697e2zn2-j2a1-6c1z-50l0-0536708nplj2 ANSI-Commercial 3p88414t-92od-3642-x589-ag0tp20d2714 8j60176c-97zt-5294-q328-hm2fs38r0930 ANSI-Medicare Part B 3de282q7-99g1-7566-k912-1638098ozwc4 1ho687t8-44s8-0808-o791-6759503paox7 ANSI-Commercial 05g5o8r9-1974-5536-r580-3jk013okl35n 10a1y9v6-1778-3485-z658-4sr903lhq39d ANSI-Medicare Part B b8i70g7e-kuh4-8099-32h1-6r0q953ye182 m1s23x1m-hhf0-0398-30g5-5k8g404rh779 ANSI-Commercial i24gr448-p55o-9478-0071-uizt34br3926 p59ga055-y18e-6479-2067-xmpo63xt3212 ANSI-Commercial i7js26vq-5f6g-15a1-p26p-u025q12749by c8bn85lf-9b3l-16c9-q00y-f696q52604cs [employer] BENEFIT PLAN [id number] SP [id number] MEDICARE 9MT1Z37JE70 SP 2RK2K49Z W70 ANSI-Commercial 34839s00-a651-8m71-yl3l-fx341iu28551 67571c21-q758-0k87-na1p-ym100yo29959 ANSI-Medicare Part B 47zb7d92-fwgl-2394-siks-8f64h398w3d3 25jy6c34-nmel-1259-uxfq-3o17v075f0n9 ANSI-Commercial mq497zp4-695v-7054-m92n-7lv1uli2xtn4 oi963cr0-558s-5695-m19d-0ib0wul7zda3 ANSI-Medicare Part B 03369f20-kn61-6795-6594-wmpg555941r4 25003v21-vp16-0310-3461-gtli439791q5 ANSI-Commercial 7xxoxr52-xs0s-080j-57n8-m30j2b46g228 8ulwel18-wl9k-555p-33k4-t16k0g43i501 ANSI-Commercial 59m6h1rw-4w91-9r05-a31y-7388k26b7759 77l4c6pj-6i08-9f82-o85g-8048z17x7857 ANSI-Commercial 8651653s-x6z7-68p7-0329-g89b24lfe480 7047559w-w3j8-77x2-2863-v55c42imp026 [facility]-Medicare Part B r01w8xc0-52l4-22y7-2ez6-306u91u1gu40 a14x0ax1-42n5-99p5-0ge0-130n91f8vv99 ANSI-Commercial 603998f4-5lqy-42x8-jupc-686369yd280d 342342w6-5lyt-31s3-nfrh-447849ur094s ANSI-Commercial 56cxr74c-3539-9d92-5068-779f5442095m 88ufl88c-4943-4y57-2071-237r7844874g [facility]-Medicare Part B faz5uw2w-6kj7-043j-9835-4af6d9lp29x2 weo6zh2s-8hs6-787n-8855-4yl3z6wo66y6 ANSI-Commercial co9b46o5-g1n1-1o0n-de85-8hqr30a99al2 bn9k29y2-d1o0-4q0n-vy62-5ncr53f05hu8 [facility]-Medicare Part B 65870v54-j03x-9415-n635-36a38guf594i 83516l70-x01w-4688-a028-61s08qev160v ANSI-Commercial 5g4lh46u-8840-3733-8w2h-6775un40438f 3c2iq17a-0497-3044-3n8p-2102ju50029s ANSI-Commercial 09693f1b-75g4-9198-q996-52n2cr1x7639 91406z9z-30a4-9606-v429-21m7yo5t6137 ANSI-Commercial q29697y4-8248-634f-312h-a4y61e8avk23 r43126n7-6313-090m-581y-u4h10n9sod13 ANSI-Commercial 758wi77x-p2b4-314r-w9fy-0n9039b2h6yl 398pu20r-v0d4-819u-o3mm-3x0216x7j2rf ANSI-Medicare Part B n7pdu42p-566w-4499-4141-4368791zcq58 p0knl51p-689d-0398-1579-6099599ikn23 ANSI-Medicare Part B 307m639o-o6qx-9808-31c6-795290f11w16 068z514l-t2sl-5257-95u1-004649k26o79 ANSI-Commercial z95375v7-88n7-1o41-9463-q8204788z65t f46000s4-93d0-2o99-5724-c9795560k42a ANSI-Commercial b03ik12s-4501-836d-2w5u-22i746t5vluh j49sy42i-6863-517s-1g4p-16n457j9zhaz ANSI-Commercial k6c1jr90-4yqx-8h35-2dv2-6186923rt11w a1s0sc39-6kwp-4n80-6yh4-8122172re44s ANSI-Medicare Part B d4g119r9-2261-86h2-08m8-8ew420169w39 x0m224y4-0966-16s5-73w6-8tg773613r98 ANSI-Commercial mg6663l9-8lw9-3905-d403-k04478a82c31 wq1047v3-3yl8-6127-j626-f89099v95b40 ANSI-Medicare Part B 97szt09s-rcd5-6v14-3098-037btkz6w824 04jwy37z-olv2-9p61-4641-025epfm7x439 ANSI-Commercial 9o41w9jx-x2lz-907p-89vo-7321n7914m63 2p74b1ad-h5ok-025o-54zm-9269b3633q94 ANSI-Commercial 342jadx7-a03h-4dj7-85g2-9qyz427935u8 302zmpi4-f34s-8vl1-53d3-0hin279432q8 ANSI-Commercial 4l9wv930-98gm-4v5i-5438-zloi044y213g 7x5di924-97jt-2y2o-1740-dgpt730w356i ANSI-Commercial 6656e245-qw77-1771-qv86-528143o8d759 4486l050-gx49-6625-ju90-024989s1j144 ANSI-Medicare Part B 48w34mb6-lx43-2935-dw2d-65j23937bg93 59j33iy0-jh91-1409-wg0c-88k29786ku28 ANSI-Medicare Part B 7j648jf6-5253-4wn5-h59c-u895jl55osl3 1b347oa7-3114-5az9-z45j-e450hs88gjm3 ANSI-Commercial y68o6001-k0l7-01n8-g2tu-6h17i1uftr86 v40p7202-l7r6-85o3-z2iz-2n66n2mvde30 ANSI-Commercial 7h645i75-m1kt-4322-1n05-qn7379471o6j 7a387m73-y0rs-8362-2g94-tr6786200v2p ANSI-Commercial 1irr50j3-45m3-431x-m8a1-6q69y28j4009 8wkx93w4-88y3-891j-j8i2-7y49f59a5834 ANSI-Commercial 311fz43u-62yq-2429-yj43-4241wy247rru 567pc67r-75kl-6443-hs80-5804cf288pnc ANSI-Medicare Part B 976937vn-2rn9-3dzv-9285-7bv0292725vq 946374no-5dl8-6uwl-0298-6dz8572120sj ANSI-Commercial o93f9pp6-ous6-11ez-a479-9a59ux8o88fs b13f3ov6-ajq4-17gp-m266-5r44mm6k86zb ANSI-Medicare Part B 51ksy5lx-9372-6pp0-4tpo-8r570h0d1b71 87hlq1eg-9192-2pk4-6htt-6e127n7e2j93 ANSI-Commercial 8ag64x2t-md29-7c50-rs2w-891cdm7b8mj4 3py83o0t-ov80-6a61-up2o-379zvm2k0ml1 ANSI-Commercial h39xh93f-46n7-431l-031s-49492n6330a9 t77yo72p-56l0-487u-030w-34278n5877y2 ANSI-Medicare Part B 7277637p-h796-16w8-7wf4-8ts30s42hd61 2417980o-b606-62m7-3ld2-6id96w51ut61 ANSI-Commercial 1915m3s6-5968-1y43-6n74-0go8ds569h4q 8924a3y7-8762-1d66-0k63-9oq2dw117z0l MEDICARE [id number] A ANSI-Medicare Part B 86206841-k69q-9a09-9788-q5471w87pp5u 53429016-k82j-3r70-2792-v6206n51we0a ANSI-Commercial p9a3216p-27l3-7055-3r69-9n476k5vsp78 f9j9865c-69g1-5493-0b98-7o146f2dox16 ANSI-Commercial z047q8z4-48t3-9y58-9xc6-03z75b6s3203 w839z8n7-15b8-6b78-0zr9-69t10r1e5921 ANSI-Medicare Part B 0ystyv43-9q35-2q1m-t2gu-54314j61j5xk 0nbisv24-3w28-8w6x-w6iv-11979e01r9sn ANSI-Commercial 7i3y044x-l0df-0c93-33t4-1814l8b8lu6b 1x6j702a-x7fs-2q20-29z4-4722q0q7bv4h ANSI-Commercial cy7ti306-a712-7o1q-v5n8-5j740m563f86 wu7yh041-d894-1b4b-f8e6-1s393c581n52 ANSI-Commercial [id number] ANSI-Medicare Part B [id number] ANSI-Commercial [id number] ANSI-Medicare Part B [id number] ANSI-Commercial [id number] ANSI-Commercial [id number] ANSI-Medicare Part B [id number] ANSI-Commercial [id number] ANSI-Commercial [id number] [facility] [employer] [employer] BENEF O [id number] S [id number] MEDICARE C [id number] S [id number] A [facility] [employer] BENEF O [id number] S [id number] [employer] BENEFIT PLAN [id number] SP [id number] MEDICARE [id number] SP [id number] A [facility] Medigap Part B [id number] Self [id number] [facility] Medigap Part B [id number] Self [id number] Medicare [facility] Medicare Primary [id number] Self [id number] [employer] BENEFIT PLAN [id number] SP [id number] [employer] BENEFIT PLAN [id number] SP [id number] [employer] BENEFIT PLAN [id number] SP [id number] Medicare [facility] Medicare Primary [id number] Self [id number] [facility] Medigap Part B [id number] Self [id number] Medicare [facility] Medicare Primary [id number] Self [id number] [facility] [employer] HAND[employer] BENEF O [id number] S [id number] [facility] MA[employer] HAND[employer] BENEF O [id number] S [id number] [employer] BENEFIT PLAN [id number] SP [id number] MEDICARE [id number] SP [id number] A [employer] BENEFIT PLAN [id number] SP [id number] A [id number] Problems, Conditions, and Diagnoses Code Display Name Description Problem Type Effective Dates Data Source(s) R63.4 91584463 Weight loss Problem 10/19/2020 12:00:[address] eCW1 ([facility]) R27.0 09159177 Ataxia Problem 10/19/2020 12:00:00 AM ES T eCW1 ([facility]) J30.89 [id number] 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 Problem 11/28/2019 12:00:00 AM EST eCW1 ([facility]) J30.9 [id number] Allergic rhinitis, unspecified s easonality, unspecified trigger Problem 11/28/2019 12:00:00 AM EST eCW1 ([facility]) J30.89 [id number] 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 Problem 11/28/2019 12:00:00 AM EST eCW1 ([facility]) J30.9 [id number] Allergic rhinitis, unspecified s easonality, unspecified trigger Problem 11/28/2019 12:00:00 AM EST eCW1 ([facility]) Surgeries/Procedures Procedure Description Date Indications Data Source(s) PHYSICIAN TELEPHONE EVALUATION 5-10 MIN 02/29/2020 12: 00:00 AM EDT eCW1 ([facility]) Office Visit, Est Pt., Level 3 PC 01/09/2020 12:00:00 AM EDT eCW1 ([facility]) Office Visit, Est Pt., Level 2 FC 01/09/2020 12:00:00 AM EDT eCW1 ([facility]) PROTHROMBIN TIME 01/09/2020 12:00:00 AM EDT eCW1 ([facility]) Office Visit, Est Pt., Level 2 PC 12/27/2019 12:00:00 AM EST eCW1 ([facility]) Office Visit, Est Pt., Level 4 PC 11/28/2019 12:00:00 AM EST eCW1 ([facility]) Results ID Date Data Source [id number] 11/17/2020 12:00:00 AM EST [facility] Name Value Range Interpretation Code Description Data Edna rce(s) Supporting Document(s) SARS-CoV-2 (COVID-19) RNA [Presence] in Respiratory specimen by STEPHANIE with probe detection Not Detected [facility] This lab was ordered by [facility] and reported by [email or web address] ID Date Data Source FERRITIN 10/16/2020 12:00:00 AM EST eCW1 ([facility]) Name Value Range Interpretation Code Description Data Edna rce(s) Supporting Document(s) 12 8-252 FERRITIN eCW1 ([facility]) ID Date Data Source Reticulocyte Count [employer] 10/16/2020 12:00:00 AM EST eCW1 ([facility]) Name Value Range Interpretation Code Description Data Edna rce(s) Supporting Document(s) 0.8 0.5-1.5 RETICULOCYTE % eCW1 ([facility]) ID Date Data Source Comprehensive Metabolic Profile (CMP) 10/16/2020 12:00:00 AM EST eCW1 ([facility]) Name Value Range Interpretation Code Description Data Edna rce(s) Supporting Document(s) 107 70-100 GLUCOSE, FASTING eCW1 ([facility]) 36 7-18 BLOOD UREA NITROGEN eCW1 ([facility]) 1.72 0.55-1.30 CREATININE FOR GFR eCW1 ([facility]) 30.0 >32 GLOMERULAR FILTRATION RATE eCW 1 ([facility]) 106 98-107 CHLORIDE LEVEL eCW1 ([facility]) 141 136-145 SODIUM LEVEL eCW1 (Count includes the [facility]) 4.6 3.5-5.1 POTASSIUM SERUM eCW1 ([facility]) 30 21-32 CARBON DIOXIDE LEVEL eCW1 ([facility]) 29 12-78 ALT/SGPT eCW1 ([facility]) 31 7-37 AST/SGOT eCW1 ([facility]) 122 45-117 ALKALINE PHOSPHATASE eCW1 ([facility]) 9.5 8.8-10.2 CALCIUM LEVEL eCW1 ([facility]) 0.3 0.2-1.0 BILIRUBIN,TOTAL eCW1 ([facility]) 6.2 6.4-8.2 TOTAL PROTEIN eCW1 ([facility]) 3.5 3.2-5.2 ALBUMIN eCW1 ([facility]) 1.3 1.2-2.2 ALBUMIN/GLOBULIN RATIO eCW1 ([facility]) ID Date Data Source CBC with Differential 10/16/2020 12:00:00 AM EST eCW1 ([facility]) Name Value Range Interpretation Code Description Data Edna rce(s) Supporting Document(s) 4.7 4.0-10.0 WHITE BLOOD COUNT eCW1 ([facility]) 10.9 12.0-15.5 HEMOGLOBIN eCW1 ([facility]) 3.96 4.00-5.40 RED BLOOD COUNT eCW1 ([facility]) 27.5 27.0-33.0 MEAN CORPUSCULAR HEMOGLOB IN eCW1 ([facility]) 36.3 36.0-47.0 HEMATOCRIT eCW1 ([facility]) 30.0 32.0-36.5 MEAN CORPUSCULAR HGB CONC eCW1 ([facility]) 91.7 80.0-96.0 MEAN CORPUSCULAR VOLUME e CW1 ([facility]) 59.8 36.0-66.0 NEUTROPHILS % eCW1 ([facility]) 181 150-450 PLATELET COUNT, AUTOMATED eCW1 ([facility]) 13.9 11.5-14.5 RED CELL DISTRIBUTION WID TH eCW1 ([facility]) 0.9 0.0-1.0 BASO % eCW1 ([facility]) 11.1 0.0-5.0 MONO % eCW1 ([facility]) 3.2 0.0-3.0 EOS % eCW1 ([facility]) 24.8 24.0-44.0 LYMPH % eCW1 ([facility]) 2.8 1.5-8.5 NEUTROPHILS # eCW1 ([facility]) 0.2 0.0-0.5 EOS # eCW1 ([facility]) 1.2 1.5-5.0 LYMPH # eCW1 ([facility]) 0.5 0.0-0.8 MONO # eCW1 ([facility]) 0.0 0.0-0.2 BASO # eCW1 ([facility]) ID Date Data Source NT-PRO BNP 10/16/2020 12:00:00 AM EST eCW1 ([facility]) Name Value Range Interpretation Code Description Data Edna rce(s) Supporting Document(s) 427 <450 NT-PRO BNP eCW1 ([facility]) ID Date Data Source RENAL PROFILE 10/05/2020 12:00:00 AM EST eCW1 ([facility]) Name Value Range Interpretation Code Description Data Edan rce(s) Supporting Document(s) 36 7-18 BLOOD UREA NITROGEN eCW1 ([facility]) 97 70-100 GLUCOSE, FASTING eCW1 ([facility]) 30.0 >32 GLOMERULAR FILTRATION RATE eCW 1 ([facility]) 141 136-145 SODIUM LEVEL eCW1 (Count includes the [facility]) 1.72 0.55-1.30 CREATININE FOR GFR eCW1 ([facility]) 4.7 3.5-5.1 POTASSIUM SERUM eCW1 ([facility]) 9.5 8.8-10.2 CALCIUM LEVEL eCW1 ([facility]) 29 21-32 CARBON DIOXIDE LEVEL eCW1 ([facility]) 108 98-107 CHLORIDE LEVEL eCW1 ([facility]) 3.5 2.5-4.9 PHOSPHORUS LEVEL eCW1 ([facility]) 3.6 3.2-5.2 ALBUMIN eCW1 ([facility]) ID Date Data Source PT-INR Fingerstick 09/04/2020 10:06:41 AM EST eCW1 ([facility]) Name Value Range Interpretation Code Description Data Edna rce(s) Supporting Document(s) 5mg Verified Patient's Name and DO B eCW1 ([facility]) 2.5 INR eCW1 ([facility]) Current Dose 1 eCW1 ([facility]) Tab Strength eCW1 (Count includes the [facility]) 5mg daily Current Dose 2 eCW1 ([facility]) DVT Indication for Anticoagulation eCW1 ([facility]) no Recent Bleeding eCW1 ([facility]) yes Internal QC Acceptable (Y/N) e CW1 ([facility]) 1.8-2.0 Therapeutic Range eCW1 ([facility]) Education Given (Date / Initia ls) eCW1 ([facility]) New Dose 1 eCW1 ([facility]) 4 m-w-f 5 ROW New Dose 2 eCW1 ([facility]) 32 Weekly Total eCW1 (Count includes the [facility]) 2 week Next PT-INR eCW1 ([facility]) - eCW1 ([facility]) ID Date Data Source PT-INR 02/29/2020 12:00:00 AM EDT eCW1 ([facility]) Name Value Range Interpretation Code Description Data Edna rce(s) Supporting Document(s) Prothrombin time (PT) 20.3 11.8-14.0 PROTHROMBIN TI ME eCW1 ([facility]) INR in Platelet poor plasma by Coagulation assay 1.76 INR eCW1 ([facility]) ID Date Data Source PT & APTT 11/28/2019 12:00:00 AM EST eCW1 ([facility]) Name Value Range Interpretation Code Description Data Edna rce(s) Supporting Document(s) 17.3 11.8-14.0 PROTHROMBIN TIME eCW1 ([facility]) 31.2 25.0-38.4 PARTIAL THROMBOPLASTIN TI ME eCW1 ([facility]) 1.45 INR eCW1 ([facility]) ID Date Data Source PHENYTOIN (DILANTIN) 11/28/2019 12:00:00 AM EST eCW1 ([facility]) Name Value Range Interpretation Code Description Data Edna rce(s) Supporting Document(s) 9.3 10.0-20.0 PHENYTOIN (DILANTIN) eCW1 ([facility]) ID Date Data Source ERYTHROPOIETIN 11/23/2019 12:00:00 AM EST eCW1 ([facility]) Name Value Range Interpretation Code Description Data Edna rce(s) Supporting Document(s) 81.1 2.6-18.5 ERYTHROPOIETIN eCW1 ([facility]) Procedure Social History Code Duration Value Status Description Data Source(s ) Smoking 11/27/2020 12:00:00 AM EST Never Smoker completed Never S moker eCW1 ([facility]) Smoking 11/27/2020 12:00:00 AM EST Never Smoker completed Never S moker eCW1 ([facility]) Smoking 10/19/2020 12:00:00 AM EST Never Smoker completed Never S moker eCW1 ([facility]) Smoking 10/19/2020 12:00:00 AM EST Never Smoker completed Never S moker eCW1 ([facility]) Smoking 10/19/2020 12:00:00 AM EST Never Smoker completed Never S moker eCW1 ([facility]) Smoking 10/19/2020 12:00:00 AM EST Never Smoker completed Never S moker eCW1 ([facility]) Smoking 10/19/2020 12:00:00 AM EST Never Smoker completed Never S moker eCW1 ([facility]) Smoking 10/19/2020 12:00:00 AM EST Never Smoker completed Never S moker eCW1 ([facility]) Smoking 10/19/2020 12:00:00 AM EST Never Smoker completed Never S moker eCW1 ([facility]) Smoking 10/05/2020 12:00:00 AM EST Never Smoker completed Never S moker eCW1 ([facility]) Smoking 10/05/2020 12:00:00 AM EST Never Smoker completed Never S moker eCW1 ([facility]) Smoking 10/05/2020 12:00:00 AM EST Never Smoker completed Never S moker eCW1 ([facility]) Smoking 09/18/2020 12:00:00 AM EST Never Smoker completed Never S moker eCW1 ([facility]) Smoking 09/04/2020 12:00:00 AM EST Never Smoker completed Never S moker eCW1 ([facility]) Smoking 09/04/2020 12:00:00 AM EST Never Smoker completed Never S moker eCW1 ([facility]) Smoking 04/10/2020 12:00:00 AM EDT Never Smoker completed Never S moker eCW1 ([facility]) Smoking 04/10/2020 12:00:00 AM EDT Never Smoker completed Never S moker eCW1 ([facility]) Smoking 04/10/2020 12:00:00 AM EDT Never Smoker completed Never S moker eCW1 ([facility]) Smoking 04/10/2020 12:00:00 AM EDT Never Smoker completed Never S moker eCW1 ([facility]) Smoking 04/10/2020 12:00:00 AM EDT Never Smoker completed Never S moker eCW1 ([facility]) Smoking 04/10/2020 12:00:00 AM EDT Never Smoker completed Never S moker eCW1 ([facility]) Smoking 04/10/2020 12:00:00 AM EDT Never Smoker completed Never S moker eCW1 ([facility]) Smoking 04/10/2020 12:00:00 AM EDT Never Smoker completed Never S moker eCW1 ([facility]) Smoking 04/10/2020 12:00:00 AM EDT Never Smoker completed Never S moker eCW1 ([facility]) Smoking 04/10/2020 12:00:00 AM EDT Never Smoker completed Never S moker eCW1 ([facility]) Vital Signs ID Date Data Source UNK Name Value Range Interpretation Code Description Data Source(s) Diastolic blood pressure 68 mm[Hg] 68 mm[Hg] eCW1 ([facility]) Systolic blood pressure 122 mm[Hg] 122 mm[Hg] e CW1 ([facility]) Body temperature 98.8 [degF] 98.8 [degF] eCW1 ( [facility]) Respiratory rate 18 /min 18 /min eCW1 ([facility]) Heart rate 96 /min 96 /min eCW1 ([facility]) Body mass index (BMI) [Ratio] 22.66 kg/m2 22.66 kg/m2 W1 ([facility]) Body height 64 [in_i] 64 [in_i] eCW1 ([facility]) Body weight 132.0 [lb_av] 132.0 [lb_av] eCW1 ([facility]) Diastolic blood pressure 78 mm[Hg] 78 mm[Hg] eCW1 ([facility]) Systolic blood pressure 130 mm[Hg] 130 mm[Hg] e CW1 ([facility]) Body temperature 98.6 [degF] 98.6 [degF] eCW1 ( [facility]) Respiratory rate 20 /min 20 /min eCW1 ([facility]) Heart rate 93 /min 93 /min eCW1 ([facility]) Body mass index (BMI) [Ratio] 22.83 kg/m2 22.83 kg/m2 eCW1 ([facility]) Body height 64 [in_i] 64 [in_i] eCW1 ([facility]) Body weight 133.0 [lb_av] 133.0 [lb_av] eCW1 ([facility]) Diastolic blood pressure 70 mm[Hg] 70 mm[Hg] eCW1 ([facility]) Systolic blood pressure 124 mm[Hg] 124 mm[Hg] e CW1 ([facility]) Body temperature 98.5 [degF] 98.5 [degF] eCW1 ( [facility]) Respiratory rate 18 /min 18 /min eCW1 ([facility]) Heart rate 78 /min 78 /min eCW1 ([facility]) Body mass index (BMI) [Ratio] 22.48 kg/m2 22.48 kg/m2 eCW1 ([facility]) Body height 64 [in_i] 64 [in_i] eCW1 ([facility]) Body weight 131 [lb_av] 131 [lb_av] eCW1 ([facility]) Diastolic blood pressure 68 mm[Hg] 68 mm[Hg] eCW1 ([facility]) Systolic blood pressure 126 mm[Hg] 126 mm[Hg] e CW1 ([facility]) Body temperature 98.6 [degF] 98.6 [degF] eCW1 ( [facility]) Respiratory rate 18 /min 18 /min eCW1 ([facility]) Heart rate 92 /min 92 /min eCW1 ([facility]) Body mass index (BMI) [Ratio] 22.48 kg/m2 22.48 kg/m2 eCW1 ([facility]) Body height 64 [in_i] 64 [in_i] eCW1 ([facility]) Body weight 131 [lb_av] 131 [lb_av] eCW1 ([facility]) Diastolic blood pressure 72 mm[Hg] 72 mm[Hg] eCW1 ([facility]) Systolic blood pressure 124 mm[Hg] 124 mm[Hg] e CW1 ([facility]) Body temperature 98.2 [degF] 98.2 [degF] eCW1 ( [facility]) Respiratory rate 18 /min 18 /min eCW1 ([facility]) Heart rate 98 /min 98 /min eCW1 ([facility]) Body mass index (BMI) [Ratio] 22.66 kg/m2 22.66 kg/m2 eCW1 ([facility]) Body height 64 [in_i] 64 [in_i] eCW1 ([facility]) Body weight 132 [lb_av] 132 [lb_av] eCW1 ([facility]) Diastolic blood pressure 70 mm[Hg] 70 mm[Hg] eCW1 ([facility]) Systolic blood pressure 116 mm[Hg] 116 mm[Hg] e CW1 ([facility]) Body temperature 98.1 [degF] 98.1 [degF] eCW1 ( [facility]) Respiratory rate 16 /min 16 /min eCW1 ([facility]) Heart rate 84 /min 84 /min eCW1 ([facility]) Body mass index (BMI) [Ratio] 23.86 kg/m2 23.86 kg/m2 eCW1 ([facility]) Body height 64 [in_i] 64 [in_i] eCW1 ([facility]) Body weight 139 [lb_av] 139 [lb_av] eCW1 ([facility]) Diastolic blood pressure 60 mm[Hg] 60 mm[Hg] eCW1 ([facility]) Systolic blood pressure 130 mm[Hg] 130 mm[Hg] e CW1 ([facility]) Body temperature 98.5 [degF] 98.5 [degF] eCW1 ( [facility]) Respiratory rate 20 /min 20 /min eCW1 ([facility]) Heart rate 97 /min 97 /min eCW1 ([facility]) Body mass index (BMI) [Ratio] 23.86 kg/m2 23.86 kg/m2 eCW1 ([facility]) Body height 64 [in_us] 64 [in_us] eCW1 ([facility]) Body weight Measured 139.0 [lb_av] 139.0 [lb_av ] eCW1 ([facility]) Diastolic blood pressure 76 mm[Hg] 76 mm[Hg] eCW1 ([facility]) Systolic blood pressure 122 mm[Hg] 122 mm[Hg] e CW1 ([facility]) Body temperature 97.9 [degF] 97.9 [degF] eCW1 ( [facility]) Respiratory rate 20 /min 20 /min eCW1 ([facility]) Heart rate 98 /min 98 /min eCW1 ([facility]) Body mass index (BMI) [Ratio] 24.20 kg/m2 24.20 kg/m2 eCW1 ([facility]) Body height 64 [in_us] 64 [in_us] eCW1 ([facility]) Body weight Measured 141.0 [lb_av] 141.0 [lb_av ] eCW1 ([facility]) Diastolic blood pressure 62 mm[Hg] 62 mm[Hg] eCW1 ([facility]) Systolic blood pressure 112 mm[Hg] 112 mm[Hg] e CW1 ([facility]) Body temperature 97.8 [degF] 97.8 [degF] eCW1 ( [facility]) Respiratory rate 20 /min 20 /min eCW1 ([facility]) Heart rate 93 /min 93 /min eCW1 ([facility]) Body mass index (BMI) [Ratio] 24.27 kg/m2 24.27 kg/m2 W1 ([facility]) Body height 64 [in_us] 64 [in_us] eCW1 ([facility]) Body weight Measured 141.4 [lb_av] 141.4 [lb_av ] eCW1 ([facility]) Diastolic blood pressure 60 mm[Hg] 60 mm[Hg] eCW1 ([facility]) Systolic blood pressure 148 mm[Hg] 148 mm[Hg] e CW1 ([facility]) Body temperature 97.6 [degF] 97.6 [degF] eCW1 ( [facility]) Respiratory rate 20 /min 20 /min eCW1 ([facility]) Heart rate 88 /min 88 /min eCW1 ([facility]) Body mass index (BMI) [Ratio] 24.99 kg/m2 24.99 kg/m2 eCW1 ([facility]) Body height 64 [in_us] 64 [in_us] eCW1 ([facility]) Body weight Measured 145.6 [lb_av] 145.6 [lb_av ] eCW1 ([facility]) Diastolic blood pressure 70 mm[Hg] 70 mm[Hg] eCW1 ([facility]) Systolic blood pressure 130 mm[Hg] 130 mm[Hg] e CW1 ([facility]) Body temperature 98.7 [degF] 98.7 [degF] eCW1 ( [facility]) Respiratory rate 20 /min 20 /min eCW1 ([facility]) Heart rate 91 /min 91 /min eCW1 ([facility]) Body mass index (BMI) [Ratio] 24.58 kg/m2 24.58 kg/m2 eCW1 ([facility]) Body height 64 [in_us] 64 [in_us] eCW1 ([facility]) Body weight Measured 143.2 [lb_av] 143.2 [lb_av ] eCW1 ([facility]) Patient Treatment Plan of Care Planned Activity Planned Date Details Description Data Source (s) March - 11/05/2020 12:00:00 AM EST e CW1 ([facility]) March - 11/05/2020 12:00:00 AM EST e CW1 ([facility]) March - 11/05/2020 12:00:00 AM EST e CW1 ([facility]) May Have - 11/05/2020 12:00:00 AM EST e CW1 ([facility]) Warfarin Sodium 5 MG Oral Tablet 03/30/2020 12:00:00 AM EDT eCW1 ([facility]) Warfarin Sodium 5 MG Oral Tablet 03/30/2020 12:00:00 AM EDT eCW1 ([facility]) Warfarin Sodium 2.5 MG Oral Tablet [Coumadin] 02/15/2020 12:00:00 A M EDT eCW1 ([facility]) Warfarin Sodium 1 MG Oral Tablet [Coumadin] 01/31/2020 12:00:00 AM EDT eCW1 ([facility]) Warfarin Sodium 1 MG Oral Tablet [Coumadin] 01/31/2020 12:00:00 AM EDT eCW1 ([facility]) Warfarin Sodium 4 MG Oral Tablet [Coumadin] 11/08/2019 12:00:00 AM EST eCW1 ([facility]) Warfarin Sodium 4 MG Oral Tablet [Coumadin] 11/08/2019 12:00:00 AM EST eCW1 ([facility])
[2020-12-20] MEDS ORDERED: NS 1,000 ML IV SCH (13:00)
--- OUTSIDE RECORDS SUMMARY | 2020-12-20 13:27 | CCD ---
Author Author [facility] Organization [facility] Address Unknown Phone Unavailable Support Name Relationship Address Phone [place] [address] RETIRED Next Of Kin Unknown RAMIREZ, STEVEN Next Of Kin [address] [place] [address] RE Next Of Kin Unknown Unavailable BONE, ALEXIS Next Of Kin [address] [place] [address] RAMIREZUVALDO Next Of Kin [address] [place] [address] uvaldo ramirez ECON [address] [place] [address] Re-disclosure Warning The records that you are [...] is protected by Article 27-F of the [facility] Public Health law. If you continue you may have access to information: Regarding HIV / AIDS; Provided by facilities licensed or operated by the [facility] Office of Mental Health; or Provided by the [facility] Office for People With Developmental Disabilities. If such information is present, then the following [facility] mandated warning applies: This information has been [...] law may result in a fine or senior living sentence or both. A general authorization for the release of medical or other information is NOT sufficient authorization for further disc losure. Allergies and Adverse Reactions Type Description Substance Reaction Status Data Source(s ) Drug allergy Bactrim sulfamethoxazole / trimethoprim effect on kid neys Active eCW1 ([facility]) Family History Family Member Name Family Member Gender Family Member Status Date o f Status Description Data Source(s) Unknown Unknown Problem MEDENT ([facility], ) Encounters Encounter Providers Location Date Indications Data Source(s ) Unknown [address] [facility] [place] [address] 11/29/2020 12:00:00 AM EST eCW1 ([facility]) Outpatient [address] [facility] [address] 11/27/2020 12:00:00 AM EST eCW1 ([facility]) Unknown [address] [facility] [place] [address] 11/23/2020 12:00:00 AM EST eCW1 ([facility]) Unknown [address] [facility] [place] [address] 11/09/2020 12:00:00 AM EST eCW1 ([facility]) Unknown [address] [facility] [place] [address] 11/09/2020 12:00:00 AM EST eCW1 ([facility]) Unknown [address] [facility] [place] [address] 10/30/2020 12:00:00 AM EST eCW1 ([facility]) Unknown [address] [facility] [place] [address] 10/29/2020 12:00:00 AM EST eCW1 ([facility]) Unknown [address] [facility] [place] [address] 10/19/2020 12:00:00 AM EST eCW1 ([facility]) Office Visit, Est Pt., Level 4 PC [address] [place] [address] 10/19/2020 12:00:00 AM EST [facility]CW1 [facility] [place] [address] [facility] [address] 10/09/2020 12:00:00 AM EST eCW1 ([facility]) Unknown [address] [facility] [address] 10/08/2020 12:00:00 AM EST eCW1 ([facility]) Office Visit, Est Pt., Level 3 PC [address] [place] [address] 10/05/2020 12:00:00 AM EST eCW1 ([facility]) Office Visit, Est Pt., Level 3 PC [address] [place] [address] 09/18/2020 12:00:00 AM EST [facility]CW[facility]) Unknown [address] [facility] [place] [address] 09/13/2020 12:00:00 AM EST eCW1 [facility]) Office Visit, Est Pt., Level 2 PC [address] [place] [address] 09/04/2020 12:00:00 AM EST eCW1 ([facility]) Unknown [address] [facility] [address] 08/27/2020 12:00:00 AM EDT eCW1 ([facility]) Unknown [address] [facility] [place] [address] 08/23/2020 12:00:00 AM EDT eCW1 ([facility]) Unknown [address] [facility] [place] [address] 05/18/2020 12:00:00 AM EDT eCW1 ([facility]) Unknown [address] [facility] [address] 05/15/2020 12:00:00 AM EDT eCW1 ([facility]) Unknown [address] [facility] [address] 04/24/2020 12:00:00 AM EDT eCW1 ([facility]) Unknown [address] [facility] [address] 04/24/2020 12:00:00 AM EDT eCW1 ([facility]) Unknown [address] [facility] [address] 04/18/2020 12:00:00 AM EDT eCW1 ([facility]) Unknown [address] [facility] [address] 04/13/2020 12:00:00 AM EDT eCW1 ([facility]) Unknown [address] [facility] [address] 04/10/2020 12:00:00 AM EDT eCW1 ([facility]) Outpatient [address] [facility] [address] 04/10/2020 12:00:00 AM EDT eCW1 ([facility]) [facility] [address] [facility] [address] 04/05/2020 12:00:00 AM EDT eCW1 ([facility]) [facility] [address] [facility] [address] 04/02/2020 12:00:00 AM EDT eCW1 ([facility]) [facility] [address] [facility] [address] 04/02/2020 12:00:00 AM EDT eCW1 ([facility]) [facility] [address] [facility] [address] 04/02/2020 12:00:00 AM EDT eCW1 ([facility]) [facility] [address] [facility] [address] 03/28/2020 12:00:00 AM EDT eCW1 ([facility]) [facility] [address] [facility] [address] 03/27/2020 12:00:00 AM EDT eCW1 ([facility]) [facility] [address] [facility] [address] 02/29/2020 12:00:00 AM EDT eCW1 ([facility]) [facility] [address] [place] [address], [place] [address] 02/21/2020 12:00:00 AM EDT eCW1 ([facility]) [facility] [address] [place] [address], [place] [address] 02/15/2020 12:00:00 AM EDT eCW1 ([facility]) [facility] [address] [place] [address], [place] [address] 02/02/2020 12:00:00 AM EDT eCW1 ([facility]) [facility] [address] [place] [address], [place] [address] 02/01/2020 12:00:00 AM EDT eCW1 ([facility]) [facility] [address] [place] [address], [place] [address] 02/01/2020 12:00:00 AM EDT eCW1 ([facility]) [facility] [address] [place] [address], [place] [address] 02/01/2020 12:00:00 AM EDT eCW1 ([facility]) [facility] [address] [place] [address], [place] [address] 01/31/2020 12:00:00 AM EDT eCW1 ([facility]) [facility] [address] [place] [address], [place] [address] 01/27/2020 12:00:00 AM EDT eCW1 ([facility]) [facility] [address] [place] [address], [place] [address] 01/19/2020 12:00:00 AM EDT eCW1 ([facility]) [facility] [address] [place] [address], [place] [address] 01/09/2020 12:00:00 AM EDT eCW1 ([facility]) [facility] [address] [place] [address], [place] [address] 12/28/2019 12:00:00 AM EST eCW1 ([facility]) [facility] [address] [place] [address], [place] [address] 12/27/2019 12:00:00 AM EST eCW1 ([facility]) [address] [address] 12/12/2019 12:00:00 AM EST eCW1 ([facility]) [address] [address] 12/09/2019 12:00:00 AM EST eCW1 ([facility]) [address] [address] 11/30/2019 12:00:00 AM EST eCW1 ([facility]) [address] [address] 11/28/2019 12:00:00 AM EST eCW1 ([facility]) [address] [address] 11/28/2019 12:00:00 AM EST eCW1 ([facility]) [address] [address] 11/24/2019 12:00:00 AM EST eCW1 ([facility]) [address] [address] 11/22/2019 12:00:00 AM EST eCW1 ([facility]) [address] [address] 11/08/2019 12:00:00 AM EST eCW1 ([facility]) Immunizations Vaccine Date Status Description Data Source(s) IIV3. This is one of two codes replacing CVX 15, which is being retired. 08/10/2020 02:07:00 PM EDT completed eCW1 ([facility]) IIV3. This is one of two codes replacing CVX 15, which is being retired. 08/10/2020 02:07:00 PM EDT completed eCW1 ([facility]) IIV3. This is one of two codes replacing CVX 15, which is being retired. 08/10/2020 02:07:00 PM EDT completed eCW1 ([facility]) IIV3. This is one of two codes replacing CVX 15, which is being retired. 08/10/2020 02:07:00 PM EDT completed eCW1 ([facility]) IIV3. This is one of two codes replacing CVX 15, which is being retired. 08/10/2020 02:07:00 PM EDT completed eCW1 ([facility]) IIV3. This is one of two codes replacing CVX 15, which is being retired. 08/10/2020 02:07:00 PM EDT completed eCW1 ([facility]) IIV3. This is one of two codes replacing CVX 15, which is being retired. 08/10/2020 02:07:00 PM EDT completed eCW1 ([facility]) IIV3. This is one of two codes replacing CVX 15, which is being retired. 08/10/2020 02:07:00 PM EDT completed eCW1 ([facility]) IIV3. This is one of two codes replacing CVX 15, which is being retired. 08/10/2020 02:07:00 PM EDT completed eCW1 ([facility]) IIV3. This is one of two codes replacing CVX 15, which is being retired. 08/10/2020 02:07:00 PM EDT completed eCW1 ([facility]) IIV3. This is one of two codes replacing CVX 15, which is being retired. 08/10/2020 02:07:00 PM EDT completed eCW1 ([facility]) IIV3. This is one of two codes replacing CVX 15, which is being retired. 08/10/2020 02:07:00 PM EDT completed eCW1 ([facility]) IIV3. This is one of two codes replacing CVX 15, which is being retired. 08/10/2020 02:07:00 PM EDT completed eCW1 ([facility]) IIV3. This is one of two codes replacing CVX 15, which is being retired. 08/10/2020 02:07:00 PM EDT completed eCW1 ([facility]) IIV3. This is one of two codes replacing CVX 15, which is being retired. 08/10/2020 02:07:00 PM EDT completed eCW1 ([facility]) Medications Medication Brand Name Start Date Product Form Dose Route Admi nistrative Instructions Pharmacy Instructions Status Indications Reaction Description Data Source(s) May Have - UNK 11/05/2020 12:00:00 AM EST active May Have - eCW1 ([facility]) May Have - UNK 11/05/2020 12:00:00 AM EST active May Have - eCW1 ([facility]) May Have - UNK 11/05/2020 12:00:00 AM EST active May Have - eCW1 ([facility]) May Have - UNK 11/05/2020 12:00:00 AM EST active May Have - eCW1 ([facility]) May Have - UNK 11/05/2020 12:00:00 AM EST active May Have - eCW1 ([facility]) May Have - UNK 11/05/2020 12:00:00 AM EST active May Have - eCW1 ([facility]) Warfarin Sodium 5 MG Oral Tablet Warfarin Sodium 5 MG 2019 12:00:00 AM EDT 1.0 {tablet} active Warfarin So dium 5 MG eCW1 ([facility]) Warfarin Sodium 4 MG Oral Tablet Warfarin Sodium 4 MG 2019 12:00:00 AM EDT active Warfarin Sodium 4 MG eCW1 ([facility]) Warfarin Sodium 4 MG Oral Tablet Warfarin Sodium 4 MG 2019 12:00:00 AM EDT active Warfarin Sodium 4 MG eCW1 ([facility]) Warfarin Sodium 4 MG Oral Tablet Warfarin Sodium 4 MG 2019 12:00:00 AM EDT active Warfarin Sodium 4 MG eCW1 ([facility]) Warfarin Sodium 4 MG Oral Tablet Warfarin Sodium 4 MG 2019 12:00:00 AM EDT active Warfarin Sodium 4 MG eCW1 ([facility]) Warfarin Sodium 4 MG Oral Tablet Warfarin Sodium 4 MG 2019 12:00:00 AM EDT active Warfarin Sodium 4 MG eCW1 ([facility]) Warfarin Sodium 4 MG Oral Tablet Warfarin Sodium 4 MG 2019 12:00:00 AM EDT active Warfarin Sodium 4 MG eCW1 ([facility]) Warfarin Sodium 4 MG Oral Tablet Warfarin Sodium 4 MG 2019 12:00:00 AM EDT active Warfarin Sodium 4 MG eCW1 ([facility]) Warfarin Sodium 5 MG Oral Tablet Warfarin Sodium 5 MG 2019 12:00:00 AM EDT 1.0 {tablet} active Warfarin So dium 5 MG eCW1 ([facility]) Warfarin Sodium 5 MG Oral Tablet Warfarin Sodium 5 MG 2019 12:00:00 AM EDT 1.0 {tablet} active Warfarin So dium 5 MG eCW1 ([facility]) Warfarin Sodium 4 MG Oral Tablet Warfarin Sodium 4 MG 2019 12:00:00 AM EDT active Warfarin Sodium 4 MG eCW1 ([facility]) Warfarin Sodium 4 MG Oral Tablet Warfarin Sodium 4 MG 2019 12:00:00 AM EDT active Warfarin Sodium 4 MG eCW1 ([facility]) Warfarin Sodium 4 MG Oral Tablet Warfarin Sodium 4 MG 2019 12:00:00 AM EDT active Warfarin Sodium 4 MG eCW1 ([facility]) Warfarin Sodium 4 MG Oral Tablet Warfarin Sodium 4 MG 2019 12:00:00 AM EDT active Warfarin Sodium 4 MG eCW1 ([facility]) Warfarin Sodium 4 MG Oral Tablet Warfarin Sodium 4 MG 2019 12:00:00 AM EDT active Warfarin Sodium 4 MG eCW1 ([facility]) Warfarin Sodium 4 MG Oral Tablet Warfarin Sodium 4 MG 2019 12:00:00 AM EDT active as directed eCW1 ([facility]) Warfarin Sodium 5 MG Oral Tablet Warfarin Sodium 5 MG 2019 12:00:00 AM EDT 1.0 {tablet} active Warfarin So dium 5 MG eCW1 ([facility]) Warfarin Sodium 4 MG Oral Tablet Warfarin Sodium 4 MG 2019 12:00:00 AM EDT active Warfarin Sodium 4 MG eCW1 ([facility]) Warfarin Sodium 4 MG Oral Tablet Warfarin Sodium 4 MG 2019 12:00:00 AM EDT active Warfarin Sodium 4 MG eCW1 ([facility]) Warfarin Sodium 4 MG Oral Tablet Warfarin Sodium 4 MG 2019 12:00:00 AM EDT active Warfarin Sodium 4 MG eCW1 ([facility]) Warfarin Sodium 4 MG Oral Tablet Warfarin Sodium 4 MG 2019 12:00:00 AM EDT active Warfarin Sodium 4 MG eCW1 ([facility]) Warfarin Sodium 4 MG Oral Tablet Warfarin Sodium 4 MG 2019 12:00:00 AM EDT active Warfarin Sodium 4 MG eCW1 ([facility]) Warfarin Sodium 5 MG Oral Tablet Warfarin Sodium 5 MG 2019 12:00:00 AM EDT 1.0 {tablet} active Warfarin So dium 5 MG eCW1 ([facility]) Warfarin Sodium 4 MG Oral Tablet Warfarin Sodium 4 MG 2019 12:00:00 AM EDT active Warfarin Sodium 4 MG eCW1 ([facility]) Warfarin Sodium 5 MG Oral Tablet Warfarin Sodium 5 MG 2019 12:00:00 AM EDT 1.0 {tablet} active Warfarin So dium 5 MG eCW1 ([facility]) Warfarin Sodium 4 MG Oral Tablet Warfarin Sodium 4 MG 2019 12:00:00 AM EDT active Warfarin Sodium 4 MG eCW1 ([facility]) Warfarin Sodium 4 MG Oral Tablet Warfarin Sodium 4 MG 2019 12:00:00 AM EDT active Warfarin Sodium 4 MG eCW1 ([facility]) Warfarin Sodium 4 MG Oral Tablet Warfarin Sodium 4 MG 2019 12:00:00 AM EDT active Warfarin Sodium 4 MG eCW1 ([facility]) Warfarin Sodium 5 MG Oral Tablet Warfarin Sodium 5 MG 2019 12:00:00 AM EDT 1.0 {tablet} active Warfarin So dium 5 MG eCW1 ([facility]) Warfarin Sodium 4 MG Oral Tablet Warfarin Sodium 4 MG 2019 12:00:00 AM EDT active Warfarin Sodium 4 MG eCW1 ([facility]) Warfarin Sodium 4 MG Oral Tablet Warfarin Sodium 4 MG 2019 12:00:00 AM EDT active Warfarin Sodium 4 MG eCW1 ([facility]) Warfarin Sodium 4 MG Oral Tablet Warfarin Sodium 4 MG 2019 12:00:00 AM EDT active Warfarin Sodium 4 MG eCW1 ([facility]) Warfarin Sodium 4 MG Oral Tablet Warfarin Sodium 4 MG 2019 12:00:00 AM EDT active Warfarin Sodium 4 MG eCW1 ([facility]) Warfarin Sodium 5 MG Oral Tablet Warfarin Sodium 5 MG 2019 12:00:00 AM EDT 1.0 {tablet} active Warfarin So dium 5 MG eCW1 ([facility]) Warfarin Sodium 5 MG Oral Tablet Warfarin Sodium 5 MG 2019 12:00:00 AM EDT active 1 tablet eCW1 ([facility]) Warfarin Sodium 2.5 MG Oral Tablet [Coumadin] Coumadin 2.5 M G Coumadin 2.5 MG 02/15/2020 12:00:00 AM EDT active 1 tablet eCW1 ([facility]) Warfarin Sodium 2.5 MG Oral Tablet [Coumadin] Coumadin 2.5 M G Coumadin 2.5 MG 02/15/2020 12:00:00 AM EDT active 1 tablet eCW1 ([facility]) Warfarin Sodium 1 MG Oral Tablet [Coumadin] Coumadin 1 mg Co umadin 1 mg 01/31/2020 12:00:00 AM EDT active 1/2 tablets c 4mg eCW1 ([facility]) Warfarin Sodium 1 MG Oral Tablet [Coumadin] Coumadin 1 mg Co umadin 1 mg 01/31/2020 12:00:00 AM EDT active 1 tablets in addition to 6mg except tues eCW1 ([facility]) Warfarin Sodium 4 MG Oral Tablet [Coumadin] Coumadin 4 MG Co umadin 4 MG 11/08/2019 12:00:00 AM EST active 1 tablet eCW1 ([facility]) Warfarin Sodium 4 MG Oral Tablet [Coumadin] Coumadin 4 MG Co umadin 4 MG 11/08/2019 12:00:00 AM EST active 1 tablet eCW1 ([facility]) Warfarin Sodium 4 MG Oral Tablet [Coumadin] Coumadin 4 MG Co umadin 4 MG 11/08/2019 12:00:00 AM EST active 1 tablet eCW1 ([facility]) 150 mg iron 09/13/2019 12:00:00 AM [...] type / Coverage type Policy ID Covered republican ID Covered republican's relationship to zepeda Policy Zepeda Plan Information MEDICARE [id number] SP [id number] [id number] BENEFIT PLAN [id number] SP [id number] SELF PAY ONLY [id number] SP [id number] [employer] BENEFIT PLAN [id number] SP [id number] ANSI-Medicare Part B [id number] ANSI-Commercial [id number] ANSI-Commercial [id number] ANSI-Commercial [id number] ANSI-Commercial [id number] ANSI-Medicare Part B [id number] ANSI-Medicare Part B [id number] ANSI-Commercial [id number] ANSI-Commercial [id number] ANSI-Commercial [id number] ANSI-Medicare Part B [id number] ANSI-Commercial [id number] ANSI-Commercial [id number] ANSI-Medicare Part B [id number] ANSI-Commercial [id number] ANSI-Commercial [id number] ANSI-Commercial [id number] ANSI-Medicare Part B [id number] ANSI-Commercial [id number] ANSI-Commercial [id number] ANSI-Medicare Part B [id number] ANSI-Medicare Part B [id number] ANSI-Commercial [id number] ANSI-Commercial [id number] ANSI-Commercial [id number] ANSI-Medicare Part B [id number] ANSI-Commercial [id number] ANSI-Commercial [id number] ANSI-Medicare Part B [id number] ANSI-Commercial [id number] ANSI-Commercial [id number] ANSI-Commercial [id number]-[id number] [id number]-[id number] ANSI-Medicare Part B [id number] ANSI-Medicare Part B [id number]-[id number] ANSI-Commercial [id number]-[id number] ANSI-Commercial [id number]-[id number] [id number]-[id number]-[id number] ANSI-Commercial [id number] ANSI-Commercial [id number] ANSI-Medicare Part B [id number] ANSI-Commercial w22100j9-6282-16v3-ovwu-q821r8c319v4 n85693u1-8836-31o5-zwpv-c742p4q963b0 ANSI-Medicare Part B s685g932-qp2s-095b-dn3s-rx5bui64i471 b551w635-sw1j-763v-ww2p-xm1lmr42y407 ANSI-Commercial nu378b16-79h8-7w0d-vs87-tp7hfz321262 tt803u68-39q9-5z4y-vi76-qa5enb800750 ANSI-Commercial 29ydjh31-o582-94s2-9980-0x2n50683tqf 16xkxy24-j757-81m0-5076-7r3i44714tvk ANSI-Commercial 0oi8bj07-2z4e-3506-8949-blz219u28404 1se4ni05-9a0y-0501-8984-fpe288z33530 ANSI-Medicare Part B 8v3q0n3u-83us-1b89-1453-00701ue5f647 7d2h8g3k-99xg-5q23-7863-74222ni7o826 ANSI-Commercial k6ciq0f1-8881-39h6-v409-8983c0204n9r t2dol2u6-0877-13v3-l283-8713b4578c3x ANSI-Medicare Part B s01y5140-43b8-6443-i5o2-438i406x8fl3 i43l2481-81l4-9696-c3i5-657s459g4iw6 ANSI-Commercial 5188y8wp-x331-60s5-4f10-5y48my7u36y9 8578g2cm-d857-24h4-5l23-4o59sl5s63g9 ANSI-Commercial 0137ntun-e3c5-2q26b1t4-1m89-1d3p-840e0t261484 3105irnt-w8y5-5p49o0w2-3e66-5k9r-279n6n353994 ANSI-Commercial 53i6855k-1028-3355-ndgg-58201663gfj7 34m5799z-9452-3951-jpvf-27672176scr1 ANSI-Medicare Part B w458dxh2-zmls-2gkg-8b4f-u8w0m0e26728 w982iim4-uvrt-3nad-5v0x-j3k0j3x28588 ANSI-Commercial mj46d1c7-0f83-46j5-aenj-13854h2y724y vd50x1a2-4n34-88x6-oncg-66678y6y125t ANSI-Medicare Part B 2i3d2b9f-5938-2nt8-7410-5dp659f0tzku 5o6s3z5a-7051-1xa8-7038-8nz438c2ksol ANSI-Commercial 3y87vl04-4014-0b9x-2429-92k7f2y61051 9f50az78-0280-2j0j-7404-19e1b2u59338 ANSI-Medicare Part B rch543g9-904f-1064-9396-e692598d8y96 rod426n4-361c-3150-0119-x010415d5o13 ANSI-Commercial b2z5goe8-va93-82lm-y9na-9379h40n22t6 r6b2sms6-nc92-18un-e2ce-3761f25c35m1 ANSI-Commercial 0e69b023-hre7-9965-43qo-6e15246ji0q0 0q72c249-iqh5-5070-49za-5r28882ye8t0 ANSI-Commercial z9jxu181-yy44-8n08-hi5u-9481802188i8 x9dmv094-rf73-5l30-ox1l-9412003571m6 ANSI-Medicare Part B 0ykr55nh-5f09-4c42-c970-2d319489939w 6gng27jn-0n52-9u36-t511-5v539884333q ANSI-Commercial 1mv083vz-326r-47q4-644f-tzb7k08686au 3ep931kf-698z-76c6-697c-sjp9l72361zv [employer] BEN[employer] PLAN [id number] SP [id number] MEDICARE [id number] SP 4OO7S27N W70 ANSI-Commercial i71s5li8-0h57-5lg3-8u04-ph20y5p9wqr8 g52y9xg4-8l90-7qo8-5f30-qg91w3x9fre5 ANSI-Medicare Part B 5935n155-9e80-322m-29o8-449495283w6b 4644w758-4r95-116t-26z0-236250676w3s ANSI-Commercial 44f2324s-2p92-6mv6-x948-8ny0s2u9fp56 42m2598o-4r95-0sz9-r398-7ii4a0f8aq99 ANSI-Commercial 59x41i79-9z4x-7749-d94a-f087n2dvlw40 53h40n89-7j9p-9861-m41z-j463h5hvef14 ANSI-Medicare Part B 0876e4kr-611y-5972-lnm9-4842jy907e05 3486y7zk-978e-0238-hcb6-8840ib598y72 ANSI-Commercial u7567205-4d14-621m-s3kv-w072161p4856 d8349061-0j76-621j-g4mh-l384717z4089 ANSI-Medicare Part B 189eg57q-0z2x-1730-10aq-ht8c9074znv6 009sy35m-5o5z-4494-88cl-nz2p9755ewo6 ANSI-Commercial vammv6x5-jw77-7577-w722-e8sziu26849j nvsdg9i2-hy13-3906-y889-n8ozmf46396q ANSI-Commercial 9523k0g5-9rw1-0988-127p-00k3w34sz0t4 2817l0r3-2za0-1025-878i-39b9w17er4u8 ANSI-Commercial 855gw2zd-2288-8255-d3s4-fvwown92178c 121ea0bn-0474-8109-e8u0-tmqrwh02725w ANSI-Medicare Part B 6u512i0f-0v7x-531c-n051-36372q9qf08a 2o663z3q-7h4o-608d-l412-21036g9ub66q ANSI-Commercial sv307i71-i6l0-94s1-3j9j-1cu6bp200x5o pg770g12-p9f0-04y7-4a2a-0wk9fx388w3p ANSI-Commercial wgv1h61c-17ql-90c8-4784-d27mai663z9l wti5h95y-40jw-40e2-6306-u15zpr054b5b ANSI-Medicare Part B 1f0e2u86-5a26-915p-cb17-h543t41m68s0 6t0v7a27-7g01-841u-dy86-v013n79k69f3 ANSI-Commercial 01159637-3b76-979g-m2t9-8c53o9at4hiy 14166292-1u60-131y-d0t1-8t84f4au8vin ANSI-Medicare Part B 4w6h8l71-4205-623u-ut38-qj178b6ild45 9f4m1q38-1609-515c-so22-nw936p6ape75 ANSI-Commercial b1560v7t-81a6-8o49-q852-85c2x0l169n8 u6438f5c-07c4-6k71-h981-12e8w2b119n1 ANSI-Commercial 6851ky79-45ys-2y98-ssup-1a9u2288f230 9212fe47-64wd-7l58-jgzd-8p2t3199y904 ANSI-Commercial b6y21cq4-7680-441u-09un-316210s90h1t s9t83qc6-4425-996y-00bf-976604q10f5b ANSI-Medicare Part B 079w5740-6204-99q9-iujx-g530n43363rh 615r2371-0848-69g9-bild-e693k37140ii ANSI-Commercial n331287k-17z3-4uvo-8657-5y840w1w4809 y305034h-76w2-7mbn-0822-8a153x6a9075 ANSI-Medicare Part B vzx91e12-v46r-1w9h-78j7-63zu5880h5e5 njb25g48-r72q-0o6z-46i9-39nu1495r6c5 ANSI-Commercial o9n78490-98mw-7383-j489-mv5f9t596065 o6a66343-03ji-4840-k794-lb3r0u156196 ANSI-Commercial d2w85ms9-96h0-07l9-d1h0-z1o04c46n9b9 h3k50ya1-55p6-88s4-b9w6-h3j69a12b3p6 ANSI-Commercial m174447e-42a1-65tj-4ube-63ru1923l493 v079304y-81p3-22wj-9ucs-46or4209a706 ANSI-Commercial 5943i422-h5gh-148y-1r1g-5o8r3t99x476 1055r746-f7nv-132f-1z6d-3t5c1f82k029 ANSI-Medicare Part B 93tc650c-41o8-2t96-ey89-dh80a0w0f6a7 77kv617z-29f0-7z26-xf68-sp38r4o8c8a1 ANSI-Commercial wb18ub45-t6tr-8798-i941-b4gxziw30g05 bk59fx69-q4tr-8610-x459-q6sseub34x60 ANSI-Commercial k1535a42-642n-6p04-z205-1884s403m4l5 m6957v27-075x-8n29-x843-3224e491g1l2 ANSI-Medicare Part B l75ereih-79b0-5162-10yc-f221y64845zu d22edaes-81q6-6186-06ji-w016j44305fo ANSI-Commercial 9693x244-f3a1-70d6-zi8w-2735kdf2g158 1937k550-l8u0-57r8-da5n-0485anc5q828 ANSI-Commercial 71m499wt-2nkc-0q99-9336-6n2w7w703u14 15o961nw-0ohk-6s04-9633-7e3f9x643k42 ANSI-Medicare Part B x50xv0y8-5735-8383-iz29-g4k9348fhq4w k63wk2q1-4784-6815-zr84-h6y2988viz6m ANSI-Medicare Part B 8175w174-4115-1h86-d121-q9s2yrm89suo 7114x871-0383-9v13-f111-d6p7ggh85gpf ANSI-Commercial l4763498-u8f5-8w48-smc4-9859p4ukmc79 j1144748-w7s5-7i35-exo1-1643h4iafk99 ANSI-Commercial 7q68tb3s-573a-3013-713a-076ep3838532 3n85qu4u-699e-8463-850s-125ky3424193 ANSI-Medicare Part B 68cl73kh-0y03-4f40-64a5-d1756gki36b1 94oh38il-2k46-3b49-21g2-r9717any45w2 ANSI-Commercial j0064ly5-u554-6313-9282-6jzihdd0kmz8 h2973dn4-r152-8444-8808-4jxfefm8aoq7 ANSI-Commercial 4o34u7xz-zc62-5064-337j-q8nuo7c84z04 2b90t8rk-to51-6039-522o-r2orj2l43l44 ANSI-Commercial 3xjga55v-1t51-7289-q9d3-926z346b360e 0tjsu56n-8k55-1574-h8g6-707f420k294d ANSI-Commercial 82s41k9h-22x7-6d83-mm44-5i4j928j245z 25l50r8h-07y0-3j98-le90-5i9f021b027q ANSI-Medicare Part B z362944s-3565-33e4-z94z-2666sz70ccm2 f188289a-9710-54d3-f70o-5205su96wro5 ANSI-Commercial 3354x8w5-0561-6w34-41s0-cva41ubow6m8 8005v1t8-3233-8t81-96m4-mqq01lxvx1k4 ANSI-Medicare Part B 0w416syj-ma40-2ax0-de5o-l562r83ev6j8 9o744kkx-cw11-1px0-rv3p-o158d22tg9c3 ANSI-Commercial p4x0c8b5-0f69-63o9-778u-795n1y182poh y2w8l8k2-7v95-49m8-178k-641r8u635coc ANSI-Commercial mx22zh2i-8g8c-8oqw-m3h3-35azl7182mfq lv50kz8d-6q9p-1uyd-l6h6-83mll4240rur ANSI-Commercial 3p8295u9-79bk-7598-f776-84082p88f36o 8n0126q1-97oz-6682-n960-79169c92f84a ANSI-Medicare Part B 1o043153-8o73-64sa-k458-h3882971876s 8r068151-5j74-03wl-h891-e8238729634x ANSI-Commercial 426iw83u-97gz-2id3-0aup-g407mr5baj26 724sx55w-25nk-9gs6-6dft-v449zi8yja39 ANSI-Medicare Part B 09870792-r38b-3635-2978-373904729wk4 47680675-z14i-7789-1131-656463825yn0 ANSI-Commercial s20ofz6r-68w9-5t2f-r23j-9g9q6519w39c u75uav5l-78d2-9q5k-v64r-5k6m8436e05t ANSI-Medicare Part B v0967687-7995-7w84-22k6-63jl226813ni t1449845-0187-4y94-64b6-49vz603179dx ANSI-Commercial j101id74-bz18-0k0w-ix0o-603q2z074o7r z396rt93-sb39-2m4e-vx7i-549q6d821e7h ANSI-Commercial r91r3344-4404-1ii2-72b6-iag02gpgfafh a37b9411-2100-4zi6-51i9-dgy13mlqfaem ANSI-Medicare Part B e9498aea-l875-6r99-c809-67577c0a8s21 i1813waw-m279-8n76-c584-21014c9d5n66 ANSI-Commercial 233rb2yr-3q4o-24q8-un9m-0x92276uj0k6 952lb1zq-4n1q-20y2-rb6d-4w06611hf6l3 ANSI-Commercial 972d529z-3l20-8t2x-odq4-174843538n76 622v427r-2d51-0i9d-faa7-024636577o44 ANSI-Commercial 461523c3-57ln-4z78-8533-3gr2135l55oo 634234t1-39gh-2a27-2522-0kx8309i87ni ANSI-Commercial 1c294451-023z-4945-u085-46846w4ma1y4 3w391728-884u-5818-j428-90425g2hm0q4 ANSI-Medicare Part B 75737ut7-68d2-7p53-625w-3w01asq80ei1 10817uy0-77d2-5h31-661i-2r04vkn13bi9 ANSI-Commercial 334v278l-388r-6r1q-pqkq-9oon547d0030 468e046t-120z-5v8s-eses-7ocj282o4924 ANSI-Commercial 149pk474-e76b-0d29-2ye1-3k2425ifs6dd 547db647-c98g-5q78-6cy4-4k5065zsu0hj ANSI-Medicare Part B 4591a1x9-2w7s-2yv9-aqs5-38460y6yeaz4 7533q9r4-4d0y-9li9-ecu9-69399l2uaah7 ANSI-Medicare Part B v5492l50-s3ly-40h8-v1h2-48x226g528gc n6624c70-j9vr-07k2-u1i1-45u354b885cm ANSI-Commercial 63ns85co-941t-0oq5-zek0-f5838k7qblw1 20kz01dy-653q-9oq6-xhw8-q5337b4lrrc4 ANSI-Commercial 48w53dr3-22e5-5jm9-h1e7-w838a364q7kb 00h81oz9-52f2-5km6-f4z9-h405r666v0cv ANSI-Commercial 76910870-hnp3-2vpb-3qb1-h2m9s1q66a80 69154197-yda6-1yci-3ay8-k7l6c7q64s43 ANSI-Medicare Part B t909f93f-m8qx-3009-202s-v5s26p24530e w498r86p-h8ip-5392-779s-z8u56i59278y ANSI-Commercial 955s7ul3-l9y9-8d5q-10r2-7429732epna3 217u9yz1-a3t3-1n8z-42h5-5193357amuh9 ANSI-Commercial 5e74283z-97ug-6128-g713-vj4hb72t9443 1r69080j-06si-8122-a067-yx2bj99m7703 ANSI-Medicare Part B 7xy681h4-54p2-8011-l718-2963594fzbs8 8pd717i0-33v6-0418-q602-4244888zwry2 ANSI-Commercial 76b6h9o4-3455-6064-y025-2mj781dgj57p 63r0m1y1-1219-2350-e609-8jj461vrz24y ANSI-Medicare Part B e6e04z0m-lhn1-2810-32n1-1c8q784dx567 j2r76l5b-trp6-4431-51y3-5d8x576ql934 ANSI-Commercial k37ha920-l20t-6597-3376-crgz37dw4695 x53nb358-q28v-8203-5046-diyg70qo7479 ANSI-Commercial i5ct53wn-5n9g-78v3-c46e-u563o94853rw h7df18ti-1r7h-19w3-i67v-b124r26157vm [employer] [id number] SP [id number] MEDICARE [id number] SP 0OO7L27T W70 ANSI-Commercial 50875q26-i392-4y19-bd8x-ig794jh35829 83017e38-a426-1m36-ss8s-tw908ns74727 ANSI-Medicare Part B 50fk8v01-rvgc-0928-iact-8j15e596w2m5 04yi5m72-eick-7140-xznc-8u47w974j1l8 ANSI-Commercial vl995fs7-036k-1318-o84l-9xi2uil1evb7 tg821ux1-599k-0655-n89x-1jd3uol0crn6 ANSI-Medicare Part B 70307o00-jk80-8717-0473-brik105902i1 96745c79-nb25-4959-7336-evng239818p4 ANSI-Commercial 0mgbhw11-za2l-641y-39u5-j33k3n89q913 2pasez64-ui5x-645v-93g9-w14s6q14b902 ANSI-Commercial 67v3u6ww-4d07-5k85-s86j-5641a23q6737 24n8j7ny-9l63-1j49-a77l-3022b10v1900 ANSI-Commercial 9511538q-h1f3-50l2-0688-t21y42pjn279 1769327c-h6w6-56t6-0595-p00x47kem616 [facility]-Medicare Part B q14d1ue9-49c7-66e0-9xz8-784o72c5ld75 d70h0yw6-04a7-99y1-0jk7-727e71p0dy18 ANSI-Commercial 671828e1-4pnb-90j2-eizs-286592nf829x 251348v1-6eqp-71b9-qlwd-898843xl140o ANSI-Commercial 69swu47d-9495-6y83-3220-120w7563417u 09qjq44a-3614-6m99-0108-713y6272319a [facility]-Medicare Part B jck3la4z-2bs8-761k-1960-7mb3y5sf72h9 lvp3ex6l-9dg1-229q-9819-0vq4x4mc76c8 ANSI-Commercial ns8a13u4-p7l3-0w9h-mw64-2vzh26q76tw5 de0i31w4-t4j7-3w0i-bt79-3pdb15d28om3 [facility]-Medicare Part B 67551h24-j86q-5191-y154-97r37haq661b 22911t16-d02p-8814-n837-33v19hoi845p ANSI-Commercial 4r7qx34b-3240-9641-1g3c-0081vw88852m 6r8ph75f-7520-1355-3d9c-7021lu85308n ANSI-Commercial 92661p6p-98l9-9697-f794-53i1aq9p8636 36353o4d-03w8-2055-w913-16z5in8x6417 ANSI-Commercial l77198k3-4852-086x-450b-g3w47i1dmj31 w01546g5-2482-427r-767i-s5n59b5nxl57 ANSI-Commercial 979wt80w-v4z0-540f-j6yj-6x6237h4q0ru 121lb21t-y2p7-045r-l0rv-5c2840f0g2we ANSI-Medicare Part B w3aac87t-895z-2213-1381-6546323nhe17 c7oin34u-335a-2383-7016-9925603txq08 ANSI-Medicare Part B 439s336m-m7fq-5482-70x2-937644e76m08 604j749f-k9dj-8962-72s4-001810l62y84 ANSI-Commercial d10608u1-79q9-7e00-0778-n4314118t42r o83994p5-48g7-2j51-5095-x2958933m70g ANSI-Commercial a20va42t-8532-200f-9u5j-60y978n1shlq u27kh16o-2499-423z-8j1z-41a140t9xyml ANSI-Commercial y1h1xp10-5rtw-6w75-0yu9-5460613lj09f y7l1zx08-7uzk-1o54-0ml1-7688602kl35d ANSI-Medicare Part B d9h415c0-7509-71q0-73d1-8sb274229r00 b9g082y3-8717-00n8-95u4-2ea427542z17 ANSI-Commercial ji2402x6-4mc9-8931-f855-g27467l21p92 uz6955j1-8bj6-2936-r657-l73741r02p47 ANSI-Medicare Part B 04zje27w-kng8-5s50-8783-166qzis2q046 19zoa01g-lyt4-5a08-4771-775tssk4q915 ANSI-Commercial 5u85t1am-z0bi-485f-90ht-6181c1693h18 5j76d5ne-c0qi-924i-85py-1617g1358w18 ANSI-Commercial 371gnos8-n85p-4wl9-70a7-9mxf582415s2 438idtj1-h99c-6qz0-61l6-2lwa154683h0 ANSI-Commercial 1r8wv887-58vx-0c8v-5265-ebjx806h106j 7u3jb404-55bn-8z7m-1763-dshp442f111r ANSI-Commercial 0397p865-er48-9828-li73-419117b5j273 1958v483-al98-0170-bh81-203850k6n391 ANSI-Medicare Part B 48v22md5-ja28-0684-ho8n-77m45588xd42 94c39mn4-yv03-6634-nt6n-70p81824uq11 ANSI-Medicare Part B 3r363qz1-0269-0cn4-f15g-s561pw34tvo1 4c112nb0-1817-7qe1-z17r-y032hu40dpk0 ANSI-Commercial l11q6763-t5u3-22k9-i4uy-6t67p9uaek01 o60p5221-s0a0-68b1-o2vm-4b57z7iolw36 ANSI-Commercial 7q835i49-t2jf-5810-7f68-ui9297789q1w 0s580k08-u6qw-8329-7h19-qp8326200f7g ANSI-Commercial 2wgc25u9-51r9-486q-k5w3-0i43x55q0606 9std21n3-14r8-689m-t4c8-1r49c01l6941 ANSI-Commercial 942ln13n-10qp-9546-pg87-9484qk762eys 709ur63x-87sc-1720-rj68-6171qi733bir ANSI-Medicare Part B 163248hl-8id0-4mzs-9056-0qi6132048es 464590cy-8qv1-2wqf-1378-5xu6391558oy ANSI-Commercial o65o4ce7-uoa9-72py-v616-2p07qs5k77kh v19j4gm1-vlx6-68zm-x192-0p89ch9h87tn ANSI-Medicare Part B 18ftm5uw-6866-3lc0-7auy-0d067w5q1l22 52hux9ci-7516-4ul7-6tld-0v030k5f6k32 ANSI-Commercial 1zp43b9h-ze24-9s22-wg3x-728psq0h3vn3 5nx01u4f-or30-6r15-rs3i-227byq6f5oa8 ANSI-Commercial d23fs70x-98m0-835s-742h-85954p1528y1 b87iu79p-62j3-249b-440d-43743v3496k4 ANSI-Medicare Part B 5700120j-b608-64h7-7ty0-0je96k91bu40 9434938b-d465-62d5-8sf8-0vs79h22ku27 ANSI-Commercial 1120w2c6-9616-3t08-4k86-7aq0ri842z0s 2173l9u3-0852-9x85-8p29-5em1oc922x2l MEDICARE [id number] A ANSI-Medicare Part B 72378823-r77s-9t65-6462-p0942t08yj4z 40048441-p46e-0k18-3617-k4000z09eq8e ANSI-Commercial h3z8238w-29i4-8493-8q26-3b810u4uel65 s2n9719e-74n0-5466-0a60-7u016c1vsp50 ANSI-Commercial x631b3c7-68c6-0p28-0bx0-86e87h4e9318 k231g5j1-48r8-7n90-5fx9-89c72p0o5895 ANSI-Medicare Part B 8hwkux26-0e93-6d1d-n2zb-79052e99n3yg 9ksfyx07-1s84-0w2z-f2fq-82104h63c3bz ANSI-Commercial 4i7x538o-c8dv-1x39-37c2-0591k3e7dc5l 5w6s718b-t8pk-3u82-03i1-0159j7r8ve0t ANSI-Commercial ax7cj085-y374-2y0w-t7o7-5w920h097i44 ue9jl573-f442-8f5o-n2p5-2o854s571y95 ANSI-Commercial 7e01216c-61u7-458o-t8m2-2f371j29fq14 9j60281a-36h3-178u-h7v1-4j366a76rx40 ANSI-Medicare Part B 6t9r63b6-3290-581i-qbje-8962w9u59834 8x9e97g8-6874-839q-hfxp-1411w1y17090 ANSI-Commercial kx3p05c9-9vmu-42rj-4f59-4wt96fa24g8p jk6p52y7-7rbu-64bc-2j07-4nb23sw25k3i ANSI-Medicare Part B 83d3498k-c547-844j-zb95-3919758q10k2 74h1532x-h660-530p-jz31-6838233k37n8 ANSI-Commercial 0br6x847-3g75-6d86-w30o-g832bdvxl02d 2ra0k260-7r81-7e26-x28w-i541exlym57i ANSI-Commercial 73as3456-195h-404p-76f7-g14ld4p1199w 57tq9056-562p-735g-20c0-e09og2t7717b ANSI-Medicare Part B 0e4p3czj-778f-4r0j-i43z-f9x92vajqe74 8i7f0kai-108t-3o7p-q59e-k5d60uhidu84 ANSI-Commercial 798cxf23-sv6e-3j79-p8o6-70u41917f2i0 500lvi03-kq2a-2c50-r1s2-86g80662n8w6 ANSI-Commercial x2l3uj06-p691-873o-6erp-i05l4469x8s3 x7w5kv15-q244-148e-4pdo-x36j6887e3f6 [facility] MAIL HANDLERS BENEF O [id number] S [id number] MEDICARE C [id number] S [id number] A [facility] MAIL HANDLERS BENEF O [id number] S [id number] [employer] BENEFIT PLAN [id number] SP [id number] MEDICARE [id number] SP [id number] A [facility] Medigap Part B [id number] Self [id number] [facility] Medigap Part B [id number] Self [id number] Medicare [facility] Medicare Primary [id number] Self [id number] [employer] BENEFIT PLAN [id number] SP [id number] [employer] BENEFIT PLAN [id number] SP [id number] [employer] BENEFIT PLAN [id number] SP [id number] Medicare [facility] Medicare Primary [id number] Self [id number] [facility] Medigap Part B [id number] Self [id number] Medicare [facility] Medicare Primary [id number] Self [id number] [facility] MAIL HANDLERS BENEF O [id number] S [id number] [facility] MAIL HANDLERS BENEF O [id number] S [id number] [employer] BENEFIT PLAN [id number] SP [id number] MEDICARE [id number] SP [id number] A [employer] BENEFIT PLAN [id number] SP [id number] A [id number] Problems, Conditions, and Diagnoses Code Display Name Description Problem Type Effective Dates Data Source(s) R63.4 93194180 Weight loss Problem 10/19/2020 12:00:[address] eCW1 ([facility]) R27.0 65067192 Ataxia Problem 10/19/2020 12:00:00 AM ES T eCW1 ([facility]) J30.89 [id number] 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 Problem 11/28/2019 12:00:00 AM EST eCW1 ([facility]) J30.9 [id number] Allergic rhinitis, unspecified s easonality, unspecified trigger Problem 11/28/2019 12:00:00 AM EST eCW1 ([facility]) J30.89 [id number] 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 Problem 11/28/2019 12:00:00 AM EST eCW1 ([facility]) J30.9 [id number] Allergic rhinitis, unspecified s easonality, unspecified trigger Problem 11/28/2019 12:00:00 AM EST eCW1 ([facility]) Surgeries/Procedures Procedure Description Date Indications Data Source(s) PHYSICIAN TELEPHONE EVALUATION 5-10 MIN 02/29/2020 12: 00:00 AM EDT eCW1 ([facility]) Office Visit, Est Pt., Level 3 PC 01/09/2020 12:00:00 AM EDT eCW1 ([facility]) Office Visit, Est Pt., Level 2 FC 01/09/2020 12:00:00 AM EDT eCW1 ([facility]) PROTHROMBIN TIME 01/09/2020 12:00:00 AM EDT eCW1 ([facility]) Office Visit, Est Pt., Level 2 PC 12/27/2019 12:00:00 AM EST eCW1 ([facility]) Office Visit, Est Pt., Level 4 PC 11/28/2019 12:00:00 AM EST eCW1 ([facility]) Results ID Date Data Source [id number] 11/17/2020 12:00:00 AM EST [facility] Name Value Range Interpretation Code Description Data Edna rce(s) Supporting Document(s) SARS-CoV-2 (COVID-19) RNA [Presence] in Respiratory specimen by STEPHANIE with probe detection Not Detected [facility] This lab was ordered by [facility] and reported by [employer] ID Date Data Source FERRITIN 10/16/2020 12:00:00 AM EST eCW1 ([facility]) Name Value Range Interpretation Code Description Data Edna rce(s) Supporting Document(s) 12 8-252 FERRITIN eCW1 ([facility]) ID Date Data Source Reticulocyte Count [employer] 10/16/2020 12:00:00 AM EST eCW1 ([facility]) Name Value Range Interpretation Code Description Data Edna rce(s) Supporting Document(s) 0.8 0.5-1.5 RETICULOCYTE % eCW1 ([facility]) ID Date Data Source Comprehensive Metabolic Profile (CMP) 10/16/2020 12:00:00 AM EST eCW1 ([facility]) Name Value Range Interpretation Code Description Data Edna rce(s) Supporting Document(s) 107 70-100 GLUCOSE, FASTING eCW1 ([facility]) 36 7-18 BLOOD UREA NITROGEN eCW1 ([facility]) 1.72 0.55-1.30 CREATININE FOR GFR eCW1 ([facility]) 30.0 >32 GLOMERULAR FILTRATION RATE eCW 1 ([facility]) 106 98-107 CHLORIDE LEVEL eCW1 ([facility]) 141 136-145 SODIUM LEVEL eCW1 ([facility]) 4.6 3.5-5.1 POTASSIUM SERUM eCW1 ([facility]) 30 21-32 CARBON DIOXIDE LEVEL eCW1 ([facility]) 29 12-78 ALT/SGPT eCW1 ([facility]) 31 7-37 AST/SGOT eCW1 ([facility]) 122 45-117 ALKALINE PHOSPHATASE eCW1 ([facility]) 9.5 8.8-10.2 CALCIUM LEVEL eCW1 ([facility]) 0.3 0.2-1.0 BILIRUBIN,TOTAL eCW1 ([facility]) 6.2 6.4-8.2 TOTAL PROTEIN eCW1 ([facility]) 3.5 3.2-5.2 ALBUMIN eCW1 ([facility]) 1.3 1.2-2.2 ALBUMIN/GLOBULIN RATIO eCW1 ([facility]) ID Date Data Source CBC with Differential 10/16/2020 12:00:00 AM EST eCW1 ([facility]) Name Value Range Interpretation Code Description Data Edna rce(s) Supporting Document(s) 4.7 4.0-10.0 WHITE BLOOD COUNT eCW1 ([facility]) 10.9 12.0-15.5 HEMOGLOBIN eCW1 ([facility]) 3.96 4.00-5.40 RED BLOOD COUNT eCW1 ([facility]) 27.5 27.0-33.0 MEAN CORPUSCULAR HEMOGLOB IN eCW1 ([facility]) 36.3 36.0-47.0 HEMATOCRIT eCW1 ([facility]) 30.0 32.0-36.5 MEAN CORPUSCULAR HGB CONC eCW1 ([facility]) 91.7 80.0-96.0 MEAN CORPUSCULAR VOLUME e CW1 ([facility]) 59.8 36.0-66.0 NEUTROPHILS % eCW1 ([facility]) 181 150-450 PLATELET COUNT, AUTOMATED eCW1 ([facility]) 13.9 11.5-14.5 RED CELL DISTRIBUTION WID TH eCW1 ([facility]) 0.9 0.0-1.0 BASO % eCW1 ([facility]) 11.1 0.0-5.0 MONO % eCW1 ([facility]) 3.2 0.0-3.0 EOS % eCW1 ([facility]) 24.8 24.0-44.0 LYMPH % eCW1 ([facility]) 2.8 1.5-8.5 NEUTROPHILS # eCW1 ([facility]) 0.2 0.0-0.5 EOS # eCW1 ([facility]) 1.2 1.5-5.0 LYMPH # eCW1 ([facility]) 0.5 0.0-0.8 MONO # eCW1 ([facility]) 0.0 0.0-0.2 BASO # eCW1 ([facility]) ID Date Data Source NT-PRO BNP 10/16/2020 12:00:00 AM EST eCW1 ([facility]) Name Value Range Interpretation Code Description Data Edna rce(s) Supporting Document(s) 427 <450 NT-PRO BNP eCW1 ([facility]) ID Date Data Source RENAL PROFILE 10/05/2020 12:00:00 AM EST eCW1 ([facility]) Name Value Range Interpretation Code Description Data Edna rce(s) Supporting Document(s) 36 7-18 BLOOD UREA NITROGEN eCW1 ([facility]) 97 70-100 GLUCOSE, FASTING eCW1 ([facility]) 30.0 >32 GLOMERULAR FILTRATION RATE eCW 1 ([facility]) 141 136-145 SODIUM LEVEL eCW1 ([facility]) 1.72 0.55-1.30 CREATININE FOR GFR eCW1 ([facility]) 4.7 3.5-5.1 POTASSIUM SERUM eCW1 ([facility]) 9.5 8.8-10.2 CALCIUM LEVEL eCW1 ([facility]) 29 21-32 CARBON DIOXIDE LEVEL eCW1 ([facility]) 108 98-107 CHLORIDE LEVEL eCW1 ([facility]) 3.5 2.5-4.9 PHOSPHORUS LEVEL eCW1 ([facility]) 3.6 3.2-5.2 ALBUMIN eCW1 ([facility]) ID Date Data Source PT-INR Fingerstick 09/04/2020 10:06:41 AM EST eCW1 ([facility]) Name Value Range Interpretation Code Description Data Edna rce(s) Supporting Document(s) 5mg Verified Patient's Name and DO B eCW1 ([facility]) 2.5 INR eCW1 ([facility]) Current Dose 1 eCW1 ([facility]) Tab Strength eCW1 ([facility]) 5mg daily Current Dose 2 eCW1 ([facility]) DVT Indication for Anticoagulation eCW1 ([facility]) no Recent Bleeding eCW1 ([facility]) yes Internal QC Acceptable (Y/N) e CW1 ([facility]) 1.8-2.0 Therapeutic Range eCW1 ([facility]) Education Given (Date / Initia ls) eCW1 ([facility]) New Dose 1 eCW1 ([facility]) 4 m-w-f 5 ROW New Dose 2 eCW1 ([facility]) 32 Weekly Total eCW1 ([facility]) 2 week Next PT-INR eCW1 ([facility]) - eCW1 ([facility]) ID Date Data Source PT-INR 02/29/2020 12:00:00 AM EDT eCW1 ([facility]) Name Value Range Interpretation Code Description Data Edna rce(s) Supporting Document(s) Prothrombin time (PT) 20.3 11.8-14.0 PROTHROMBIN TI ME eCW1 ([facility]) INR in Platelet poor plasma by Coagulation assay 1.76 INR eCW1 ([facility]) ID Date Data Source PT & APTT 11/28/2019 12:00:00 AM EST eCW1 ([facility]) Name Value Range Interpretation Code Description Data Edna rce(s) Supporting Document(s) 17.3 11.8-14.0 PROTHROMBIN TIME eCW1 ([facility]) 31.2 25.0-38.4 PARTIAL THROMBOPLASTIN TI ME eCW1 ([facility]) 1.45 INR eCW1 ([facility]) ID Date Data Source PHENYTOIN (DILANTIN) 11/28/2019 12:00:00 AM EST eCW1 ([facility]) Name Value Range Interpretation Code Description Data Edna rce(s) Supporting Document(s) 9.3 10.0-20.0 PHENYTOIN (DILANTIN) eCW1 ([facility]) ID Date Data Source ERYTHROPOIETIN 11/23/2019 12:00:00 AM EST eCW1 ([facility]) Name Value Range Interpretation Code Description Data Edna rce(s) Supporting Document(s) 81.1 2.6-18.5 ERYTHROPOIETIN eCW1 ([facility]) Procedure Social History Code Duration Value Status Description Data Source(s ) Smoking 11/27/2020 12:00:00 AM EST Never Smoker completed Never S moker eCW1 ([facility]) Smoking 11/27/2020 12:00:00 AM EST Never Smoker completed Never S moker eCW1 ([facility]) Smoking 10/19/2020 12:00:00 AM EST Never Smoker completed Never S moker eCW1 ([facility]) Smoking 10/19/2020 12:00:00 AM EST Never Smoker completed Never S moker eCW1 ([facility]) Smoking 10/19/2020 12:00:00 AM EST Never Smoker completed Never S moker eCW1 ([facility]) Smoking 10/19/2020 12:00:00 AM EST Never Smoker completed Never S moker eCW1 ([facility]) Smoking 10/19/2020 12:00:00 AM EST Never Smoker completed Never S moker eCW1 ([facility]) Smoking 10/19/2020 12:00:00 AM EST Never Smoker completed Never S moker eCW1 ([facility]) Smoking 10/19/2020 12:00:00 AM EST Never Smoker completed Never S moker eCW1 ([facility]) Smoking 10/05/2020 12:00:00 AM EST Never Smoker completed Never S moker eCW1 ([facility]) Smoking 10/05/2020 12:00:00 AM EST Never Smoker completed Never S moker eCW1 ([facility]) Smoking 10/05/2020 12:00:00 AM EST Never Smoker completed Never S moker eCW1 ([facility]) Smoking 09/18/2020 12:00:00 AM EST Never Smoker completed Never S moker eCW1 ([facility]) Smoking 09/04/2020 12:00:00 AM EST Never Smoker completed Never S moker eCW1 ([facility]) Smoking 09/04/2020 12:00:00 AM EST Never Smoker completed Never S moker eCW1 ([facility]) Smoking 04/10/2020 12:00:00 AM EDT Never Smoker completed Never S moker eCW1 ([facility]) Smoking 04/10/2020 12:00:00 AM EDT Never Smoker completed Never S moker eCW1 ([facility]) Smoking 04/10/2020 12:00:00 AM EDT Never Smoker completed Never S moker eCW1 ([facility]) Smoking 04/10/2020 12:00:00 AM EDT Never Smoker completed Never S moker eCW1 ([facility]) Smoking 04/10/2020 12:00:00 AM EDT Never Smoker completed Never S moker eCW1 ([facility]) Smoking 04/10/2020 12:00:00 AM EDT Never Smoker completed Never S moker eCW1 ([facility]) Smoking 04/10/2020 12:00:00 AM EDT Never Smoker completed Never S moker eCW1 ([facility]) Smoking 04/10/2020 12:00:00 AM EDT Never Smoker completed Never S moker eCW1 ([facility]) Smoking 04/10/2020 12:00:00 AM EDT Never Smoker completed Never S moker eCW1 ([facility]) Smoking 04/10/2020 12:00:00 AM EDT Never Smoker completed Never S moker eCW1 ([facility]) Vital Signs ID Date Data Source UNK Name Value Range Interpretation Code Description Data Source(s) Diastolic blood pressure 68 mm[Hg] 68 mm[Hg] eCW1 ([facility]) Systolic blood pressure 122 mm[Hg] 122 mm[Hg] e CW1 ([facility]) Body temperature 98.8 [degF] 98.8 [degF] eCW1 ( [facility]) Respiratory rate 18 /min 18 /min eCW1 ([facility]) Heart rate 96 /min 96 /min eCW1 ([facility]) Body mass index (BMI) [Ratio] 22.66 kg/m2 22.66 kg/m2 W1 ([facility]) Body height 64 [in_i] 64 [in_i] eCW1 ([facility]) Body weight 132.0 [lb_av] 132.0 [lb_av] eCW1 ([facility]) Diastolic blood pressure 78 mm[Hg] 78 mm[Hg] eCW1 ([facility]) Systolic blood pressure 130 mm[Hg] 130 mm[Hg] e CW1 ([facility]) Body temperature 98.6 [degF] 98.6 [degF] eCW1 ( [facility]) Respiratory rate 20 /min 20 /min eCW1 ([facility]) Heart rate 93 /min 93 /min eCW1 ([facility]) Body mass index (BMI) [Ratio] 22.83 kg/m2 22.83 kg/m2 eCW1 ([facility]) Body height 64 [in_i] 64 [in_i] eCW1 ([facility]) Body weight 133.0 [lb_av] 133.0 [lb_av] eCW1 ([facility]) Diastolic blood pressure 70 mm[Hg] 70 mm[Hg] eCW1 ([facility]) Systolic blood pressure 124 mm[Hg] 124 mm[Hg] e CW1 ([facility]) Body temperature 98.5 [degF] 98.5 [degF] eCW1 ( [facility]) Respiratory rate 18 /min 18 /min eCW1 ([facility]) Heart rate 78 /min 78 /min eCW1 ([facility]) Body mass index (BMI) [Ratio] 22.48 kg/m2 22.48 kg/m2 eCW1 ([facility]) Body height 64 [in_i] 64 [in_i] eCW1 ([facility]) Body weight 131 [lb_av] 131 [lb_av] eCW1 ([facility]) Diastolic blood pressure 68 mm[Hg] 68 mm[Hg] eCW1 ([facility]) Systolic blood pressure 126 mm[Hg] 126 mm[Hg] e CW1 ([facility]) Body temperature 98.6 [degF] 98.6 [degF] eCW1 ( [facility]) Respiratory rate 18 /min 18 /min eCW1 ([facility]) Heart rate 92 /min 92 /min eCW1 ([facility]) Body mass index (BMI) [Ratio] 22.48 kg/m2 22.48 kg/m2 eCW1 ([facility]) Body height 64 [in_i] 64 [in_i] eCW1 ([facility]) Body weight 131 [lb_av] 131 [lb_av] eCW1 ([facility]) Diastolic blood pressure 72 mm[Hg] 72 mm[Hg] eCW1 ([facility]) Systolic blood pressure 124 mm[Hg] 124 mm[Hg] e CW1 ([facility]) Body temperature 98.2 [degF] 98.2 [degF] eCW1 ( [facility]) Respiratory rate 18 /min 18 /min eCW1 ([facility]) Heart rate 98 /min 98 /min eCW1 ([facility]) Body mass index (BMI) [Ratio] 22.66 kg/m2 22.66 kg/m2 eCW1 ([facility]) Body height 64 [in_i] 64 [in_i] eCW1 ([facility]) Body weight 132 [lb_av] 132 [lb_av] eCW1 ([facility]) Diastolic blood pressure 70 mm[Hg] 70 mm[Hg] eCW1 ([facility]) Systolic blood pressure 116 mm[Hg] 116 mm[Hg] e CW1 ([facility]) Body temperature 98.1 [degF] 98.1 [degF] eCW1 ( [facility]) Respiratory rate 16 /min 16 /min eCW1 ([facility]) Heart rate 84 /min 84 /min eCW1 ([facility]) Body mass index (BMI) [Ratio] 23.86 kg/m2 23.86 kg/m2 eCW1 ([facility]) Body height 64 [in_i] 64 [in_i] eCW1 ([facility]) Body weight 139 [lb_av] 139 [lb_av] eCW1 ([facility]) Diastolic blood pressure 60 mm[Hg] 60 mm[Hg] eCW1 ([facility]) Systolic blood pressure 130 mm[Hg] 130 mm[Hg] e CW1 ([facility]) Body temperature 98.5 [degF] 98.5 [degF] eCW1 ( [facility]) Respiratory rate 20 /min 20 /min eCW1 ([facility]) Heart rate 97 /min 97 /min eCW1 ([facility]) Body mass index (BMI) [Ratio] 23.86 kg/m2 23.86 kg/m2 eCW1 ([facility]) Body height 64 [in_us] 64 [in_us] eCW1 ([facility]) Body weight Measured 139.0 [lb_av] 139.0 [lb_av ] eCW1 ([facility]) Diastolic blood pressure 76 mm[Hg] 76 mm[Hg] eCW1 ([facility]) Systolic blood pressure 122 mm[Hg] 122 mm[Hg] e CW1 ([facility]) Body temperature 97.9 [degF] 97.9 [degF] eCW1 ( [facility]) Respiratory rate 20 /min 20 /min eCW1 ([facility]) Heart rate 98 /min 98 /min eCW1 ([facility]) Body mass index (BMI) [Ratio] 24.20 kg/m2 24.20 kg/m2 eCW1 ([facility]) Body height 64 [in_us] 64 [in_us] eCW1 ([facility]) Body weight Measured 141.0 [lb_av] 141.0 [lb_av ] eCW1 ([facility]) Diastolic blood pressure 62 mm[Hg] 62 mm[Hg] eCW1 ([facility]) Systolic blood pressure 112 mm[Hg] 112 mm[Hg] e CW1 ([facility]) Body temperature 97.8 [degF] 97.8 [degF] eCW1 ( [facility]) Respiratory rate 20 /min 20 /min eCW1 ([facility]) Heart rate 93 /min 93 /min eCW1 ([facility]) Body mass index (BMI) [Ratio] 24.27 kg/m2 24.27 kg/m2 W1 ([facility]) Body height 64 [in_us] 64 [in_us] eCW1 ([facility]) Body weight Measured 141.4 [lb_av] 141.4 [lb_av ] eCW1 ([facility]) Diastolic blood pressure 60 mm[Hg] 60 mm[Hg] eCW1 ([facility]) Systolic blood pressure 148 mm[Hg] 148 mm[Hg] e CW1 ([facility]) Body temperature 97.6 [degF] 97.6 [degF] eCW1 ( [facility]) Respiratory rate 20 /min 20 /min eCW1 ([facility]) Heart rate 88 /min 88 /min eCW1 ([facility]) Body mass index (BMI) [Ratio] 24.99 kg/m2 24.99 kg/m2 eCW1 ([facility]) Body height 64 [in_us] 64 [in_us] eCW1 ([facility]) Body weight Measured 145.6 [lb_av] 145.6 [lb_av ] eCW1 ([facility]) Patient Treatment Plan of Care Planned Activity Planned Date Details Description Data Source (s) May Have - 11/05/2020 12:00:00 AM EST e CW1 ([facility]) May Have - 11/05/2020 12:00:00 AM EST e CW1 ([facility]) May Have - 11/05/2020 12:00:00 AM EST e CW1 ([facility]) May Have - 11/05/2020 12:00:00 AM EST e CW1 ([facility]) Warfarin Sodium 5 MG Oral Tablet 03/30/2020 12:00:00 AM EDT eCW1 ([facility]) Warfarin Sodium 5 MG Oral Tablet 03/30/2020 12:00:00 AM EDT eCW1 ([facility]) Warfarin Sodium 2.5 MG Oral Tablet [Coumadin] 02/15/2020 12:00:00 A M EDT eCW1 ([facility]) Warfarin Sodium 1 MG Oral Tablet [Coumadin] 01/31/2020 12:00:00 AM EDT eCW1 ([facility]) Warfarin Sodium 1 MG Oral Tablet [Coumadin] 01/31/2020 12:00:00 AM EDT eCW1 ([facility]) Warfarin Sodium 4 MG Oral Tablet [Coumadin] 11/08/2019 12:00:00 AM EST eCW1 ([facility]) Warfarin Sodium 4 MG Oral Tablet [Coumadin] 11/08/2019 12:00:00 AM EST eCW1 ([facility])
[2020-12-20 14:18] LABS: INR 1.76; PROTHROMBIN TIME 20.9 SECONDS (12.5-14.3)
[2020-12-20 15:38] VITALS: BP 152/65
--- NOTE | 2020-12-20 15:40 | REP ---
INDICATION: sob. COMPARISON: Comparison chest x-ray 27 Mar 2020. TECHNIQUE: . Portable AP sitting radiograph of the chest. FINDINGS: Monitoring electrodes are seen. The lungs are well inflated and free of infiltrate. Pleural angles are sharp. Heart is mildly enlarged unchanged. Pulmonary vasculature is not increased. A vena cava filter is noted in place on the right. IMPRESSION: No acute disease. Mildly prominent heart unchanged. <Electronically signed by Toney Jerez > 12/20/20 [id number]
[2020-12-20 15:57] VITALS: BP 136/60
[2020-12-20 16:56] VITALS: BP 153/68
[2020-12-20 17:15] VITALS: BP 155/68
[2020-12-20] MEDS ORDERED: VITA500T40 PO (17:42)
[2020-12-20] MEDS ORDERED: VOLT1GEL15 TOP (17:42)
[2020-12-20] MEDS ORDERED: CALCCAP4 PO (17:42)
[2020-12-20] MEDS ORDERED: LEVO112T25 PO (17:42)
[2020-12-20] MEDS ORDERED: FOLI800C PO (17:42)
[2020-12-20] MEDS ORDERED: FERR150C PO (17:42)
[2020-12-20] MEDS ORDERED: MV-M1TAB13 PO (17:42)
[2020-12-20 18:23] VITALS: BP 156/70
[2020-12-20] MEDS ORDERED: CLOTRIMAZOLE 1% TOPICAL CREAM 30GM TOP PRN (18:30)
[2020-12-20] MEDS ORDERED: MIRALAX *UNIT DOSE* 17GM PACKET PO PRN (18:30)
--- NOTE | 2020-12-20 18:30 | HPEPDOC ---
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 Patient had outpatient labs done by primary care physician and found to have acute drop in hemoglobin. Patient reports constipation/heart stool over the past few days to weeks with associated bleeding from hemorrhoids. She has no associated symptoms of anemia other than mild dyspnea. She feels close to her baseline wishes to go home. She denies any chest pain, nausea, vomiting or abdominal pain. 10 point review of system is negative except for above PAST MEDICAL HISTORY: 1. Hemorrhoids with bleeding. 2. DVT on anticoagulation. 3. , Hypertension. 4. Hypothyroidism PAST SURGICAL HISTORY: 1. , Hysterectomy. 2. , Status post IVC filter. SOCIAL HISTORY: Previous smoker. Denies alcohol use. Denies drug use FAMILY HISTORY: No history of malignancy in either parent ALLERGIES: Please see below. HOME MEDICATIONS: Please see below. PHYSICAL EXAMINATION: VITAL SIGNS: Please see below. GENERAL: No distress, frail HEENT: Normocephalic, atraumatic, moist mucous membranes NECK: Supple CARDIOVASCULAR EXAMINATION: S1, S2, no murmurs RESPIRATORY EXAMINATION: Scattered rhonchi, no wheezing ABDOMINAL EXAMINATION: Soft, nontender, nondistended, positive bowel sounds EXTREMITIES: Range of motion intact SKIN: Intact NEUROLOGICAL EXAMINATION: Alert and oriented 3, no focal deficits PSYCHIATRIC EXAMINATION: Calm and cooperative LABORATORY DATA: See below. MICROBIOLOGY: Please see below. ASSESSMENT: 85-year-old female with past medical history of DVT on anticoagulation, hemorrhoids with recurrent bleeding, hypertension and hypothyroidism was admitted for acute anemia due to hemorrhoidal bleeding. . PLAN: 1. Acute blood loss anemia. Bleeding from hemorrhoids due to constipation. Order to receive 2 units of packed red blood cells by emergency department. Stool softeners, tender, H&H, hold anticoagulation. 2. History of DVT. Last DVT about 7 years ago, history of IVC filter placement. Hold Coumadin, we'll not reverse at this time. 3. Hypothyroidism. Continue levothyroxine 4. Hypertension Continue Norvasc 5. Seizure disorder Continue phenytoin Vital Signs Vital Signs Date Time Temp Pulse Resp B/P (MAP) Pulse Ox O2 Delivery O2 Flow Rate FiO2 12/20/20 17:15 98.4 82 20 155/68 93 Room Air Laboratory Data Labs 24H Laboratory Tests 2 12/20/20 13:42: Prothrombin Time 20.9H, Prothromb Time International Ratio 1.76 Microbiology Microbiology 12/20/20 Respiratory Virus Panel (PCR) (ELISA) - Final, Complete Home Medications Scheduled Amlodipine Besylate (Amlodipine Besylate) 2.5 Mg Tablet, 2.5 MG PO DAILY Atorvastatin Calcium (Atorvastatin Calcium) 40 Mg Tablet, 40 MG PO QPM Calcitriol (Rocaltrol) 0.5 Mcg Capsule, 0.5 MCG PO DAILY Calcium Carbonate/Vitamin D3 (Calcium 600-Vit D3 800 Tablet) 1 Each Tablet, 1 TAB PO BID Ciprofloxacin HCl (Cipro) 500 Mg Tab, 500 MG PO DAILY Clotrimazole (Clotrimazole) 1% 14GM Cream..g., 1 APLCT TOP BID APPLY UNDER BREASTS, AM AND HS Cyanocobalamin (Vitamin B-12) (Vitamin B-12) 1,000 Mcg Tab, 1,000 MCG PO QPM Docusate Sodium (Colace) 100 Mg Cap, 100 MG PO BID Folic Acid (Folic Acid) 1 Mg Tablet, 1 MG PO DAILY Furosemide (Lasix) 20 Mg Tab, 20 MG PO DAILY Iron Ps Complex/B12/Folic Acid (Poly-Iron 150 Forte Capsule) 1 Each Capsule, 1 CAP PO QPM Lactulose (Lactulose) 10 Gm/15 Ml Rosalie, 15 ML PO QHS Levothyroxine Sodium (Synthroid) 125 Mcg Tablet, 125 MCG PO DAILY Lutein Extract/Zeaxanthin Ext (Lutein 15 mg Softgel) 1 Each Capsule, 1 CAP PO QPM Multivitamin (Multivitamins) 1 Each Tablet, 1 TAB PO QPM Pantoprazole Sodium (Pantoprazole Sodium) 40 Mg Tab, 40 MG PO BID Phenytoin Sodium Extended (Dilantin) 100 Mg Cap, 100 MG PO QAM Phenytoin Sodium Extended (Dilantin) 100 Mg Cap, 200 MG PO QHS Sucralfate (Sucralfate) 1 Gm Tab, 1 GM PO ACHS Warfarin Sodium (Warfarin Sodium) 4 Mg Tablet, 4 MG PO 5XW SUN, MON, TUES, THURS, SAT @ QPM Warfarin Sodium (Warfarin Sodium) 5 Mg Tablet, 5 MG PO 2XW WED, FRI, @QPM Allergies Coded Allergies: sulfamethoxazole (Verified Adverse Reaction, Unknown, AFFECTS KIDNEYS, 02/24/19) trimethoprim (Verified Adverse Reaction, Unknown, AFFECTS KIDNEYS, 02/24/19) A-FIB/CHADSVASC A-FIB History Current/History of A-Fib/PAF?: No AYDE HERNANDES MD Dec 20, 2020 18:30
[2020-12-20] MEDS ORDERED: MIRALAX *UNIT DOSE* 17GM PACKET PO ONE (19:00)
[2020-12-20 20:55] VITALS: BP 148/67
[2020-12-20] MEDS ORDERED: ATORVASTATIN 20 MG TAB PO SCH (21:00)
[2020-12-20] MEDS ORDERED: PHENYTOIN ER 100 MG CAP PO SCH (21:00)
[2020-12-20] MEDS ORDERED: CYANOCOBALAMIN 500 MCG TAB PO SCH (21:00)
[2020-12-20] MEDS: DOCUSATE SODIUM 100MG CAPSULE PO SCH (21:28)
[2020-12-20] MEDS: SUCRALFATE 1 GM TAB PO SCH (21:28)
[2020-12-20] MEDS: CALCIUM/VITAMIN D 500 MG TAB PO SCH (21:28)
[2020-12-20] MEDS: PANTOPRAZOLE 40MG TAB (PROTONIX) PO SCH (21:28)
[2020-12-21 02:15] LABS: HEMATOCRIT 30.6 % (36.0-47.0); HEMOGLOBIN 9.6 g/dl (12.0-15.5); MEAN CORPUSCULAR HEMOGLOBIN 27.9 pg (27.0-33.0); MEAN CORPUSCULAR HGB CONC 31.4 g/dl (32.0-36.5); PLATELET COUNT, AUTOMATED 131 10^3/uL (150-450); RED BLOOD COUNT 3.44 10^6/uL (4.00-5.40); WHITE BLOOD COUNT 4.6 10^3/uL (4.0-10.0)
[2020-12-21 02:38] LABS: CALCIUM LEVEL 8.4 MG/DL (8.8-10.2); CREATININE FOR GFR 1.58 MG/DL (0.55-1.30); MAGNESIUM LEVEL 1.8 MG/DL (1.8-2.4)
[2020-12-21 06:00] VITALS: BP 134/61
[2020-12-21] MEDS ORDERED: LEVOTHYROXINE 112MCG TABLET (0.112MG) PO SCH (06:00)
[2020-12-21 06:39] LABS: HEMATOCRIT 31.5 % (36.0-47.0); HEMOGLOBIN 10.2 g/dl (12.0-15.5); MEAN CORPUSCULAR HEMOGLOBIN 28.6 pg (27.0-33.0); MEAN CORPUSCULAR HGB CONC 32.4 g/dl (32.0-36.5); MEAN CORPUSCULAR VOLUME 88.2 fl (80.0-96.0); PLATELET COUNT, AUTOMATED 143 10^3/uL (150-450); RED BLOOD COUNT 3.57 10^6/uL (4.00-5.40); WHITE BLOOD COUNT 4.4 10^3/uL (4.0-10.0)
[2020-12-21 06:56] LABS: INR 1.69; PROTHROMBIN TIME 20.3 SECONDS (12.5-14.3)
[2020-12-21 07:15] LABS: ALBUMIN 3.1 GM/DL (3.2-5.2); BILIRUBIN,TOTAL 0.3 MG/DL (0.2-1.0); CALCIUM LEVEL 9.1 MG/DL (8.8-10.2); CREATININE FOR GFR 1.59 MG/DL (0.55-1.30); GLOMERULAR FILTRATION RATE 32.8 (>32); MAGNESIUM LEVEL 2.1 MG/DL (1.8-2.4); POTASSIUM SERUM 4.1 MEQ/L (3.5-5.1); TOTAL PROTEIN 5.6 GM/DL (6.4-8.2)
--- NOTE | 2020-12-21 08:16 | ECGEPIP ---
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
[2020-12-21] MEDS ORDERED: FUROSEMIDE 20 MG TAB PO SCH (09:00)
[2020-12-21] MEDS ORDERED: MIRALAX *UNIT DOSE* 17GM PACKET PO SCH (09:00)
[2020-12-21] MEDS ORDERED: PHENYTOIN ER 100 MG CAP PO SCH (09:00)
[2020-12-21] MEDS ORDERED: CALCITRIOL 0.25 MCG CAP (S0169) PO SCH (09:00)
[2020-12-21] MEDS ORDERED: PNEUMOCOCCAL VACCINE 0.5ML SYRINGE (PNEUMOVAX 23) IM ONE (09:00)
[2020-12-21 09:24] VITALS: BP 129/51
[2020-12-21] MEDS: DOCUSATE SODIUM 100MG CAPSULE PO SCH (09:25)
[2020-12-21] MEDS: SUCRALFATE 1 GM TAB PO SCH ×2 (09:25→12:11)
[2020-12-21] MEDS: CALCIUM/VITAMIN D 500 MG TAB PO SCH (09:25)
[2020-12-21] MEDS: PANTOPRAZOLE 40MG TAB (PROTONIX) PO SCH (09:26)
[2020-12-21 14:00] VITALS: BP 135/57
[2020-12-21 14:19] LABS: HEMATOCRIT 33.1 % (36.0-47.0); HEMOGLOBIN 10.6 g/dl (12.0-15.5); MEAN CORPUSCULAR HEMOGLOBIN 28.6 pg (27.0-33.0); MEAN CORPUSCULAR VOLUME 89.5 fl (80.0-96.0); PLATELET COUNT, AUTOMATED 131 10^3/uL (150-450); WHITE BLOOD COUNT 5.6 10^3/uL (4.0-10.0)
[2020-12-21] MEDS ORDERED: PEG1POW PO (17:30)
--- NOTE | 2020-12-21 17:36 | DS.PDOC ---
Discharge Summary General Date of Admission Dec 20, 2020 at 17:16 Date of Discharge 12/21/20 Attending Physician: AYDE HERNANDES MD Discharge Summary PROCEDURES PERFORMED DURING STAY: None. ADMITTING DIAGNOSES: 1. Acute blood loss anemia. DISCHARGE DIAGNOSES: 1. Acute blood loss anemia from hemorrhoids. COMPLICATIONS/CHIEF COMPLAINT: Gi Bleed/Hypothyroid. HISTORY OF PRESENT ILLNESS: 85-year-old female with extensive past medical history including DVT, on anticoagulation and hemorrhoids with chronic recurrent bleeding was admitted for acute anemia due to blood loss from hemorrhoids caused by constipation and hard stool. Patient received 2 units of packed red blood cells in the emergency department, subsequent checks have shown stable hemoglobin without further drop. Patient was started on stool softeners with improvement in consistency of stool. Patient had one bowel movement today, no bleeding occurred during/after bowel movement. Repeat H&H showed stable hemoglo bin. I had a long discussion with the patient regarding risks and benefits of anticoagulation given her recurrent bleeding, she fully understands and wishes to pursue with anticoagulation at this time. Patient is hemodynamically stable and at her baseline currently. Patient is advised to follow up with her primary care physician after discharge and repeat H&H as needed. Patient is agreeable with this plan at this time. HOSPITAL COURSE: As above. DISCHARGE MEDICATIONS: Please see below. ALLERGIES: Please see below. PHYSICAL EXAMINATION: VITAL SIGNS: Please see below. GENERAL: Frail HEENT: Normocephalic, atraumatic, moist mucous membranes NECK: Supple CARDIOVASCULAR EXAMINATION: S1, S2, no murmurs RESPIRATORY EXAMINATION: , Poor air movement, diminished in the bases, no wheezing ABDOMINAL EXAMINATION: Soft, nontender, nondistended, positive bowel sounds EXTREMITIES: Range of motion intact SKIN: No rash NEUROLOGICAL EXAMINATION: Alert and oriented 3, no focal deficits PSYCHIATRIC EXAMINATION: Calm and cooperative LABORATORY DATA: Please see below. PROGNOSIS: Guarded ACTIVITY: As tolerated. DIET: Cardiac DISCHARGE PLAN: Follow-up with PCP in 1-2 weeks DISPOSITION: Home. DISCHARGE INSTRUCTIONS: 1. . Recheck H&H within 1 week or if bleeding is noticed. DISCHARGE CONDITION: Stable. TIME SPENT ON DISCHARGE: Greater than 20 minutes. Vital Signs/I&Os Vital Signs Date Time Temp Pulse Resp B/P (MAP) Pulse Ox O2 Delivery O2 Flow Rate FiO2 12/21/20 14:00 98.2 69 16 135/57 (83) 96 Room Air I&O- Last 24 Hours up to 6 AM 12/21/20 06:00 Intake Total 1220 ml Output Total 400 ml Balance 820 ml Laboratory Data Labs 24H Laboratory Tests 2 12/21/20 02:05: Nucleated Red Blood Cells % (auto) 0.0, Anion Gap 6L, Glomerular Filtration Rate 33.0, Calcium Level 8.4L, Magnesium Level 1.8 12/21/20 05:37: Nucleated Red Blood Cells % (auto) 0.0, Anion Gap 5L, Glomerular Filtration Rate 32.8, Calcium Level 9.1, Magnesium Level 2.1, Prothrombin Time 20.3H, Prothromb Time International Ratio 1.69, Total Bilirubin 0.3#, Aspartate Amino Transf (AST/SGOT) 29, Alanine Aminotransferase (ALT/SGPT) 26, Alkaline Phosphatase 116, Total Protein 5.6L, Albumin 3.1L, Albumin/Globulin Ratio 1.2 12/21/20 10:55: Lab Scanned Report Transfusion Record 12/21/20 14:01: Nucleated Red Blood Cells % (auto) 0.0 CBC/BMP Laboratory Tests 12/21/20 02:05 12/21/20 05:37 12/21/20 14:01 Microbiology Microbiology 12/20/20 Respiratory Virus Panel (PCR) (ELISA) - Final, Complete Discharge Medications Scheduled Amlodipine Besylate (Amlodipine Besylate) 2.5 Mg Tablet, 2.5 MG PO DAILY, (Repo rted) Atorvastatin Calcium (Atorvastatin Calcium) 40 Mg Tablet, 40 MG PO QPM, (Reported) Calcitriol (Rocaltrol) 0.5 Mcg Capsule, 0.5 MCG PO DAILY, (Reported) Calcium Carbonate/Vitamin D3 (Calcium 600 + Vit D 400 Softgl) 1 Each Capsule, 1 CAP PO BID, (Reported) Ciprofloxacin HCl (Cipro) 500 Mg Tab, 500 MG PO DAILY, (Reported) Cyanocobalamin (Vitamin B-12) (Vitamin B-12) 500 Mcg Tablet, 500 MCG PO QPM, (Reported) Docusate Sodium (Colace) 100 Mg Cap, 100 MG PO BID, (Reported) Folic Acid (Folic Acid) 0.8 Mg Capsule, 800 MCG PO DAILY, (Reported) Furosemide (Lasix) 20 Mg Tab, 20 MG PO DAILY, (Reported) Iron Polysaccharide Complex (Ferrex 150) 150 Mg Capsule, 150 MG PO QPM, (Reported) Levothyroxine Sodium (Levoxyl) 112 Mcg Tablet, 112 MCG PO DAILY, (Reported) Lutein Extract/Zeaxanthin Ext (Lutein 15 mg Softgel) 1 Each Capsule, 1 CAP PO QPM, (Reported) Mv-Mn/Folic Acid/Calcium/Vit K (Women's 50 Plus Multivit Tab) 1 Each Tablet, 1 TAB PO QPM, (Reported) Pantoprazole Sodium (Pantoprazole Sodium) 40 Mg Tab, 40 MG PO BID, (Reported) Phenytoin Sodium Extended (Dilantin) 100 Mg Cap, 100 MG PO QAM, (Reported) Phenytoin Sodium Extended (Dilantin) 100 Mg Cap, 200 MG PO QHS, (Reported) Sucralfate (Sucralfate) 1 Gm Tab, 1 GM PO ACHS, (Reported) Warfarin Sodium (Warfarin Sodium) 4 Mg Tablet, 4 MG PO 1XWK, (Reported) WED PM Warfarin Sodium (Warfarin Sodium) 5 Mg Tablet, 5 MG PO 6XWK, (Reported) SUN, MON, TUES, THURS, FRI, SAT PM Scheduled PRN Clotrimazole (Clotrimazole) 1% 14GM Cream..g., 1 APLCT TOP BID PRN for RASH, (Reported) APPLY UNDER BREASTS, AM AND HS Diclofenac Sodium (Voltaren) 100 Gm Gel..gram., 4 GM TOP QID PRN for PAIN, (Reported) APPLY TO BOTH KNEES Polyethylene Glycol 3350 (Polyethylene Glycol 3350) 17 Gm Powd.pack, 1 PKT PO BID PRN for CONSTIPATION Allergies Coded Allergies: sulfamethoxazole (Verified Adverse Reaction, Unknown, AFFECTS KIDNEYS, 02/24/19) trimethoprim (Verified Adverse Reaction, Unknown, AFFECTS KIDNEYS, 02/24/19) AYDE HERNANDES MD Dec 21, 2020 17:36
== END 2020-12-21 18:20 | disposition home or self-care (01) | DRG 394 ==
LOC: M ED 12:19 → M ED INP 17:16 → ENRESERV 18:56 → M MSPAV 20:55
PROVIDERS: ADMIT Internal Medicine; ATTEND Internal Medicine
PROC: 30233N1 Transfusion of Nonautologous Red Blood Cells into Peripheral Vein, Percutaneous Approach (ICD-10-PCS; principal; 2020-12-20)
DX: K64.8 Other hemorrhoids (principal); D62 Acute posthemorrhagic anemia; E03.9 Hypothyroidism, unspecified; I10 Essential (primary) hypertension; G40.909 Epilepsy, unspecified, not intractable, without status epilepticus; K59.00 Constipation, unspecified; Z79.899 Other long term (current) drug therapy; Z88.2 Allergy status to sulfonamides; Z86.718 Personal history of other venous thrombosis and embolism; Z79.01 Long term (current) use of anticoagulants; Z88.8 Allergy status to other drugs, medicaments and biological substances

== ENCOUNTER → 2020-12-20 | Outpatient (REF) | payer MEDICARE, OTHER ==
[~2020-12-20] MED LIST changes: +CALCCAP4 PO; +FERR150C PO; +LEVO112T25 PO; +MV-M1TAB13 PO; +PEG1POW PO; +VITA500T40 PO; +VOLT1GEL15 TOP
[2020-12-20 10:21] LABS: BASO % 0.9 % (0.0-1.0); EOS # 0.1 10^3/uL (0.0-0.5); EOS % 2.8 % (0.0-3.0); HEMATOCRIT 25.7 % (36.0-47.0); HEMOGLOBIN 7.9 g/dl (12.0-15.5); LYMPH % 23.4 % (24.0-44.0); MEAN CORPUSCULAR HEMOGLOBIN 27.5 pg (27.0-33.0); MEAN CORPUSCULAR HGB CONC 30.7 g/dl (32.0-36.5); MEAN CORPUSCULAR VOLUME 89.5 fl (80.0-96.0); MONO # 0.6 10^3/uL (0.0-0.8); MONO % 13.4 % (2.0-8.0); NEUTROPHILS # 2.6 10^3/uL (1.5-8.5); NEUTROPHILS % 59.3 % (36.0-66.0); PLATELET COUNT, AUTOMATED 174 10^3/uL (150-450); RED BLOOD COUNT 2.87 10^6/uL (4.00-5.40); WHITE BLOOD COUNT 4.3 10^3/uL (4.0-10.0)
[2020-12-20 10:25] LABS: INR 1.73; PROTHROMBIN TIME 20.6 SECONDS (12.5-14.3)
[2020-12-20 10:26] LABS: PARTIAL THROMBOPLASTIN TIME 31.1 SECONDS (24.2-38.5)
[2020-12-20 10:47] LABS: ALBUMIN 3.7 GM/DL (3.2-5.2); BILIRUBIN,TOTAL 0.1 MG/DL (0.2-1.0); CALCIUM LEVEL 9.2 MG/DL (8.8-10.2); CREATININE FOR GFR 1.83 MG/DL (0.55-1.30); FREE T4 1.25 NG/DL (0.76-1.46); GLOMERULAR FILTRATION RATE 27.9 (>32); PHENYTOIN (DILANTIN) 8.8 UG/ML (10.0-20.0); POTASSIUM SERUM 4.4 MEQ/L (3.5-5.1); THYROID STIMULATING HORMONE 1.05 uIU/ML (0.358-3.740); TOTAL PROTEIN 6.2 GM/DL (6.4-8.2)
== END ==
LOC: M PLALAB 08:24
PROVIDERS: ATTEND Family Medicine
DX: D50.9 Iron deficiency anemia, unspecified (principal); I10 Essential (primary) hypertension; R06.09 Other forms of dyspnea; G40.909 Epilepsy, unspecified, not intractable, without status epilepticus; Z86.718 Personal history of other venous thrombosis and embolism

== ENCOUNTER → 2020-12-27 | Outpatient (REF) | payer MEDICARE, OTHER ==
[~2020-12-27] MED LIST changes: +CALCCAP4 PO; +FERR150C PO; +LEVO112T25 PO; +MV-M1TAB13 PO; +POLY17PO18 PO; +VITA500T40 PO; +VOLT1GEL15 TOP
[2020-12-27 18:50] LABS: BASO % 0.8 % (0.0-1.0); EOS # 0.1 10^3/uL (0.0-0.5); EOS % 2.3 % (0.0-3.0); HEMATOCRIT 32.4 % (36.0-47.0); HEMOGLOBIN 10.4 g/dl (12.0-15.5); LYMPH % 21.3 % (24.0-44.0); MEAN CORPUSCULAR HEMOGLOBIN 28.9 pg (27.0-33.0); MEAN CORPUSCULAR HGB CONC 32.1 g/dl (32.0-36.5); MONO # 0.6 10^3/uL (0.0-0.8); MONO % 12.4 % (2.0-8.0); NEUTROPHILS % 62.8 % (36.0-66.0); PLATELET COUNT, AUTOMATED 160 10^3/uL (150-450); WHITE BLOOD COUNT 4.8 10^3/uL (4.0-10.0)
[2020-12-27 19:03] LABS: INR 1.34; PROTHROMBIN TIME 16.9 SECONDS (12.5-14.3)
[2020-12-27 19:08] LABS: ALBUMIN 3.7 GM/DL (3.2-5.2); BILIRUBIN,TOTAL 0.2 MG/DL (0.2-1.0); CALCIUM LEVEL 8.9 MG/DL (8.8-10.2); CREATININE FOR GFR 1.58 MG/DL (0.55-1.30); TOTAL PROTEIN 6.2 GM/DL (6.4-8.2)
== END ==
LOC: M SFHCPLAZ 14:33
PROVIDERS: ATTEND Physician Assistant Medical
DX: K29.61 Other gastritis with bleeding (principal); Z79.01 Long term (current) use of anticoagulants
CPT/HCPCS: 36415; 80053; 85025; 85610; 99496; G0463

== ENCOUNTER → 2021-02-08 | Outpatient (REF) | payer MEDICARE, OTHER ==
[2021-02-08 13:09] LABS: BASO % 0.7 % (0.0-1.0); EOS # 0.1 10^3/uL (0.0-0.5); EOS % 1.5 % (0.0-3.0); HEMATOCRIT 25.1 % (36.0-47.0); HEMOGLOBIN 7.8 g/dl (12.0-15.5); LYMPH # 1.2 10^3/uL (1.5-5.0); LYMPH % 19.7 % (24.0-44.0); MEAN CORPUSCULAR HEMOGLOBIN 27.9 pg (27.0-33.0); MEAN CORPUSCULAR HGB CONC 31.1 g/dl (32.0-36.5); MEAN CORPUSCULAR VOLUME 89.6 fl (80.0-96.0); MONO # 0.8 10^3/uL (0.0-0.8); MONO % 12.7 % (2.0-8.0); NEUTROPHILS # 3.9 10^3/uL (1.5-8.5); NEUTROPHILS % 65.1 % (36.0-66.0); PLATELET COUNT, AUTOMATED 205 10^3/uL (150-450)
[2021-02-08 13:22] LABS: PARTIAL THROMBOPLASTIN TIME 32.4 SECONDS (24.2-38.5); PROTHROMBIN TIME 23.1 SECONDS (12.5-14.3)
[2021-02-08 13:49] LABS: ALBUMIN 3.6 GM/DL (3.2-5.2); BILIRUBIN,TOTAL 0.2 MG/DL (0.2-1.0); CALCIUM LEVEL 9.5 MG/DL (8.8-10.2); CREATININE FOR GFR 1.79 MG/DL (0.55-1.30); FREE T4 1.28 NG/DL (0.76-1.46); GLOMERULAR FILTRATION RATE 28.6 (>32); POTASSIUM SERUM 4.4 MEQ/L (3.5-5.1); THYROID STIMULATING HORMONE 0.368 uIU/ML (0.358-3.740); TOTAL PROTEIN 6.5 GM/DL (6.4-8.2)
== END ==
LOC: M SFHCPLAZ 12:12
PROVIDERS: ATTEND Family Medicine
DX: D50.9 Iron deficiency anemia, unspecified (principal); E03.9 Hypothyroidism, unspecified; R06.09 Other forms of dyspnea; Z51.81 Encounter for therapeutic drug level monitoring; Z79.01 Long term (current) use of anticoagulants
CPT/HCPCS: 36415; 80053; 82728; 83880; 84439; 84443; 85025; 85046; 85610; 85730; G0463

== ENCOUNTER 2021-02-09 09:52 | Outpatient (CLI) | payer MEDICARE, OTHER ==
[2021-02-09] VITALS (10 sets, daily range): BP systolic 108–152; BP diastolic 44–68
[2021-02-09] MEDS ORDERED: FUROSEMIDE 40MG/4ML VIAL (J1940) IV ONE (09:55)
== END 2021-02-09 19:47 | disposition home or self-care (01) ==
LOC: M INFU 09:52 → M MSPAV 09:55 → M INFU 19:47
PROVIDERS: ATTEND Family Medicine
DX: D50.9 Iron deficiency anemia, unspecified (principal); Z88.2 Allergy status to sulfonamides; Z88.8 Allergy status to other drugs, medicaments and biological substances
CPT/HCPCS: 36415; 86850; 86900; 86901; 86920; 96374; J1940; P9016

== ENCOUNTER → 2021-02-12 | Outpatient (REF) | payer MEDICARE, OTHER ==
[2021-02-12 13:44] LABS: BASO # 0.1 10^3/uL (0.0-0.2); BASO % 0.8 % (0.0-1.0); EOS # 0.1 10^3/uL (0.0-0.5); HEMATOCRIT 33.3 % (36.0-47.0); HEMOGLOBIN 10.3 g/dl (12.0-15.5); LYMPH % 16.2 % (24.0-44.0); MEAN CORPUSCULAR HEMOGLOBIN 27.6 pg (27.0-33.0); MEAN CORPUSCULAR HGB CONC 30.9 g/dl (32.0-36.5); MEAN CORPUSCULAR VOLUME 89.3 fl (80.0-96.0); MONO # 0.7 10^3/uL (0.0-0.8); MONO % 12.1 % (2.0-8.0); NEUTROPHILS # 4.2 10^3/uL (1.5-8.5); NEUTROPHILS % 68.6 % (36.0-66.0); PLATELET COUNT, AUTOMATED 201 10^3/uL (150-450); RED BLOOD COUNT 3.73 10^6/uL (4.00-5.40); WHITE BLOOD COUNT 6.1 10^3/uL (4.0-10.0)
[2021-02-12 14:25] LABS: ALBUMIN 3.6 GM/DL (3.2-5.2); CALCIUM LEVEL 9.6 MG/DL (8.8-10.2); CREATININE FOR GFR 1.49 MG/DL (0.55-1.30); GLOMERULAR FILTRATION RATE 35.3 (>32); PHOSPHORUS LEVEL 2.8 MG/DL (2.5-4.9); POTASSIUM SERUM 4.5 MEQ/L (3.5-5.1)
== END ==
LOC: M SFHCPLAZ 10:00
PROVIDERS: ATTEND Physician Assistant
DX: D50.9 Iron deficiency anemia, unspecified (principal); Z86.718 Personal history of other venous thrombosis and embolism

== ENCOUNTER 2021-02-13 10:18 | Outpatient (CLI) | payer MEDICARE, OTHER ==
[~2021-02-13 10:18] MED LIST changes: +ALBUTEROL SULFATE 2.5 MG/0.5 ML INH NEB SOLN INH PRN; +EPINEPHrine INJ 1 MG/ML 1ML AMP IM PRN; +diphenhydrAMINE 50MG/ML VIAL (J1200) IV PRN; +methylPREDNISolone 125MG 2ML VIAL IV PRN
[2021-02-13] MEDS ORDERED: FERRIC CARBOXYMALTOSE INJ 750 MG, VIAL MATE ADAPTER 1 EACH in NS 250 ML IV ONE (10:45)
[2021-02-13] MEDS ORDERED: NS 1,000 ML IV SCH (10:45)
[2021-02-13 11:00] VITALS: BP 137/63
[2021-02-13 12:16] VITALS: BP 156/68
== END 2021-02-13 12:17 | disposition home or self-care (01) ==
LOC: M INFU 10:18
PROVIDERS: ATTEND Physician Assistant
DX: D50.9 Iron deficiency anemia, unspecified (principal); Z88.2 Allergy status to sulfonamides; Z88.8 Allergy status to other drugs, medicaments and biological substances
CPT/HCPCS: 96365; J1439

== ENCOUNTER → 2021-03-04 | Outpatient (REF) | payer MEDICARE, OTHER ==
[~2021-03-04] MED LIST changes: -ALBUTEROL SULFATE 2.5 MG/0.5 ML INH NEB SOLN INH PRN; -EPINEPHrine INJ 1 MG/ML 1ML AMP IM PRN; -diphenhydrAMINE 50MG/ML VIAL (J1200) IV PRN; -methylPREDNISolone 125MG 2ML VIAL IV PRN
[2021-03-04 16:02] LABS: BASO # 0.1 10^3/uL (0.0-0.2); EOS # 0.2 10^3/uL (0.0-0.5); EOS % 3.9 % (0.0-3.0); HEMATOCRIT 30.9 % (36.0-47.0); HEMOGLOBIN 9.6 g/dl (12.0-15.5); MEAN CORPUSCULAR HEMOGLOBIN 28.6 pg (27.0-33.0); MEAN CORPUSCULAR HGB CONC 31.1 g/dl (32.0-36.5); MONO # 0.6 10^3/uL (0.0-0.8); NEUTROPHILS # 3.3 10^3/uL (1.5-8.5); NEUTROPHILS % 63.9 % (36.0-66.0); PLATELET COUNT, AUTOMATED 177 10^3/uL (150-450); RED BLOOD COUNT 3.36 10^6/uL (4.00-5.40); WHITE BLOOD COUNT 5.1 10^3/uL (4.0-10.0)
[2021-03-04 16:27] LABS: ALBUMIN 3.5 GM/DL (3.2-5.2); CALCIUM LEVEL 9.4 MG/DL (8.8-10.2); CREATININE FOR GFR 1.58 MG/DL (0.55-1.30); PHOSPHORUS LEVEL 2.7 MG/DL (2.5-4.9); POTASSIUM SERUM 4.1 MEQ/L (3.5-5.1)
[2021-03-04 16:30] LABS: INR 1.89; PROTHROMBIN TIME 22.1 SECONDS (12.5-14.3)
[2021-03-04 16:31] LABS: PARTIAL THROMBOPLASTIN TIME 32.6 SECONDS (24.2-38.5)
== END ==
LOC: M LAB REF 15:45
PROVIDERS: ATTEND Physician Assistant
DX: D50.9 Iron deficiency anemia, unspecified (principal); Z86.718 Personal history of other venous thrombosis and embolism

== ENCOUNTER → 2021-03-18 | Outpatient (REF) | payer MEDICARE, OTHER ==
[2021-03-18 12:01] LABS: BASO # 0.1 10^3/uL (0.0-0.2); BASO % 1.5 % (0.0-1.0); EOS # 0.2 10^3/uL (0.0-0.5); EOS % 4.5 % (0.0-3.0); HEMOGLOBIN 9.2 g/dl (12.0-15.5); LYMPH # 0.9 10^3/uL (1.5-5.0); LYMPH % 23.1 % (24.0-44.0); MEAN CORPUSCULAR HEMOGLOBIN 28.5 pg (27.0-33.0); MEAN CORPUSCULAR HGB CONC 30.7 g/dl (32.0-36.5); MEAN CORPUSCULAR VOLUME 92.9 fl (80.0-96.0); MONO # 0.4 10^3/uL (0.0-0.8); MONO % 11.1 % (2.0-8.0); NEUTROPHILS # 2.4 10^3/uL (1.5-8.5); NEUTROPHILS % 59.5 % (36.0-66.0); PLATELET COUNT, AUTOMATED 157 10^3/uL (150-450); RED BLOOD COUNT 3.23 10^6/uL (4.00-5.40)
[2021-03-18 12:14] LABS: INR 1.51; PROTHROMBIN TIME 18.5 SECONDS (12.5-14.3)
[2021-03-18 12:28] LABS: ALBUMIN 3.4 GM/DL (3.2-5.2); CALCIUM LEVEL 8.4 MG/DL (8.8-10.2); CREATININE FOR GFR 1.38 MG/DL (0.55-1.30); GLOMERULAR FILTRATION RATE 38.6 (>32); PHOSPHORUS LEVEL 2.9 MG/DL (2.5-4.9); POTASSIUM SERUM 4.1 MEQ/L (3.5-5.1)
== END ==
LOC: M LAB REF 11:32
PROVIDERS: ATTEND Family Medicine
DX: I10 Essential (primary) hypertension (principal); D50.9 Iron deficiency anemia, unspecified; Z86.718 Personal history of other venous thrombosis and embolism

== ENCOUNTER → 2021-04-01 | Outpatient (REF) | payer MEDICARE, OTHER ==
[2021-04-01 12:51] LABS: BASO % 0.8 % (0.0-1.0); EOS # 0.1 10^3/uL (0.0-0.5); EOS % 2.9 % (0.0-3.0); HEMATOCRIT 30.8 % (36.0-47.0); HEMOGLOBIN 9.7 g/dl (12.0-15.5); LYMPH # 0.8 10^3/uL (1.5-5.0); LYMPH % 17.4 % (24.0-44.0); MEAN CORPUSCULAR HGB CONC 31.5 g/dl (32.0-36.5); MEAN CORPUSCULAR VOLUME 92.2 fl (80.0-96.0); MONO # 0.6 10^3/uL (0.0-0.8); NEUTROPHILS # 3.2 10^3/uL (1.5-8.5); NEUTROPHILS % 66.7 % (36.0-66.0); PLATELET COUNT, AUTOMATED 171 10^3/uL (150-450); RED BLOOD COUNT 3.34 10^6/uL (4.00-5.40); WHITE BLOOD COUNT 4.8 10^3/uL (4.0-10.0)
[2021-04-01 13:04] LABS: INR 1.4; PROTHROMBIN TIME 17.5 SECONDS (12.5-14.3)
[2021-04-01 13:24] LABS: ALBUMIN 3.5 GM/DL (3.2-5.2); CALCIUM LEVEL 10.2 MG/DL (8.8-10.2); CREATININE FOR GFR 1.58 MG/DL (0.55-1.30); PHOSPHORUS LEVEL 3.2 MG/DL (2.5-4.9); POTASSIUM SERUM 4.8 MEQ/L (3.5-5.1)
== END ==
LOC: M SFHCPLAZ 11:55
PROVIDERS: ATTEND Family Medicine
DX: I10 Essential (primary) hypertension (principal); D50.9 Iron deficiency anemia, unspecified; Z86.718 Personal history of other venous thrombosis and embolism

== ENCOUNTER → 2021-04-16 | Outpatient (REF) | payer MEDICARE, OTHER ==
[2021-04-16 13:07] LABS: BASO # 0.1 10^3/uL (0.0-0.2); BASO % 1.1 % (0.0-1.0); EOS # 0.2 10^3/uL (0.0-0.5); EOS % 3.6 % (0.0-3.0); HEMATOCRIT 32.3 % (36.0-47.0); HEMOGLOBIN 10.1 g/dl (12.0-15.5); LYMPH # 1.2 10^3/uL (1.5-5.0); LYMPH % 21.7 % (24.0-44.0); MEAN CORPUSCULAR HEMOGLOBIN 29.2 pg (27.0-33.0); MEAN CORPUSCULAR HGB CONC 31.3 g/dl (32.0-36.5); MEAN CORPUSCULAR VOLUME 93.4 fl (80.0-96.0); MONO # 0.5 10^3/uL (0.0-0.8); NEUTROPHILS # 3.4 10^3/uL (1.5-8.5); NEUTROPHILS % 64.2 % (36.0-66.0); PLATELET COUNT, AUTOMATED 202 10^3/uL (150-450); RED BLOOD COUNT 3.46 10^6/uL (4.00-5.40); WHITE BLOOD COUNT 5.3 10^3/uL (4.0-10.0)
[2021-04-16 13:18] LABS: INR 1.39; PROTHROMBIN TIME 17.4 SECONDS (12.5-14.3)
[2021-04-16 13:27] LABS: ALBUMIN 3.6 GM/DL (3.2-5.2); CALCIUM LEVEL 8.9 MG/DL (8.8-10.2); CREATININE FOR GFR 1.58 MG/DL (0.55-1.30); PHOSPHORUS LEVEL 3.4 MG/DL (2.5-4.9); POTASSIUM SERUM 4.2 MEQ/L (3.5-5.1)
== END ==
LOC: M LAB REF 12:28
PROVIDERS: ATTEND Family Medicine
DX: Z86.718 Personal history of other venous thrombosis and embolism (principal); I10 Essential (primary) hypertension; D50.9 Iron deficiency anemia, unspecified

== ENCOUNTER → 2021-05-15 | Outpatient (CLI) | payer MEDICARE, OTHER ==
[2021-05-15 13:46] LABS: BASO % 0.5 % (0.0-1.0); EOS # 0.1 10^3/uL (0.0-0.5); EOS % 1.9 % (0.0-3.0); HEMATOCRIT 29.1 % (36.0-47.0); HEMOGLOBIN 9.2 g/dl (12.0-15.5); LYMPH % 22.7 % (24.0-44.0); MEAN CORPUSCULAR HEMOGLOBIN 29.1 pg (27.0-33.0); MEAN CORPUSCULAR HGB CONC 31.6 g/dl (32.0-36.5); MEAN CORPUSCULAR VOLUME 92.1 fl (80.0-96.0); MONO # 0.6 10^3/uL (0.0-0.8); MONO % 14.3 % (2.0-8.0); NEUTROPHILS # 2.6 10^3/uL (1.5-8.5); NEUTROPHILS % 60.4 % (36.0-66.0); PLATELET COUNT, AUTOMATED 166 10^3/uL (150-450); RED BLOOD COUNT 3.16 10^6/uL (4.00-5.40); WHITE BLOOD COUNT 4.3 10^3/uL (4.0-10.0)
[2021-05-15 14:00] LABS: INR 1.75; PROTHROMBIN TIME 20.8 SECONDS (12.5-14.3)
[2021-05-15 14:01] LABS: PARTIAL THROMBOPLASTIN TIME 33.5 SECONDS (24.2-38.5)
[2021-05-15 14:23] LABS: ALBUMIN 3.6 GM/DL (3.2-5.2); BILIRUBIN,TOTAL 0.3 MG/DL (0.2-1.0); CALCIUM LEVEL 9.1 MG/DL (8.8-10.2); CHOLESTEROL RISK RATIO 2.5 (<5); CREATININE FOR GFR 1.86 MG/DL (0.55-1.30); FREE T4 1.09 NG/DL (0.76-1.46); GLOMERULAR FILTRATION RATE 27.3 (>32); PHENYTOIN (DILANTIN) 9.9 UG/ML (10.0-20.0); POTASSIUM SERUM 4.5 MEQ/L (3.5-5.1); THYROID STIMULATING HORMONE 1.48 uIU/ML (0.358-3.740); TOTAL PROTEIN 6.2 GM/DL (6.4-8.2)
[2021-05-15 14:27] LABS: PTH INTACT 36.4 PG/ML (18.5-88.0)
== END ==
LOC: M PLALAB 10:36
PROVIDERS: ATTEND Family Medicine
DX: D50.9 Iron deficiency anemia, unspecified (principal); I10 Essential (primary) hypertension; E03.9 Hypothyroidism, unspecified; G40.909 Epilepsy, unspecified, not intractable, without status epilepticus; N18.30 Chronic kidney disease, stage 3 unspecified; E78.5 Hyperlipidemia, unspecified; Z86.718 Personal history of other venous thrombosis and embolism; Z79.01 Long term (current) use of anticoagulants

== ENCOUNTER 2021-05-23 11:42 | Outpatient (CLI) | payer MEDICARE, OTHER ==
[~2021-05-23] VITALS: Ht 152.4 cm; Wt 61.3 kg
[~2021-05-23 11:42] MED LIST changes: +ALBUTEROL SULFATE 2.5 MG/0.5 ML INH NEB SOLN INH PRN; +EPINEPHrine INJ 1 MG/ML 1ML AMP IM PRN; +diphenhydrAMINE 50MG/ML VIAL (J1200) IV PRN; +methylPREDNISolone 125MG 2ML VIAL IV PRN
[2021-05-23 12:00] VITALS: BP 148/60
[2021-05-23] MEDS ORDERED: FERRIC CARBOXYMALTOSE INJ 750 MG, VIAL MATE ADAPTER 1 EACH in NS 250 ML IV ONE (12:00)
[2021-05-23] MEDS ORDERED: NS 1,000 ML IV SCH (12:00)
[2021-05-23 14:00] VITALS: BP 128/58
[2021-05-23 14:30] VITALS: BP 164/74
== END 2021-05-23 14:40 | disposition home or self-care (01) ==
LOC: M INFU 11:42
PROVIDERS: ATTEND Family Medicine
DX: D50.9 Iron deficiency anemia, unspecified (principal); Z88.2 Allergy status to sulfonamides; Z88.8 Allergy status to other drugs, medicaments and biological substances
CPT/HCPCS: 96365; 96366; J1439

== ENCOUNTER 2021-05-31 09:01 | Outpatient (RCR) | payer MEDICARE, OTHER ==
[~2021-05-31 09:01] MED LIST changes: -ALBUTEROL SULFATE 2.5 MG/0.5 ML INH NEB SOLN INH PRN; -EPINEPHrine INJ 1 MG/ML 1ML AMP IM PRN; -diphenhydrAMINE 50MG/ML VIAL (J1200) IV PRN; -methylPREDNISolone 125MG 2ML VIAL IV PRN
== END 2021-06-01 | disposition still patient (30) ==
LOC: M PT 09:01
PROVIDERS: ATTEND Family Medicine
DX: R27.0 Ataxia, unspecified (principal)

== ENCOUNTER → 2021-06-04 | Outpatient (CLI) | payer MEDICARE, OTHER ==
[~2021-06-04] MED LIST changes: +ALPR0.25
[2021-06-04 11:50] LABS: BASO # 0.1 10^3/uL (0.0-0.2); BASO % 1.1 % (0.0-1.0); EOS # 0.2 10^3/uL (0.0-0.5); EOS % 4.8 % (0.0-3.0); HEMATOCRIT 27.9 % (36.0-47.0); HEMOGLOBIN 8.7 g/dl (12.0-15.5); LYMPH # 0.9 10^3/uL (1.5-5.0); LYMPH % 21.1 % (24.0-44.0); MEAN CORPUSCULAR HEMOGLOBIN 29.7 pg (27.0-33.0); MEAN CORPUSCULAR HGB CONC 31.2 g/dl (32.0-36.5); MEAN CORPUSCULAR VOLUME 95.2 fl (80.0-96.0); MONO # 0.5 10^3/uL (0.0-0.8); MONO % 11.3 % (2.0-8.0); NEUTROPHILS # 2.7 10^3/uL (1.5-8.5); NEUTROPHILS % 61.5 % (36.0-66.0); PLATELET COUNT, AUTOMATED 183 10^3/uL (150-450); RED BLOOD COUNT 2.93 10^6/uL (4.00-5.40); WHITE BLOOD COUNT 4.4 10^3/uL (4.0-10.0)
[2021-06-04 12:02] LABS: INR 1.66
== END ==
LOC: M PLALAB 08:13
PROVIDERS: ATTEND Family Medicine
DX: D50.9 Iron deficiency anemia, unspecified (principal)

== ENCOUNTER 2021-06-10 10:04 | Emergency (ER) | payer MEDICARE, OTHER ==
[~2021-06-10] VITALS: Ht 157.5 cm; Wt 61.4 kg
[~2021-06-10 10:04] MED LIST changes: -ALPR0.25
--- NOTE | 2021-06-10 12:03 | REP ---
INDICATION: edema r/o DVT. COMPARISON: None. TECHNIQUE: Multiple ultrasonographic images of the deep venous structures of the bilateral lower extremity were obtained from the inguinal ligament to the ankle. Venous compression techniques, color doppler imaging, and augmentation techniques were also obtained where appropriate. As per the ACR guidelines the anterior tibial vein can not be effectively evaluated. Only compression techniques in the calf on the peroneal and posterior tibial veins was attempted/performed. FINDINGS: There is no abnormal echogenic material seen within any of the visualized deep venous structures that would suggest acute thrombosis. Coaptation is unremarkable throughout. Doppler interrogation shows an expected response to respiratory variability and augmentation in the thigh. Compression techniques in the calf showed no abnormality. The color flow images show what appears to be a normal vascular pattern throughout the thigh. IMPRESSION: There is no ultrasonographic evidence of deep venous thrombosis involving any of the visualized deep venous structures of the bilateral lower extremity as described above. <Electronically signed by Jamel Carvalho > 06/10/21 1200
[2021-06-10 13:27] LABS: BASO # 0.1 10^3/uL (0.0-0.2); BASO % 0.8 % (0.0-1.0); EOS # 0.2 10^3/uL (0.0-0.5); EOS % 2.8 % (0.0-3.0); HEMOGLOBIN 9.4 g/dl (12.0-15.5); LYMPH # 1.1 10^3/uL (1.5-5.0); LYMPH % 17.5 % (24.0-44.0); MEAN CORPUSCULAR HEMOGLOBIN 29.9 pg (27.0-33.0); MEAN CORPUSCULAR HGB CONC 31.3 g/dl (32.0-36.5); MEAN CORPUSCULAR VOLUME 95.5 fl (80.0-96.0); MONO # 0.6 10^3/uL (0.0-0.8); MONO % 10.2 % (2.0-8.0); NEUTROPHILS # 4.2 10^3/uL (1.5-8.5); NEUTROPHILS % 68.4 % (36.0-66.0); PLATELET COUNT, AUTOMATED 166 10^3/uL (150-450); RED BLOOD COUNT 3.14 10^6/uL (4.00-5.40); WHITE BLOOD COUNT 6.2 10^3/uL (4.0-10.0)
[2021-06-10 13:41] LABS: INR 1.58; PROTHROMBIN TIME 19.3 SECONDS (12.7-14.5)
[2021-06-10 14:04] LABS: ALBUMIN 3.5 GM/DL (3.2-5.2); ALT/SGPT 31 U/L (12-78); BILIRUBIN,DIRECT < 0.1 MG/DL (0.0-0.2); BILIRUBIN,TOTAL 0.3 MG/DL (0.2-1.0); BLOOD UREA NITROGEN 40 MG/DL (7-18); CALCIUM LEVEL 9.1 MG/DL (8.8-10.2); CARBON DIOXIDE LEVEL 27 MEQ/L (21-32); CHLORIDE LEVEL 110 MEQ/L (98-107); CK-MB VALUE MASS < 1.0 NG/ML (<3.6); CPK CREATINE PHOSPHOKINASE 87 U/L (26-192); CREATININE FOR GFR 1.59 MG/DL (0.55-1.30); GLOMERULAR FILTRATION RATE 32.8 (>32); GLUCOSE, FASTING 75 MG/DL (70-100); MB/CK RELATIVE INDEX 1.15 (< OR =4); NT-PRO BNP 719 PG/ML (<450); POTASSIUM SERUM 4.7 MEQ/L (3.5-5.1); SODIUM LEVEL 142 MEQ/L (136-145); TOTAL PROTEIN 6.2 GM/DL (6.4-8.2); TROPONIN I < 0.02 NG/ML (< 0.10)
[2021-06-10] MEDS ORDERED: ISOVUE-370 76% 100ML VIAL As Ordered ONE (15:26)
--- NOTE | 2021-06-10 15:51 | REP ---
INDICATION: SOB. COMPARISON: None. TECHNIQUE: Scans were obtained during contrast administration. FINDINGS: There is no evidence of pulmonary embolus. The ascending and descending thoracic aorta are unremarkable. The pulmonary vasculature shows no abnormality. The lungs are free of active disease. There is fibrotic change in the lingula. There is minimal pleural thickening bilaterally. There is no pleural effusion. Polycystic renal disease is noted. IVC filter noted. IMPRESSION: No evidence of pulmonary embolus. Fibrotic changes in the lingula. Polycystic renal disease. <Electronically signed by Brennan Ness > 06/10/21 [id number]
[2021-06-10 16:15] VITALS: BP 140/66
--- NOTE | 2021-06-10 19:21 | ECGEPIP ---
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
== END 2021-06-10 16:29 | disposition home or self-care (01) ==
LOC: M ED 10:04
DX: R60.0 Localized edema (principal); I10 Essential (primary) hypertension; N18.30 Chronic kidney disease, stage 3 unspecified; D64.9 Anemia, unspecified; G40.909 Epilepsy, unspecified, not intractable, without status epilepticus; K59.00 Constipation, unspecified; K76.0 Fatty (change of) liver, not elsewhere classified; R06.02 Shortness of breath; K25.9 Gastric ulcer, unspecified as acute or chronic, without hemorrhage or perforation; Z95.828 Presence of other vascular implants and grafts; Q61.3 Polycystic kidney, unspecified; Z79.01 Long term (current) use of anticoagulants; Z79.899 Other long term (current) drug therapy; Z88.2 Allergy status to sulfonamides
CPT/HCPCS: 36415; 71275; 80048; 80076; 82550; 82553; 83880; 84443; 84484; 85025; 85610; 85730; 87798; 93005; 93041; 93970; 94760; 99285; Q9967

== ENCOUNTER → 2021-06-19 | Outpatient (CLI) | payer MEDICARE, OTHER ==
[2021-06-19 10:41] LABS: BASO % 0.8 % (0.0-1.0); EOS # 0.2 10^3/uL (0.0-0.5); EOS % 3.1 % (0.0-3.0); HEMATOCRIT 28.6 % (36.0-47.0); HEMOGLOBIN 8.8 g/dl (12.0-15.5); LYMPH # 0.8 10^3/uL (1.5-5.0); LYMPH % 15.7 % (24.0-44.0); MEAN CORPUSCULAR HEMOGLOBIN 29.3 pg (27.0-33.0); MEAN CORPUSCULAR HGB CONC 30.8 g/dl (32.0-36.5); MEAN CORPUSCULAR VOLUME 95.3 fl (80.0-96.0); MONO # 0.6 10^3/uL (0.0-0.8); MONO % 10.9 % (2.0-8.0); NEUTROPHILS # 3.6 10^3/uL (1.5-8.5); NEUTROPHILS % 69.3 % (36.0-66.0); PLATELET COUNT, AUTOMATED 166 10^3/uL (150-450); WHITE BLOOD COUNT 5.2 10^3/uL (4.0-10.0)
[2021-06-19 10:45] LABS: INR 1.57; PROTHROMBIN TIME 19.2 SECONDS (12.7-14.5)
[2021-06-19 10:46] LABS: PARTIAL THROMBOPLASTIN TIME 32.6 SECONDS (25.9-37.0)
[2021-06-19 11:14] LABS: ALBUMIN 3.6 GM/DL (3.2-5.2); BILIRUBIN,TOTAL 0.2 MG/DL (0.2-1.0); CHOLESTEROL RISK RATIO 2.368 (<5); CREATININE FOR GFR 1.96 MG/DL (0.55-1.30); FREE T4 1.14 NG/DL (0.76-1.46); GLOMERULAR FILTRATION RATE 25.7 (>32); PHENYTOIN (DILANTIN) 8.3 UG/ML (10.0-20.0); POTASSIUM SERUM 4.4 MEQ/L (3.5-5.1); THYROID STIMULATING HORMONE 1.56 uIU/ML (0.358-3.740); TOTAL PROTEIN 6.1 GM/DL (6.4-8.2)
[2021-06-19 11:21] LABS: PTH INTACT 61.8 PG/ML (18.5-88.0)
== END ==
LOC: M PLALAB 08:52
PROVIDERS: ATTEND Family Medicine
DX: D50.9 Iron deficiency anemia, unspecified (principal); E03.9 Hypothyroidism, unspecified; N18.30 Chronic kidney disease, stage 3 unspecified; I12.9 Hypertensive chronic kidney disease with stage 1 through stage 4 chronic kidney disease, or unspecified chronic kidney disease; G40.909 Epilepsy, unspecified, not intractable, without status epilepticus; Z86.718 Personal history of other venous thrombosis and embolism; E78.5 Hyperlipidemia, unspecified

== ENCOUNTER → 2021-06-20 | Outpatient (CLI) | payer MEDICARE, OTHER | LOC: M LAB 14:27 | PROVIDERS: ATTEND Family Medicine | DX: D50.9 Iron deficiency anemia, unspecified (principal) ==

== ENCOUNTER 2021-06-21 06:54 | Outpatient (CLI) | payer MEDICARE, OTHER ==
[2021-06-21] VITALS (10 sets, daily range): BP systolic 120–150; BP diastolic 58–72
[~2021-06-21] VITALS: Ht 152.4 cm; Wt 61.3 kg
[2021-06-21] MEDS: FUROSEMIDE 40MG/4ML VIAL (J1940) IV ONE ×2 (07:00→09:59)
== END 2021-06-21 12:40 | disposition home or self-care (01) ==
LOC: M INFU 06:54
PROVIDERS: ATTEND Family Medicine
DX: D50.9 Iron deficiency anemia, unspecified (principal); Z88.2 Allergy status to sulfonamides
CPT/HCPCS: 36430; J1940; P9016

== ENCOUNTER → 2021-06-27 | Outpatient (CLI) | payer MEDICARE, OTHER ==
[~2021-06-27] MED LIST changes: +ALPR0.25
[2021-06-27 13:21] LABS: BASO # 0.1 10^3/uL (0.0-0.2); EOS # 0.2 10^3/uL (0.0-0.5); EOS % 3.7 % (0.0-3.0); HEMATOCRIT 37.5 % (36.0-47.0); HEMOGLOBIN 11.9 g/dl (12.0-15.5); LYMPH # 0.8 10^3/uL (1.5-5.0); LYMPH % 16.5 % (24.0-44.0); MEAN CORPUSCULAR HEMOGLOBIN 29.9 pg (27.0-33.0); MEAN CORPUSCULAR HGB CONC 31.7 g/dl (32.0-36.5); MEAN CORPUSCULAR VOLUME 94.2 fl (80.0-96.0); MONO # 0.5 10^3/uL (0.0-0.8); MONO % 10.8 % (2.0-8.0); NEUTROPHILS # 3.3 10^3/uL (1.5-8.5); NEUTROPHILS % 67.6 % (36.0-66.0); PLATELET COUNT, AUTOMATED 154 10^3/uL (150-450); RED BLOOD COUNT 3.98 10^6/uL (4.00-5.40); WHITE BLOOD COUNT 4.9 10^3/uL (4.0-10.0)
[2021-06-27 13:24] LABS: INR 1.4; PROTHROMBIN TIME 17.5 SECONDS (12.7-14.5)
[2021-06-27 13:28] LABS: ALBUMIN 3.4 GM/DL (3.2-5.2); CALCIUM LEVEL 9.4 MG/DL (8.8-10.2); CREATININE FOR GFR 1.81 MG/DL (0.55-1.30); GLOMERULAR FILTRATION RATE 28.2 (>32); PHOSPHORUS LEVEL 3.5 MG/DL (2.5-4.9); POTASSIUM SERUM 4.6 MEQ/L (3.5-5.1)
== END ==
LOC: M PLALAB 10:09
PROVIDERS: ATTEND Family Medicine
DX: D50.9 Iron deficiency anemia, unspecified (principal); R06.09 Other forms of dyspnea
CPT/HCPCS: 36415; 80069; 82728; 83880; 85025; 85610; G0463

== ENCOUNTER 2021-07-14 09:41 | Emergency (ER) | payer MEDICARE, OTHER ==
[~2021-07-14] VITALS: Ht 157.5 cm; Wt 61.8 kg
[~2021-07-14 09:41] MED LIST changes: -ALPR0.25
[2021-07-14 12:00] LABS: VENOUS BASE EXCESS 1.3 (-2.0-2.0); VENOUS HCO3 28.3 MEQ/L (23.0-27.0); VENOUS PARTIAL PRESSURE CO2 55.9 mmHg (38.0-50.0); VENOUS PARTIAL PRESSURE O2 34.1 mmHg (30.0-50.0); VENOUS PH 7.323 UNITS (7.330-7.430); VENOUS STANDARD HCO3 24.8 MEQ/L; VENOUS TOTAL CO2 30.1 MEQ/L (24.0-28.0)
[2021-07-14 12:07] LABS: BASO % 0.5 % (0.0-1.0); EOS # 0.2 10^3/uL (0.0-0.5); EOS % 2.6 % (0.0-3.0); HEMATOCRIT 37.5 % (36.0-47.0); HEMOGLOBIN 12.2 g/dl (12.0-15.5); LYMPH # 0.7 10^3/uL (1.5-5.0); LYMPH % 9.2 % (24.0-44.0); MEAN CORPUSCULAR HGB CONC 32.5 g/dl (32.0-36.5); MEAN CORPUSCULAR VOLUME 92.4 fl (80.0-96.0); MONO # 0.9 10^3/uL (0.0-0.8); MONO % 11.2 % (2.0-8.0); NEUTROPHILS # 5.8 10^3/uL (1.5-8.5); NEUTROPHILS % 76.1 % (36.0-66.0); PLATELET COUNT, AUTOMATED 135 10^3/uL (150-450); RED BLOOD COUNT 4.06 10^6/uL (4.00-5.40); WHITE BLOOD COUNT 7.7 10^3/uL (4.0-10.0)
--- NOTE | 2021-07-14 12:31 | REP ---
INDICATION: DYSPNEA/COUGH. COMPARISON: 12/20/2020. TECHNIQUE: Single portable AP view of the chest was performed. FINDINGS: There is no acute infiltrate or pulmonary edema. Lungs are clear. The heart is not significantly enlarged. The mediastinal silhouette is unremarkable. There is calcific plaque in the thoracic aorta. The visualized osseous structures are intact. IMPRESSION: No acute pulmonary disease. <Electronically signed by Luis Mason > 07/14/21 [id number]
[2021-07-14] MEDS ORDERED: ALPR0.25 (12:39)
[2021-07-14 12:55] LABS: INR 2.24; PROTHROMBIN TIME 25.1 SECONDS (12.7-14.5)
[2021-07-14 13:41] LABS: ALBUMIN 3.7 GM/DL (3.2-5.2); ALT/SGPT 37 U/L (12-78); BILIRUBIN,DIRECT 0.1 MG/DL (0.0-0.2); BILIRUBIN,TOTAL 0.3 MG/DL (0.2-1.0); BLOOD UREA NITROGEN 36 MG/DL (7-18); CALCIUM LEVEL 9.1 MG/DL (8.8-10.2); CARBON DIOXIDE LEVEL 27 MEQ/L (21-32); CHLORIDE LEVEL 108 MEQ/L (98-107); CK-MB VALUE MASS 1.5 NG/ML (<3.6); CPK CREATINE PHOSPHOKINASE 133 U/L (26-192); CREATININE FOR GFR 1.67 MG/DL (0.55-1.30); GLUCOSE, FASTING 96 MG/DL (70-100); MB/CK RELATIVE INDEX 1.13 (< OR =4); NT-PRO BNP 1119 PG/ML (<450); POTASSIUM SERUM 3.6 MEQ/L (3.5-5.1); SODIUM LEVEL 143 MEQ/L (136-145); TROPONIN I < 0.02 NG/ML (< 0.10)
[2021-07-14 13:48] LABS: LIPASE 270 U/L (73-393)
[2021-07-14] MEDS ORDERED: ISOVUE-370 76% 100ML VIAL As Ordered ONE (13:52)
--- NOTE | 2021-07-14 15:21 | REP ---
INDICATION: right sided chest pain. COMPARISON: 06/10/2021. TECHNIQUE: CT angiogram chest performed following the intravenous administration of 100 cc of Isovue 370. Sagittal and coronal reconstruction images are performed. The study is limited by motion. FINDINGS: Lungs: Scattered interstitial fibrotic changes are seen with no definite acute infiltrate. There is diffuse bronchial wall thickening bilaterally suggesting bronchitis. Mediastinum: A mildly enlarged precarinal lymph node 1.2 cm is stable.. Pulmonary arteries: No evidence of pulmonary embolism. Chloe: No adenopathy. Axilla: No adenopathy. Pleura: No effusion. Heart: Not enlarged. Thoracic aorta: No aneurysm or dissection. Upper abdominal structures: Unremarkable. Visualized osseous structures: There are degenerative changes of the spine with few old mild compression deformities of the upper thoracic vertebral bodies and accentuation of thoracic kyphosis. IMPRESSION: No CT evidence of pulmonary embolism. No infiltrate seen. There is diffuse bronchial wall thickening bilaterally suggesting bronchitis. <Electronically signed by Luis Mason > 07/14/21 [id number]
--- NOTE | 2021-07-14 15:30 | REP ---
INDICATION: right sided chest pain COMPARISON: 08/15/2014. TECHNIQUE: CT Scan of the abdomen and pelvis was performed with intravenous administration of 100 cc of Isovue 370, without oral contrast. Sagittal and coronal reconstruction images are performed. FINDINGS: Lung bases: Unremarkable. Liver: Normal Gallbladder: Gallstones are seen in the gallbladder, with moderate gallbladder distension.. Spleen: Normal. Adrenals: Normal. Pancreas: Normal. Kidneys: Multiple innumerable bilateral renal cysts are noted without hydronephrosis. The largest cyst is in the upper pole the right kidney, exophytic, 8.5 cm in maximum diameter. Small and large bowel: Prior right hemicolectomy. Scattered diverticula are noted of the colon without evidence of acute inflammation. Free fluid: None. Abdominal aorta: No aneurysm or dissection. Adenopathy: None. Appendix: Prior appendectomy. Osseous structures: There are degenerative changes of the spine without compression fracture. Pelvis: No mass. Prior hysterectomy. There is an IVC filter present. IMPRESSION: Gallstones are seen in the gallbladder, with moderate gallbladder distension. Polycystic kidneys. Diverticulosis without acute diverticulitis. No free air, free fluid or bowel obstruction. <Electronically signed by Luis Mason > 07/14/21 [id number]
[2021-07-14 16:44] VITALS: BP 151/91
--- NOTE | 2021-07-14 20:13 | ECGEPIP ---
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
--- NOTE | 2021-07-15 06:34 | ED PDOC ---
Post-Departure Follow-Up dr ferraro faxed formal report of ct abd/p for fu Jermaine Da Silva MD Jul 15, 2021 06:34
== END 2021-07-14 16:45 | disposition home or self-care (01) ==
LOC: M ED 09:41
DX: J12.2 Parainfluenza virus pneumonia (principal); Q61.2 Polycystic kidney, adult type; K80.20 Calculus of gallbladder without cholecystitis without obstruction; N18.30 Chronic kidney disease, stage 3 unspecified; I10 Essential (primary) hypertension; E78.5 Hyperlipidemia, unspecified; K76.0 Fatty (change of) liver, not elsewhere classified; E03.9 Hypothyroidism, unspecified
CPT/HCPCS: 36415; 71045; 71275; 74177; 80048; 80076; 80185; 82550; 82553; 82803; 83605; 83690; 83880; 84443; 84484; 85025; 85610; 87040; 87798; 93005; 93041; 99284; Q9967

== ENCOUNTER → 2021-07-18 | Outpatient (CLI) | payer MEDICARE, OTHER ==
[~2021-07-18] MED LIST changes: +ALPR0.25
[2021-07-18 10:52] LABS: INR 2.51; PROTHROMBIN TIME 27.4 SECONDS (12.7-14.5)
[2021-07-18 11:19] LABS: ALBUMIN 3.1 GM/DL (3.2-5.2); BILIRUBIN,TOTAL 0.4 MG/DL (0.2-1.0); CALCIUM LEVEL 8.6 MG/DL (8.8-10.2); CREATININE FOR GFR 2.07 MG/DL (0.55-1.30); GLOMERULAR FILTRATION RATE 24.2 (>32); POTASSIUM SERUM 3.5 MEQ/L (3.5-5.1); TOTAL PROTEIN 6.1 GM/DL (6.4-8.2)
[2021-07-18 11:46] LABS: BASO % 0.3 % (0.0-1.0); EOS # 0.1 10^3/uL (0.0-0.5); EOS % 1.4 % (0.0-3.0); HEMOGLOBIN 10.4 g/dl (12.0-15.5); LYMPH # 0.9 10^3/uL (1.5-5.0); LYMPH % 9.8 % (24.0-44.0); MEAN CORPUSCULAR HEMOGLOBIN 29.4 pg (27.0-33.0); MEAN CORPUSCULAR HGB CONC 32.5 g/dl (32.0-36.5); MEAN CORPUSCULAR VOLUME 90.4 fl (80.0-96.0); NEUTROPHILS # 6.8 10^3/uL (1.5-8.5); PLATELET COUNT, AUTOMATED 141 10^3/uL (150-450); RED BLOOD COUNT 3.54 10^6/uL (4.00-5.40); WHITE BLOOD COUNT 8.8 10^3/uL (4.0-10.0)
== END ==
LOC: M PLALAB 08:31
PROVIDERS: ATTEND Physician Assistant Medical
DX: I50.21 Acute systolic (congestive) heart failure (principal)

== ENCOUNTER → 2021-07-25 | Outpatient (CLI) | payer MEDICARE, OTHER ==
[2021-07-25 10:25] LABS: BASO # 0.1 10^3/uL (0.0-0.2); BASO % 0.7 % (0.0-1.0); EOS # 0.2 10^3/uL (0.0-0.5); EOS % 2.8 % (0.0-3.0); HEMATOCRIT 31.8 % (36.0-47.0); HEMOGLOBIN 10.1 g/dl (12.0-15.5); LYMPH % 12.9 % (24.0-44.0); MEAN CORPUSCULAR HEMOGLOBIN 29.5 pg (27.0-33.0); MEAN CORPUSCULAR HGB CONC 31.8 g/dl (32.0-36.5); MONO # 0.7 10^3/uL (0.0-0.8); MONO % 8.7 % (2.0-8.0); NEUTROPHILS # 5.9 10^3/uL (1.5-8.5); NEUTROPHILS % 73.3 % (36.0-66.0); PLATELET COUNT, AUTOMATED 237 10^3/uL (150-450); RED BLOOD COUNT 3.42 10^6/uL (4.00-5.40); WHITE BLOOD COUNT 8.1 10^3/uL (4.0-10.0)
[2021-07-25 10:46] LABS: INR 1.62; PROTHROMBIN TIME 19.7 SECONDS (12.7-14.5)
[2021-07-25 11:02] LABS: CALCIUM LEVEL 9.4 MG/DL (8.8-10.2); CREATININE FOR GFR 1.5 MG/DL (0.55-1.30); GLOMERULAR FILTRATION RATE 35.1 (>32)
== END ==
LOC: M PLALAB 08:01
PROVIDERS: ATTEND Physician Assistant Medical
DX: D50.9 Iron deficiency anemia, unspecified (principal)

== ENCOUNTER → 2021-08-07 | Outpatient (CLI) | payer MEDICARE, OTHER ==
[2021-08-07 10:26] LABS: BASO % 0.7 % (0.0-1.0); EOS # 0.2 10^3/uL (0.0-0.5); EOS % 3.5 % (0.0-3.0); HEMATOCRIT 26.8 % (36.0-47.0); HEMOGLOBIN 8.6 g/dl (12.0-15.5); LYMPH # 0.9 10^3/uL (1.5-5.0); LYMPH % 19.2 % (24.0-44.0); MEAN CORPUSCULAR HEMOGLOBIN 29.6 pg (27.0-33.0); MEAN CORPUSCULAR HGB CONC 32.1 g/dl (32.0-36.5); MEAN CORPUSCULAR VOLUME 92.1 fl (80.0-96.0); MONO # 0.7 10^3/uL (0.0-0.8); MONO % 15.3 % (2.0-8.0); NEUTROPHILS # 2.8 10^3/uL (1.5-8.5); NEUTROPHILS % 60.9 % (36.0-66.0); PLATELET COUNT, AUTOMATED 201 10^3/uL (150-450); RED BLOOD COUNT 2.91 10^6/uL (4.00-5.40); WHITE BLOOD COUNT 4.6 10^3/uL (4.0-10.0)
[2021-08-07 10:31] LABS: INR 1.89; PROTHROMBIN TIME 22.2 SECONDS (12.7-14.5)
== END ==
LOC: M PLALAB 07:58
PROVIDERS: ATTEND Physician Assistant Medical
DX: K31.819 Angiodysplasia of stomach and duodenum without bleeding (principal)

== ENCOUNTER 2021-08-09 10:47 | Outpatient (CLI) | payer MEDICARE, OTHER ==
[~2021-08-09] VITALS: Ht 149.9 cm; Wt 69.5 kg
[~2021-08-09 10:47] MED LIST changes: +diphenhydrAMINE 25MG CAP PO ONE
[2021-08-09] MEDS ORDERED: FUROSEMIDE 40MG/4ML VIAL (J1940) IV ONE (12:00)
[2021-08-09 13:20] VITALS: BP 126/58
[2021-08-09 14:13] VITALS: BP 111/56
[2021-08-09 15:30] VITALS: BP 123/60
[2021-08-09 16:30] VITALS: BP 155/68
[2021-08-09 17:15] VITALS: BP 162/78
[2021-08-09 17:45] VITALS: BP 152/78
== END 2021-08-09 17:45 | disposition home or self-care (01) ==
LOC: M INFU 10:47
PROVIDERS: ATTEND Physician Assistant Medical
DX: D50.9 Iron deficiency anemia, unspecified (principal); Z88.2 Allergy status to sulfonamides
CPT/HCPCS: 36430; 36592; 86850; 86900; 86901; 86920; 96374; J1940; P9016

== ENCOUNTER → 2021-08-15 | Outpatient (CLI) | payer MEDICARE, OTHER ==
[~2021-08-15] MED LIST changes: -diphenhydrAMINE 25MG CAP PO ONE
[2021-08-15 10:42] LABS: HEMATOCRIT 40.3 % (36.0-47.0); HEMOGLOBIN 12.7 g/dl (12.0-15.5); MEAN CORPUSCULAR HEMOGLOBIN 30.2 pg (27.0-33.0); MEAN CORPUSCULAR HGB CONC 31.5 g/dl (32.0-36.5); MEAN CORPUSCULAR VOLUME 95.7 fl (80.0-96.0); PLATELET COUNT, AUTOMATED 158 10^3/uL (150-450); RED BLOOD COUNT 4.21 10^6/uL (4.00-5.40)
[2021-08-15 10:59] LABS: INR 1.56; PROTHROMBIN TIME 19.1 SECONDS (12.7-14.5)
[2021-08-15 11:12] LABS: ALBUMIN 3.2 GM/DL (3.2-5.2); BILIRUBIN,TOTAL 0.3 MG/DL (0.2-1.0); CALCIUM LEVEL 9.3 MG/DL (8.8-10.2); CREATININE FOR GFR 1.75 MG/DL (0.55-1.30); GLOMERULAR FILTRATION RATE 29.3 (>32); POTASSIUM SERUM 4.9 MEQ/L (3.5-5.1); TOTAL PROTEIN 6.5 GM/DL (6.4-8.2)
== END ==
LOC: M PLALAB 07:50
PROVIDERS: ATTEND Physician Assistant Medical
DX: K31.819 Angiodysplasia of stomach and duodenum without bleeding (principal); Z86.718 Personal history of other venous thrombosis and embolism; I35.0 Nonrheumatic aortic (valve) stenosis; Z79.01 Long term (current) use of anticoagulants; Z79.899 Other long term (current) drug therapy

== ENCOUNTER → 2021-09-05 | Outpatient (CLI) | payer MEDICARE, OTHER ==
[2021-09-05 10:38] LABS: BASO # 0.1 10^3/uL (0.0-0.2); EOS # 0.2 10^3/uL (0.0-0.5); EOS % 4.4 % (0.0-3.0); HEMATOCRIT 34.2 % (36.0-47.0); HEMOGLOBIN 10.8 g/dl (12.0-15.5); LYMPH # 0.9 10^3/uL (1.5-5.0); LYMPH % 19.6 % (24.0-44.0); MEAN CORPUSCULAR HEMOGLOBIN 29.3 pg (27.0-33.0); MEAN CORPUSCULAR HGB CONC 31.6 g/dl (32.0-36.5); MEAN CORPUSCULAR VOLUME 92.9 fl (80.0-96.0); MONO # 0.6 10^3/uL (0.0-0.8); MONO % 11.7 % (2.0-8.0); NEUTROPHILS % 63.1 % (36.0-66.0); PLATELET COUNT, AUTOMATED 183 10^3/uL (150-450); RED BLOOD COUNT 3.68 10^6/uL (4.00-5.40); WHITE BLOOD COUNT 4.8 10^3/uL (4.0-10.0)
[2021-09-05 10:45] LABS: INR 1.61; PROTHROMBIN TIME 19.6 SECONDS (12.7-14.5)
[2021-09-05 11:26] LABS: ALBUMIN 3.2 GM/DL (3.2-5.2); BILIRUBIN,TOTAL 0.2 MG/DL (0.2-1.0); CALCIUM LEVEL 8.9 MG/DL (8.8-10.2); CREATININE FOR GFR 1.77 MG/DL (0.55-1.30); FREE T4 1.05 NG/DL (0.76-1.46); PHENYTOIN (DILANTIN) 10.4 UG/ML (10.0-20.0); POTASSIUM SERUM 3.4 MEQ/L (3.5-5.1); THYROID STIMULATING HORMONE 2.84 uIU/ML (0.358-3.740); TOTAL PROTEIN 6.2 GM/DL (6.4-8.2)
== END ==
LOC: M PLALAB 08:08
PROVIDERS: ATTEND Family Medicine
DX: D50.9 Iron deficiency anemia, unspecified (principal); E03.9 Hypothyroidism, unspecified

== ENCOUNTER → 2021-09-19 | Outpatient (CLI) | payer MEDICARE, OTHER ==
[2021-09-19 10:15] LABS: BASO % 0.6 % (0.0-1.0); EOS # 0.1 10^3/uL (0.0-0.5); EOS % 2.8 % (0.0-3.0); HEMATOCRIT 33.6 % (36.0-47.0); HEMOGLOBIN 10.7 g/dl (12.0-15.5); LYMPH # 1.3 10^3/uL (1.5-5.0); LYMPH % 26.9 % (24.0-44.0); MEAN CORPUSCULAR HEMOGLOBIN 29.9 pg (27.0-33.0); MEAN CORPUSCULAR HGB CONC 31.8 g/dl (32.0-36.5); MEAN CORPUSCULAR VOLUME 93.9 fl (80.0-96.0); MONO # 0.6 10^3/uL (0.0-0.8); MONO % 12.1 % (2.0-8.0); NEUTROPHILS # 2.7 10^3/uL (1.5-8.5); NEUTROPHILS % 57.4 % (36.0-66.0); PLATELET COUNT, AUTOMATED 170 10^3/uL (150-450); RED BLOOD COUNT 3.58 10^6/uL (4.00-5.40); WHITE BLOOD COUNT 4.6 10^3/uL (4.0-10.0)
[2021-09-19 10:25] LABS: INR 1.37; PROTHROMBIN TIME 17.3 SECONDS (12.7-14.5)
[2021-09-19 10:55] LABS: ALBUMIN 3.4 GM/DL (3.2-5.2); BILIRUBIN,TOTAL 0.3 MG/DL (0.2-1.0); CALCIUM LEVEL 9.3 MG/DL (8.8-10.2); CREATININE FOR GFR 1.98 MG/DL (0.55-1.30); FREE T4 1.14 NG/DL (0.76-1.46); GLOMERULAR FILTRATION RATE 25.4 (>32); PHENYTOIN (DILANTIN) 9.6 UG/ML (10.0-20.0); POTASSIUM SERUM 4.1 MEQ/L (3.5-5.1); THYROID STIMULATING HORMONE 2.75 uIU/ML (0.358-3.740); TOTAL PROTEIN 6.5 GM/DL (6.4-8.2)
== END ==
LOC: M PLALAB 08:01
PROVIDERS: ATTEND Family Medicine
DX: Z51.81 Encounter for therapeutic drug level monitoring (principal); Z79.01 Long term (current) use of anticoagulants; E03.9 Hypothyroidism, unspecified; D50.9 Iron deficiency anemia, unspecified

== ENCOUNTER → 2021-10-03 | Outpatient (CLI) | payer MEDICARE, OTHER ==
[2021-10-03 11:29] LABS: BASO # 0.1 10^3/uL (0.0-0.2); BASO % 1.2 % (0.0-1.0); EOS # 0.2 10^3/uL (0.0-0.5); EOS % 3.7 % (0.0-3.0); HEMATOCRIT 32.2 % (36.0-47.0); HEMOGLOBIN 10.5 g/dl (12.0-15.5); LYMPH % 21.2 % (24.0-44.0); MEAN CORPUSCULAR HEMOGLOBIN 30.5 pg (27.0-33.0); MEAN CORPUSCULAR HGB CONC 32.6 g/dl (32.0-36.5); MEAN CORPUSCULAR VOLUME 93.6 fl (80.0-96.0); MONO # 0.6 10^3/uL (0.0-0.8); MONO % 11.8 % (2.0-8.0); NEUTROPHILS % 61.7 % (36.0-66.0); PLATELET COUNT, AUTOMATED 173 10^3/uL (150-450); RED BLOOD COUNT 3.44 10^6/uL (4.00-5.40); WHITE BLOOD COUNT 4.9 10^3/uL (4.0-10.0)
[2021-10-03 11:41] LABS: INR 1.49; PROTHROMBIN TIME 18.4 SECONDS (12.7-14.5)
[2021-10-03 12:16] LABS: ALBUMIN 3.4 GM/DL (3.2-5.2); CALCIUM LEVEL 9.5 MG/DL (8.8-10.2); CREATININE FOR GFR 1.89 MG/DL (0.55-1.30); GLOMERULAR FILTRATION RATE 26.8 (>32); POTASSIUM SERUM 4.2 MEQ/L (3.5-5.1)
== END ==
LOC: M PLALAB 07:52
PROVIDERS: ATTEND Family Medicine
DX: D50.9 Iron deficiency anemia, unspecified (principal); Z86.718 Personal history of other venous thrombosis and embolism

== ENCOUNTER → 2021-10-17 | Outpatient (CLI) | payer MEDICARE, OTHER ==
[2021-10-17 10:53] LABS: BASO % 0.8 % (0.0-1.0); EOS # 0.2 10^3/uL (0.0-0.5); EOS % 3.4 % (0.0-3.0); HEMATOCRIT 31.7 % (36.0-47.0); HEMOGLOBIN 10.1 g/dl (12.0-15.5); LYMPH # 1.1 10^3/uL (1.5-5.0); LYMPH % 22.2 % (24.0-44.0); MEAN CORPUSCULAR HEMOGLOBIN 29.9 pg (27.0-33.0); MEAN CORPUSCULAR HGB CONC 31.9 g/dl (32.0-36.5); MEAN CORPUSCULAR VOLUME 93.8 fl (80.0-96.0); MONO # 0.6 10^3/uL (0.0-0.8); MONO % 12.4 % (2.0-8.0); NEUTROPHILS % 60.8 % (36.0-66.0); PLATELET COUNT, AUTOMATED 159 10^3/uL (150-450); RED BLOOD COUNT 3.38 10^6/uL (4.00-5.40)
[2021-10-17 11:03] LABS: INR 1.46; PROTHROMBIN TIME 18.1 SECONDS (12.7-14.5)
[2021-10-17 11:23] LABS: ALBUMIN 3.5 GM/DL (3.2-5.2); CALCIUM LEVEL 9.4 MG/DL (8.8-10.2); CREATININE FOR GFR 1.93 MG/DL (0.55-1.30); GLOMERULAR FILTRATION RATE 26.2 (>32); PHOSPHORUS LEVEL 3.1 MG/DL (2.5-4.9); POTASSIUM SERUM 4.3 MEQ/L (3.5-5.1)
== END ==
LOC: M PLALAB 08:01
PROVIDERS: ATTEND Family Medicine
DX: Z86.718 Personal history of other venous thrombosis and embolism (principal); D50.9 Iron deficiency anemia, unspecified

== ENCOUNTER → 2021-10-31 | Outpatient (CLI) | payer MEDICARE, OTHER ==
[2021-10-31 10:00] LABS: BASO % 0.7 % (0.0-1.0); EOS # 0.2 10^3/uL (0.0-0.5); EOS % 2.7 % (0.0-3.0); HEMATOCRIT 31.4 % (36.0-47.0); HEMOGLOBIN 10.1 g/dl (12.0-15.5); LYMPH # 1.2 10^3/uL (1.5-5.0); LYMPH % 22.3 % (24.0-44.0); MEAN CORPUSCULAR HEMOGLOBIN 30.3 pg (27.0-33.0); MEAN CORPUSCULAR HGB CONC 32.2 g/dl (32.0-36.5); MEAN CORPUSCULAR VOLUME 94.3 fl (80.0-96.0); MONO # 0.6 10^3/uL (0.0-0.8); MONO % 11.4 % (2.0-8.0); NEUTROPHILS # 3.5 10^3/uL (1.5-8.5); NEUTROPHILS % 62.7 % (36.0-66.0); PLATELET COUNT, AUTOMATED 181 10^3/uL (150-450); RED BLOOD COUNT 3.33 10^6/uL (4.00-5.40); WHITE BLOOD COUNT 5.5 10^3/uL (4.0-10.0)
[2021-10-31 10:10] LABS: ALBUMIN 3.3 GM/DL (3.2-5.2); CALCIUM LEVEL 8.7 MG/DL (8.8-10.2); CREATININE FOR GFR 1.72 MG/DL (0.55-1.30); GLOMERULAR FILTRATION RATE 29.9 (>32); PHOSPHORUS LEVEL 3.1 MG/DL (2.5-4.9)
[2021-10-31 10:17] LABS: INR 1.71; PROTHROMBIN TIME 20.5 SECONDS (12.7-14.5)
== END ==
LOC: M PLALAB 08:04
PROVIDERS: ATTEND Family Medicine
DX: D50.9 Iron deficiency anemia, unspecified (principal); Z86.718 Personal history of other venous thrombosis and embolism

== ENCOUNTER 2021-11-08 12:42 | Outpatient (CLI) | payer MEDICARE, OTHER ==
[~2021-11-08] VITALS: Ht 149.9 cm; Wt 69.5 kg
[~2021-11-08 12:42] MED LIST changes: +ALBUTEROL SULFATE 2.5 MG/0.5 ML INH NEB SOLN INH PRN; +EPINEPHrine INJ 1 MG/ML 1ML AMP IM PRN; +FERRIC CARBOXYMALTOSE INJ 750 MG, VIAL MATE ADAPTER 1 EACH in NS 250 ML IV ONE; +NS 1,000 ML IV SCH; +diphenhydrAMINE 50MG/ML VIAL (J1200) IV PRN; +methylPREDNISolone 125MG 2ML VIAL IV PRN
[2021-11-08 12:45] VITALS: BP 152/66
[2021-11-08 14:00] VITALS: BP 154/64
== END 2021-11-08 14:20 | disposition home or self-care (01) ==
LOC: M INFU 12:42
PROVIDERS: ATTEND Family Medicine
DX: D50.9 Iron deficiency anemia, unspecified (principal); Z88.2 Allergy status to sulfonamides
CPT/HCPCS: 96365; J1439

== ENCOUNTER → 2021-11-14 | Outpatient (CLI) | payer MEDICARE, OTHER ==
[~2021-11-14] MED LIST changes: -ALBUTEROL SULFATE 2.5 MG/0.5 ML INH NEB SOLN INH PRN; -EPINEPHrine INJ 1 MG/ML 1ML AMP IM PRN; -FERRIC CARBOXYMALTOSE INJ 750 MG, VIAL MATE ADAPTER 1 EACH in NS 250 ML IV ONE; -NS 1,000 ML IV SCH; -diphenhydrAMINE 50MG/ML VIAL (J1200) IV PRN; -methylPREDNISolone 125MG 2ML VIAL IV PRN
[2021-11-14 14:03] LABS: BASO % 0.5 % (0.0-1.0); EOS # 0.2 10^3/uL (0.0-0.5); EOS % 2.5 % (0.0-3.0); HEMATOCRIT 32.2 % (36.0-47.0); HEMOGLOBIN 10.2 g/dl (12.0-15.5); LYMPH # 0.9 10^3/uL (1.5-5.0); LYMPH % 14.3 % (24.0-44.0); MEAN CORPUSCULAR HEMOGLOBIN 30.2 pg (27.0-33.0); MEAN CORPUSCULAR HGB CONC 31.7 g/dl (32.0-36.5); MEAN CORPUSCULAR VOLUME 95.3 fl (80.0-96.0); MONO # 0.7 10^3/uL (0.0-0.8); MONO % 12.2 % (2.0-8.0); NEUTROPHILS # 4.2 10^3/uL (1.5-8.5); PLATELET COUNT, AUTOMATED 180 10^3/uL (150-450); RED BLOOD COUNT 3.38 10^6/uL (4.00-5.40)
[2021-11-14 14:11] LABS: INR 1.69; PROTHROMBIN TIME 20.3 SECONDS (12.7-14.5)
[2021-11-14 14:31] LABS: ALBUMIN 3.5 GM/DL (3.2-5.2); CALCIUM LEVEL 9.4 MG/DL (8.8-10.2); CREATININE FOR GFR 1.67 MG/DL (0.55-1.30); PHOSPHORUS LEVEL 1.9 MG/DL (2.5-4.9)
== END ==
LOC: M PLALAB 10:08
PROVIDERS: ATTEND Family Medicine
DX: Z86.718 Personal history of other venous thrombosis and embolism (principal); D50.9 Iron deficiency anemia, unspecified

== ENCOUNTER → 2021-12-11 | Outpatient (CLI) | payer MEDICARE, OTHER | LOC: M PT 10:38 | PROVIDERS: ATTEND Urology | DX: R27.0 Ataxia, unspecified (principal) ==

== ENCOUNTER → 2021-12-25 | Outpatient (CLI) | payer MEDICARE, OTHER ==
[2021-12-25 15:39] LABS: BASO # 0.1 10^3/uL (0.0-0.2); BASO % 0.8 % (0.0-1.0); EOS # 0.1 10^3/uL (0.0-0.5); EOS % 1.2 % (0.0-3.0); HEMATOCRIT 31.6 % (36.0-47.0); LYMPH % 16.7 % (24.0-44.0); MEAN CORPUSCULAR HEMOGLOBIN 29.9 pg (27.0-33.0); MEAN CORPUSCULAR HGB CONC 31.6 g/dl (32.0-36.5); MEAN CORPUSCULAR VOLUME 94.3 fl (80.0-96.0); MONO # 0.7 10^3/uL (0.0-0.8); MONO % 11.1 % (2.0-8.0); NEUTROPHILS # 4.2 10^3/uL (1.5-8.5); PLATELET COUNT, AUTOMATED 164 10^3/uL (150-450); RED BLOOD COUNT 3.35 10^6/uL (4.00-5.40); WHITE BLOOD COUNT 5.9 10^3/uL (4.0-10.0)
[2021-12-25 15:50] LABS: INR 1.36; PROTHROMBIN TIME 17.2 SECONDS (12.7-14.5)
[2021-12-25 16:16] LABS: ALBUMIN 3.6 GM/DL (3.2-5.2); BILIRUBIN,TOTAL 0.3 MG/DL (0.2-1.0); CALCIUM LEVEL 9.4 MG/DL (8.8-10.2); CHOLESTEROL RISK RATIO 3.032 (<5); CREATININE FOR GFR 1.83 MG/DL (0.55-1.30); GLOMERULAR FILTRATION RATE 27.8 (>32); PHOSPHORUS LEVEL 3.4 MG/DL (2.5-4.9); POTASSIUM SERUM 4.5 MEQ/L (3.5-5.1); TOTAL PROTEIN 6.7 GM/DL (6.4-8.2)
[2021-12-25 16:21] LABS: PTH INTACT 39.8 PG/ML (18.5-88.0)
[2021-12-25 16:48] LABS: TOTAL 25(OH) VITAMIN D 24.7 NG/ML (30.0-100.0)
== END ==
LOC: M PLALAB 13:34
PROVIDERS: ATTEND Family Medicine
DX: D50.9 Iron deficiency anemia, unspecified (principal); I10 Essential (primary) hypertension; I35.0 Nonrheumatic aortic (valve) stenosis; E55.9 Vitamin D deficiency, unspecified; E53.8 Deficiency of other specified B group vitamins; E78.5 Hyperlipidemia, unspecified; R06.09 Other forms of dyspnea; Z79.899 Other long term (current) drug therapy

== ENCOUNTER → 2022-01-16 | Outpatient (CLI) | payer MEDICARE, OTHER ==
[2022-01-16 11:46] LABS: BASO # 0.1 10^3/uL (0.0-0.2); BASO % 1.1 % (0.0-1.0); EOS # 0.1 10^3/uL (0.0-0.5); HEMATOCRIT 30.3 % (36.0-47.0); HEMOGLOBIN 9.7 g/dl (12.0-15.5); LYMPH # 0.8 10^3/uL (1.5-5.0); LYMPH % 19.1 % (24.0-44.0); MEAN CORPUSCULAR HEMOGLOBIN 30.2 pg (27.0-33.0); MEAN CORPUSCULAR VOLUME 94.4 fl (80.0-96.0); MONO # 0.6 10^3/uL (0.0-0.8); MONO % 13.4 % (2.0-8.0); NEUTROPHILS # 2.8 10^3/uL (1.5-8.5); NEUTROPHILS % 64.2 % (36.0-66.0); PLATELET COUNT, AUTOMATED 161 10^3/uL (150-450); RED BLOOD COUNT 3.21 10^6/uL (4.00-5.40); WHITE BLOOD COUNT 4.4 10^3/uL (4.0-10.0)
[2022-01-16 11:55] LABS: INR 1.73; PROTHROMBIN TIME 20.7 SECONDS (12.7-14.5)
[2022-01-16 14:17] LABS: ALBUMIN 3.6 GM/DL (3.2-5.2); CALCIUM LEVEL 9.3 MG/DL (8.8-10.2); CREATININE FOR GFR 1.74 MG/DL (0.55-1.30); GLOMERULAR FILTRATION RATE 29.5 (>32); PHENYTOIN (DILANTIN) 7.5 UG/ML (10.0-20.0); PHOSPHORUS LEVEL 3.9 MG/DL (2.5-4.9); POTASSIUM SERUM 4.1 MEQ/L (3.5-5.1)
== END ==
LOC: M PLALAB 08:08
PROVIDERS: ATTEND Family Medicine
DX: D50.9 Iron deficiency anemia, unspecified (principal)

== ENCOUNTER → 2022-01-30 | Outpatient (CLI) | payer MEDICARE, OTHER ==
[2022-01-30 14:35] LABS: BASO # 0.1 10^3/uL (0.0-0.2); BASO % 1.1 % (0.0-1.0); EOS # 0.1 10^3/uL (0.0-0.5); EOS % 2.2 % (0.0-3.0); HEMATOCRIT 28.4 % (36.0-47.0); HEMOGLOBIN 9.1 g/dl (12.0-15.5); LYMPH # 0.8 10^3/uL (1.5-5.0); LYMPH % 18.1 % (24.0-44.0); MEAN CORPUSCULAR HEMOGLOBIN 30.2 pg (27.0-33.0); MEAN CORPUSCULAR VOLUME 94.4 fl (80.0-96.0); MONO # 0.5 10^3/uL (0.0-0.8); MONO % 10.3 % (2.0-8.0); NEUTROPHILS % 68.1 % (36.0-66.0); PLATELET COUNT, AUTOMATED 159 10^3/uL (150-450); RED BLOOD COUNT 3.01 10^6/uL (4.00-5.40); WHITE BLOOD COUNT 4.5 10^3/uL (4.0-10.0)
[2022-01-30 14:48] LABS: INR 1.3; PROTHROMBIN TIME 16.6 SECONDS (12.7-14.5)
[2022-01-30 16:12] LABS: ALBUMIN 3.5 GM/DL (3.2-5.2); BILIRUBIN,TOTAL 0.2 MG/DL (0.2-1.0); CREATININE FOR GFR 1.74 MG/DL (0.55-1.30); GLOMERULAR FILTRATION RATE 29.5 (>32); MAGNESIUM LEVEL 2.2 MG/DL (1.8-2.4); POTASSIUM SERUM 4.1 MEQ/L (3.5-5.1); TOTAL PROTEIN 6.2 GM/DL (6.4-8.2)
== END ==
LOC: M PLALAB 08:25
PROVIDERS: ATTEND Family Medicine
DX: I10 Essential (primary) hypertension (principal)

== ENCOUNTER 2022-02-04 09:32 | Outpatient (CLI) | payer MEDICARE, OTHER ==
[~2022-02-04] VITALS: Ht 149.9 cm; Wt 134.2 kg
[~2022-02-04 09:32] MED LIST changes: +ALBUTEROL SULFATE 2.5 MG/0.5 ML INH NEB SOLN INH PRN; +EPINEPHrine INJ 1 MG/ML 1ML AMP IM PRN; +FERRIC CARBOXYMALTOSE INJ 750 MG, VIAL MATE ADAPTER 1 EACH in NS 250 ML IV ONE; +NS 1,000 ML IV SCH; +diphenhydrAMINE 50MG/ML VIAL (J1200) IV PRN; +methylPREDNISolone 125MG 2ML VIAL IV PRN
[2022-02-04 10:10] VITALS: BP 174/68
[2022-02-04 11:22] VITALS: BP 153/67
== END 2022-02-04 11:25 | disposition home or self-care (01) ==
LOC: M INFU 09:32
PROVIDERS: ATTEND Family Medicine
DX: D50.9 Iron deficiency anemia, unspecified (principal); Z88.2 Allergy status to sulfonamides; Z88.8 Allergy status to other drugs, medicaments and biological substances
CPT/HCPCS: 96365; J1439

== ENCOUNTER → 2022-02-27 | Outpatient (CLI) | payer MEDICARE, OTHER ==
[~2022-02-27] MED LIST changes: -ALBUTEROL SULFATE 2.5 MG/0.5 ML INH NEB SOLN INH PRN; -EPINEPHrine INJ 1 MG/ML 1ML AMP IM PRN; -FERRIC CARBOXYMALTOSE INJ 750 MG, VIAL MATE ADAPTER 1 EACH in NS 250 ML IV ONE; -NS 1,000 ML IV SCH; -diphenhydrAMINE 50MG/ML VIAL (J1200) IV PRN; -methylPREDNISolone 125MG 2ML VIAL IV PRN
[2022-02-27 10:22] LABS: BASO # 0.1 10^3/uL (0.0-0.2); BASO % 1.1 % (0.0-1.0); EOS # 0.3 10^3/uL (0.0-0.5); EOS % 5.6 % (0.0-3.0); HEMATOCRIT 30.6 % (36.0-47.0); HEMOGLOBIN 9.8 g/dl (12.0-15.5); LYMPH % 21.4 % (24.0-44.0); MEAN CORPUSCULAR HEMOGLOBIN 29.5 pg (27.0-33.0); MEAN CORPUSCULAR VOLUME 92.2 fl (80.0-96.0); MONO # 0.6 10^3/uL (0.0-0.8); MONO % 12.2 % (2.0-8.0); NEUTROPHILS # 2.7 10^3/uL (1.5-8.5); NEUTROPHILS % 59.5 % (36.0-66.0); PLATELET COUNT, AUTOMATED 148 10^3/uL (150-450); RED BLOOD COUNT 3.32 10^6/uL (4.00-5.40); WHITE BLOOD COUNT 4.5 10^3/uL (4.0-10.0)
[2022-02-27 10:31] LABS: INR 1.68; PROTHROMBIN TIME 20.2 SECONDS (12.7-14.5)
[2022-02-27 10:47] LABS: ALBUMIN 3.6 GM/DL (3.2-5.2); CALCIUM LEVEL 9.5 MG/DL (8.8-10.2); CREATININE FOR GFR 2.14 MG/DL (0.55-1.30); GLOMERULAR FILTRATION RATE 23.2 (>32); POTASSIUM SERUM 4.1 MEQ/L (3.5-5.1)
== END ==
LOC: M PLALAB 08:19
PROVIDERS: ATTEND Family Medicine
DX: I10 Essential (primary) hypertension (principal); D50.9 Iron deficiency anemia, unspecified

== ENCOUNTER → 2022-03-19 | Outpatient (CLI) | payer MEDICARE, OTHER ==
[2022-03-19 10:58] LABS: BASO % 0.9 % (0.0-1.0); EOS # 0.2 10^3/uL (0.0-0.5); EOS % 5.2 % (0.0-3.0); HEMATOCRIT 31.1 % (36.0-47.0); HEMOGLOBIN 9.6 g/dl (12.0-15.5); LYMPH # 0.9 10^3/uL (1.5-5.0); LYMPH % 19.6 % (24.0-44.0); MEAN CORPUSCULAR HEMOGLOBIN 28.8 pg (27.0-33.0); MEAN CORPUSCULAR HGB CONC 30.9 g/dl (32.0-36.5); MEAN CORPUSCULAR VOLUME 93.4 fl (80.0-96.0); MONO # 0.5 10^3/uL (0.0-0.8); MONO % 11.8 % (2.0-8.0); NEUTROPHILS # 2.9 10^3/uL (1.5-8.5); NEUTROPHILS % 62.3 % (36.0-66.0); PLATELET COUNT, AUTOMATED 179 10^3/uL (150-450); RED BLOOD COUNT 3.33 10^6/uL (4.00-5.40); WHITE BLOOD COUNT 4.6 10^3/uL (4.0-10.0)
[2022-03-19 11:05] LABS: ALBUMIN 3.5 GM/DL (3.2-5.2); CREATININE FOR GFR 1.74 MG/DL (0.55-1.30); GLOMERULAR FILTRATION RATE 29.5 (>32); PHOSPHORUS LEVEL 3.2 MG/DL (2.5-4.9); POTASSIUM SERUM 4.1 MEQ/L (3.5-5.1)
[2022-03-19 11:09] LABS: INR 1.56; PROTHROMBIN TIME 19.1 SECONDS (12.7-14.5)
== END ==
LOC: M PLALAB 08:06
PROVIDERS: ATTEND Family Medicine
DX: D50.9 Iron deficiency anemia, unspecified (principal)

== ENCOUNTER → 2022-04-10 | Outpatient (CLI) | payer MEDICARE, OTHER ==
[2022-04-10 10:20] LABS: BASO # 0.1 10^3/uL (0.0-0.2); BASO % 0.8 % (0.0-1.0); EOS # 0.1 10^3/uL (0.0-0.5); EOS % 2.3 % (0.0-3.0); HEMATOCRIT 32.3 % (36.0-47.0); HEMOGLOBIN 10.3 g/dl (12.0-15.5); LYMPH % 16.9 % (24.0-44.0); MEAN CORPUSCULAR HEMOGLOBIN 29.3 pg (27.0-33.0); MEAN CORPUSCULAR HGB CONC 31.9 g/dl (32.0-36.5); MONO # 0.7 10^3/uL (0.0-0.8); MONO % 10.7 % (2.0-8.0); NEUTROPHILS # 4.2 10^3/uL (1.5-8.5); NEUTROPHILS % 69.1 % (36.0-66.0); PLATELET COUNT, AUTOMATED 167 10^3/uL (150-450); RED BLOOD COUNT 3.51 10^6/uL (4.00-5.40); WHITE BLOOD COUNT 6.1 10^3/uL (4.0-10.0)
[2022-04-10 10:34] LABS: INR 1.29; PROTHROMBIN TIME 16.5 SECONDS (12.7-14.5)
[2022-04-10 10:47] LABS: ALBUMIN 3.5 GM/DL (3.2-5.2); BILIRUBIN,TOTAL 0.2 MG/DL (0.2-1.0); CALCIUM LEVEL 9.7 MG/DL (8.8-10.2); CREATININE FOR GFR 1.81 MG/DL (0.55-1.30); FREE T4 1.25 NG/DL (0.76-1.46); GLOMERULAR FILTRATION RATE 28.2 (>32); POTASSIUM SERUM 4.4 MEQ/L (3.5-5.1); PTH INTACT 67.2 PG/ML (18.5-88.0); THYROID STIMULATING HORMONE 2.41 uIU/ML (0.358-3.740); TOTAL PROTEIN 6.4 GM/DL (6.4-8.2)
== END ==
LOC: M PLALAB 08:07
PROVIDERS: ATTEND Family Medicine
DX: D50.9 Iron deficiency anemia, unspecified (principal); I10 Essential (primary) hypertension

== ENCOUNTER → 2022-05-01 | Outpatient (CLI) | payer MEDICARE, OTHER ==
[2022-05-01 10:41] LABS: BASO # 0.1 10^3/uL (0.0-0.2); EOS # 0.1 10^3/uL (0.0-0.5); EOS % 1.6 % (0.0-3.0); HEMATOCRIT 31.2 % (36.0-47.0); LYMPH # 0.9 10^3/uL (1.5-5.0); LYMPH % 18.8 % (24.0-44.0); MEAN CORPUSCULAR HEMOGLOBIN 29.9 pg (27.0-33.0); MEAN CORPUSCULAR HGB CONC 32.1 g/dl (32.0-36.5); MEAN CORPUSCULAR VOLUME 93.1 fl (80.0-96.0); MONO # 0.6 10^3/uL (0.0-0.8); MONO % 11.7 % (2.0-8.0); NEUTROPHILS # 3.3 10^3/uL (1.5-8.5); NEUTROPHILS % 66.5 % (36.0-66.0); PLATELET COUNT, AUTOMATED 150 10^3/uL (150-450); RED BLOOD COUNT 3.35 10^6/uL (4.00-5.40); WHITE BLOOD COUNT 4.9 10^3/uL (4.0-10.0)
[2022-05-01 10:53] LABS: INR 1.16; PROTHROMBIN TIME 15.2 SECONDS (12.7-14.5)
[2022-05-01 11:22] LABS: BILIRUBIN,TOTAL 0.4 MG/DL (0.2-1.0); CALCIUM LEVEL 9.3 MG/DL (8.8-10.2); CREATININE FOR GFR 2.05 MG/DL (0.55-1.30); GLOMERULAR FILTRATION RATE 24.4 (>32); MAGNESIUM LEVEL 2.3 MG/DL (1.8-2.4); PHENYTOIN (DILANTIN) 8.2 UG/ML (10.0-20.0); POTASSIUM SERUM 4.2 MEQ/L (3.5-5.1); TOTAL PROTEIN 6.1 GM/DL (6.4-8.2)
== END ==
LOC: M PLALAB 09:12
PROVIDERS: ATTEND Family Medicine
DX: D50.9 Iron deficiency anemia, unspecified (principal); I10 Essential (primary) hypertension; I35.0 Nonrheumatic aortic (valve) stenosis; G40.909 Epilepsy, unspecified, not intractable, without status epilepticus

== ENCOUNTER 2022-05-09 11:05 | Outpatient (CLI) | payer MEDICARE, OTHER ==
[~2022-05-09] VITALS: Ht 154.9 cm; Wt 60.0 kg
[2022-05-09 11:05] VITALS: BP 197/74
[~2022-05-09 11:05] MED LIST changes: +ALBUTEROL SULFATE 2.5 MG/0.5 ML INH NEB SOLN INH PRN; +EPINEPHrine INJ 1 MG/ML 1ML AMP IM PRN; +diphenhydrAMINE 50MG/ML VIAL (J1200) IV PRN; +methylPREDNISolone 125MG 2ML VIAL IV PRN
[2022-05-09] MEDS ORDERED: FERRIC CARBOXYMALTOSE INJ 750 MG in NS 250 ML (>50kg) IV ONE ×3 (11:30)
[2022-05-09] MEDS ORDERED: NS 1,000 ML IV SCH (11:30)
[2022-05-09 12:00] VITALS: BP 123/57
[2022-05-09 12:50] VITALS: BP_SYST 70
== END 2022-05-09 13:15 | disposition home or self-care (01) ==
LOC: M INFU 11:05
PROVIDERS: ATTEND Family Medicine
DX: D50.9 Iron deficiency anemia, unspecified (principal)
CPT/HCPCS: 96365; 96366; J1439

== ENCOUNTER → 2022-05-29 | Outpatient (CLI) | payer MEDICARE, OTHER ==
[~2022-05-29] MED LIST changes: -ALBUTEROL SULFATE 2.5 MG/0.5 ML INH NEB SOLN INH PRN; -EPINEPHrine INJ 1 MG/ML 1ML AMP IM PRN; -diphenhydrAMINE 50MG/ML VIAL (J1200) IV PRN; -methylPREDNISolone 125MG 2ML VIAL IV PRN
[2022-05-29 13:57] LABS: BASO # 0.1 10^3/uL (0.0-0.2); EOS # 0.2 10^3/uL (0.0-0.5); EOS % 3.3 % (0.0-3.0); HEMATOCRIT 31.7 % (36.0-47.0); HEMOGLOBIN 10.3 g/dl (12.0-15.5); LYMPH # 1.2 10^3/uL (1.5-5.0); LYMPH % 23.2 % (24.0-44.0); MEAN CORPUSCULAR HGB CONC 32.5 g/dl (32.0-36.5); MEAN CORPUSCULAR VOLUME 92.4 fl (80.0-96.0); MONO # 0.5 10^3/uL (0.0-0.8); MONO % 10.3 % (2.0-8.0); NEUTROPHILS # 3.2 10^3/uL (1.5-8.5); NEUTROPHILS % 61.8 % (36.0-66.0); PLATELET COUNT, AUTOMATED 161 10^3/uL (150-450); RED BLOOD COUNT 3.43 10^6/uL (4.00-5.40); WHITE BLOOD COUNT 5.1 10^3/uL (4.0-10.0)
[2022-05-29 14:34] LABS: ALBUMIN 3.7 GM/DL (3.2-5.2); BILIRUBIN,TOTAL 0.3 MG/DL (0.2-1.0); CALCIUM LEVEL 9.8 MG/DL (8.8-10.2); CREATININE FOR GFR 1.94 MG/DL (0.55-1.30); POTASSIUM SERUM 4.1 MEQ/L (3.5-5.1); TOTAL PROTEIN 6.4 GM/DL (6.4-8.2)
== END ==
LOC: M PLALAB 09:15
PROVIDERS: ATTEND Family Medicine
DX: I10 Essential (primary) hypertension (principal); D50.9 Iron deficiency anemia, unspecified

== ENCOUNTER → 2022-06-12 | Outpatient (CLI) | payer MEDICARE, OTHER ==
[~2022-06-12] MED LIST changes: +SIMV-253 PO; -ZOCO20TA PO
[2022-06-12 10:31] LABS: BASO % 0.5 % (0.0-1.0); EOS # 0.2 10^3/uL (0.0-0.5); EOS % 2.9 % (0.0-3.0); HEMATOCRIT 33.8 % (36.0-47.0); HEMOGLOBIN 10.6 g/dl (12.0-15.5); LYMPH # 1.3 10^3/uL (1.5-5.0); LYMPH % 23.4 % (24.0-44.0); MEAN CORPUSCULAR HEMOGLOBIN 29.8 pg (27.0-33.0); MEAN CORPUSCULAR HGB CONC 31.4 g/dl (32.0-36.5); MEAN CORPUSCULAR VOLUME 94.9 fl (80.0-96.0); MONO # 0.6 10^3/uL (0.0-0.8); MONO % 11.2 % (2.0-8.0); NEUTROPHILS # 3.4 10^3/uL (1.5-8.5); NEUTROPHILS % 61.8 % (36.0-66.0); PLATELET COUNT, AUTOMATED 153 10^3/uL (150-450); RED BLOOD COUNT 3.56 10^6/uL (4.00-5.40); WHITE BLOOD COUNT 5.5 10^3/uL (4.0-10.0)
[2022-06-12 11:01] LABS: INR 1.64; PROTHROMBIN TIME 19.8 SECONDS (12.7-14.5)
[2022-06-12 11:35] LABS: ALBUMIN 3.6 GM/DL (3.2-5.2); BILIRUBIN,TOTAL 0.2 MG/DL (0.2-1.0); CALCIUM LEVEL 8.8 MG/DL (8.8-10.2); CREATININE FOR GFR 1.91 MG/DL (0.55-1.30); GLOMERULAR FILTRATION RATE 26.5 (>32); POTASSIUM SERUM 4.1 MEQ/L (3.5-5.1); TOTAL PROTEIN 6.4 GM/DL (6.4-8.2)
== END ==
LOC: M PLALAB 07:29
PROVIDERS: ATTEND Family Medicine
DX: D50.9 Iron deficiency anemia, unspecified (principal); E03.9 Hypothyroidism, unspecified; Z86.718 Personal history of other venous thrombosis and embolism

== ENCOUNTER → 2022-07-14 | Outpatient (CLI) | payer MEDICARE, OTHER ==
[2022-07-14 10:40] LABS: BASO % 0.9 % (0.0-1.0); EOS # 0.2 10^3/uL (0.0-0.5); EOS % 3.2 % (0.0-3.0); HEMATOCRIT 32.1 % (36.0-47.0); HEMOGLOBIN 10.5 g/dl (12.0-15.5); LYMPH # 1.1 10^3/uL (1.5-5.0); LYMPH % 22.6 % (24.0-44.0); MEAN CORPUSCULAR HEMOGLOBIN 30.8 pg (27.0-33.0); MEAN CORPUSCULAR HGB CONC 32.7 g/dl (32.0-36.5); MEAN CORPUSCULAR VOLUME 94.1 fl (80.0-96.0); MONO # 0.5 10^3/uL (0.0-0.8); MONO % 11.5 % (2.0-8.0); NEUTROPHILS # 2.9 10^3/uL (1.5-8.5); NEUTROPHILS % 61.6 % (36.0-66.0); PLATELET COUNT, AUTOMATED 170 10^3/uL (150-450); RED BLOOD COUNT 3.41 10^6/uL (4.00-5.40); WHITE BLOOD COUNT 4.7 10^3/uL (4.0-10.0)
[2022-07-14 10:58] LABS: INR 1.52; PROTHROMBIN TIME 18.7 SECONDS (12.7-14.5)
[2022-07-14 12:28] LABS: ALBUMIN 3.6 GM/DL (3.2-5.2); BILIRUBIN,TOTAL 0.2 MG/DL (0.2-1.0); CALCIUM LEVEL 9.2 MG/DL (8.8-10.2); CREATININE FOR GFR 2.01 MG/DL (0.55-1.30); FREE T4 1.1 NG/DL (0.76-1.46); GLOMERULAR FILTRATION RATE 24.9 (>32); THYROID STIMULATING HORMONE 2.32 uIU/ML (0.358-3.740); TOTAL PROTEIN 6.3 GM/DL (6.4-8.2)
== END ==
LOC: M PLALAB 08:00
PROVIDERS: ATTEND Family Medicine
DX: I10 Essential (primary) hypertension (principal); D50.9 Iron deficiency anemia, unspecified; I35.0 Nonrheumatic aortic (valve) stenosis; E03.9 Hypothyroidism, unspecified; E53.8 Deficiency of other specified B group vitamins

== ENCOUNTER → 2022-08-14 | Outpatient (CLI) | payer MEDICARE, OTHER ==
[2022-08-14 11:17] LABS: BASO % 0.9 % (0.0-1.0); EOS # 0.1 10^3/uL (0.0-0.5); EOS % 2.2 % (0.0-3.0); HEMATOCRIT 30.1 % (36.0-47.0); HEMOGLOBIN 9.8 g/dl (12.0-15.5); LYMPH # 0.9 10^3/uL (1.5-5.0); LYMPH % 19.7 % (24.0-44.0); MEAN CORPUSCULAR HEMOGLOBIN 30.5 pg (27.0-33.0); MEAN CORPUSCULAR HGB CONC 32.6 g/dl (32.0-36.5); MEAN CORPUSCULAR VOLUME 93.8 fl (80.0-96.0); MONO # 0.5 10^3/uL (0.0-0.8); MONO % 10.6 % (2.0-8.0); NEUTROPHILS % 66.4 % (36.0-66.0); PLATELET COUNT, AUTOMATED 183 10^3/uL (150-450); RED BLOOD COUNT 3.21 10^6/uL (4.00-5.40); WHITE BLOOD COUNT 4.5 10^3/uL (4.0-10.0)
[2022-08-14 11:28] LABS: INR 1.56
[2022-08-14 11:58] LABS: ALBUMIN 3.6 GM/DL (3.2-5.2); BILIRUBIN,TOTAL 0.4 MG/DL (0.2-1.0); CALCIUM LEVEL 9.1 MG/DL (8.8-10.2); CREATININE FOR GFR 2.08 MG/DL (0.55-1.30); MAGNESIUM LEVEL 2.2 MG/DL (1.8-2.4); POTASSIUM SERUM 4.2 MEQ/L (3.5-5.1); TOTAL PROTEIN 6.2 GM/DL (6.4-8.2)
== END ==
LOC: M PLALAB 09:25
PROVIDERS: ATTEND Family Medicine
DX: Z51.81 Encounter for therapeutic drug level monitoring (principal); Z79.899 Other long term (current) drug therapy; D50.9 Iron deficiency anemia, unspecified; E03.9 Hypothyroidism, unspecified; I10 Essential (primary) hypertension

== ENCOUNTER 2022-08-20 13:20 | Outpatient (CLI) | payer MEDICARE, OTHER ==
[~2022-08-20] VITALS: Ht 154.9 cm; Wt 59.5 kg
[2022-08-20 13:15] VITALS: BP 169/70
[~2022-08-20 13:20] MED LIST changes: +ALBUTEROL SULFATE 2.5 MG/0.5 ML INH NEB SOLN INH PRN; +EPINEPHrine INJ 1 MG/ML 1ML AMP IM PRN; +diphenhydrAMINE 50MG/ML VIAL (J1200) IV PRN; +methylPREDNISolone 125MG 2ML VIAL IV PRN
[2022-08-20] MEDS ORDERED: NS 1,000 ML IV SCH (13:30)
[2022-08-20] MEDS ORDERED: FERRIC CARBOXYMALTOSE INJ 750 MG in NS 250 ML (>50kg) IV ONE ×3 (13:30)
[2022-08-20 15:00] VITALS: BP 184/77
== END 2022-08-20 15:00 | disposition home or self-care (01) ==
LOC: M INFU 13:20
PROVIDERS: ATTEND Family Medicine
DX: D50.9 Iron deficiency anemia, unspecified (principal); Z88.2 Allergy status to sulfonamides
CPT/HCPCS: 96365; J1439

== ENCOUNTER → 2022-08-29 | Outpatient (REF) | payer MEDICARE, OTHER ==
[~2022-08-29] MED LIST changes: -ALBUTEROL SULFATE 2.5 MG/0.5 ML INH NEB SOLN INH PRN; -EPINEPHrine INJ 1 MG/ML 1ML AMP IM PRN; -diphenhydrAMINE 50MG/ML VIAL (J1200) IV PRN; -methylPREDNISolone 125MG 2ML VIAL IV PRN
[2022-08-29 10:39] LABS: BASO # 0.1 10^3/uL (0.0-0.2); EOS # 0.1 10^3/uL (0.0-0.5); EOS % 2.6 % (0.0-3.0); HEMATOCRIT 32.9 % (36.0-47.0); HEMOGLOBIN 10.5 g/dl (12.0-15.5); LYMPH # 1.4 10^3/uL (1.5-5.0); LYMPH % 28.8 % (24.0-44.0); MEAN CORPUSCULAR HEMOGLOBIN 30.1 pg (27.0-33.0); MEAN CORPUSCULAR HGB CONC 31.9 g/dl (32.0-36.5); MEAN CORPUSCULAR VOLUME 94.3 fl (80.0-96.0); MONO # 0.5 10^3/uL (0.0-0.8); MONO % 10.7 % (2.0-8.0); NEUTROPHILS # 2.8 10^3/uL (1.5-8.5); NEUTROPHILS % 56.5 % (36.0-66.0); PLATELET COUNT, AUTOMATED 184 10^3/uL (150-450); RED BLOOD COUNT 3.49 10^6/uL (4.00-5.40)
[2022-08-29 10:46] LABS: INR 1.54; PROTHROMBIN TIME 18.8 SECONDS (12.5-14.5)
[2022-08-29 11:28] LABS: ALBUMIN 3.8 GM/DL (3.2-5.2); CALCIUM LEVEL 9.1 MG/DL (8.8-10.2); CREATININE FOR GFR 2.53 MG/DL (0.55-1.30); GLOMERULAR FILTRATION RATE 19.1 (>32); MAGNESIUM LEVEL 2.3 MG/DL (1.8-2.4); PHOSPHORUS LEVEL 2.4 MG/DL (2.5-4.9); POTASSIUM SERUM 4.1 MEQ/L (3.5-5.1)
== END ==
LOC: M PLALAB 10:05
PROVIDERS: ATTEND Family Medicine
DX: D50.9 Iron deficiency anemia, unspecified (principal)

== ENCOUNTER → 2022-09-15 | Outpatient (CLI) | payer MEDICARE, OTHER ==
[2022-09-15 11:59] LABS: BASO % 0.5 % (0.0-1.0); EOS # 0.2 10^3/uL (0.0-0.5); EOS % 2.3 % (0.0-3.0); HEMATOCRIT 33.2 % (36.0-47.0); HEMOGLOBIN 10.5 g/dl (12.0-15.5); LYMPH % 14.5 % (24.0-44.0); MEAN CORPUSCULAR HEMOGLOBIN 29.7 pg (27.0-33.0); MEAN CORPUSCULAR HGB CONC 31.6 g/dl (32.0-36.5); MEAN CORPUSCULAR VOLUME 93.8 fl (80.0-96.0); MONO # 0.7 10^3/uL (0.0-0.8); MONO % 10.1 % (2.0-8.0); NEUTROPHILS # 4.8 10^3/uL (1.5-8.5); PLATELET COUNT, AUTOMATED 163 10^3/uL (150-450); RED BLOOD COUNT 3.54 10^6/uL (4.00-5.40); WHITE BLOOD COUNT 6.6 10^3/uL (4.0-10.0)
[2022-09-15 12:16] LABS: INR 1.95; PROTHROMBIN TIME 22.6 SECONDS (12.5-14.5)
[2022-09-15 12:39] LABS: ALBUMIN 3.5 GM/DL (3.2-5.2); BILIRUBIN,TOTAL 0.2 MG/DL (0.2-1.0); CALCIUM LEVEL 8.9 MG/DL (8.8-10.2); CREATININE FOR GFR 2.4 MG/DL (0.55-1.30); GLOMERULAR FILTRATION RATE 20.3 (>32); MAGNESIUM LEVEL 2.1 MG/DL (1.8-2.4); POTASSIUM SERUM 3.7 MEQ/L (3.5-5.1); TOTAL PROTEIN 6.3 GM/DL (6.4-8.2)
== END ==
LOC: M PLALAB 07:52
PROVIDERS: ATTEND Family Medicine
DX: Z51.81 Encounter for therapeutic drug level monitoring (principal); I10 Essential (primary) hypertension; D50.9 Iron deficiency anemia, unspecified; Z79.899 Other long term (current) drug therapy

== ENCOUNTER → 2022-09-30 | Outpatient (CLI) | payer MEDICARE, OTHER ==
[2022-09-30 11:00] LABS: BASO # 0.1 10^3/uL (0.0-0.2); BASO % 0.7 % (0.0-1.0); EOS # 0.1 10^3/uL (0.0-0.5); EOS % 1.9 % (0.0-3.0); HEMATOCRIT 32.9 % (36.0-47.0); HEMOGLOBIN 10.4 g/dl (12.0-15.5); LYMPH # 1.7 10^3/uL (1.5-5.0); LYMPH % 24.8 % (24.0-44.0); MEAN CORPUSCULAR HEMOGLOBIN 29.8 pg (27.0-33.0); MEAN CORPUSCULAR HGB CONC 31.6 g/dl (32.0-36.5); MEAN CORPUSCULAR VOLUME 94.3 fl (80.0-96.0); MONO # 0.9 10^3/uL (0.0-0.8); MONO % 12.6 % (2.0-8.0); NEUTROPHILS % 59.6 % (36.0-66.0); PLATELET COUNT, AUTOMATED 191 10^3/uL (150-450); RED BLOOD COUNT 3.49 10^6/uL (4.00-5.40); WHITE BLOOD COUNT 6.7 10^3/uL (4.0-10.0)
[2022-09-30 11:13] LABS: INR 2.04; PROTHROMBIN TIME 23.4 SECONDS (12.5-14.5)
[2022-09-30 11:22] LABS: ALBUMIN 3.6 G/DL (3.2-5.2); POTASSIUM SERUM 3.8 MMOL/L (3.5-5.1)
[2022-09-30 11:28] LABS: CALCIUM LEVEL 9.2 MG/DL (8.3-10.6)
[2022-09-30 11:30] LABS: BILIRUBIN,TOTAL 0.3 MG/DL (0.3-1.2); CREATININE FOR GFR 2.05 MG/DL (0.55-1.30); GLOMERULAR FILTRATION RATE 24.4 (>32); TOTAL PROTEIN 6.1 G/DL (5.7-8.2)
[2022-09-30 11:35] LABS: FERRITIN 231.9 NG/ML (7.3-270.7)
== END ==
LOC: M PLALAB 07:48
PROVIDERS: ATTEND Family Medicine
DX: I10 Essential (primary) hypertension (principal); D50.9 Iron deficiency anemia, unspecified

== ENCOUNTER → 2022-10-14 | Outpatient (CLI) | payer MEDICARE, OTHER ==
[2022-10-14 10:39] LABS: BASO # 0.1 10^3/uL (0.0-0.2); EOS # 0.1 10^3/uL (0.0-0.5); EOS % 1.5 % (0.0-3.0); HEMATOCRIT 33.3 % (36.0-47.0); HEMOGLOBIN 10.6 g/dl (12.0-15.5); LYMPH # 1.2 10^3/uL (1.5-5.0); LYMPH % 17.9 % (24.0-44.0); MEAN CORPUSCULAR HEMOGLOBIN 29.7 pg (27.0-33.0); MEAN CORPUSCULAR HGB CONC 31.8 g/dl (32.0-36.5); MEAN CORPUSCULAR VOLUME 93.3 fl (80.0-96.0); MONO # 0.8 10^3/uL (0.0-0.8); NEUTROPHILS # 4.6 10^3/uL (1.5-8.5); NEUTROPHILS % 67.3 % (36.0-66.0); PLATELET COUNT, AUTOMATED 182 10^3/uL (150-450); RED BLOOD COUNT 3.57 10^6/uL (4.00-5.40); WHITE BLOOD COUNT 6.9 10^3/uL (4.0-10.0)
[2022-10-14 10:57] LABS: INR 2.05; PROTHROMBIN TIME 23.5 SECONDS (12.5-14.5)
[2022-10-14 11:38] LABS: ALBUMIN 3.5 G/DL (3.2-5.2); BILIRUBIN,TOTAL 0.3 MG/DL (0.3-1.2); CALCIUM LEVEL 9.2 MG/DL (8.3-10.6); CREATININE FOR GFR 2.64 MG/DL (0.55-1.30); FERRITIN 205.9 NG/ML (7.3-270.7); GLOMERULAR FILTRATION RATE 18.2 (>32); POTASSIUM SERUM 3.9 MMOL/L (3.5-5.1); TOTAL PROTEIN 6.4 G/DL (5.7-8.2)
== END ==
LOC: M PLALAB 08:09
PROVIDERS: ATTEND Family Medicine
DX: Z51.81 Encounter for therapeutic drug level monitoring (principal); Z79.899 Other long term (current) drug therapy; I10 Essential (primary) hypertension; D50.9 Iron deficiency anemia, unspecified

== ENCOUNTER → 2022-10-30 | Outpatient (CLI) | payer MEDICARE, OTHER ==
[2022-10-30 11:43] LABS: BASO # 0.1 10^3/uL (0.0-0.2); BASO % 0.9 % (0.0-1.0); EOS # 0.1 10^3/uL (0.0-0.5); EOS % 1.9 % (0.0-3.0); HEMATOCRIT 32.5 % (36.0-47.0); HEMOGLOBIN 10.2 g/dl (12.0-15.5); LYMPH # 1.3 10^3/uL (1.5-5.0); MEAN CORPUSCULAR HEMOGLOBIN 29.6 pg (27.0-33.0); MEAN CORPUSCULAR HGB CONC 31.4 g/dl (32.0-36.5); MEAN CORPUSCULAR VOLUME 94.2 fl (80.0-96.0); MONO # 0.7 10^3/uL (0.0-0.8); NEUTROPHILS # 3.7 10^3/uL (1.5-8.5); NEUTROPHILS % 62.9 % (36.0-66.0); PLATELET COUNT, AUTOMATED 198 10^3/uL (150-450); RED BLOOD COUNT 3.45 10^6/uL (4.00-5.40); WHITE BLOOD COUNT 5.8 10^3/uL (4.0-10.0)
[2022-10-30 12:03] LABS: INR 2.76; PROTHROMBIN TIME 29.6 SECONDS (12.5-14.5)
[2022-10-30 12:16] LABS: ALBUMIN 3.3 G/DL (3.2-5.2); ALKALINE PHOSPHATASE 168 U/L (46-116); ALT/SGPT 22 U/L (7.0-40); AST/SGOT 32 U/L (<34); BILIRUBIN,TOTAL 0.3 MG/DL (0.3-1.2); BLOOD UREA NITROGEN 50 MG/DL (9-23); CALCIUM LEVEL 9.1 MG/DL (8.3-10.6); CARBON DIOXIDE LEVEL 29 MMOL/L (20-31); CHLORIDE LEVEL 107 MMOL/L (98-107); CREATININE FOR GFR 1.82 MG/DL (0.55-1.30); GLUCOSE, FASTING 91 MG/DL (74-106); POTASSIUM SERUM 3.9 MMOL/L (3.5-5.1); PTH INTACT 121.7 PG/ML (18.5-88.0); SODIUM LEVEL 146 MMOL/L (136-145)
[2022-11-05 08:06] LABS: ALBUMIN % 59.1 % (55.8-66.1)
[2022-11-05 08:07] LABS: ALBUMIN 3.55 GM/DL (3.29-5.55); ALPHA-1-GLOBULIN % 4.7 % (2.9-4.9); ALPHA-1-GLOBULINS 0.28 GM/DL (0.17-0.41); ALPHA-2-GLOBULINS 0.73 GM/DL (0.42-0.99); ALPHA-2-GLOBULINS % 12.2 % (7.1-11.8); BETA-1-GLOBULINS 0.31 GM/DL (0.28-0.60); BETA-1-GLOBULINS % 5.1 % (4.7-7.2); BETA-2-GLOBULINS 0.28 GM/DL (0.19-0.55); BETA-2-GLOBULINS % 4.7 % (3.2-6.5); GAMMA GLOBULIN % 14.2 % (11.1-18.8); GAMMA GLOBULINS 0.85 GM/DL (0.65-1.58)
== END ==
LOC: M PLALAB 07:37
PROVIDERS: ATTEND Family Medicine
DX: I10 Essential (primary) hypertension (principal); R74.8 Abnormal levels of other serum enzymes; D50.9 Iron deficiency anemia, unspecified; I35.0 Nonrheumatic aortic (valve) stenosis

== ENCOUNTER → 2022-11-10 | Outpatient (CLI) | payer MEDICARE, OTHER | LOC: M SLEEP HO 09:19 | PROVIDERS: ATTEND Family Medicine | DX: G47.33 Obstructive sleep apnea (adult) (pediatric) (principal) ==

== ENCOUNTER → 2022-11-20 | Outpatient (CLI) | payer MEDICARE, OTHER ==
[2022-11-20 11:07] LABS: BASO % 0.7 % (0.0-1.0); EOS # 0.1 10^3/uL (0.0-0.5); EOS % 1.5 % (0.0-3.0); HEMATOCRIT 31.8 % (36.0-47.0); HEMOGLOBIN 10.2 g/dl (12.0-15.5); LYMPH # 1.4 10^3/uL (1.5-5.0); LYMPH % 25.1 % (24.0-44.0); MEAN CORPUSCULAR HEMOGLOBIN 30.3 pg (27.0-33.0); MEAN CORPUSCULAR HGB CONC 32.1 g/dl (32.0-36.5); MEAN CORPUSCULAR VOLUME 94.4 fl (80.0-96.0); MONO # 0.6 10^3/uL (0.0-0.8); MONO % 10.1 % (2.0-8.0); NEUTROPHILS # 3.4 10^3/uL (1.5-8.5); PLATELET COUNT, AUTOMATED 193 10^3/uL (150-450); RED BLOOD COUNT 3.37 10^6/uL (4.00-5.40); WHITE BLOOD COUNT 5.4 10^3/uL (4.0-10.0)
[2022-11-20 11:23] LABS: INR 1.2; PROTHROMBIN TIME 15.5 SECONDS (12.5-14.5)
[2022-11-20 11:44] LABS: ALBUMIN 3.6 G/DL (3.2-5.2); BILIRUBIN,TOTAL 0.3 MG/DL (0.3-1.2); CALCIUM LEVEL 9.1 MG/DL (8.3-10.6); CREATININE FOR GFR 2.12 MG/DL (0.55-1.30); GLOMERULAR FILTRATION RATE 23.5 (>32); POTASSIUM SERUM 4.4 MMOL/L (3.5-5.1); TOTAL PROTEIN 6.2 G/DL (5.7-8.2)
[2022-11-20 11:45] LABS: FERRITIN 148.5 NG/ML (7.3-270.7); PTH INTACT 200.9 PG/ML (18.5-88.0)
== END ==
LOC: M PLALAB 07:37
PROVIDERS: ATTEND Family Medicine
DX: Z86.718 Personal history of other venous thrombosis and embolism (principal); E66.9 Obesity, unspecified

== ENCOUNTER → 2022-12-09 | Outpatient (CLI) | payer MEDICARE, OTHER ==
[2022-12-09 11:32] LABS: BASO % 0.5 % (0.0-1.0); EOS # 0.1 10^3/uL (0.0-0.5); HEMATOCRIT 31.5 % (36.0-47.0); HEMOGLOBIN 9.9 g/dl (12.0-15.5); LYMPH # 1.1 10^3/uL (1.5-5.0); LYMPH % 20.6 % (24.0-44.0); MEAN CORPUSCULAR HEMOGLOBIN 30.1 pg (27.0-33.0); MEAN CORPUSCULAR HGB CONC 31.4 g/dl (32.0-36.5); MEAN CORPUSCULAR VOLUME 95.7 fl (80.0-96.0); MONO # 0.6 10^3/uL (0.0-0.8); MONO % 10.2 % (2.0-8.0); NEUTROPHILS # 3.6 10^3/uL (1.5-8.5); NEUTROPHILS % 66.5 % (36.0-66.0); PLATELET COUNT, AUTOMATED 163 10^3/uL (150-450); RED BLOOD COUNT 3.29 10^6/uL (4.00-5.40); WHITE BLOOD COUNT 5.5 10^3/uL (4.0-10.0)
[2022-12-09 11:43] LABS: INR 1.49; PROTHROMBIN TIME 18.3 SECONDS (12.5-14.5)
[2022-12-09 11:59] LABS: ALBUMIN 3.5 G/DL (3.2-5.2); CALCIUM LEVEL 9.2 MG/DL (8.3-10.6); CREATININE FOR GFR 2.23 MG/DL (0.55-1.30); GLOMERULAR FILTRATION RATE 22.1 (>32); MAGNESIUM LEVEL 1.9 MG/DL (1.8-2.4); PHOSPHORUS LEVEL 3.6 MG/DL (2.4-5.1); POTASSIUM SERUM 4.1 MMOL/L (3.5-5.1); PTH INTACT 102.8 PG/ML (18.5-88.0)
[2022-12-09 12:01] LABS: FERRITIN 121.1 NG/ML (7.3-270.7)
== END ==
LOC: M PLALAB 08:03
PROVIDERS: ATTEND Family Medicine
DX: E55.9 Vitamin D deficiency, unspecified (principal); Z86.718 Personal history of other venous thrombosis and embolism

== ENCOUNTER → 2022-12-31 | Outpatient (REF) | payer MEDICARE, OTHER ==
[2022-12-31 10:44] LABS: BASO % 0.8 % (0.0-1.0); EOS # 0.2 10^3/uL (0.0-0.5); EOS % 3.1 % (0.0-3.0); HEMATOCRIT 30.4 % (36.0-47.0); HEMOGLOBIN 9.6 g/dl (12.0-15.5); LYMPH # 1.1 10^3/uL (1.5-5.0); LYMPH % 22.5 % (24.0-44.0); MEAN CORPUSCULAR HEMOGLOBIN 29.9 pg (27.0-33.0); MEAN CORPUSCULAR HGB CONC 31.6 g/dl (32.0-36.5); MEAN CORPUSCULAR VOLUME 94.7 fl (80.0-96.0); MONO # 0.5 10^3/uL (0.0-0.8); MONO % 11.2 % (2.0-8.0); NEUTROPHILS % 62.2 % (36.0-66.0); PLATELET COUNT, AUTOMATED 175 10^3/uL (150-450); RED BLOOD COUNT 3.21 10^6/uL (4.00-5.40); WHITE BLOOD COUNT 4.8 10^3/uL (4.0-10.0)
[2022-12-31 10:56] LABS: INR 1.64; PROTHROMBIN TIME 19.7 SECONDS (12.5-14.5)
[2022-12-31 11:07] LABS: ALBUMIN 3.4 G/DL (3.2-5.2); BILIRUBIN,TOTAL 0.2 MG/DL (0.3-1.2); CALCIUM LEVEL 9.2 MG/DL (8.3-10.6); CREATININE FOR GFR 2.07 MG/DL (0.55-1.30); FERRITIN 92.4 NG/ML (7.3-270.7); GLOMERULAR FILTRATION RATE 24.1 (>32); POTASSIUM SERUM 4.4 MMOL/L (3.5-5.1); TOTAL PROTEIN 6.3 G/DL (5.7-8.2)
== END ==
LOC: M SFHCPLAZ 10:13
PROVIDERS: ATTEND Family Medicine
DX: D50.9 Iron deficiency anemia, unspecified (principal); I10 Essential (primary) hypertension

== ENCOUNTER → 2023-01-08 | Outpatient (REF) | payer MEDICARE, OTHER | LOC: M LAB REF 21:49 | PROVIDERS: ATTEND Physician Assistant Medical | DX: B34.9 Viral infection, unspecified (principal) ==

== ENCOUNTER → 2023-01-16 | Outpatient (CLI) | payer MEDICARE, OTHER ==
[2023-01-16 12:03] LABS: BASO % 0.6 % (0.0-1.0); EOS # 0.1 10^3/uL (0.0-0.5); HEMATOCRIT 30.2 % (36.0-47.0); HEMOGLOBIN 9.3 g/dl (12.0-15.5); LYMPH # 1.1 10^3/uL (1.5-5.0); LYMPH % 14.7 % (24.0-44.0); MEAN CORPUSCULAR HEMOGLOBIN 29.3 pg (27.0-33.0); MEAN CORPUSCULAR HGB CONC 30.8 g/dl (32.0-36.5); MEAN CORPUSCULAR VOLUME 95.3 fl (80.0-96.0); MONO # 0.6 10^3/uL (0.0-0.8); MONO % 8.7 % (2.0-8.0); NEUTROPHILS # 5.2 10^3/uL (1.5-8.5); PLATELET COUNT, AUTOMATED 258 10^3/uL (150-450); RED BLOOD COUNT 3.17 10^6/uL (4.00-5.40); WHITE BLOOD COUNT 7.2 10^3/uL (4.0-10.0)
[2023-01-16 12:28] LABS: INR 1.82; PROTHROMBIN TIME 21.4 SECONDS (12.5-14.5)
[2023-01-16 15:39] LABS: ALBUMIN 3.4 G/DL (3.2-5.2); BILIRUBIN,TOTAL 0.2 MG/DL (0.3-1.2); CALCIUM LEVEL 9.2 MG/DL (8.3-10.6); CREATININE FOR GFR 2.49 MG/DL (0.55-1.30); FERRITIN 118.7 NG/ML (7.3-270.7); GLOMERULAR FILTRATION RATE 19.4 (>32); MAGNESIUM LEVEL 1.9 MG/DL (1.8-2.4); POTASSIUM SERUM 4.3 MMOL/L (3.5-5.1)
[2023-01-16 18:26] LABS: TOTAL PROTEIN 6.3 G/DL (5.7-8.2)
== END ==
LOC: M PLALAB 07:52
PROVIDERS: ATTEND Family Medicine
DX: D50.9 Iron deficiency anemia, unspecified (principal); I10 Essential (primary) hypertension; R06.09 Other forms of dyspnea

== ENCOUNTER → 2023-01-19 | Outpatient (CLI) | payer MEDICARE, OTHER | LOC: M PLAIMG 16:23 | PROVIDERS: ATTEND Physician Assistant | DX: R05.1 Acute cough (principal) ==

== ENCOUNTER → 2023-01-30 | Outpatient (CLI) | payer MEDICARE, OTHER ==
[2023-01-30 12:04] LABS: BASO % 0.4 % (0.0-1.0); EOS # 0.3 10^3/uL (0.0-0.5); EOS % 3.9 % (0.0-3.0); HEMATOCRIT 28.3 % (36.0-47.0); HEMOGLOBIN 8.6 g/dl (12.0-15.5); LYMPH # 0.9 10^3/uL (1.5-5.0); LYMPH % 12.8 % (24.0-44.0); MEAN CORPUSCULAR HEMOGLOBIN 29.8 pg (27.0-33.0); MEAN CORPUSCULAR HGB CONC 30.4 g/dl (32.0-36.5); MEAN CORPUSCULAR VOLUME 97.9 fl (80.0-96.0); MONO # 0.9 10^3/uL (0.0-0.8); MONO % 13.2 % (2.0-8.0); NEUTROPHILS # 4.7 10^3/uL (1.5-8.5); NEUTROPHILS % 69.3 % (36.0-66.0); PLATELET COUNT, AUTOMATED 208 10^3/uL (150-450); RED BLOOD COUNT 2.89 10^6/uL (4.00-5.40); WHITE BLOOD COUNT 6.7 10^3/uL (4.0-10.0)
[2023-01-30 12:12] LABS: ALBUMIN 3.2 G/DL (3.2-5.2); BILIRUBIN,TOTAL 0.2 MG/DL (0.3-1.2); CALCIUM LEVEL 8.5 MG/DL (8.3-10.6); CREATININE FOR GFR 1.84 MG/DL (0.55-1.30); GLOMERULAR FILTRATION RATE 27.6 (>32); POTASSIUM SERUM 5.3 MMOL/L (3.5-5.1); TOTAL PROTEIN 5.8 G/DL (5.7-8.2)
[2023-01-30 12:14] LABS: INR 1.46
[2023-01-30 12:16] LABS: FERRITIN 44.8 NG/ML (7.3-270.7); FREE T4 1.2 NG/DL (0.89-1.76); THYROID STIMULATING HORMONE 5.168 uIU/ML (0.55-4.78)
== END ==
LOC: M PLALAB 07:52
PROVIDERS: ATTEND Family Medicine
DX: D50.9 Iron deficiency anemia, unspecified (principal); I10 Essential (primary) hypertension

== ENCOUNTER 2023-02-02 10:56 | Outpatient (CLI) | payer MEDICARE, OTHER ==
[~2023-02-02] VITALS: Ht 154.9 cm; Wt 55.8 kg
[~2023-02-02 10:56] MED LIST changes: +ALBUTEROL SULFATE 2.5MG/0.5ML INH NEB SOLN INH PRN; +EPINEPHrine INJ 1 MG/ML 1ML AMP IM PRN; +diphenhydrAMINE 50MG/ML VIAL IV PRN; +methylPREDNISolone 125MG 2ML VIAL IV PRN
[2023-02-02 11:27] VITALS: BP 155/69
[2023-02-02] MEDS ORDERED: NS 1,000 ML IV SCH (11:50)
[2023-02-02] MEDS ORDERED: FERRIC CARBOXYMALTOSE INJ 750 MG in NS 250 ML (>50kg) IV ONE ×3 (12:00)
[2023-02-02] MEDS ORDERED: FUROSEMIDE 40MG/4ML VIAL IV ONE (14:00)
[2023-02-02 14:43] VITALS: BP 152/68
[2023-02-02 15:46] VITALS: BP 178/80
[2023-02-02 16:20] VITALS: BP 176/74
[2023-02-02 16:40] VITALS: BP 178/75
== END 2023-02-02 16:40 | disposition home or self-care (01) ==
LOC: M INFU 10:56
PROVIDERS: ATTEND Family Medicine
DX: D50.9 Iron deficiency anemia, unspecified (principal); Z88.2 Allergy status to sulfonamides
CPT/HCPCS: 36430; 36592; 86850; 86900; 86901; 86920; 96365; 96375; J1439; J1940; P9016

== ENCOUNTER → 2023-02-06 | Outpatient (CLI) | payer MEDICARE, OTHER ==
[~2023-02-06] MED LIST changes: +ACET-897 PO; -ALBUTEROL SULFATE 2.5MG/0.5ML INH NEB SOLN INH PRN; -ALPR0.25; +CEFD300C41 PO; -EPINEPHrine INJ 1 MG/ML 1ML AMP IM PRN; +FURO40TA2 PO; +GUAISYP5 PO; +JANT2TAB PO; +LEVA1.2519 INH; +LEVO100T5 PO; +METO25TA PO; +PRED20TA PO; +SUCR1TAB56 PO; +TORS10TA3 PO; +[UNRECOGNIZED DRUG - CODE] SC; -diphenhydrAMINE 50MG/ML VIAL IV PRN; -methylPREDNISolone 125MG 2ML VIAL IV PRN
== END ==
LOC: M RAD 14:13
PROVIDERS: ATTEND Physician Assistant
DX: R91.8 Other nonspecific abnormal finding of lung field (principal); I50.21 Acute systolic (congestive) heart failure; R05.1 Acute cough

== ENCOUNTER → 2023-02-06 | Outpatient (CLI) | payer MEDICARE, OTHER ==
[~2023-02-06] MED LIST changes: -ACET-897 PO; +ALPR0.25; -CEFD300C41 PO; -FURO40TA2 PO; -GUAISYP5 PO; -JANT2TAB PO; -LEVA1.2519 INH; -LEVO100T5 PO; -METO25TA PO; -PRED20TA PO; -SUCR1TAB56 PO; -TORS10TA3 PO; -[UNRECOGNIZED DRUG - CODE] SC
[2023-02-06 11:15] LABS: BASO # 0.1 10^3/uL (0.0-0.2); BASO % 0.7 % (0.0-1.0); EOS # 0.4 10^3/uL (0.0-0.5); EOS % 5.7 % (0.0-3.0); LYMPH # 0.8 10^3/uL (1.5-5.0); LYMPH % 11.4 % (24.0-44.0); MEAN CORPUSCULAR HEMOGLOBIN 29.3 pg (27.0-33.0); MEAN CORPUSCULAR HGB CONC 30.3 g/dl (32.0-36.5); MEAN CORPUSCULAR VOLUME 96.8 fl (80.0-96.0); MONO # 1.1 10^3/uL (0.0-0.8); MONO % 14.5 % (2.0-8.0); NEUTROPHILS % 67.4 % (36.0-66.0); PLATELET COUNT, AUTOMATED 160 10^3/uL (150-450); RED BLOOD COUNT 3.41 10^6/uL (4.00-5.40); WHITE BLOOD COUNT 7.4 10^3/uL (4.0-10.0)
[2023-02-06 11:32] LABS: ALBUMIN 3.4 G/DL (3.2-5.2); BILIRUBIN,TOTAL 0.2 MG/DL (0.3-1.2); CALCIUM LEVEL 8.1 MG/DL (8.3-10.6); CREATININE FOR GFR 1.81 MG/DL (0.55-1.30); GLOMERULAR FILTRATION RATE 28.1 (>32); MAGNESIUM LEVEL 1.9 MG/DL (1.8-2.4); POTASSIUM SERUM 4.4 MMOL/L (3.5-5.1); TOTAL PROTEIN 6.3 G/DL (5.7-8.2)
[2023-02-06 11:36] LABS: FERRITIN 534.5 NG/ML (7.3-270.7)
== END ==
LOC: M PLALAB 09:29
PROVIDERS: ATTEND Physician Assistant
DX: D50.9 Iron deficiency anemia, unspecified (principal); I11.0 Hypertensive heart disease with heart failure; I50.21 Acute systolic (congestive) heart failure

== ENCOUNTER → 2023-02-09 | Outpatient (CLI) | payer MEDICARE, OTHER ==
[~2023-02-09] MED LIST changes: +ACET-897 PO; -ALPR0.25; +LEVA1.2519 INH; +LEVO100T5 PO; +SUCR1TAB56 PO; +TORS10TA3 PO; +[UNRECOGNIZED DRUG - CODE] SC
== END ==
LOC: M CARPUL 10:21
PROVIDERS: ATTEND Physician Assistant
DX: I50.21 Acute systolic (congestive) heart failure (principal); I27.20 Pulmonary hypertension, unspecified; I35.2 Nonrheumatic aortic (valve) stenosis with insufficiency

== ENCOUNTER → 2023-02-27 | Outpatient (REF) | payer MEDICARE, OTHER ==
[~2023-02-27] MED LIST changes: +CEFD300C41 PO; +FURO40TA2 PO; +GUAISYP5 PO; +JANT2TAB PO; +METO25TA PO; +PRED20TA PO
[2023-02-27 15:28] LABS: CALCIUM LEVEL 8.1 MG/DL (8.3-10.6); CREATININE FOR GFR 1.66 MG/DL (0.55-1.30); MAGNESIUM LEVEL 1.7 MG/DL (1.8-2.4); POTASSIUM SERUM 4.5 MMOL/L (3.5-5.1)
== END ==
LOC: M LAB REF 14:14
PROVIDERS: ATTEND Internal Medicine
DX: I50.9 Heart failure, unspecified (principal); E03.9 Hypothyroidism, unspecified; D50.9 Iron deficiency anemia, unspecified

== ENCOUNTER → 2023-03-02 | Outpatient (REF) | payer MEDICARE, OTHER ==
[2023-03-02 15:27] LABS: INR 2.12; PROTHROMBIN TIME 24.1 SECONDS (12.5-14.5)
[2023-03-02 15:31] LABS: ALBUMIN 2.8 G/DL (3.2-5.2); ALKALINE PHOSPHATASE 186 U/L (46-116); ALT/SGPT 18 U/L (7.0-40); AST/SGOT 33 U/L (<34); BILIRUBIN,TOTAL 0.2 MG/DL (0.3-1.2); BLOOD UREA NITROGEN 42 MG/DL (9-23); CALCIUM LEVEL 8.1 MG/DL (8.3-10.6); CARBON DIOXIDE LEVEL 31 MMOL/L (20-31); CHLORIDE LEVEL 114 MMOL/L (98-107); CREATININE FOR GFR 1.68 MG/DL (0.55-1.30); GLOMERULAR FILTRATION RATE 30.6 (>32); GLUCOSE, FASTING 97 MG/DL (74-106); POTASSIUM SERUM 4.4 MMOL/L (3.5-5.1); SODIUM LEVEL 144 MMOL/L (136-145); TOTAL PROTEIN 5.5 G/DL (5.7-8.2)
== END ==
LOC: M SHH 14:44 → M SFHCPLAZ 14:44
PROVIDERS: ATTEND Family Medicine
DX: D50.9 Iron deficiency anemia, unspecified (principal); I10 Essential (primary) hypertension

== ENCOUNTER → 2023-03-06 | Outpatient (CLI) | payer MEDICARE, OTHER ==
[2023-03-06 10:38] LABS: BASO # 0.1 10^3/uL (0.0-0.2); BASO % 0.9 % (0.0-1.0); EOS # 0.3 10^3/uL (0.0-0.5); EOS % 5.4 % (0.0-3.0); HEMATOCRIT 33.8 % (36.0-47.0); HEMOGLOBIN 9.9 g/dl (12.0-15.5); LYMPH # 0.8 10^3/uL (1.5-5.0); LYMPH % 13.3 % (24.0-44.0); MEAN CORPUSCULAR HEMOGLOBIN 29.6 pg (27.0-33.0); MEAN CORPUSCULAR HGB CONC 29.3 g/dl (32.0-36.5); MEAN CORPUSCULAR VOLUME 100.9 fl (80.0-96.0); MONO # 0.7 10^3/uL (0.0-0.8); MONO % 11.2 % (2.0-8.0); NEUTROPHILS # 4.4 10^3/uL (1.5-8.5); NEUTROPHILS % 68.9 % (36.0-66.0); PLATELET COUNT, AUTOMATED 184 10^3/uL (150-450); RED BLOOD COUNT 3.35 10^6/uL (4.00-5.40); WHITE BLOOD COUNT 6.3 10^3/uL (4.0-10.0)
[2023-03-06 11:15] LABS: ALBUMIN 3.4 G/DL (3.2-5.2); BILIRUBIN,TOTAL 0.3 MG/DL (0.3-1.2); CALCIUM LEVEL 8.7 MG/DL (8.3-10.6); CREATININE FOR GFR 1.84 MG/DL (0.55-1.30); FERRITIN 417.9 NG/ML (7.3-270.7); GLOMERULAR FILTRATION RATE 27.6 (>32); POTASSIUM SERUM 4.3 MMOL/L (3.5-5.1); TOTAL PROTEIN 6.3 G/DL (5.7-8.2)
== END ==
LOC: M PLALAB 07:42
PROVIDERS: ATTEND Family Medicine
DX: D50.9 Iron deficiency anemia, unspecified (principal); I10 Essential (primary) hypertension

== ENCOUNTER → 2023-03-19 | Outpatient (CLI) | payer MEDICARE, OTHER ==
[2023-03-19 13:34] LABS: BASO % 0.4 % (0.0-1.0); EOS # 0.2 10^3/uL (0.0-0.5); EOS % 4.5 % (0.0-3.0); HEMATOCRIT 34.7 % (36.0-47.0); LYMPH # 0.6 10^3/uL (1.5-5.0); LYMPH % 11.8 % (24.0-44.0); MEAN CORPUSCULAR HEMOGLOBIN 30.3 pg (27.0-33.0); MEAN CORPUSCULAR HGB CONC 31.7 g/dl (32.0-36.5); MEAN CORPUSCULAR VOLUME 95.6 fl (80.0-96.0); MONO # 0.8 10^3/uL (0.0-0.8); NEUTROPHILS # 3.7 10^3/uL (1.5-8.5); NEUTROPHILS % 69.1 % (36.0-66.0); PLATELET COUNT, AUTOMATED 175 10^3/uL (150-450); RED BLOOD COUNT 3.63 10^6/uL (4.00-5.40); WHITE BLOOD COUNT 5.4 10^3/uL (4.0-10.0)
[2023-03-19 14:09] LABS: ALBUMIN 3.3 G/DL (3.2-5.2); BILIRUBIN,TOTAL 0.2 MG/DL (0.3-1.2); CALCIUM LEVEL 8.8 MG/DL (8.3-10.6); CREATININE FOR GFR 2.36 MG/DL (0.55-1.30); FERRITIN 232.8 NG/ML (7.3-270.7); GLOMERULAR FILTRATION RATE 20.7 (>32); POTASSIUM SERUM 3.9 MMOL/L (3.5-5.1); TOTAL PROTEIN 6.1 G/DL (5.7-8.2)
== END ==
LOC: M PLALAB 09:42
PROVIDERS: ATTEND Physician Assistant
DX: R19.7 Diarrhea, unspecified (principal); R11.2 Nausea with vomiting, unspecified; D50.9 Iron deficiency anemia, unspecified

== ENCOUNTER → 2023-03-20 | Outpatient (REF) | payer MEDICARE, OTHER | LOC: M SFHCPLAZ 09:48 | PROVIDERS: ATTEND Physician Assistant | DX: R19.7 Diarrhea, unspecified (principal) ==

== ENCOUNTER → 2023-03-31 | Outpatient (CLI) | payer MEDICARE, OTHER ==
[2023-03-31 14:12] LABS: BASO # 0.1 10^3/uL (0.0-0.2); BASO % 1.2 % (0.0-1.0); EOS # 0.1 10^3/uL (0.0-0.5); EOS % 2.3 % (0.0-3.0); HEMOGLOBIN 11.1 g/dl (12.0-15.5); LYMPH # 1.2 10^3/uL (1.5-5.0); LYMPH % 19.1 % (24.0-44.0); MEAN CORPUSCULAR HEMOGLOBIN 29.6 pg (27.0-33.0); MEAN CORPUSCULAR HGB CONC 30.8 g/dl (32.0-36.5); MONO # 0.7 10^3/uL (0.0-0.8); MONO % 11.2 % (2.0-8.0); NEUTROPHILS % 65.9 % (36.0-66.0); PLATELET COUNT, AUTOMATED 184 10^3/uL (150-450); RED BLOOD COUNT 3.75 10^6/uL (4.00-5.40); WHITE BLOOD COUNT 6.1 10^3/uL (4.0-10.0)
[2023-03-31 14:21] LABS: INR 1.57; PROTHROMBIN TIME 19.1 SECONDS (12.5-14.5)
[2023-03-31 14:36] LABS: ALBUMIN 3.3 G/DL (3.2-5.2); BILIRUBIN,TOTAL 0.2 MG/DL (0.3-1.2); CALCIUM LEVEL 8.6 MG/DL (8.3-10.6); CREATININE FOR GFR 1.93 MG/DL (0.55-1.30); GLOMERULAR FILTRATION RATE 26.1 (>32); MAGNESIUM LEVEL 1.9 MG/DL (1.8-2.4); POTASSIUM SERUM 4.5 MMOL/L (3.5-5.1); TOTAL PROTEIN 6.1 G/DL (5.7-8.2)
[2023-03-31 14:40] LABS: THYROID STIMULATING HORMONE 5.346 uIU/ML (0.55-4.78)
[2023-03-31 14:41] LABS: FREE T4 0.96 NG/DL (0.89-1.76)
== END ==
LOC: M PLALAB 10:10
PROVIDERS: ATTEND Family Medicine
DX: M47.816 Spondylosis without myelopathy or radiculopathy, lumbar region (principal); S32.010A Wedge compression fracture of first lumbar vertebra, initial encounter for closed fracture; S32.020A Wedge compression fracture of second lumbar vertebra, initial encounter for closed fracture; W07.XXXA Fall from chair, initial encounter; M41.26 Other idiopathic scoliosis, lumbar region; I50.32 Chronic diastolic (congestive) heart failure; D50.9 Iron deficiency anemia, unspecified; E03.9 Hypothyroidism, unspecified; Z86.718 Personal history of other venous thrombosis and embolism; Y92.9 Unspecified place or not applicable; Y93.9 Activity, unspecified; Y99.9 Unspecified external cause status

== ENCOUNTER → 2023-04-22 | Outpatient (CLI) | payer MEDICARE, OTHER ==
[2023-04-22 13:36] LABS: BASO # 0.1 10^3/uL (0.0-0.2); BASO % 0.9 % (0.0-1.0); EOS # 0.2 10^3/uL (0.0-0.5); EOS % 4.2 % (0.0-3.0); HEMATOCRIT 36.8 % (36.0-47.0); HEMOGLOBIN 11.6 g/dl (12.0-15.5); LYMPH # 1.1 10^3/uL (1.5-5.0); LYMPH % 20.8 % (24.0-44.0); MEAN CORPUSCULAR HEMOGLOBIN 29.7 pg (27.0-33.0); MEAN CORPUSCULAR HGB CONC 31.5 g/dl (32.0-36.5); MEAN CORPUSCULAR VOLUME 94.4 fl (80.0-96.0); MONO # 0.7 10^3/uL (0.0-0.8); MONO % 13.2 % (2.0-8.0); NEUTROPHILS # 3.3 10^3/uL (1.5-8.5); NEUTROPHILS % 60.5 % (36.0-66.0); PLATELET COUNT, AUTOMATED 180 10^3/uL (150-450); WHITE BLOOD COUNT 5.5 10^3/uL (4.0-10.0)
[2023-04-22 13:40] LABS: ALBUMIN 3.3 G/DL (3.2-5.2); BILIRUBIN,TOTAL 0.3 MG/DL (0.3-1.2); CALCIUM LEVEL 8.9 MG/DL (8.3-10.6); CREATININE FOR GFR 2.01 MG/DL (0.55-1.30); GLOMERULAR FILTRATION RATE 24.9 (>32); MAGNESIUM LEVEL 1.7 MG/DL (1.8-2.4); POTASSIUM SERUM 3.9 MMOL/L (3.5-5.1)
[2023-04-22 13:47] LABS: INR 2.16; PROTHROMBIN TIME 24.5 SECONDS (12.5-14.5)
== END ==
LOC: M PLALAB 10:22
PROVIDERS: ATTEND Physician Assistant
DX: D50.0 Iron deficiency anemia secondary to blood loss (chronic) (principal); I10 Essential (primary) hypertension; Z86.718 Personal history of other venous thrombosis and embolism

== ENCOUNTER → 2023-05-18 | Outpatient (CLI) | payer MEDICARE, OTHER ==
[2023-05-18 14:35] LABS: HEMATOCRIT 36.6 % (36.0-47.0)
[2023-05-18 14:36] LABS: BASO % 0.7 % (0.0-1.0); EOS # 0.3 10^3/uL (0.0-0.5); EOS % 4.4 % (0.0-3.0); HEMOGLOBIN 11.6 g/dl (12.0-15.5); LYMPH % 16.5 % (24.0-44.0); MEAN CORPUSCULAR HEMOGLOBIN 28.7 pg (27.0-33.0); MEAN CORPUSCULAR HGB CONC 31.4 g/dl (32.0-36.5); MEAN CORPUSCULAR VOLUME 91.6 fl (80.0-96.0); MONO # 0.6 10^3/uL (0.0-0.8); MONO % 10.7 % (2.0-8.0); NEUTROPHILS % 67.4 % (36.0-66.0); PLATELET COUNT, AUTOMATED 181 10^3/uL (150-450); RED BLOOD COUNT 4.04 10^6/uL (4.00-5.40); WHITE BLOOD COUNT 5.9 10^3/uL (4.0-10.0)
[2023-05-18 14:47] LABS: INR 1.91; PROTHROMBIN TIME 22.2 SECONDS (12.5-14.5)
[2023-05-18 15:02] LABS: PHENYTOIN (DILANTIN) 8.1 UG/ML (10.0-20.0)
[2023-05-18 15:04] LABS: ALBUMIN 3.2 G/DL (3.2-5.2); BILIRUBIN,TOTAL 0.4 MG/DL (0.3-1.2); CALCIUM LEVEL 8.1 MG/DL (8.3-10.6); CREATININE FOR GFR 1.67 MG/DL (0.55-1.30); GLOMERULAR FILTRATION RATE 30.8 (>32); POTASSIUM SERUM 4.9 MMOL/L (3.5-5.1); TOTAL PROTEIN 6.2 G/DL (5.7-8.2)
[2023-05-18 15:05] LABS: FERRITIN 295.8 NG/ML (7.3-270.7)
== END ==
LOC: M PLALAB 09:41
PROVIDERS: ATTEND Family Medicine
DX: I50.32 Chronic diastolic (congestive) heart failure (principal); D50.9 Iron deficiency anemia, unspecified

== ENCOUNTER → 2023-06-10 | Outpatient (CLI) | payer MEDICARE, OTHER ==
[2023-06-10 11:04] LABS: BASO % 0.8 % (0.0-1.0); EOS # 0.1 10^3/uL (0.0-0.5); HEMATOCRIT 33.2 % (36.0-47.0); HEMOGLOBIN 10.6 g/dl (12.0-15.5); LYMPH # 1.1 10^3/uL (1.5-5.0); LYMPH % 23.4 % (24.0-44.0); MEAN CORPUSCULAR HEMOGLOBIN 28.9 pg (27.0-33.0); MEAN CORPUSCULAR HGB CONC 31.9 g/dl (32.0-36.5); MEAN CORPUSCULAR VOLUME 90.5 fl (80.0-96.0); MONO # 0.6 10^3/uL (0.0-0.8); MONO % 12.2 % (2.0-8.0); NEUTROPHILS # 2.9 10^3/uL (1.5-8.5); NEUTROPHILS % 60.4 % (36.0-66.0); PLATELET COUNT, AUTOMATED 174 10^3/uL (150-450); RED BLOOD COUNT 3.67 10^6/uL (4.00-5.40); WHITE BLOOD COUNT 4.7 10^3/uL (4.0-10.0)
[2023-06-10 11:15] LABS: INR 1.56
[2023-06-10 11:38] LABS: FERRITIN 236.9 NG/ML (7.3-270.7)
[2023-06-10 11:46] LABS: PTH INTACT 843.2 PG/ML (18.5-88.0)
== END ==
LOC: M PLALAB 08:12
PROVIDERS: ATTEND Family Medicine
DX: E55.9 Vitamin D deficiency, unspecified (principal); I50.32 Chronic diastolic (congestive) heart failure; D50.9 Iron deficiency anemia, unspecified

== ENCOUNTER → 2023-06-23 | Outpatient (REF) | payer MEDICARE, OTHER ==
[2023-06-23 17:38] LABS: BASO % 0.7 % (0.0-1.0); EOS # 0.1 10^3/uL (0.0-0.5); EOS % 1.2 % (0.0-3.0); HEMATOCRIT 33.8 % (36.0-47.0); HEMOGLOBIN 10.7 g/dl (12.0-15.5); LYMPH # 1.3 10^3/uL (1.5-5.0); LYMPH % 21.8 % (24.0-44.0); MEAN CORPUSCULAR HEMOGLOBIN 28.7 pg (27.0-33.0); MEAN CORPUSCULAR HGB CONC 31.7 g/dl (32.0-36.5); MEAN CORPUSCULAR VOLUME 90.6 fl (80.0-96.0); MONO # 0.6 10^3/uL (0.0-0.8); MONO % 10.5 % (2.0-8.0); NEUTROPHILS # 3.8 10^3/uL (1.5-8.5); NEUTROPHILS % 65.5 % (36.0-66.0); PLATELET COUNT, AUTOMATED 194 10^3/uL (150-450); RED BLOOD COUNT 3.73 10^6/uL (4.00-5.40); WHITE BLOOD COUNT 5.7 10^3/uL (4.0-10.0)
[2023-06-23 17:54] LABS: ALBUMIN 3.6 G/DL (3.2-5.2); BILIRUBIN,TOTAL 0.4 MG/DL (0.3-1.2); CALCIUM LEVEL 8.9 MG/DL (8.3-10.6); CREATININE FOR GFR 2.1 MG/DL (0.55-1.30); GLOMERULAR FILTRATION RATE 23.7 (>32); MAGNESIUM LEVEL 1.5 MG/DL (1.8-2.4); POTASSIUM SERUM 4.6 MMOL/L (3.5-5.1); TOTAL PROTEIN 6.5 G/DL (5.7-8.2)
== END ==
LOC: M LABDRAWP 16:52
PROVIDERS: ATTEND Physician Assistant
DX: M79.651 Pain in right thigh (principal); M79.89 Other specified soft tissue disorders

== ENCOUNTER 2023-06-30 17:24 | Emergency (ER) | payer MEDICARE, OTHER ==
[~2023-06-30] VITALS: Ht 154.9 cm; Wt 55.0 kg
[2023-06-30] MEDS ORDERED: NS 1,000 ML IV SCH (17:45)
[2023-06-30] MEDS ORDERED: ASPIRIN 81MG CHEW TABLET PO ONE (17:45)
[2023-06-30] MEDS: NITROGLYCERIN 0.4MG SUBL TABLET SL PRN ×3 (17:58→18:37)
[2023-06-30 18:17] LABS: BASO % 0.4 % (0.0-1.0); EOS # 0.1 10^3/uL (0.0-0.5); EOS % 1.2 % (0.0-3.0); HEMATOCRIT 35.9 % (36.0-47.0); HEMOGLOBIN 11.4 g/dl (12.0-15.5); LYMPH # 1.2 10^3/uL (1.5-5.0); LYMPH % 13.5 % (24.0-44.0); MEAN CORPUSCULAR HEMOGLOBIN 28.7 pg (27.0-33.0); MEAN CORPUSCULAR HGB CONC 31.8 g/dl (32.0-36.5); MEAN CORPUSCULAR VOLUME 90.4 fl (80.0-96.0); MONO # 0.7 10^3/uL (0.0-0.8); MONO % 8.1 % (2.0-8.0); NEUTROPHILS # 6.9 10^3/uL (1.5-8.5); NEUTROPHILS % 76.5 % (36.0-66.0); PLATELET COUNT, AUTOMATED 197 10^3/uL (150-450); RED BLOOD COUNT 3.97 10^6/uL (4.00-5.40)
[2023-06-30 18:27] LABS: LIPASE 68 U/L (12-53)
[2023-06-30 18:28] LABS: CPK CREATINE PHOSPHOKINASE 88 U/L (34-145)
[2023-06-30 18:29] LABS: MB/CK RELATIVE INDEX 1.16 (< OR =4)
[2023-06-30 18:29] LABS: ALBUMIN 3.7 G/DL (3.2-5.2); ALKALINE PHOSPHATASE 210 U/L (46-116); ALT/SGPT 19 U/L (7.0-40); AST/SGOT 27 U/L (<34); BILIRUBIN,DIRECT 0.2 MG/DL (<0.4); BILIRUBIN,TOTAL 0.4 MG/DL (0.3-1.2); BLOOD UREA NITROGEN 48 MG/DL (9-23); CALCIUM LEVEL 7.3 MG/DL (8.3-10.6); CARBON DIOXIDE LEVEL 28 MMOL/L (20-31); CHLORIDE LEVEL 105 MMOL/L (98-107); CK-MB VALUE MASS < 1.0 NG/ML (<3.6); CREATININE FOR GFR 1.82 MG/DL (0.55-1.30); GLOMERULAR FILTRATION RATE 27.9 (>32); GLUCOSE, FASTING 121 MG/DL (74-106); MB/CK RELATIVE INDEX 1.13 (< OR =4); POTASSIUM SERUM 4.2 MMOL/L (3.5-5.1); SODIUM LEVEL 140 MMOL/L (136-145); TOTAL PROTEIN 6.8 G/DL (5.7-8.2)
[2023-06-30 18:30] LABS: INR 2.28; PROTHROMBIN TIME 24.6 SECONDS (12.5-14.5)
[2023-06-30 18:37] VITALS: BP 121/58
[2023-06-30 19:06] LABS: RSV AMPLIFICATION NEGATIVE (NEGATIVE)
[2023-06-30] MEDS ORDERED: HYOSCYAMINE SULFATE 0.125 MG SUBL TABLET PO ONE (19:30)
[2023-06-30] MEDS ORDERED: MAALOX 30 ML SUSP *UDC PO ONE (19:30)
[2023-06-30 19:52] LABS: CK-MB VALUE MASS < 1.0 NG/ML (<3.6)
[2023-06-30 19:53] LABS: CPK CREATINE PHOSPHOKINASE 80 U/L (34-145); MB/CK RELATIVE INDEX 1.25 (< OR =4)
[2023-06-30] MEDS ORDERED: KETOROLAC 30 MG/ML 1ML VIAL IV ONE (20:20)
[2023-06-30 21:22] VITALS: BP 124/76; TEMP 98.4; O2SAT 98
== END 2023-06-30 21:24 | disposition home or self-care (01) ==
LOC: M ED 17:24
DX: R09.1 Pleurisy (principal); I50.9 Heart failure, unspecified; I10 Essential (primary) hypertension; Z79.899 Other long term (current) drug therapy; Z88.8 Allergy status to other drugs, medicaments and biological substances; Z88.2 Allergy status to sulfonamides
CPT/HCPCS: 71045; 80048; 80076; 82550; 82553; 83690; 84484; 85025; 85610; 87631; 93005; 93041; 94760; 96361; 96374; 99285; J1885

== ENCOUNTER → 2023-07-15 | Outpatient (CLI) | payer MEDICARE, OTHER ==
[2023-07-15 10:24] LABS: BASO % 0.8 % (0.0-1.0); EOS # 0.1 10^3/uL (0.0-0.5); EOS % 2.3 % (0.0-3.0); HEMATOCRIT 29.9 % (36.0-47.0); HEMOGLOBIN 9.5 g/dl (12.0-15.5); LYMPH % 18.8 % (24.0-44.0); MEAN CORPUSCULAR HEMOGLOBIN 29.4 pg (27.0-33.0); MEAN CORPUSCULAR HGB CONC 31.8 g/dl (32.0-36.5); MEAN CORPUSCULAR VOLUME 92.6 fl (80.0-96.0); MONO # 0.4 10^3/uL (0.0-0.8); NEUTROPHILS # 3.6 10^3/uL (1.5-8.5); NEUTROPHILS % 69.5 % (36.0-66.0); PLATELET COUNT, AUTOMATED 194 10^3/uL (150-450); RED BLOOD COUNT 3.23 10^6/uL (4.00-5.40); WHITE BLOOD COUNT 5.1 10^3/uL (4.0-10.0)
[2023-07-15 10:43] LABS: INR 1.81; PROTHROMBIN TIME 20.5 SECONDS (12.5-14.5)
[2023-07-15 10:49] LABS: PHENYTOIN (DILANTIN) 6.6 UG/ML (10.0-20.0)
[2023-07-15 10:52] LABS: ALBUMIN 3.3 G/DL (3.2-5.2); BILIRUBIN,TOTAL 0.3 MG/DL (0.3-1.2); CALCIUM LEVEL 8.1 MG/DL (8.3-10.6); CREATININE FOR GFR 1.88 MG/DL (0.55-1.30); GLOMERULAR FILTRATION RATE 26.9 (>32); POTASSIUM SERUM 4.7 MMOL/L (3.5-5.1)
[2023-07-15 10:53] LABS: FERRITIN 234.5 NG/ML (7.3-270.7)
[2023-07-15 11:29] LABS: PTH INTACT 433.4 PG/ML (18.5-88.0)
== END ==
LOC: M PLALAB 08:27
PROVIDERS: ATTEND Family Medicine
DX: E55.9 Vitamin D deficiency, unspecified (principal); I50.32 Chronic diastolic (congestive) heart failure; D50.9 Iron deficiency anemia, unspecified

== ENCOUNTER → 2023-08-11 | Outpatient (CLI) | payer MEDICARE, OTHER ==
[~2023-08-11] MED LIST changes: -CEFD300C41 PO; +CEFD300C42 PO
[2023-08-11 10:13] LABS: BASO % 0.6 % (0.0-1.0); EOS # 0.1 10^3/uL (0.0-0.5); HEMATOCRIT 31.1 % (36.0-47.0); HEMOGLOBIN 9.8 g/dl (12.0-15.5); LYMPH % 21.1 % (24.0-44.0); MEAN CORPUSCULAR HEMOGLOBIN 30.3 pg (27.0-33.0); MEAN CORPUSCULAR HGB CONC 31.5 g/dl (32.0-36.5); MEAN CORPUSCULAR VOLUME 96.3 fl (80.0-96.0); MONO # 0.6 10^3/uL (0.0-0.8); MONO % 11.6 % (2.0-8.0); NEUTROPHILS % 63.5 % (36.0-66.0); PLATELET COUNT, AUTOMATED 154 10^3/uL (150-450); RED BLOOD COUNT 3.23 10^6/uL (4.00-5.40); WHITE BLOOD COUNT 4.7 10^3/uL (4.0-10.0)
[2023-08-11 10:24] LABS: INR 1.67; PROTHROMBIN TIME 19.2 SECONDS (12.5-14.5)
[2023-08-11 10:45] LABS: ALBUMIN 3.6 G/DL (3.2-5.2); BILIRUBIN,TOTAL 0.4 MG/DL (0.3-1.2); CALCIUM LEVEL 7.9 MG/DL (8.3-10.6); CREATININE FOR GFR 1.8 MG/DL (0.55-1.30); GLOMERULAR FILTRATION RATE 28.3 (>32); MAGNESIUM LEVEL 1.8 MG/DL (1.8-2.4); POTASSIUM SERUM 4.8 MMOL/L (3.5-5.1); TOTAL PROTEIN 6.2 G/DL (5.7-8.2)
[2023-08-11 10:46] LABS: FERRITIN 143.4 NG/ML (7.3-270.7)
== END ==
LOC: M PLALAB 08:06
PROVIDERS: ATTEND Family Medicine
DX: N18.9 Chronic kidney disease, unspecified (principal); I50.32 Chronic diastolic (congestive) heart failure; Z86.718 Personal history of other venous thrombosis and embolism

== ENCOUNTER → 2023-08-27 | Outpatient (CLI) | payer MEDICARE, OTHER ==
[2023-08-27 13:12] LABS: BASO % 0.8 % (0.0-1.0); EOS # 0.2 10^3/uL (0.0-0.5); EOS % 3.5 % (0.0-3.0); HEMATOCRIT 33.3 % (36.0-47.0); HEMOGLOBIN 10.5 g/dl (12.0-15.5); LYMPH % 19.7 % (24.0-44.0); MEAN CORPUSCULAR HEMOGLOBIN 30.3 pg (27.0-33.0); MEAN CORPUSCULAR HGB CONC 31.5 g/dl (32.0-36.5); MONO # 0.6 10^3/uL (0.0-0.8); MONO % 11.4 % (2.0-8.0); NEUTROPHILS # 3.3 10^3/uL (1.5-8.5); NEUTROPHILS % 64.2 % (36.0-66.0); PLATELET COUNT, AUTOMATED 162 10^3/uL (150-450); RED BLOOD COUNT 3.47 10^6/uL (4.00-5.40); WHITE BLOOD COUNT 5.1 10^3/uL (4.0-10.0)
[2023-08-27 13:39] LABS: PERCENT SATURATION 31.6 % (13.2-45.0); THYROID STIMULATING HORMONE 13.515 uIU/ML (0.55-4.78)
[2023-08-27 13:40] LABS: ALBUMIN 3.5 G/DL (3.2-5.2); BILIRUBIN,TOTAL 0.3 MG/DL (0.3-1.2); CALCIUM LEVEL 8.4 MG/DL (8.3-10.6); CREATININE FOR GFR 1.93 MG/DL (0.55-1.30); FERRITIN 138.4 NG/ML (7.3-270.7); GLOMERULAR FILTRATION RATE 26.1 (>32); POTASSIUM SERUM 4.4 MMOL/L (3.5-5.1); TOTAL PROTEIN 6.3 G/DL (5.7-8.2)
[2023-08-27 13:41] LABS: FREE T4 0.96 NG/DL (0.89-1.76)
[2023-08-27 13:43] LABS: INR 2.2; PROTHROMBIN TIME 23.9 SECONDS (12.5-14.5)
[2023-08-27 14:46] LABS: PTH INTACT 367.7 PG/ML (18.5-88.0)
== END ==
LOC: M PLALAB 08:24
PROVIDERS: ATTEND Family Medicine
DX: I13.0 Hypertensive heart and chronic kidney disease with heart failure and stage 1 through stage 4 chronic kidney disease, or unspecified chronic kidney disease (principal); N18.30 Chronic kidney disease, stage 3 unspecified; D50.9 Iron deficiency anemia, unspecified; Z86.718 Personal history of other venous thrombosis and embolism; I47.10 Supraventricular tachycardia, unspecified; R00.2 Palpitations; G47.33 Obstructive sleep apnea (adult) (pediatric); E55.9 Vitamin D deficiency, unspecified; E53.8 Deficiency of other specified B group vitamins; M75.42 Impingement syndrome of left shoulder; R27.0 Ataxia, unspecified; J96.11 Chronic respiratory failure with hypoxia; I50.32 Chronic diastolic (congestive) heart failure; J47.9 Bronchiectasis, uncomplicated; R74.8 Abnormal levels of other serum enzymes; F41.1 Generalized anxiety disorder; R63.4 Abnormal weight loss; J30.9 Allergic rhinitis, unspecified; K31.819 Angiodysplasia of stomach and duodenum without bleeding; B37.89 Other sites of candidiasis; E03.9 Hypothyroidism, unspecified; E78.5 Hyperlipidemia, unspecified

== ENCOUNTER 2023-08-28 15:04 | Outpatient (CLI) | payer MEDICARE, OTHER ==
[~2023-08-28] VITALS: Ht 149.9 cm; Wt 55.0 kg
[~2023-08-28 15:04] MED LIST changes: +ALBUTEROL SULFATE 2.5MG/0.5ML INH NEB SOLN INH PRN; +EPINEPHrine INJ 1 MG/ML 1ML AMP IM PRN; +diphenhydrAMINE 50MG/ML VIAL IV PRN; +methylPREDNISolone 125MG 2ML VIAL IV PRN
[2023-08-28 15:16] VITALS: BP 169/75; O2SAT 94
[2023-08-28] MEDS ORDERED: NS 1,000 ML IV SCH (15:20)
[2023-08-28] MEDS ORDERED: FERRIC CARBOXYMALTOSE INJ 750 MG in NS 250 ML (>50kg) IV ONE ×3 (15:20)
[2023-08-28 16:30] VITALS: BP 151/67; O2SAT 95
== END 2023-08-28 16:30 ==
LOC: M INFU 15:04
PROVIDERS: ATTEND Family Medicine
DX: D50.9 Iron deficiency anemia, unspecified (principal); Z88.2 Allergy status to sulfonamides
CPT/HCPCS: 96365; J1439

== ENCOUNTER → 2023-09-17 | Outpatient (CLI) | payer MEDICARE, OTHER ==
[~2023-09-17] MED LIST changes: -ALBUTEROL SULFATE 2.5MG/0.5ML INH NEB SOLN INH PRN; -EPINEPHrine INJ 1 MG/ML 1ML AMP IM PRN; -diphenhydrAMINE 50MG/ML VIAL IV PRN; -methylPREDNISolone 125MG 2ML VIAL IV PRN
[2023-09-17 14:07] LABS: BASO % 0.8 % (0.0-1.0); EOS # 0.2 10^3/uL (0.0-0.5); HEMATOCRIT 34.1 % (36.0-47.0); HEMOGLOBIN 10.8 g/dl (12.0-15.5); LYMPH # 1.1 10^3/uL (1.5-5.0); LYMPH % 21.6 % (24.0-44.0); MEAN CORPUSCULAR HEMOGLOBIN 29.7 pg (27.0-33.0); MEAN CORPUSCULAR HGB CONC 31.7 g/dl (32.0-36.5); MEAN CORPUSCULAR VOLUME 93.7 fl (80.0-96.0); MONO # 0.5 10^3/uL (0.0-0.8); MONO % 10.2 % (2.0-8.0); NEUTROPHILS # 3.2 10^3/uL (1.5-8.5); NEUTROPHILS % 64.2 % (36.0-66.0); PLATELET COUNT, AUTOMATED 151 10^3/uL (150-450); RED BLOOD COUNT 3.64 10^6/uL (4.00-5.40)
[2023-09-17 14:11] LABS: ALBUMIN 3.5 G/DL (3.2-5.2); CALCIUM LEVEL 9.2 MG/DL (8.3-10.6); CREATININE FOR GFR 2.17 MG/DL (0.55-1.30); GLOMERULAR FILTRATION RATE 22.8 (>32); PHOSPHORUS LEVEL 2.5 MG/DL (2.4-5.1); POTASSIUM SERUM 4.7 MMOL/L (3.5-5.1); PTH INTACT 92.9 PG/ML (18.5-88.0)
[2023-09-17 14:24] LABS: INR 1.65
== END ==
LOC: M PLALAB 11:18
PROVIDERS: ATTEND Family Medicine
DX: E03.9 Hypothyroidism, unspecified (principal); N18.9 Chronic kidney disease, unspecified; E55.9 Vitamin D deficiency, unspecified

== ENCOUNTER → 2023-10-06 | Outpatient (CLI) | payer MEDICARE, OTHER ==
[~2023-10-06] MED LIST changes: +CEFD1CAP9 PO; -CEFD300C42 PO
[2023-10-06 13:29] LABS: BASO % 0.8 % (0.0-1.0); EOS # 0.2 10^3/uL (0.0-0.5); EOS % 4.1 % (0.0-3.0); HEMATOCRIT 34.8 % (36.0-47.0); HEMOGLOBIN 11.3 g/dl (12.0-15.5); MEAN CORPUSCULAR HEMOGLOBIN 29.9 pg (27.0-33.0); MEAN CORPUSCULAR HGB CONC 32.5 g/dl (32.0-36.5); MEAN CORPUSCULAR VOLUME 92.1 fl (80.0-96.0); MONO # 0.5 10^3/uL (0.0-0.8); MONO % 9.4 % (2.0-8.0); NEUTROPHILS # 3.4 10^3/uL (1.5-8.5); NEUTROPHILS % 66.5 % (36.0-66.0); PLATELET COUNT, AUTOMATED 163 10^3/uL (150-450); RED BLOOD COUNT 3.78 10^6/uL (4.00-5.40); WHITE BLOOD COUNT 5.1 10^3/uL (4.0-10.0)
[2023-10-06 13:47] LABS: INR 2.12
[2023-10-06 13:53] LABS: ALBUMIN 3.4 G/DL (3.2-5.2); BILIRUBIN,TOTAL 0.3 MG/DL (0.3-1.2); CALCIUM LEVEL 8.8 MG/DL (8.3-10.6); CREATININE FOR GFR 2.26 MG/DL (0.55-1.30); GLOMERULAR FILTRATION RATE 21.7 (>32); MAGNESIUM LEVEL 1.7 MG/DL (1.8-2.4); PERCENT SATURATION 48.2 % (13.2-45.0); POTASSIUM SERUM 3.8 MMOL/L (3.5-5.1); PTH INTACT 156.6 PG/ML (18.5-88.0); TOTAL PROTEIN 6.3 G/DL (5.7-8.2)
[2023-10-06 13:54] LABS: FERRITIN 292.7 NG/ML (7.3-270.7); THYROID STIMULATING HORMONE 6.276 uIU/ML (0.55-4.78)
[2023-10-06 13:55] LABS: FREE T4 1.32 NG/DL (0.89-1.76)
== END ==
LOC: M PLALAB 10:03
PROVIDERS: ATTEND Family Medicine
DX: I50.32 Chronic diastolic (congestive) heart failure (principal); E03.9 Hypothyroidism, unspecified; N18.9 Chronic kidney disease, unspecified; E55.9 Vitamin D deficiency, unspecified

== ENCOUNTER → 2023-10-28 | Outpatient (CLI) | payer MEDICARE, OTHER ==
[2023-10-28 10:24] LABS: BASO % 0.6 % (0.0-1.0); EOS # 0.2 10^3/uL (0.0-0.5); EOS % 3.6 % (0.0-3.0); HEMATOCRIT 36.1 % (36.0-47.0); HEMOGLOBIN 11.5 g/dl (12.0-15.5); LYMPH % 21.4 % (24.0-44.0); MEAN CORPUSCULAR HEMOGLOBIN 29.7 pg (27.0-33.0); MEAN CORPUSCULAR HGB CONC 31.9 g/dl (32.0-36.5); MEAN CORPUSCULAR VOLUME 93.3 fl (80.0-96.0); MONO # 0.6 10^3/uL (0.0-0.8); MONO % 12.2 % (2.0-8.0); NEUTROPHILS % 62.2 % (36.0-66.0); PLATELET COUNT, AUTOMATED 141 10^3/uL (150-450); RED BLOOD COUNT 3.87 10^6/uL (4.00-5.40); WHITE BLOOD COUNT 4.8 10^3/uL (4.0-10.0)
[2023-10-28 10:31] LABS: ALBUMIN 3.4 G/DL (3.2-5.2); BILIRUBIN,TOTAL 0.3 MG/DL (0.3-1.2); CALCIUM LEVEL 9.5 MG/DL (8.3-10.6); CREATININE FOR GFR 2.08 MG/DL (0.55-1.30); GLOMERULAR FILTRATION RATE 23.9 (>32); POTASSIUM SERUM 3.7 MMOL/L (3.5-5.1); TOTAL PROTEIN 5.9 G/DL (5.7-8.2)
[2023-10-28 10:35] LABS: FERRITIN 132.3 NG/ML (7.3-270.7)
[2023-10-28 10:40] LABS: INR 1.9; PROTHROMBIN TIME 21.2 SECONDS (12.5-14.5)
== END ==
LOC: M PLALAB 07:53
PROVIDERS: ATTEND Family Medicine
DX: I50.32 Chronic diastolic (congestive) heart failure (principal); N18.9 Chronic kidney disease, unspecified

== ENCOUNTER → 2023-11-12 | Outpatient (REF) | payer MEDICARE, OTHER | LOC: M SFHCPLAZ 11:02 | PROVIDERS: ATTEND Family Medicine | DX: I50.32 Chronic diastolic (congestive) heart failure (principal); E03.9 Hypothyroidism, unspecified; N18.9 Chronic kidney disease, unspecified ==

== ENCOUNTER → 2023-11-24 | Outpatient (CLI) | payer MEDICARE, OTHER ==
[2023-11-24 10:08] LABS: BASO % 0.4 % (0.0-1.0); EOS # 0.1 10^3/uL (0.0-0.5); EOS % 2.5 % (0.0-3.0); HEMATOCRIT 40.3 % (36.0-47.0); HEMOGLOBIN 12.8 g/dl (12.0-15.5); LYMPH # 0.9 10^3/uL (1.5-5.0); MEAN CORPUSCULAR HGB CONC 31.8 g/dl (32.0-36.5); MEAN CORPUSCULAR VOLUME 94.6 fl (80.0-96.0); MONO # 0.6 10^3/uL (0.0-0.8); MONO % 13.6 % (2.0-8.0); NEUTROPHILS # 2.9 10^3/uL (1.5-8.5); NEUTROPHILS % 64.3 % (36.0-66.0); PLATELET COUNT, AUTOMATED 128 10^3/uL (150-450); RED BLOOD COUNT 4.26 10^6/uL (4.00-5.40); WHITE BLOOD COUNT 4.5 10^3/uL (4.0-10.0)
[2023-11-24 10:16] LABS: INR 1.52; PROTHROMBIN TIME 17.8 SECONDS (12.5-14.5)
[2023-11-24 10:30] LABS: ALBUMIN 3.3 G/DL (3.2-5.2); BILIRUBIN,TOTAL 0.2 MG/DL (0.3-1.2); CALCIUM LEVEL 8.6 MG/DL (8.3-10.6); CREATININE FOR GFR 2.11 MG/DL (0.55-1.30); GLOMERULAR FILTRATION RATE 23.5 (>32); POTASSIUM SERUM 4.9 MMOL/L (3.5-5.1); TOTAL PROTEIN 6.5 G/DL (5.7-8.2)
[2023-11-24 10:33] LABS: PHENYTOIN (DILANTIN) 6.3 UG/ML (10.0-20.0)
[2023-11-24 10:34] LABS: FERRITIN 71.3 NG/ML (7.3-270.7); FREE T4 1.23 NG/DL (0.89-1.76); THYROID STIMULATING HORMONE 9.946 uIU/ML (0.55-4.78)
== END ==
LOC: M PLALAB 07:56
PROVIDERS: ATTEND Family Medicine
DX: I50.32 Chronic diastolic (congestive) heart failure (principal); E03.9 Hypothyroidism, unspecified; N18.9 Chronic kidney disease, unspecified

== ENCOUNTER → 2023-11-30 | Outpatient (REF) | payer MEDICARE, OTHER | LOC: M SFHCPLAZ 18:40 | PROVIDERS: ATTEND Family Medicine | DX: Z53.9 Procedure and treatment not carried out, unspecified reason (principal); I50.32 Chronic diastolic (congestive) heart failure; E03.9 Hypothyroidism, unspecified; D50.9 Iron deficiency anemia, unspecified ==

== ENCOUNTER 2023-12-01 09:21 | Outpatient (CLI) | payer MEDICARE, OTHER ==
[~2023-12-01] VITALS: Ht 144.8 cm; Wt 50.5 kg
[~2023-12-01 09:21] MED LIST changes: +ALBUTEROL SULFATE 2.5MG/0.5ML INH NEB SOLN INH PRN; +EPINEPHrine INJ 1 MG/ML 1ML AMP IM PRN; +diphenhydrAMINE 50MG/ML VIAL IV PRN; +methylPREDNISolone 125MG 2ML VIAL IV PRN
[2023-12-01 09:55] VITALS: BP 173/70; O2SAT 97
[2023-12-01] MEDS ORDERED: NS 1,000 ML IV SCH (10:00)
[2023-12-01] MEDS ORDERED: FERRIC CARBOXYMALTOSE INJ 750 MG in NS 250 ML (>50kg) IV ONE ×3 (10:00)
[2023-12-01 11:19] VITALS: BP 154/76; O2SAT 95
== END 2023-12-01 11:20 | disposition home or self-care (01) ==
LOC: M INFU 09:21
PROVIDERS: ATTEND Physician Assistant Medical
DX: D50.9 Iron deficiency anemia, unspecified (principal); Z88.2 Allergy status to sulfonamides
CPT/HCPCS: 96365; J1439

== ENCOUNTER → 2023-12-16 | Outpatient (CLI) | payer MEDICARE, OTHER ==
[~2023-12-16] MED LIST changes: -ALBUTEROL SULFATE 2.5MG/0.5ML INH NEB SOLN INH PRN; -EPINEPHrine INJ 1 MG/ML 1ML AMP IM PRN; -diphenhydrAMINE 50MG/ML VIAL IV PRN; -methylPREDNISolone 125MG 2ML VIAL IV PRN
[2023-12-16 11:49] LABS: BASO % 0.6 % (0.0-1.0); EOS # 0.1 10^3/uL (0.0-0.5); EOS % 2.7 % (0.0-3.0); HEMATOCRIT 38.8 % (36.0-47.0); HEMOGLOBIN 12.7 g/dl (12.0-15.5); LYMPH # 1.1 10^3/uL (1.5-5.0); LYMPH % 20.2 % (24.0-44.0); MEAN CORPUSCULAR HEMOGLOBIN 30.4 pg (27.0-33.0); MEAN CORPUSCULAR HGB CONC 32.7 g/dl (32.0-36.5); MEAN CORPUSCULAR VOLUME 92.8 fl (80.0-96.0); MONO # 0.6 10^3/uL (0.0-0.8); MONO % 12.1 % (2.0-8.0); NEUTROPHILS # 3.3 10^3/uL (1.5-8.5); PLATELET COUNT, AUTOMATED 138 10^3/uL (150-450); RED BLOOD COUNT 4.18 10^6/uL (4.00-5.40); WHITE BLOOD COUNT 5.2 10^3/uL (4.0-10.0)
[2023-12-16 12:02] LABS: INR 2.03; PROTHROMBIN TIME 22.3 SECONDS (12.5-14.5)
[2023-12-16 12:11] LABS: ALBUMIN 3.4 G/DL (3.2-5.2); BILIRUBIN,TOTAL 0.3 MG/DL (0.3-1.2); CALCIUM LEVEL 8.6 MG/DL (8.3-10.6); CREATININE FOR GFR 2.58 MG/DL (0.55-1.30); GLOMERULAR FILTRATION RATE 18.7 (>32); POTASSIUM SERUM 4.4 MMOL/L (3.5-5.1)
[2023-12-16 12:13] LABS: FREE T4 1.12 NG/DL (0.89-1.76); THYROID STIMULATING HORMONE 6.437 uIU/ML (0.55-4.78)
== END ==
LOC: M PLALAB 08:35
PROVIDERS: ATTEND Family Medicine
DX: N18.32 Chronic kidney disease, stage 3b (principal); I50.32 Chronic diastolic (congestive) heart failure; E03.9 Hypothyroidism, unspecified; D50.9 Iron deficiency anemia, unspecified

== ENCOUNTER → 2024-01-06 | Outpatient (CLI) | payer MEDICARE, OTHER ==
[2024-01-06 10:29] LABS: BASO % 0.8 % (0.0-1.0); EOS # 0.2 10^3/uL (0.0-0.5); EOS % 3.6 % (0.0-3.0); HEMATOCRIT 39.2 % (36.0-47.0); HEMOGLOBIN 12.9 g/dl (12.0-15.5); LYMPH # 1.2 10^3/uL (1.5-5.0); LYMPH % 26.2 % (24.0-44.0); MEAN CORPUSCULAR HGB CONC 32.9 g/dl (32.0-36.5); MEAN CORPUSCULAR VOLUME 94.2 fl (80.0-96.0); MONO # 0.6 10^3/uL (0.0-0.8); MONO % 11.6 % (2.0-8.0); NEUTROPHILS # 2.7 10^3/uL (1.5-8.5); NEUTROPHILS % 57.4 % (36.0-66.0); PLATELET COUNT, AUTOMATED 147 10^3/uL (150-450); RED BLOOD COUNT 4.16 10^6/uL (4.00-5.40); WHITE BLOOD COUNT 4.7 10^3/uL (4.0-10.0)
[2024-01-06 10:35] LABS: INR 1.95; PROTHROMBIN TIME 21.5 SECONDS (12.5-14.5)
[2024-01-06 10:58] LABS: ALBUMIN 3.5 G/DL (3.2-5.2); BILIRUBIN,TOTAL 0.3 MG/DL (0.3-1.2); CALCIUM LEVEL 9.2 MG/DL (8.3-10.6); CREATININE FOR GFR 2.34 MG/DL (0.55-1.30); GLOMERULAR FILTRATION RATE 20.8 (>32); POTASSIUM SERUM 4.6 MMOL/L (3.5-5.1); TOTAL PROTEIN 6.2 G/DL (5.7-8.2)
[2024-01-06 11:00] LABS: FERRITIN 390.7 NG/ML (7.3-270.7)
== END ==
LOC: M PLALAB 08:04
PROVIDERS: ATTEND Family Medicine
DX: D50.9 Iron deficiency anemia, unspecified (principal); N18.32 Chronic kidney disease, stage 3b; Z86.718 Personal history of other venous thrombosis and embolism

== ENCOUNTER → 2024-02-01 | Outpatient (CLI) | payer MEDICARE, OTHER ==
[2024-02-01 10:49] LABS: BASO % 0.7 % (0.0-1.0); EOS # 0.1 10^3/uL (0.0-0.5); EOS % 2.6 % (0.0-3.0); HEMATOCRIT 37.4 % (36.0-47.0); HEMOGLOBIN 12.1 g/dl (12.0-15.5); LYMPH % 21.3 % (24.0-44.0); MEAN CORPUSCULAR HEMOGLOBIN 30.7 pg (27.0-33.0); MEAN CORPUSCULAR HGB CONC 32.4 g/dl (32.0-36.5); MEAN CORPUSCULAR VOLUME 94.9 fl (80.0-96.0); MONO # 0.6 10^3/uL (0.0-0.8); MONO % 13.7 % (2.0-8.0); NEUTROPHILS # 2.8 10^3/uL (1.5-8.5); NEUTROPHILS % 61.5 % (36.0-66.0); PLATELET COUNT, AUTOMATED 167 10^3/uL (150-450); RED BLOOD COUNT 3.94 10^6/uL (4.00-5.40); WHITE BLOOD COUNT 4.6 10^3/uL (4.0-10.0)
[2024-02-01 10:55] LABS: ALBUMIN 3.7 G/DL (3.2-5.2); BILIRUBIN,TOTAL 0.3 MG/DL (0.3-1.2); CALCIUM LEVEL 10.4 MG/DL (8.3-10.6); CREATININE FOR GFR 2.21 MG/DL (0.55-1.30); GLOMERULAR FILTRATION RATE 22.3 (>32); POTASSIUM SERUM 4.4 MMOL/L (3.5-5.1); PTH INTACT 37.8 PG/ML (18.5-88.0); TOTAL PROTEIN 6.1 G/DL (5.7-8.2)
[2024-02-01 10:57] LABS: FREE T4 1.15 NG/DL (0.89-1.76); THYROID STIMULATING HORMONE 9.493 uIU/ML (0.55-4.78)
[2024-02-01 10:58] LABS: FERRITIN 326.6 NG/ML (7.3-270.7)
[2024-02-01 10:59] LABS: INR 2.51; PROTHROMBIN TIME 26.2 SECONDS (12.5-14.5)
== END ==
LOC: M PLALAB 07:59
PROVIDERS: ATTEND Family Medicine
DX: D50.9 Iron deficiency anemia, unspecified (principal); I50.32 Chronic diastolic (congestive) heart failure; E03.9 Hypothyroidism, unspecified; E55.9 Vitamin D deficiency, unspecified; Z86.718 Personal history of other venous thrombosis and embolism

== ENCOUNTER → 2024-02-25 | Outpatient (REF) | payer MEDICARE, OTHER | LOC: M SFHCPLAZ 11:38 | PROVIDERS: ATTEND Family Medicine | DX: J06.9 Acute upper respiratory infection, unspecified (principal) ==

== ENCOUNTER → 2024-02-29 | Outpatient (CLI) | payer MEDICARE, OTHER ==
[2024-02-29 12:59] LABS: BASO % 0.4 % (0.0-1.0); EOS # 0.2 10^3/uL (0.0-0.5); EOS % 2.4 % (0.0-3.0); HEMATOCRIT 32.8 % (36.0-47.0); HEMOGLOBIN 10.3 g/dl (12.0-15.5); LYMPH # 0.7 10^3/uL (1.5-5.0); LYMPH % 10.5 % (24.0-44.0); MEAN CORPUSCULAR HEMOGLOBIN 30.6 pg (27.0-33.0); MEAN CORPUSCULAR HGB CONC 31.4 g/dl (32.0-36.5); MEAN CORPUSCULAR VOLUME 97.3 fl (80.0-96.0); MONO # 0.7 10^3/uL (0.0-0.8); NEUTROPHILS # 5.2 10^3/uL (1.5-8.5); PLATELET COUNT, AUTOMATED 148 10^3/uL (150-450); RED BLOOD COUNT 3.37 10^6/uL (4.00-5.40); WHITE BLOOD COUNT 6.8 10^3/uL (4.0-10.0)
[2024-02-29 13:15] LABS: INR 2.13
[2024-02-29 13:23] LABS: FERRITIN 410.2 NG/ML (7.3-270.7)
[2024-02-29 13:24] LABS: ALBUMIN 2.9 G/DL (3.2-5.2); BILIRUBIN,TOTAL 0.3 MG/DL (0.3-1.2); CALCIUM LEVEL 8.5 MG/DL (8.3-10.6); CREATININE FOR GFR 1.95 MG/DL (0.55-1.30); GLOMERULAR FILTRATION RATE 25.7 (>32); POTASSIUM SERUM 4.9 MMOL/L (3.5-5.1); TOTAL PROTEIN 5.9 G/DL (5.7-8.2)
== END ==
LOC: M PLALAB 10:41
PROVIDERS: ATTEND Family Medicine
DX: D50.9 Iron deficiency anemia, unspecified (principal); N18.32 Chronic kidney disease, stage 3b; I50.32 Chronic diastolic (congestive) heart failure

== ENCOUNTER → 2024-02-29 | Outpatient (REF) | payer MEDICARE, OTHER | LOC: M SFHCPLAZ 10:12 | PROVIDERS: ATTEND Family Medicine | DX: I50.32 Chronic diastolic (congestive) heart failure (principal); D50.9 Iron deficiency anemia, unspecified; N18.32 Chronic kidney disease, stage 3b; Z53.9 Procedure and treatment not carried out, unspecified reason ==

== ENCOUNTER → 2024-03-03 | Outpatient (CLI) | payer MEDICARE, OTHER | LOC: M PLAIMG 11:03 | PROVIDERS: ATTEND Family Medicine | DX: R05.1 Acute cough (principal) ==

== ENCOUNTER → 2024-03-14 | Outpatient (CLI) | payer MEDICARE, OTHER ==
[2024-03-14 09:49] LABS: BASO # 0.1 10^3/uL (0.0-0.2); BASO % 0.8 % (0.0-1.0); EOS # 0.1 10^3/uL (0.0-0.5); EOS % 2.3 % (0.0-3.0); HEMATOCRIT 30.5 % (36.0-47.0); HEMOGLOBIN 9.2 g/dl (12.0-15.5); LYMPH # 1.2 10^3/uL (1.5-5.0); MEAN CORPUSCULAR HGB CONC 30.2 g/dl (32.0-36.5); MEAN CORPUSCULAR VOLUME 99.3 fl (80.0-96.0); MONO # 0.7 10^3/uL (0.0-0.8); MONO % 11.1 % (2.0-8.0); NEUTROPHILS % 66.5 % (36.0-66.0); PLATELET COUNT, AUTOMATED 158 10^3/uL (150-450); RED BLOOD COUNT 3.07 10^6/uL (4.00-5.40); WHITE BLOOD COUNT 6.1 10^3/uL (4.0-10.0)
[2024-03-14 10:04] LABS: INR 1.95; PROTHROMBIN TIME 21.5 SECONDS (12.5-14.5)
[2024-03-14 10:28] LABS: FERRITIN 440.7 NG/ML (7.3-270.7)
[2024-03-14 10:29] LABS: ALBUMIN 3.4 G/DL (3.2-5.2); BILIRUBIN,TOTAL 0.3 MG/DL (0.3-1.2); CALCIUM LEVEL 9.7 MG/DL (8.3-10.6); CREATININE FOR GFR 2.74 MG/DL (0.55-1.30); GLOMERULAR FILTRATION RATE 17.4 (>32); POTASSIUM SERUM 4.7 MMOL/L (3.5-5.1); TOTAL PROTEIN 5.9 G/DL (5.7-8.2)
== END ==
LOC: M PLALAB 07:56
PROVIDERS: ATTEND Family Medicine
DX: I50.32 Chronic diastolic (congestive) heart failure (principal); D50.9 Iron deficiency anemia, unspecified; N18.32 Chronic kidney disease, stage 3b

== ENCOUNTER → 2024-04-07 | Outpatient (CLI) | payer MEDICARE, OTHER ==
[2024-04-07 10:07] LABS: BASO % 0.6 % (0.0-1.0); EOS # 0.1 10^3/uL (0.0-0.5); EOS % 2.4 % (0.0-3.0); HEMATOCRIT 32.1 % (36.0-47.0); HEMOGLOBIN 10.1 g/dl (12.0-15.5); LYMPH # 1.1 10^3/uL (1.5-5.0); MEAN CORPUSCULAR HEMOGLOBIN 30.8 pg (27.0-33.0); MEAN CORPUSCULAR HGB CONC 31.5 g/dl (32.0-36.5); MEAN CORPUSCULAR VOLUME 97.9 fl (80.0-96.0); MONO # 0.6 10^3/uL (0.0-0.8); MONO % 10.7 % (2.0-8.0); NEUTROPHILS # 3.5 10^3/uL (1.5-8.5); NEUTROPHILS % 65.1 % (36.0-66.0); PLATELET COUNT, AUTOMATED 126 10^3/uL (150-450); RED BLOOD COUNT 3.28 10^6/uL (4.00-5.40); WHITE BLOOD COUNT 5.4 10^3/uL (4.0-10.0)
[2024-04-07 10:27] LABS: INR 4.16; PROTHROMBIN TIME 38.6 SECONDS (12.5-14.5)
[2024-04-07 10:38] LABS: ALBUMIN 3.5 G/DL (3.2-5.2); BILIRUBIN,TOTAL 0.3 MG/DL (0.3-1.2); CALCIUM LEVEL 9.8 MG/DL (8.3-10.6); CREATININE FOR GFR 2.56 MG/DL (0.55-1.30); GLOMERULAR FILTRATION RATE 18.8 (>32); POTASSIUM SERUM 4.1 MMOL/L (3.5-5.1)
[2024-04-07 10:39] LABS: FERRITIN 242.3 NG/ML (7.3-270.7); THYROID STIMULATING HORMONE 9.263 uIU/ML (0.55-4.78)
[2024-04-07 10:40] LABS: FREE T4 1.16 NG/DL (0.89-1.76)
== END ==
LOC: M PLALAB 08:05
PROVIDERS: ATTEND Family Medicine
DX: I50.32 Chronic diastolic (congestive) heart failure (principal); N18.32 Chronic kidney disease, stage 3b; D50.9 Iron deficiency anemia, unspecified; J47.9 Bronchiectasis, uncomplicated

== ENCOUNTER → 2024-04-22 | Outpatient (CLI) | payer MEDICARE, OTHER ==
[2024-04-22 15:25] LABS: BASO % 0.6 % (0.0-1.0); EOS # 0.1 10^3/uL (0.0-0.5); EOS % 2.3 % (0.0-3.0); HEMATOCRIT 31.6 % (36.0-47.0); HEMOGLOBIN 9.9 g/dl (12.0-15.5); LYMPH # 1.4 10^3/uL (1.5-5.0); LYMPH % 26.3 % (24.0-44.0); MEAN CORPUSCULAR HEMOGLOBIN 30.3 pg (27.0-33.0); MEAN CORPUSCULAR HGB CONC 31.3 g/dl (32.0-36.5); MEAN CORPUSCULAR VOLUME 96.6 fl (80.0-96.0); MONO # 0.6 10^3/uL (0.0-0.8); MONO % 11.5 % (2.0-8.0); NEUTROPHILS % 59.3 % (36.0-66.0); PLATELET COUNT, AUTOMATED 148 10^3/uL (150-450); RED BLOOD COUNT 3.27 10^6/uL (4.00-5.40); WHITE BLOOD COUNT 5.1 10^3/uL (4.0-10.0)
[2024-04-22 15:29] LABS: ALBUMIN 3.5 G/DL (3.2-5.2); BILIRUBIN,TOTAL 0.3 MG/DL (0.3-1.2); CALCIUM LEVEL 9.1 MG/DL (8.3-10.6); CREATININE FOR GFR 2.52 MG/DL (0.55-1.30); GLOMERULAR FILTRATION RATE 19.1 (>32); TOTAL PROTEIN 5.8 G/DL (5.7-8.2)
[2024-04-22 15:33] LABS: THYROID STIMULATING HORMONE 4.697 uIU/ML (0.55-4.78); THYROXINE (T4) 6.9 UG/DL (4.5-10.9)
[2024-04-22 15:34] LABS: FERRITIN 168.7 NG/ML (7.3-270.7); FREE THYROXINE INDEX 2.9 % (1.3-4.8); T UPTAKE 42.3 % (22.5-37.0)
[2024-04-22 15:39] LABS: INR 2.15; PROTHROMBIN TIME 23.2 SECONDS (12.5-14.5)
== END ==
LOC: M PLALAB 13:03
PROVIDERS: ATTEND Family Medicine
DX: I50.32 Chronic diastolic (congestive) heart failure (principal); D50.9 Iron deficiency anemia, unspecified; N18.32 Chronic kidney disease, stage 3b; J47.9 Bronchiectasis, uncomplicated

== ENCOUNTER → 2024-05-17 | Outpatient (CLI) | payer MEDICARE, OTHER ==
[2024-05-17 10:10] LABS: BASO % 0.8 % (0.0-1.0); EOS # 0.1 10^3/uL (0.0-0.5); EOS % 2.2 % (0.0-3.0); HEMATOCRIT 34.3 % (36.0-47.0); HEMOGLOBIN 10.9 g/dl (12.0-15.5); LYMPH % 19.6 % (24.0-44.0); MEAN CORPUSCULAR HEMOGLOBIN 30.4 pg (27.0-33.0); MEAN CORPUSCULAR HGB CONC 31.8 g/dl (32.0-36.5); MEAN CORPUSCULAR VOLUME 95.8 fl (80.0-96.0); MONO # 0.6 10^3/uL (0.0-0.8); NEUTROPHILS # 3.3 10^3/uL (1.5-8.5); NEUTROPHILS % 66.2 % (36.0-66.0); PLATELET COUNT, AUTOMATED 147 10^3/uL (150-450); RED BLOOD COUNT 3.58 10^6/uL (4.00-5.40)
[2024-05-17 10:21] LABS: INR 1.3; PROTHROMBIN TIME 15.8 SECONDS (12.5-14.5)
[2024-05-17 10:37] LABS: FERRITIN 136.3 NG/ML (7.3-270.7)
[2024-05-17 10:38] LABS: ALBUMIN 3.5 G/DL (3.2-5.2); BILIRUBIN,TOTAL 0.3 MG/DL (0.3-1.2); CALCIUM LEVEL 10.4 MG/DL (8.3-10.6); CREATININE FOR GFR 2.48 MG/DL (0.55-1.30); GLOMERULAR FILTRATION RATE 19.5 (>32); POTASSIUM SERUM 4.6 MMOL/L (3.5-5.1)
== END ==
LOC: M PLALAB 07:42
PROVIDERS: ATTEND Family Medicine
DX: I50.32 Chronic diastolic (congestive) heart failure (principal); D50.9 Iron deficiency anemia, unspecified; N18.32 Chronic kidney disease, stage 3b

== ENCOUNTER → 2024-05-19 | Outpatient (REF) | payer MEDICARE, OTHER | LOC: M SFHCPLAZ 08:14 | PROVIDERS: ATTEND Family Medicine | DX: Z53.9 Procedure and treatment not carried out, unspecified reason (principal) ==

== ENCOUNTER → 2024-05-31 | Outpatient (CLI) | payer MEDICARE, OTHER ==
[2024-05-31 10:11] LABS: BASO % 0.6 % (0.0-1.0); EOS # 0.1 10^3/uL (0.0-0.5); EOS % 2.4 % (0.0-3.0); HEMATOCRIT 32.3 % (36.0-47.0); HEMOGLOBIN 10.2 g/dl (12.0-15.5); LYMPH # 1.2 10^3/uL (1.5-5.0); LYMPH % 25.2 % (24.0-44.0); MEAN CORPUSCULAR HEMOGLOBIN 29.9 pg (27.0-33.0); MEAN CORPUSCULAR HGB CONC 31.6 g/dl (32.0-36.5); MEAN CORPUSCULAR VOLUME 94.7 fl (80.0-96.0); MONO # 0.4 10^3/uL (0.0-0.8); MONO % 9.4 % (2.0-8.0); NEUTROPHILS # 2.9 10^3/uL (1.5-8.5); NEUTROPHILS % 62.2 % (36.0-66.0); PLATELET COUNT, AUTOMATED 133 10^3/uL (150-450); RED BLOOD COUNT 3.41 10^6/uL (4.00-5.40); WHITE BLOOD COUNT 4.7 10^3/uL (4.0-10.0)
[2024-05-31 10:27] LABS: INR 2.51; PROTHROMBIN TIME 26.2 SECONDS (12.5-14.5)
[2024-05-31 10:46] LABS: ALBUMIN 3.4 G/DL (3.2-5.2); BILIRUBIN,TOTAL 0.3 MG/DL (0.3-1.2); CALCIUM LEVEL 8.6 MG/DL (8.3-10.6); CREATININE FOR GFR 2.07 MG/DL (0.55-1.30); POTASSIUM SERUM 4.9 MMOL/L (3.5-5.1); PTH INTACT 111.4 PG/ML (18.5-88.0); TOTAL PROTEIN 5.9 G/DL (5.7-8.2)
[2024-05-31 10:47] LABS: FERRITIN 179.8 NG/ML (7.3-270.7); THYROID STIMULATING HORMONE 4.942 uIU/ML (0.55-4.78)
[2024-05-31 10:48] LABS: FREE T4 1.04 NG/DL (0.89-1.76)
== END ==
LOC: M PLALAB 08:35
PROVIDERS: ATTEND Family Medicine
DX: I50.32 Chronic diastolic (congestive) heart failure (principal); D50.9 Iron deficiency anemia, unspecified; N18.32 Chronic kidney disease, stage 3b; E55.9 Vitamin D deficiency, unspecified; E03.9 Hypothyroidism, unspecified

== ENCOUNTER → 2024-06-21 | Outpatient (CLI) | payer MEDICARE, OTHER ==
[2024-06-21 12:53] LABS: BASO % 0.7 % (0.0-1.0); EOS # 0.1 10^3/uL (0.0-0.5); EOS % 2.7 % (0.0-3.0); HEMATOCRIT 33.5 % (36.0-47.0); HEMOGLOBIN 10.5 g/dl (12.0-15.5); LYMPH # 0.9 10^3/uL (1.5-5.0); LYMPH % 20.3 % (24.0-44.0); MEAN CORPUSCULAR HEMOGLOBIN 29.2 pg (27.0-33.0); MEAN CORPUSCULAR HGB CONC 31.3 g/dl (32.0-36.5); MEAN CORPUSCULAR VOLUME 93.1 fl (80.0-96.0); MONO # 0.5 10^3/uL (0.0-0.8); MONO % 10.7 % (2.0-8.0); NEUTROPHILS # 2.9 10^3/uL (1.5-8.5); NEUTROPHILS % 65.4 % (36.0-66.0); PLATELET COUNT, AUTOMATED 141 10^3/uL (150-450); WHITE BLOOD COUNT 4.5 10^3/uL (4.0-10.0)
[2024-06-21 13:01] LABS: INR 2.34; PROTHROMBIN TIME 24.8 SECONDS (12.5-14.5)
[2024-06-21 13:25] LABS: ALBUMIN 3.5 G/DL (3.2-5.2); BILIRUBIN,TOTAL 0.3 MG/DL (0.3-1.2); CALCIUM LEVEL 9.4 MG/DL (8.3-10.6); CREATININE FOR GFR 2.12 MG/DL (0.55-1.30); GLOMERULAR FILTRATION RATE 23.4 (>32); POTASSIUM SERUM 4.4 MMOL/L (3.5-5.1); PTH INTACT 50.2 PG/ML (18.5-88.0); TOTAL PROTEIN 6.1 G/DL (5.7-8.2)
[2024-06-21 13:26] LABS: FREE T4 1.11 NG/DL (0.89-1.76); THYROID STIMULATING HORMONE 7.118 uIU/ML (0.55-4.78)
[2024-06-21 13:48] LABS: FERRITIN 147.2 NG/ML (7.3-270.7)
== END ==
LOC: M PLALAB 09:26
PROVIDERS: ATTEND Family Medicine
DX: I50.32 Chronic diastolic (congestive) heart failure (principal); D50.9 Iron deficiency anemia, unspecified; N18.32 Chronic kidney disease, stage 3b; E03.9 Hypothyroidism, unspecified; E55.9 Vitamin D deficiency, unspecified

== ENCOUNTER → 2024-06-21 | Outpatient (REF) | payer MEDICARE, OTHER | LOC: M SFHCPLAZ 16:50 | PROVIDERS: ATTEND Family Medicine | DX: I50.32 Chronic diastolic (congestive) heart failure (principal); D50.9 Iron deficiency anemia, unspecified; N18.32 Chronic kidney disease, stage 3b; E03.9 Hypothyroidism, unspecified; E55.9 Vitamin D deficiency, unspecified ==

== ENCOUNTER → 2024-07-27 | Outpatient (CLI) | payer MEDICARE, OTHER ==
[2024-07-27 09:53] LABS: BASO % 0.8 % (0.0-1.0); EOS # 0.1 10^3/uL (0.0-0.5); EOS % 1.9 % (0.0-3.0); HEMATOCRIT 28.6 % (36.0-47.0); HEMOGLOBIN 8.9 g/dl (12.0-15.5); LYMPH # 0.7 10^3/uL (1.5-5.0); LYMPH % 15.4 % (24.0-44.0); MEAN CORPUSCULAR HEMOGLOBIN 29.7 pg (27.0-33.0); MEAN CORPUSCULAR HGB CONC 31.1 g/dl (32.0-36.5); MEAN CORPUSCULAR VOLUME 95.3 fl (80.0-96.0); MONO # 0.5 10^3/uL (0.0-0.8); MONO % 9.5 % (2.0-8.0); NEUTROPHILS # 3.4 10^3/uL (1.5-8.5); NEUTROPHILS % 72.2 % (36.0-66.0); PLATELET COUNT, AUTOMATED 178 10^3/uL (150-450); WHITE BLOOD COUNT 4.7 10^3/uL (4.0-10.0)
[2024-07-27 10:02] LABS: ALBUMIN 3.2 G/DL (3.2-5.2); BILIRUBIN,TOTAL 0.3 MG/DL (0.3-1.2); CREATININE FOR GFR 2.03 MG/DL (0.55-1.30); GLOMERULAR FILTRATION RATE 24.5 (>32); POTASSIUM SERUM 4.3 MMOL/L (3.5-5.1); PTH INTACT 58.3 PG/ML (18.5-88.0)
[2024-07-27 10:03] LABS: FREE T4 1.05 NG/DL (0.89-1.76); THYROID STIMULATING HORMONE 8.511 uIU/ML (0.55-4.78)
[2024-07-27 10:04] LABS: FERRITIN 181.5 NG/ML (7.3-270.7)
[2024-07-27 10:08] LABS: INR 1.86; PROTHROMBIN TIME 20.8 SECONDS (12.5-14.5)
== END ==
LOC: M PLALAB 07:49
PROVIDERS: ATTEND Family Medicine
DX: I50.32 Chronic diastolic (congestive) heart failure (principal); D50.9 Iron deficiency anemia, unspecified; N18.32 Chronic kidney disease, stage 3b; E03.9 Hypothyroidism, unspecified; E55.9 Vitamin D deficiency, unspecified

== ENCOUNTER → 2024-08-08 | Outpatient (CLI) | payer MEDICARE, OTHER ==
[2024-08-08 08:37] LABS: BASO % 0.7 % (0.0-1.0); EOS # 0.1 10^3/uL (0.0-0.5); EOS % 3.4 % (0.0-3.0); HEMATOCRIT 28.1 % (36.0-47.0); HEMOGLOBIN 8.8 g/dl (12.0-15.5); LYMPH # 0.8 10^3/uL (1.5-5.0); LYMPH % 19.3 % (24.0-44.0); MEAN CORPUSCULAR HEMOGLOBIN 29.6 pg (27.0-33.0); MEAN CORPUSCULAR HGB CONC 31.3 g/dl (32.0-36.5); MEAN CORPUSCULAR VOLUME 94.6 fl (80.0-96.0); MONO # 0.5 10^3/uL (0.0-0.8); MONO % 11.5 % (2.0-8.0); NEUTROPHILS # 2.7 10^3/uL (1.5-8.5); NEUTROPHILS % 64.9 % (36.0-66.0); PLATELET COUNT, AUTOMATED 130 10^3/uL (150-450); RED BLOOD COUNT 2.97 10^6/uL (4.00-5.40); WHITE BLOOD COUNT 4.1 10^3/uL (4.0-10.0)
[2024-08-08 08:53] LABS: INR 1.7; PROTHROMBIN TIME 19.4 SECONDS (12.5-14.5)
[2024-08-08 09:17] LABS: ALBUMIN 3.1 G/DL (3.2-5.2); BILIRUBIN,TOTAL 0.3 MG/DL (0.3-1.2); CALCIUM LEVEL 8.9 MG/DL (8.3-10.6); CREATININE FOR GFR 2.06 MG/DL (0.55-1.30); GLOMERULAR FILTRATION RATE 24.1 (>32); POTASSIUM SERUM 5.1 MMOL/L (3.5-5.1); TOTAL PROTEIN 5.8 G/DL (5.7-8.2)
[2024-08-08 09:18] LABS: PTH INTACT 63.9 PG/ML (18.5-88.0)
[2024-08-08 09:19] LABS: FERRITIN 135.4 NG/ML (7.3-270.7); THYROID STIMULATING HORMONE 6.852 uIU/ML (0.55-4.78)
[2024-08-08 09:20] LABS: FREE T4 1.04 NG/DL (0.89-1.76)
== END ==
LOC: M LAB 07:48
PROVIDERS: ATTEND Family Medicine
DX: D50.9 Iron deficiency anemia, unspecified (principal); I50.32 Chronic diastolic (congestive) heart failure; N18.32 Chronic kidney disease, stage 3b; E03.9 Hypothyroidism, unspecified; E55.9 Vitamin D deficiency, unspecified

== ENCOUNTER 2024-08-09 10:27 | Outpatient (CLI) | payer MEDICARE, OTHER ==
[~2024-08-09] VITALS: Ht 152.4 cm; Wt 68.1 kg
[2024-08-09 12:50] VITALS: BP 160/70; TEMP 97.7; O2SAT 100
[2024-08-09 13:50] VITALS: BP 135/63; TEMP 97.9; O2SAT 99
[2024-08-09 15:13] VITALS: BP 142/63; TEMP 98.6; O2SAT 98
[2024-08-09] MEDS: FUROSEMIDE 40MG/4ML VIAL IV ONE (15:41)
[2024-08-09 16:00] VITALS: BP 130/62; TEMP 98.8; O2SAT 98
== END 2024-08-09 16:05 ==
LOC: M INFU 10:27
PROVIDERS: ATTEND Family Medicine
DX: D50.0 Iron deficiency anemia secondary to blood loss (chronic) (principal); Z88.2 Allergy status to sulfonamides
CPT/HCPCS: 36430; 86850; 86900; 86901; 86920; 96374; J1940; P9016

== ENCOUNTER → 2024-08-19 | Outpatient (CLI) | payer MEDICARE, OTHER ==
[2024-08-19 10:03] LABS: BASO % 0.5 % (0.0-1.0); EOS # 0.1 10^3/uL (0.0-0.5); EOS % 2.2 % (0.0-3.0); HEMATOCRIT 33.5 % (36.0-47.0); HEMOGLOBIN 10.2 g/dl (12.0-15.5); LYMPH # 0.7 10^3/uL (1.5-5.0); LYMPH % 17.3 % (24.0-44.0); MEAN CORPUSCULAR HEMOGLOBIN 30.2 pg (27.0-33.0); MEAN CORPUSCULAR HGB CONC 30.4 g/dl (32.0-36.5); MEAN CORPUSCULAR VOLUME 99.1 fl (80.0-96.0); MONO # 0.5 10^3/uL (0.0-0.8); NEUTROPHILS # 2.8 10^3/uL (1.5-8.5); NEUTROPHILS % 67.8 % (36.0-66.0); PLATELET COUNT, AUTOMATED 100 10^3/uL (150-450); RED BLOOD COUNT 3.38 10^6/uL (4.00-5.40); WHITE BLOOD COUNT 4.2 10^3/uL (4.0-10.0)
[2024-08-19 10:14] LABS: INR 2.13; PROTHROMBIN TIME 23.1 SECONDS (12.5-14.5)
[2024-08-19 10:43] LABS: ALBUMIN 3.2 G/DL (3.2-5.2); BILIRUBIN,TOTAL 0.3 MG/DL (0.3-1.2); CALCIUM LEVEL 8.4 MG/DL (8.3-10.6); CREATININE FOR GFR 1.8 MG/DL (0.55-1.30); GLOMERULAR FILTRATION RATE 28.2 (>32); PERCENT SATURATION 31.5 % (13.2-45.0); POTASSIUM SERUM 5.6 MMOL/L (3.5-5.1); TOTAL PROTEIN 6.1 G/DL (5.7-8.2)
== END ==
LOC: M PLALAB 07:49
PROVIDERS: ATTEND Family Medicine
DX: D50.9 Iron deficiency anemia, unspecified (principal); I50.32 Chronic diastolic (congestive) heart failure

== ENCOUNTER → 2024-08-25 | Outpatient (CLI) | payer MEDICARE, OTHER ==
[2024-08-25 09:50] LABS: BASO % 0.7 % (0.0-1.0); EOS # 0.1 10^3/uL (0.0-0.5); EOS % 1.7 % (0.0-3.0); HEMATOCRIT 29.1 % (36.0-47.0); LYMPH # 0.7 10^3/uL (1.5-5.0); LYMPH % 17.3 % (24.0-44.0); MEAN CORPUSCULAR HEMOGLOBIN 30.2 pg (27.0-33.0); MEAN CORPUSCULAR HGB CONC 30.9 g/dl (32.0-36.5); MEAN CORPUSCULAR VOLUME 97.7 fl (80.0-96.0); MONO # 0.5 10^3/uL (0.0-0.8); MONO % 12.3 % (2.0-8.0); NEUTROPHILS # 2.9 10^3/uL (1.5-8.5); NEUTROPHILS % 67.8 % (36.0-66.0); PLATELET COUNT, AUTOMATED 105 10^3/uL (150-450); RED BLOOD COUNT 2.98 10^6/uL (4.00-5.40); WHITE BLOOD COUNT 4.2 10^3/uL (4.0-10.0)
[2024-08-25 10:02] LABS: ALBUMIN 3.2 G/DL (3.2-5.2); BILIRUBIN,TOTAL 0.3 MG/DL (0.3-1.2); CALCIUM LEVEL 9.3 MG/DL (8.3-10.6); POTASSIUM SERUM 5.1 MMOL/L (3.5-5.1)
[2024-08-25 10:03] LABS: FERRITIN 138.6 NG/ML (7.3-270.7); INR 1.89; PROTHROMBIN TIME 21.1 SECONDS (12.5-14.5); THYROID STIMULATING HORMONE 8.69 uIU/ML (0.55-4.78)
[2024-08-25 10:04] LABS: FREE T4 1.13 NG/DL (0.89-1.76)
[2024-08-25 10:06] LABS: PTH INTACT 103.4 PG/ML (18.5-88.0)
== END ==
LOC: M PLALAB 07:58
PROVIDERS: ATTEND Family Medicine
DX: I50.32 Chronic diastolic (congestive) heart failure (principal); D50.9 Iron deficiency anemia, unspecified; N18.32 Chronic kidney disease, stage 3b; E03.9 Hypothyroidism, unspecified; E55.9 Vitamin D deficiency, unspecified

== ENCOUNTER → 2024-09-08 | Outpatient (CLI) | payer MEDICARE, OTHER ==
[2024-09-08 10:15] LABS: BASO % 0.8 % (0.0-1.0); EOS # 0.1 10^3/uL (0.0-0.5); EOS % 2.1 % (0.0-3.0); HEMATOCRIT 29.2 % (36.0-47.0); LYMPH # 0.8 10^3/uL (1.5-5.0); LYMPH % 21.3 % (24.0-44.0); MEAN CORPUSCULAR HGB CONC 30.8 g/dl (32.0-36.5); MEAN CORPUSCULAR VOLUME 97.3 fl (80.0-96.0); MONO # 0.5 10^3/uL (0.0-0.8); MONO % 11.8 % (2.0-8.0); NEUTROPHILS # 2.5 10^3/uL (1.5-8.5); NEUTROPHILS % 63.7 % (36.0-66.0); PLATELET COUNT, AUTOMATED 106 10^3/uL (150-450); WHITE BLOOD COUNT 3.9 10^3/uL (4.0-10.0)
[2024-09-08 10:18] LABS: ALBUMIN 3.2 G/DL (3.2-5.2); BILIRUBIN,TOTAL 0.2 MG/DL (0.3-1.2); CREATININE FOR GFR 2.32 MG/DL (0.55-1.30); POTASSIUM SERUM 5.2 MMOL/L (3.5-5.1); TOTAL PROTEIN 5.9 G/DL (5.7-8.2)
[2024-09-08 10:20] LABS: FERRITIN 125.3 NG/ML (7.3-270.7)
[2024-09-08 10:22] LABS: PTH INTACT 176.7 PG/ML (18.5-88.0)
[2024-09-08 10:28] LABS: INR 1.9
== END ==
LOC: M PLALAB 07:33
PROVIDERS: ATTEND Family Medicine
DX: I50.32 Chronic diastolic (congestive) heart failure (principal); D50.9 Iron deficiency anemia, unspecified; N18.32 Chronic kidney disease, stage 3b; E55.9 Vitamin D deficiency, unspecified

== ENCOUNTER → 2024-10-04 | Outpatient (CLI) | payer MEDICARE, OTHER ==
[2024-10-04 12:57] LABS: BASO % 0.5 % (0.0-1.0); EOS # 0.1 10^3/uL (0.0-0.5); EOS % 1.7 % (0.0-3.0); HEMATOCRIT 28.9 % (36.0-47.0); HEMOGLOBIN 9.1 g/dl (12.0-15.5); LYMPH % 24.5 % (24.0-44.0); MEAN CORPUSCULAR HGB CONC 31.5 g/dl (32.0-36.5); MEAN CORPUSCULAR VOLUME 95.4 fl (80.0-96.0); MONO # 0.5 10^3/uL (0.0-0.8); MONO % 11.8 % (2.0-8.0); NEUTROPHILS # 2.5 10^3/uL (1.5-8.5); NEUTROPHILS % 61.3 % (36.0-66.0); PLATELET COUNT, AUTOMATED 139 10^3/uL (150-450); RED BLOOD COUNT 3.03 10^6/uL (4.00-5.40); WHITE BLOOD COUNT 4.1 10^3/uL (4.0-10.0)
[2024-10-04 13:12] LABS: INR 1.88; PROTHROMBIN TIME 21.8 SECONDS (12.5-14.5)
[2024-10-04 13:20] LABS: ALBUMIN 3.5 G/DL (3.2-5.2); BILIRUBIN,TOTAL 0.3 MG/DL (0.3-1.2); CALCIUM LEVEL 9.4 MG/DL (8.3-10.6); CREATININE FOR GFR 2.44 MG/DL (0.55-1.30); GLOMERULAR FILTRATION RATE 19.9 (>32); PERCENT SATURATION 30.2 % (13.2-45.0); POTASSIUM SERUM 4.9 MMOL/L (3.5-5.1); TOTAL PROTEIN 6.2 G/DL (5.7-8.2)
[2024-10-04 13:24] LABS: PTH INTACT 120.6 PG/ML (18.5-88.0)
[2024-10-04 13:28] LABS: FERRITIN 86.1 NG/ML (7.3-270.7)
== END ==
LOC: M PLALAB 11:08
PROVIDERS: ATTEND Family Medicine
DX: I50.32 Chronic diastolic (congestive) heart failure (principal); D50.9 Iron deficiency anemia, unspecified; N18.32 Chronic kidney disease, stage 3b; E55.9 Vitamin D deficiency, unspecified

== ENCOUNTER 2024-10-18 14:24 | Outpatient (CLI) | payer MEDICARE, OTHER ==
[~2024-10-18] VITALS: Ht 157.5 cm; Wt 52.2 kg
[~2024-10-18 14:24] MED LIST changes: +ALBUTEROL SULFATE 2.5MG/0.5ML INH NEB SOLN INH PRN; +EPINEPHrine INJ 1 MG/ML 1ML AMP IM PRN; -LEVA1.2519 INH; +LEVA1.2526 INH; +diphenhydrAMINE 50MG/ML VIAL IV PRN; +methylPREDNISolone 125MG 2ML VIAL IV PRN
[2024-10-18 14:50] VITALS: BP 158/70; O2SAT 95
[2024-10-18] MEDS: FERRIC CARBOXYMALTOSE 750 MG (VIAL MATE) IN 100ML NS IV ONE (14:57)
[2024-10-18 15:20] VITALS: BP 150/90; O2SAT 95
== END 2024-10-18 15:20 ==
LOC: M INFU 14:24
PROVIDERS: ATTEND Family Medicine
DX: D50.9 Iron deficiency anemia, unspecified (principal); Z88.2 Allergy status to sulfonamides
CPT/HCPCS: 96365; J1439

== ENCOUNTER → 2024-11-09 | Outpatient (CLI) | payer MEDICARE, OTHER ==
[~2024-11-09] MED LIST changes: -ALBUTEROL SULFATE 2.5MG/0.5ML INH NEB SOLN INH PRN; -EPINEPHrine INJ 1 MG/ML 1ML AMP IM PRN; -diphenhydrAMINE 50MG/ML VIAL IV PRN; -methylPREDNISolone 125MG 2ML VIAL IV PRN
[2024-11-09 10:10] LABS: INR 2.17; PROTHROMBIN TIME 24.3 SECONDS (12.5-14.5)
[2024-11-09 10:32] LABS: BASO % 0.5 % (0.0-1.0); EOS # 0.1 10^3/uL (0.0-0.5); EOS % 1.2 % (0.0-3.0); HEMATOCRIT 35.2 % (36.0-47.0); HEMOGLOBIN 11.2 g/dl (12.0-15.5); LYMPH # 0.9 10^3/uL (1.5-5.0); LYMPH % 14.7 % (24.0-44.0); MEAN CORPUSCULAR HEMOGLOBIN 30.6 pg (27.0-33.0); MEAN CORPUSCULAR HGB CONC 31.8 g/dl (32.0-36.5); MEAN CORPUSCULAR VOLUME 96.2 fl (80.0-96.0); MONO # 0.6 10^3/uL (0.0-0.8); MONO % 10.5 % (2.0-8.0); NEUTROPHILS # 4.4 10^3/uL (1.5-8.5); NEUTROPHILS % 72.9 % (36.0-66.0); PLATELET COUNT, AUTOMATED 109 10^3/uL (150-450); RED BLOOD COUNT 3.66 10^6/uL (4.00-5.40); WHITE BLOOD COUNT 6.1 10^3/uL (4.0-10.0)
[2024-11-09 10:47] LABS: PERCENT SATURATION 25.2 % (13.2-45.0)
[2024-11-09 10:49] LABS: FERRITIN 257.2 NG/ML (7.3-270.7)
[2024-11-09 10:55] LABS: ALBUMIN 3.8 G/DL (3.2-5.2); BILIRUBIN,TOTAL 0.3 MG/DL (0.3-1.2); CALCIUM LEVEL 8.3 MG/DL (8.3-10.6); CREATININE FOR GFR 2.54 MG/DL (0.55-1.30); TOTAL PROTEIN 6.3 G/DL (5.7-8.2)
== END ==
LOC: M PLALAB 08:31
PROVIDERS: ATTEND Family Medicine
DX: I50.32 Chronic diastolic (congestive) heart failure (principal); N18.32 Chronic kidney disease, stage 3b; D50.9 Iron deficiency anemia, unspecified; E55.9 Vitamin D deficiency, unspecified